=== PATIENT | male | born 1935 | race Caucasian/White ===

== ENCOUNTER 2019-12-07 02:18 | Inpatient (IN) | payer MEDICARE, BC ==
[2019-12-07] MEDS ORDERED: IBUPROFEN 600 MG TAB PO STA (03:02)
[2019-12-07 03:09] LABS: Basophils % (A) 0 %; Eosinophils # (A) 0.1 k/uL (0-0.7); Eosinophils % (A) 1 %; HCT 37.4 % (39.0-53.0); HGB 12.2 gm/dL (13.0-17.5); Lymphocytes # (A) 0.4 k/uL (1.0-4.8); Lymphocytes % (A) 5 %; MCH 31.1 pg (25.0-35.0); MCHC 32.7 g/dL (31.0-37.0); MCV 94.9 fL (80.0-100.0); Mean Platelet Volume 8.6; Monocytes # (A) 0.7 k/uL (0-1.0); Monocytes % (A) 8 %; Neutrophils # (A) 7.4 k/uL (1.3-7.7); Neutrophils % (A) 85 %; Platelet Count 172 k/uL (150-450); RBC 3.94 m/uL (4.30-5.90); RDW 13.9 % (11.5-15.5); WBC 8.7 k/uL (3.8-10.6)
[2019-12-07 03:19] LABS: INR 1.3 (<1.2); Partial Thromboplastin Time 29.2 sec (22.0-30.0); Prothrombin Time 12.6 sec (9.0-12.0)
--- NOTE | 2019-12-07 03:30 | XR ---
EXAMINATION TYPE: XR chest 2V DATE OF EXAM: 12/07/2019 COMPARISON: NONE HISTORY: Weakness TECHNIQUE: 2 views FINDINGS: Heart is moderately enlarged. There is no heart failure. Costophrenic angles are clear. The re are no hilar masses. There are chest leads. IMPRESSION: Moderately severe cardiomegaly. Pericardial effusion should be considered. No heart failu re seen.
[2019-12-07 03:34] LABS: ALT 24 U/L (4-49); AST 42 U/L (17-59); African American GFR (CKD) >90 (>60 ml/min/1.73 sqM); Albumin 3.2 g/dL (3.5-5.0); Alkaline Phosphatase 87 U/L (38-126); Anion Gap 9 mmol/L; Blood Urea Nitrogen 29 mg/dL (9-20); Calcium 8.7 mg/dL (8.4-10.2); Carbon Dioxide 24 mmol/L (22-30); Chloride 98 mmol/L (98-107); Glucose 136 mg/dL (74-99); Non-African American GFR(CKD) 84 (>60 ml/min/1.73 sqM); Potassium 4.2 mmol/L (3.5-5.1); Sodium 131 mmol/L (137-145); Total Bilirubin 1.5 mg/dL (0.2-1.3); Total Protein 6.8 g/dL (6.3-8.2)
[2019-12-07] MEDS ORDERED: ENOXAPARIN 120 MG/0.8 ML SYRINGE SQ STA (05:48)
--- NOTE | 2019-12-07 05:58 | ED ---
Weakness HPI - General Chief complaint: Weakness Stated complaint: weakness Time Seen by Provider: 12/07/19 03:46 Source: EMS Mode of arrival: EMS Limitations: altered mental status - History of Present Illness Initial comments: This patient is an 84-year-old man presenting to have evaluation for generalized weakness and fatigue. The patient normally ambulates at home with the assistance of 2 canes. Patient tried to get up from bed today and then slid down to the floor and was not able to get back up due to both of his legs being weak. Patient denies focal weakness consistent with stroke but states that he is just having generalized fatigue and bilateral leg weakness. Patient is denying other complaints. Patient's son is with him and states that they may need to consider having in-home care or placement. MD Complaint: generalized weakness, lack of energy, difficulty walking -: days(s) Location: LLE, RLE Consistency: constant Improves with: rest Worsens with: exertion - Related Data Allergies Allergy/AdvReac Type Severity Reaction Status Date / Time No Known Allergies Allergy Verified 12/07/19 02:29 Review of Systems ROS Statement: Those systems with pertinent positive or pertinent negative responses have been documented in the HPI. ROS Other: All systems not noted in ROS Statement are negative. Constitutional: Reports: chills, weakness Respiratory: Denies: cough, dyspnea Cardiovascular: Reports: edema. Denies: chest pain, palpitations, orthopnea, syncope Gastrointestinal: Denies: abdominal pain, vomiting, diarrhea Genitourinary: Denies: dysuria Musculoskeletal: Denies: back pain Skin: Denies: rash Neurological: Denies: headache, weakness, numbness Past Medical History Past Medical History: Atrial Fibrillation, Hyperlipidemia, Hypertension History of Any Multi-Drug Resistant Organisms: None Reported Past Surgical History: No Surgical Hx Reported Past Psychological History: No Psychological Hx Reported Smoking Status: Never smoker Past Alcohol Use History: None Reported Past Drug Use History: None Reported General Exam Limitations: no limitations General appearance: alert, in no apparent distress Head exam: Present: atraumatic, normocephalic Eye exam: Present: normal appearance. Absent: scleral icterus, conjunctival injection ENT exam: Present: mucous membranes dry Neck exam: Present: normal inspection. Absent: meningismus Respiratory exam: Present: normal lung sounds bilaterally. Absent: respiratory distress, wheezes, rales, rhonchi, stridor Cardiovascular Exam: Present: regular rate, normal rhythm, normal heart sounds. Absent: systolic murmur, diastolic murmur, rubs, gallop GI/Abdominal exam: Present: soft. Absent: distended, tenderness, guarding, rebound Extremities exam: Present: normal capillary refill, pedal edema, other (The patient does appear to have bilateral leg cellulitis between the ankles and mid tibial areas. There are also some chronic venous stasis changes.) Neurological exam: Present: alert Skin exam: Present: warm, dry, intact, erythema (Bilateral lower extremities). Absent: rash Course Vital Signs 12/07/19 12/07/19 12/07/19 02:25 02:30 03:00 Temperature 101.2 F H Pulse Rate 92 93 89 Respiratory 20 21 24 Rate Blood Pressure 117/63 117/63 117/64 O2 Sat by Pulse 97 97 98 Oximetry 12/07/19 12/07/19 03:30 04:00 Temperature Pulse Rate 85 94 Respiratory 20 22 Rate Blood Pressure 133/67 116/70 O2 Sat by Pulse 99 98 Oximetry - Reevaluation(s) Reevaluation #1: 12/07/19 06:00 This patient is given the sepsis bolus based on the ideal body weight. The bolus is 1700 mL as well as additional fluid at 1:30 mL per hour. EKG Findings - EKG Results: EKG: normal axis, normal QRS EKG shows: atrial fibrillation (Rate 96 bpm) - Blocks, [place], Hypertrophy, ST Abn: Repolarization changes or abnormalities: nonspecific abnormality, ST segment, and/or T wave Medical Decision Making - Medical Decision Making Patient is an 84-year-old man here for generalized weakness and fatigue getting worse over the past 2-3 days. Patient is found to have a fever here but was unaware of this at home. The exam does appear to show bilateral lower extremity cellulitis. In addition the workup reveals elevated troponin I. - Lab Data Result diagrams: 12/07/19 02:59 12/07/19 02:59 Lab Results 12/07/19 12/07/19 12/07/19 Range/Units 02:59 02:59 02:59 WBC 8.7 (3.8-10.6) k/uL RBC 3.94 L (4.30-5.90) m/uL Hgb 12.2 L (13.0-17.5) gm/dL Hct 37.4 L (39.0-53.0) % MCV 94.9 (80.0-100.0) fL MCH 31.1 (25.0-35.0) pg MCHC 32.7 (31.0-37.0) g/dL RDW 13.9 (11.5-15.5) % Plt Count 172 (150-450) k/uL Neutrophils % 85 % Lymphocytes % 5 % Monocytes % 8 % Eosinophils % 1 % Basophils % 0 % Neutrophils # 7.4 (1.3-7.7) k/uL Lymphocytes # 0.4 L (1.0-4.8) k/uL Monocytes # 0.7 (0-1.0) k/uL Eosinophils # 0.1 (0-0.7) k/uL Basophils # 0.0 (0-0.2) k/uL PT 12.6 H (9.0-12.0) sec INR 1.3 H (<1.2) APTT 29.2 (22.0-30.0) sec Sodium 131 L (137-145) mmol/L Potassium 4.2 (3.5-5.1) mmol/L Chloride 98 (98-107) mmol/L Carbon Dioxide 24 (22-30) mmol/L Anion Gap 9 mmol/L BUN 29 H (9-20) mg/dL Creatinine 0.75 (0.66-1.25) mg/dL Est GFR (CKD-EPI)AfAm >90 (>60 ml/min/1.73 sqM) Est GFR (CKD-EPI)NonAf 84 (>60 ml/min/1.73 sqM) Glucose 136 H (74-99) mg/dL Plasma Lactic Acid Nick (0.7-2.0) mmol/L Calcium 8.7 (8.4-10.2) mg/dL Total Bilirubin 1.5 H (0.2-1.3) mg/dL AST 42 (17-59) U/L ALT 24 (4-49) U/L Alkaline Phosphatase 87 (38-126) U/L Troponin I (0.000-0.034) ng/mL Total Protein 6.8 (6.3-8.2) g/dL Albumin 3.2 L (3.5-5.0) g/dL 12/07/19 12/07/19 Range/Units 02:59 02:59 WBC (3.8-10.6) k/uL RBC (4.30-5.90) m/uL Hgb (13.0-17.5) gm/dL Hct (39.0-53.0) % MCV (80.0-100.0) fL MCH (25.0-35.0) pg MCHC (31.0-37.0) g/dL RDW (11.5-15.5) % Plt Count (150-450) k/uL Neutrophils % % Lymphocytes % % Monocytes % % Eosinophils % % Basophils % % Neutrophils # (1.3-7.7) k/uL Lymphocytes # (1.0-4.8) k/uL Monocytes # (0-1.0) k/uL Eosinophils # (0-0.7) k/uL Basophils # (0-0.2) k/uL PT (9.0-12.0) sec INR (<1.2) APTT (22.0-30.0) sec Sodium (137-145) mmol/L Potassium (3.5-5.1) mmol/L Chloride (98-107) mmol/L Carbon Dioxide (22-30) mmol/L Anion Gap mmol/L BUN (9-20) mg/dL Creatinine (0.66-1.25) mg/dL Est GFR (CKD-EPI)AfAm (>60 ml/min/1.73 sqM) Est GFR (CKD-EPI)NonAf (>60 ml/min/1.73 sqM) Glucose (74-99) mg/dL Plasma Lactic Acid Nick 1.4 (0.7-2.0) mmol/L Calcium (8.4-10.2) mg/dL Total Bilirubin (0.2-1.3) mg/dL AST (17-59) U/L ALT (4-49) U/L Alkaline Phosphatase (38-126) U/L Troponin I 0.377 H* (0.000-0.034) ng/mL Total Protein (6.3-8.2) g/dL Albumin (3.5-5.0) g/dL Disposition Clinical Impression: Cellulitis, Sepsis, Elevated troponin I level Disposition: ADMITTED IP TO THIS HOSP Condition: Poor
[2019-12-07] MEDS ORDERED: SODIUM CHLORIDE 0.9% 1,700 ML IV ONE (05:59)
[2019-12-07] MEDS ORDERED: SODIUM CHLORIDE 0.9% 1,000 ML IV STA (05:59)
[2019-12-07 06:45] LABS: Bacteria,Urine Moderate /hpf; Mucus,Urine Rare /hpf; RBC,Urine 18 /hpf (0-5); Squamous Epithelial Cell,Urine <1 /hpf (0-4); WBC,Urine >182 /hpf (0-5)
[2019-12-07 06:50] LABS: Appearance,Urine Cloudy (Clear); Bilirubin,Urine Negative (Negative); Blood,Urine Moderate (Negative); Color,Urine Amber; Glucose,Urine (UA) Negative (Negative); Ketones,Urine Negative (Negative); Leukocyte Esterase,Urine Large (Negative); Nitrite,Urine Negative (Negative); Protein,Urine 1+ (Negative); Specific Gravity,Urine 1.005 (1.001-1.035); Urobilinogen,Urine <2.0 mg/dL (<2.0)
[2019-12-07 07:07] LABS: Glucose,Whole Blood 131 mg/dL (75-99)
[2019-12-07] MEDS ORDERED: APIXABAN 5 MG TAB PO SCH (09:23)
[2019-12-07] MEDS: METOPROLOL TARTRATE 50 MG TAB PO SCH ×2 (09:32→21:04)
--- NOTE | 2019-12-07 11:51 | P.CRDCN ---
History of Present Illness Consult date: 12/07/19 History of present illness: This is a 84-year-old gentleman with history of hyperlipidemia, hypertension and also chronic atrial fibrillation but not on anticoagulation therapy, was brought to the hospital following a fall at home. Patient felt very weak and could not get up. He denied any chest pain, shortness breath or dizziness. He was found to be atypical fibrillation with controlled ventricular response. His troponins are mildly elevated. His BUN/creatinine is within normal limits. He is admitted here for further evaluation and treatment. He denies any chest pain. His EKGs did not reveal any acute changes. At this point patient is advised to go on anticoagulation therapy. Explained to patient and family about the risk of bleeding. We'll get an echocardiogram to assess LV function. We'll continue rest of the management. Further recommended lipid upon the typical course Past Medical History Past Medical History: Atrial Fibrillation, Hyperlipidemia, Hypertension History of Any Multi-Drug Resistant Organisms: None Reported Past Surgical History: Hernia Repair Past Anesthesia/Blood Transfusion Reactions: No Reported Reaction Past Psychological History: No Psychological Hx Reported Smoking Status: Former smoker Past Alcohol Use History: None Reported Past Drug Use History: None Reported Medications and Allergies Home Medications Medication Instructions Recorded Confirmed Type Atorvastatin [Lipitor] 20 mg PO HS 12/07/19 12/07/19 History Cephalexin [Keflex] 500 mg PO TID 12/07/19 12/07/19 History Doxazosin [Cardura] 4 mg PO DAILY 12/07/19 12/07/19 History Furosemide [Lasix] 40 mg PO DAILY 12/07/19 12/07/19 History Metoprolol Tartrate [Lopressor] 50 mg PO BID 12/07/19 12/07/19 History Verapamil [Isoptin] 80 mg PO QID 12/07/19 12/07/19 History Allergies Allergy/AdvReac Type Severity Reaction Status Date / Time No Known Allergies Allergy Verified 12/07/19 08:22 Physical Exam Vitals: Vital Signs Temp Pulse Pulse Resp BP BP Pulse Ox 12/07/19 09:00 76 129/52 12/07/19 08:00 97.9 F 76 20 129/52 98 12/07/19 07:15 97.8 F 75 20 126/52 94 L 12/07/19 06:30 98.2 F 94 22 114/62 97 12/07/19 06:00 81 21 114/62 97 12/07/19 05:30 90 22 114/62 98 12/07/19 05:00 84 22 124/56 98 12/07/19 04:30 91 24 131/62 97 12/07/19 04:00 94 22 116/70 98 12/07/19 03:30 85 20 133/67 99 12/07/19 03:00 89 24 117/64 98 12/07/19 02:30 93 21 117/63 97 12/07/19 02:25 101.2 F H 92 20 117/63 97 Intake and Output 12/06/19 12/07/19 12/07/19 22:59 06:59 14:59 Intake Total 2080 Output Total 125 Balance 1954 Intake: IV 1960 Sodium Chloride 0.9% 1, 260 000 ml @ 130 mls/hr IV . Q7H42M STA Rx#:[id number] Sodium Chloride 0.9% 1, 1700 700 ml @ 999 mls/hr IV . Q1H43M ONE Rx#:[id number] Oral 120 Output: Urine 125 Other: Voiding Method Urinal # Voids 1 Weight 140.614 kg 140.614 kg GENERAL EXAM: Patient is alert and oriented and doesn't appear to be in any acute distress HEENT: Normocephalic. Normal reaction of pupils, equal size, normal range of extraocular motion. No erythema or exudates in the throat. NECK: No masses, no nuchal rigidity. CHEST: No chest wall deformity. LUNGS: Equal air entry with no crackles or wheeze. HEART: S1 and S2 normal with no audible mumurs or gallops. Regular rhythm, femorals equal on both sides.. ABDOMEN: No hepatosplenomegaly, normal bowel sounds, no guarding or rigidity. SKIN: No rashes CENTRAL NERVOUS SYSTEM: No focal deficits. EXTREMITIES: Mild edema of the legs Results 12/07/19 02:59 12/07/19 02:59 Cardiac Enzymes 12/07/19 12/07/19 12/07/19 Range/Units 02:59 02:59 09:39 AST 42 (17-59) U/L Troponin I 0.377 H* 0.252 H* (0.000-0.034) ng/mL Coagulation 12/07/19 Range/Units 02:59 PT 12.6 H (9.0-12.0) sec APTT 29.2 (22.0-30.0) sec CBC 12/07/19 Range/Units 02:59 WBC 8.7 (3.8-10.6) k/uL RBC 3.94 L (4.30-5.90) m/uL Hgb 12.2 L (13.0-17.5) gm/dL Hct 37.4 L (39.0-53.0) % Plt Count 172 (150-450) k/uL Comprehensive Metabolic Panel 12/07/19 Range/Units 02:59 Sodium 131 L (137-145) mmol/L Potassium 4.2 (3.5-5.1) mmol/L Chloride 98 (98-107) mmol/L Carbon Dioxide 24 (22-30) mmol/L BUN 29 H (9-20) mg/dL Creatinine 0.75 (0.66-1.25) mg/dL Glucose 136 H (74-99) mg/dL Calcium 8.7 (8.4-10.2) mg/dL AST 42 (17-59) U/L ALT 24 (4-49) U/L Alkaline Phosphatase 87 (38-126) U/L Total Protein 6.8 (6.3-8.2) g/dL Albumin 3.2 L (3.5-5.0) g/dL Current Medications Generic Name Dose Route Start Last Admin Trade Name Freq PRN Reason Stop Dose Admin Apixaban 5 mg 12/07/19 19:00 Eliquis PO BID JAMES Atorvastatin Calcium 20 mg 12/07/19 21:00 Lipitor PO HS JAMES Ceftriaxone Sodium 1 gm/ 50 mls @ 100 mls/hr 12/07/19 21:00 Sodium Chloride IVPB Q24H JAMES Sodium Chloride 1,000 mls @ 130 mls/hr 12/07/19 05:59 12/07/19 06:26 Saline 0.9% IV 12/07/19 13:40 130 mls/hr .Q7H42M STA Administration Metoprolol Tartrate 50 mg 12/07/19 09:00 12/07/19 09:32 Lopressor PO 50 mg BID JAMES Administration Intake and Output 12/06/19 12/07/19 12/07/19 22:59 06:59 14:59 Intake Total 2079 Output Total 125 Balance 1954 Intake: IV 1960 Sodium Chloride 0.9% 1, 260 000 ml @ 130 mls/hr IV . Q7H42M STA Rx#:[id number] Sodium Chloride 0.9% 1, 1700 700 ml @ 999 mls/hr IV . Q1H43M ONE Rx#:[id number] Oral 120 Output: Urine 125 Other: Voiding Method Urinal # Voids 1 Weight 140.614 kg 140.614 kg Patient Weight 12/08/19 06:59 Weight 140.614 kg 12/07/19 02:59 12/07/19 02:59 EKG Interpretations (text) Atrial fibrillation with controlled ventricular response Assessment and Plan (1) Atrial fibrillation Current Visit: Yes Status: Acute Code(s): I48.91 - UNSPECIFIED ATRIAL FIBRILLATION SNOMED Code(s): 33135661 (2) Cellulitis Current Visit: Yes Status: Acute Code(s): L03.90 - CELLULITIS, UNSPECIFIED SNOMED Code(s): 555482577 (3) Elevated troponin I level Current Visit: Yes Status: Acute Code(s): R79.89 - OTHER SPECIFIED ABNORMAL FINDINGS OF BLOOD CHEMISTRY SNOMED Code(s): 434727453 (4) Sepsis Current Visit: Yes Status: Acute Code(s): A41.9 - SEPSIS, UNSPECIFIED ORGANISM SNOMED Code(s): 81298510 Plan: We'll continue the beta promise. He advised to go on anticoagulation therapy. Echocardiogram. Troponin elevation is not consistent with acute myocardial injury pattern. Further recommendations depend upon the glucose
[2019-12-07] MEDS: SODIUM CHLORIDE 0.9% 1,000 ML IV SCH (14:11)
--- NOTE | 2019-12-07 18:40 | P.HPIM ---
History of Present Illness H&P Date: 12/07/19 Chief Complaint: generalized weakness patient is a 84-year-old male with a known history of morbid obesity, chronic atrial fibrillation, hypertension, hyperlipidemia and previous history of smoking presents to ER with complaints of generalized weakness and fatigue. Patient tried to get out of bed then slid to the floor and landed on his buttocks and was unable to get back due to his both legs being too weak. Denied any head trauma or hitting head on the floor. Denied any focal weakness. Patient does have chronic bilateral lower activity weakness and then a stasis c hanges and swelling. Patient was brought to the hospital accompanying with family. Patient usually walks with a walker. EKG showed atrial fibrillation with controlled heart rate chest x-ray showed moderately severe cardiomegaly. Pericardial effusion should be considered. No heart failure seen. Laboratory data showed WBC, hemoglobin 12.2, platelets 172 and MCV 94.9 Lymphocytes 0.4 INR 1.3 Sodium 131, potassium 4.2, chloride 98, bicarb is 24, BUN/creatinine 29 and creatinine 0.75 blood sugar 136 lactic acid1.4, bilirubin 1.5 total Troponin 0.377, 0.252, 0.173 Albumin 3.2 T-max was 101.2 on admission Urinalysis showed cloudy, 1+ protein, large leukocyte esterase, diabetes is 182 and many WBC clumps, squamous epithelial cells less than 1 Review of Systems Constitutional: Patient denies any fever or chills . generalized weakness and fatigue. Abdomen: Patient denied nausea vomiting and diarrhea and abdominal pain. Cardiovascular: Patient denies any chest pain or short of breath no palpitations. Respiratory: patient denied any cough is from production. No shortness of breath Neurologic: Patient denied any numbness or tingling headache. Musculoskeletal: Patient denies any complaints of joint swelling or deformity. Skin: Negative Psychiatric: Negative Endocrine: No heat or cold intolerance. No recent weight gain. Genitourinary: No dysuria or hematuria. All other 14 point ROS negative except the above Past Medical History Past Medical History: Atrial Fibrillation, Hyperlipidemia, Hypertension History of Any Multi-Drug Resistant Organisms: None Reported Past Surgical History: Hernia Repair Past Anesthesia/Blood Transfusion Reactions: No Reported Reaction Past Psychological History: No Psychological Hx Reported Smoking Status: Former smoker Past Alcohol Use History: None Reported Past Drug Use History: None Reported Medications and Allergies Home Medications Medication Instructions Recorded Confirmed Type Atorvastatin [Lipitor] 20 mg PO HS 12/07/19 12/07/19 History Cephalexin [Keflex] 500 mg PO TID 12/07/19 12/07/19 History Doxazosin [Cardura] 4 mg PO DAILY 12/07/19 12/07/19 History Furosemide [Lasix] 40 mg PO DAILY 12/07/19 12/07/19 History Metoprolol Tartrate [Lopressor] 50 mg PO BID 12/07/19 12/07/19 History Verapamil [Isoptin] 80 mg PO QID 12/07/19 12/07/19 History Allergies Allergy/AdvReac Type Severity Reaction Status Date / Time No Known Allergies Allergy Verified 12/07/19 08:22 Physical Exam Vitals: Vital Signs Temp Pulse Pulse Resp BP BP Pulse Ox 12/07/19 09:00 76 129/52 12/07/19 08:00 97.9 F 76 20 129/52 98 12/07/19 07:15 97.8 F 75 20 126/52 94 L 12/07/19 06:30 98.2 F 94 22 114/62 97 12/07/19 06:00 81 21 114/62 97 12/07/19 05:30 90 22 114/62 98 12/07/19 05:00 84 22 124/56 98 12/07/19 04:30 91 24 131/62 97 12/07/19 04:00 94 22 116/70 98 12/07/19 03:30 85 20 133/67 99 12/07/19 03:00 89 24 117/64 98 12/07/19 02:30 93 21 117/63 97 12/07/19 02:25 101.2 F H 92 20 117/63 97 Intake and Output 12/06/19 12/07/19 12/07/19 22:59 06:59 14:59 Intake Total 2080 Output Total 125 Balance 1954 Intake: IV 1960 Sodium Chloride 0.9% 1, 260 000 ml @ 130 mls/hr IV . Q7H42M STA Rx#:[id number] Sodium Chloride 0.9% 1, 1700 700 ml @ 999 mls/hr IV . Q1H43M ONE Rx#:[id number] Oral 120 Output: Urine 125 Other: Voiding Method Urinal # Voids 1 Weight 140.614 kg 140.614 kg PHYSICAL EXAMINATION: Patient is lying in the bed comfortably, no acute distress, awake alert and oriented.morbidly obese. HEENT: Normocephalic. Neck is supple. Pupils reactive. Nostrils clear. Oral cavity is moist. Ears reveal no drainage. Neck reveals no JVD, carotid bruits, or thyromegaly. CHEST EXAMINATION: Trachea is central. Symmetrical expansion.bibasilar diminished air entry. Lung gutierres clear to auscultation and percussion. CARDIAC: Normal S1, S2 with no gallops. No murmurs ABDOMEN: Soft. Bowel sounds normal. No organomegaly. No abdominal bruits. Extremities: bilateral lower activity swelling with chronic venous stasis changes and redness noted.. No clubbing or cyanosis Neurologically awake, alert, oriented x3 with well-coordinated movements. No focal deficits noted Skin: No rash or skin lesions. Psychiatric: Coperative. Nonsuicidal Musculoskeletal: No joint swelling or deformity. Normal range of motion. Results CBC & Chem 7: 12/07/19 02:59 12/07/19 02:59 Labs: Abnormal Lab Results - Last 24 Hours (Table) 12/07/19 12/07/19 12/07/19 Range/Units 02:59 02:59 02:59 RBC 3.94 L (4.30-5.90) m/uL Hgb 12.2 L (13.0-17.5) gm/dL Hct 37.4 L (39.0-53.0) % Lymphocytes # 0.4 L (1.0-4.8) k/uL PT 12.6 H (9.0-12.0) sec INR 1.3 H (<1.2) Sodium 131 L (137-145) mmol/L BUN 29 H (9-20) mg/dL Glucose 136 H (74-99) mg/dL POC Glucose (mg/dL) (75-99) mg/dL Total Bilirubin 1.5 H (0.2-1.3) mg/dL Troponin I (0.000-0.034) ng/mL Albumin 3.2 L (3.5-5.0) g/dL Urine Protein (Negative) Urine RBC (0-5) /hpf Urine WBC (0-5) /hpf Urine WBC Clumps (None) /hpf Urine Bacteria (None) /hpf Urine Mucus (None) /hpf 12/07/19 12/07/19 12/07/19 Range/Units 02:59 04:08 07:06 RBC (4.30-5.90) m/uL Hgb (13.0-17.5) gm/dL Hct (39.0-53.0) % Lymphocytes # (1.0-4.8) k/uL PT (9.0-12.0) sec INR (<1.2) Sodium (137-145) mmol/L BUN (9-20) mg/dL Glucose (74-99) mg/dL POC Glucose (mg/dL) 131 H (75-99) mg/dL Total Bilirubin (0.2-1.3) mg/dL Troponin I 0.377 H* (0.000-0.034) ng/mL Albumin (3.5-5.0) g/dL Urine Protein 1+ H (Negative) Urine RBC 18 H (0-5) /hpf Urine WBC >182 H (0-5) /hpf Urine WBC Clumps Many H (None) /hpf Urine Bacteria Moderate H (None) /hpf Urine Mucus Rare H (None) /hpf 12/07/19 Range/Units 09:39 RBC (4.30-5.90) m/uL Hgb (13.0-17.5) gm/dL Hct (39.0-53.0) % Lymphocytes # (1.0-4.8) k/uL PT (9.0-12.0) sec INR (<1.2) Sodium (137-145) mmol/L BUN (9-20) mg/dL Glucose (74-99) mg/dL POC Glucose (mg/dL) (75-99) mg/dL Total Bilirubin (0.2-1.3) mg/dL Troponin I 0.252 H* (0.000-0.034) ng/mL Albumin (3.5-5.0) g/dL Urine Protein (Negative) Urine RBC (0-5) /hpf Urine WBC (0-5) /hpf Urine WBC Clumps (None) /hpf Urine Bacteria (None) /hpf Urine Mucus (None) /hpf Microbiology - Last 24 Hours (Table) 12/07/19 04:08 Urine Culture - Preliminary Urine,Clean Catch Thrombosis Risk Factor Assmnt - DVT/VTE Prophylaxis DVT/VTE Prophylaxis: Pharmacologic Prophylaxis ordered - Choose All That Apply Any of the Below Risk Factors Present?: Yes Each Factor Represents 1 point: Medical pt on bed rest, Obesity (BMI >25), Sepsis (< 1month), Swollen legs (current) Other Risk Factors: Yes Each Risk Factor Represents 3 Points: Age 75 years or older Other congenital or acquired thrombophilia - If yes, enter type in comment: No Thrombosis Risk Factor Assessment Total Risk Factor Score: 7 Thrombosis Risk Factor Assessment Level: High Risk Assessment and Plan Assessment: generalized weakness and fatigue. Chronic atrial fibrillation started on anticoagulation Elevated troponin level possible type II OK due to demand mismatch Hypovolemic hyponatremia Acute urinary tract infection Bilateral lower activity swelling and venous stasis changes. sepsis secondary to UTI and possible lower activity cellulitis. Morbid obesity BMI 40.9 hypertension Hyperlipidemia Previous history of smoking DVT prophylaxis patient is already on Eliquis Plan: Patient be continued on antibiotics the form of ceftriaxone and ID was consulted. Follow-up urine culture report. Patient was started on Eliquis. Heart rate is controlled now. Congestive be in atrial fibrillation. Cardiology is following. 2-D echocardiogram was ordered. No other intervention was recommended at this time. Continue with telemetry monitoring.troponin is trending down. Further recommendations based on the clinical course. Prognosis is guarded at this time. continued on gentle hydration and monitor fluid status closely. PTOT consult and possible rehab transfer. Time with Patient: Greater than 30
[2019-12-07] MEDS: APIXABAN 5 MG TAB PO SCH (18:55)
[2019-12-07] MEDS: ATORVASTATIN 20 MG TAB PO SCH (21:05)
--- NOTE | 2019-12-08 00:12 | P.CONS ---
History of Present Illness - Reason for Consult Consult date: 12/07/19 Sepsis Requesting physician: Arlene Hargrove - Chief Complaint Weakness few days - History of Present Illness Patient is 84-year-old male who has been brought into the ER for evaluation of generalized weakness apparently the patient is mobile at home with use of 2 canes this morning when he got a bad patient slid and fell to the floor landing on his gluteal area patient was unable to get back on his feet with generalized weakness and the symptoms the patient has been brought into the ER on arrival to the ER the patient was noticed to have a fever of 101F patient did have a normal white count did have slight lymphopenia patient did have a positive UA chest x-ray was negative for any acute infiltrate rather there was evidence of cardiomegaly and did have elevated cardiac enzyme levels of has been normal patient has been treated with the hospital he was started on Rocephin and facet disease was consulted for further management of antibiotic therapy patient apparently to have chronic lower extremity swelling and has been recently treated in the outpatient setting with the oral Keflex for possible cellulitis However the patient denies any pain to his leg he did have some swelling and minimal redness though currently no blister or any drainage patient denies having any chest pain or shortness of breath or cough no nausea noted no bone pain or any diarrhea , patient is currently in the ICU as the stepdown and is not on any pressor support Review of Systems Positive point has been mentioned in the HPI rest of the systems are negative Past Medical History Past Medical History: Atrial Fibrillation, Hyperlipidemia, Hypertension History of Any Multi-Drug Resistant Organisms: None Reported Past Surgical History: Hernia Repair Past Anesthesia/Blood Transfusion Reactions: No Reported Reaction Past Psychological History: No Psychological Hx Reported Smoking Status: Former smoker Past Alcohol Use History: None Reported Past Drug Use History: None Reported Medications and Allergies Home Medications Medication Instructions Recorded Confirmed Type Atorvastatin [Lipitor] 20 mg PO HS 12/07/19 12/07/19 History Cephalexin [Keflex] 500 mg PO TID 12/07/19 12/07/19 History Doxazosin [Cardura] 4 mg PO DAILY 12/07/19 12/07/19 History Furosemide [Lasix] 40 mg PO DAILY 12/07/19 12/07/19 History Metoprolol Tartrate [Lopressor] 50 mg PO BID 12/07/19 12/07/19 History Verapamil [Isoptin] 80 mg PO QID 12/07/19 12/07/19 History Allergies Allergy/AdvReac Type Severity Reaction Status Date / Time No Known Allergies Allergy Verified 12/07/19 08:22 Physical Exam Vitals: Vital Signs Temp Pulse Pulse Resp BP BP Pulse Ox 12/07/19 12:00 97.8 F 73 21 134/72 98 12/07/19 09:00 76 129/52 12/07/19 08:00 97.9 F 76 20 129/52 98 12/07/19 07:15 97.8 F 75 20 126/52 94 L 12/07/19 06:30 98.2 F 94 22 114/62 97 12/07/19 06:00 81 21 114/62 97 12/07/19 05:30 90 22 114/62 98 12/07/19 05:00 84 22 124/56 98 12/07/19 04:30 91 24 131/62 97 12/07/19 04:00 94 22 116/70 98 12/07/19 03:30 85 20 133/67 99 12/07/19 03:00 89 24 117/64 98 12/07/19 02:30 93 21 117/63 97 12/07/19 02:25 101.2 F H 92 20 117/63 97 Intake and Output 12/07/19 12/07/19 12/07/19 06:59 14:59 22:59 Intake Total 0 Output Total 125 Balance 1954 Intake: IV 1960 Sodium Chloride 0.9% 1, 260 000 ml @ 130 mls/hr IV . Q7H42M STA Rx#:[id number] Sodium Chloride 0.9% 1, 1700 700 ml @ 999 mls/hr IV . Q1H43M ONE Rx#:[id number] Oral 120 Output: Urine 125 Other: Voiding Method Urinal # Voids 1 Weight 140.614 kg 140.614 kg GENERAL DESCRIPTION: An elderly male lying in bed, no distress. No tachypnea or accessory muscle of respiration use. HEENT: Shows Pallor , no scleral icterus. Oral mucous membrane is dry. No pharyngeal erythema or thrush NECK: Trachea central, no thyromegaly. LUNGS: Unlabored breathing. Decreased breath sound at the base No wheeze or crackle. HEART: S1, S2, regular rate and rhythm. No loud murmur ABDOMEN: Soft, no tenderness , guarding or rigidity, no organomegaly EXTREMITIES: Diffuse swelling on lower simply no significant redness blisters or any drainage SKIN: No rash, no masses palpable. NEUROLOGICAL: The patient is awake, alert, oriented x3, mood and affect normal. Results CBC & Chem 7: 12/07/19 02:59 12/07/19 02:59 Labs: Abnormal Lab Results - Last 24 Hours (Table) 12/07/19 12/07/19 12/07/19 Range/Units 02:30 02:59 02:59 RBC 3.94 L (4.30-5.90) m/uL Hgb 12.2 L (13.0-17.5) gm/dL Hct 37.4 L (39.0-53.0) % Lymphocytes # 0.4 L (1.0-4.8) k/uL PT 12.6 H (9.0-12.0) sec INR 1.3 H (<1.2) Sodium (137-145) mmol/L BUN (9-20) mg/dL Glucose (74-99) mg/dL POC Glucose (mg/dL) (75-99) mg/dL Total Bilirubin (0.2-1.3) mg/dL Troponin I (0.000-0.034) ng/mL C-Reactive Protein 156.4 H (<10.0) mg/L Albumin (3.5-5.0) g/dL Urine Protein (Negative) Urine RBC (0-5) /hpf Urine WBC (0-5) /hpf Urine WBC Clumps (None) /hpf Urine Bacteria (None) /hpf Urine Mucus (None) /hpf 12/07/19 12/07/19 12/07/19 Range/Units 02:59 02:59 04:08 RBC (4.30-5.90) m/uL Hgb (13.0-17.5) gm/dL Hct (39.0-53.0) % Lymphocytes # (1.0-4.8) k/uL PT (9.0-12.0) sec INR (<1.2) Sodium 131 L (137-145) mmol/L BUN 29 H (9-20) mg/dL Glucose 136 H (74-99) mg/dL POC Glucose (mg/dL) (75-99) mg/dL Total Bilirubin 1.5 H (0.2-1.3) mg/dL Troponin I 0.377 H* (0.000-0.034) ng/mL C-Reactive Protein (<10.0) mg/L Albumin 3.2 L (3.5-5.0) g/dL Urine Protein 1+ H (Negative) Urine RBC 18 H (0-5) /hpf Urine WBC >182 H (0-5) /hpf Urine WBC Clumps Many H (None) /hpf Urine Bacteria Moderate H (None) /hpf Urine Mucus Rare H (None) /hpf 12/07/19 12/07/19 Range/Units 07:06 09:39 RBC (4.30-5.90) m/uL Hgb (13.0-17.5) gm/dL Hct (39.0-53.0) % Lymphocytes # (1.0-4.8) k/uL PT (9.0-12.0) sec INR (<1.2) Sodium (137-145) mmol/L BUN (9-20) mg/dL Glucose (74-99) mg/dL POC Glucose (mg/dL) 131 H (75-99) mg/dL Total Bilirubin (0.2-1.3) mg/dL Troponin I 0.252 H* (0.000-0.034) ng/mL C-Reactive Protein (<10.0) mg/L Albumin (3.5-5.0) g/dL Urine Protein (Negative) Urine RBC (0-5) /hpf Urine WBC (0-5) /hpf Urine WBC Clumps (None) /hpf Urine Bacteria (None) /hpf Urine Mucus (None) /hpf Microbiology - Last 24 Hours (Table) 12/07/19 04:08 Urine Culture - Preliminary Urine,Clean Catch Assessment and Plan Assessment: 1- patient presents hospital with weakness and fall in this patient who did have features of sepsis with fever and tachycardia source is likely urinary tract infection likely from the enteric gram-negative pathogen underlying dorsum cellulitis less likely but not entirely excluded (1) Urinary tract infection Current Visit: Yes Status: Acute Code(s): N39.0 - URINARY TRACT INFECTION, SITE NOT SPECIFIED SNOMED Code(s): 89735903 (2) Sepsis Current Visit: Yes Status: Acute Code(s): A41.9 - SEPSIS, UNSPECIFIED ORGANISM SNOMED Code(s): 39385209 Plan: 1- Rocephin 1 g daily while waiting for urine culture finalized 2-Roman wrap both legs from just above the toe to below the knee We will follow on clinical condition and cultures to further adjust medication if needed Thank you for this consultation will follow this patient with you Time with Patient: Greater than 30
[2019-12-08 05:10] LABS: Basophils % (A) 0 %; Eosinophils % (A) 0 %; HCT 35.4 % (39.0-53.0); Hypochromasia Slight; Lymphocytes # (A) 0.6 k/uL (1.0-4.8); Lymphocytes % (A) 10 %; MCH 29.7 pg (25.0-35.0); MCHC 31.1 g/dL (31.0-37.0); MCV 95.7 fL (80.0-100.0); Mean Platelet Volume 8.4; Monocytes # (A) 0.5 k/uL (0-1.0); Monocytes % (A) 9 %; Neutrophils # (A) 4.7 k/uL (1.3-7.7); Neutrophils % (A) 77 %; Platelet Count 146 k/uL (150-450); RDW 13.9 % (11.5-15.5); WBC 6.2 k/uL (3.8-10.6)
[2019-12-08 05:17] LABS: African American GFR (CKD) >90 (>60 ml/min/1.73 sqM); Anion Gap 6 mmol/L; Blood Urea Nitrogen 23 mg/dL (9-20); Calcium 8.3 mg/dL (8.4-10.2); Carbon Dioxide 23 mmol/L (22-30); Chloride 99 mmol/L (98-107); Glucose 112 mg/dL (74-99); Non-African American GFR(CKD) 89 (>60 ml/min/1.73 sqM); Potassium 4.4 mmol/L (3.5-5.1); Sodium 128 mmol/L (137-145)
[2019-12-08] MEDS: SODIUM CHLORIDE 0.9% 1,000 ML IV SCH ×2 (07:07→18:09)
--- NOTE | 2019-12-08 08:47 | XR ---
EXAMINATION TYPE: XR chest 1V portable DATE OF EXAM: 12/08/2019 COMPARISON: 12/07/2019 HISTORY: Weakness TECHNIQUE: Single frontal view of the chest is obtained. FINDINGS: Left hemidiaphragm is elevated with basilar consolidation and small effusion. Subsegmental changes on the right are noted in the heart is markedly enlarged. No pneumothorax. Biapical pleural thickening. IMPRESSION: 1. Elevated left hemidiaphragm with bilateral lower lobe infiltrate and tiny effusion. Correlate for interstitial congestion.
[2019-12-08] MEDS: APIXABAN 5 MG TAB PO SCH ×2 (09:27→20:35)
[2019-12-08] MEDS: METOPROLOL TARTRATE 50 MG TAB PO SCH ×2 (09:27→20:35)
--- NOTE | 2019-12-08 12:00 | ECHOF ---
Referral Reason:pericardial effusion MEASUREMENTS -------- HEIGHT: 180.3 cm WEIGHT: 143.8 kg BP: 104/33 RVIDd: 4.5 cm (< 3.3) IVSd: 1.5 cm (0.6 - 1.1) LVIDd: 4.9 cm (3.9 - 5.3) LVPWd: 1.7 cm (0.6 - 1.1) IVSs: 1.5 cm LVIDs: 3.3 cm LVPWs: 1.6 cm Ao Diam: 3.4 cm (2.0 - 3.7) AV Cusp: 2.7 cm (1.5 - 2.6) LA Diam: 4.2 cm (2.7 - 3.8) MV EXCURSION: 17.180 mm (> 18.000) MV EF SLOPE: 122 mm/s (70 - 150) EPSS: 1.2 cm MV E Vernon: 0.94 m/s MV DecT: 225 ms MV A Vernon: 0.33 m/s MV E/A Ratio: 2.84 RAP: 15.00 mmHg RVSP: 53.24 mmHg FINDINGS -------- Undetermined rhythm. This was a technically difficult study with suboptimal views. The left ventricular size is normal. There is moderate concentric left ventricular hypertrophy. O verall left ventricular systolic function is low-normal with, an EF between 50 - 55 %. The right ventricle is severely enlarged. The left atrial size is normal. The right atrial size is normal. Unable to visualize septum. The aortic valve is trileaflet and appears structurally normal. The mitral valve is normal. Mild mitral regurgitation is present. The tricuspid valve appears structurally normal. Mild tricuspid regurgitation present. There is m oderate pulmonary hypertension. The right ventricular systolic pressure, as measured by Doppler, is 53.24mmHg. There is no pulmonic regurgitation present. The aortic root size is normal. The inferior vena cava is mildly dilated. Echo free space represents a pericardial fat pad. 5.0mg of Lumason was utilized for enhancement of images CONCLUSIONS -------- 1. Undetermined rhythm. 2. This was a technically difficult study with suboptimal views. 3. The left ventricular size is normal. 4. There is moderate concentric left ventricular hypertrophy. 5. Overall left ventricular systolic function is low-normal with, an EF between 50 - 55 %. 6. The right ventricle is severely enlarged. 7. The left atrial size is normal. 8. The right atrial size is normal. 9. Unable to visualize septum. 10. 5.0mg of Lumason was utilized for enhancement of images 11. The aortic valve is trileaflet and appears structurally normal. 12. The mitral valve is normal. 13. Mild mitral regurgitation is present. 14. The tricuspid valve appears structurally normal. 15. Mild tricuspid regurgitation present. 16. There is moderate pulmonary hypertension. 17. The right ventricular systolic pressure, as measured by Doppler, is 53.24mmHg. 18. There is no pulmonic regurgitation present. 19. The aortic root size is normal. 20. The inferior vena cava is mildly dilated. 21. Echo free space represents a pericardial fat pad. PENOLOGY TEACHER: Melinda Trinidad RDCS
--- NOTE | 2019-12-08 13:26 | PN ---
PROGRESS NOTE Thomas is an 84-year-old gentleman who is admitted to hospital for permanent atrial fibrillation with poorly controlled ventricular rate, cellulitis, sepsis and elevated troponin. We are involved in his care because of the atrial fibrillation with rapid ventricular rate. This morning, heart rate is well controlled. He is on metoprolol 50 b.i.d. and Eliquis 5 b.i.d. EXAM: Heart rate is 87 beats per minute. Blood pressure is 119/50, respiratory rate, afebrile. Chest exam reveals good air entry bilaterally. Heart exam reveals first and second heart sounds. Irregular rhythm. No murmur. ABDOMEN: Soft. Exam of extremities did not reveal any edema. Peripheral pulses are felt. LABS: Show a hemoglobin of 11, platelet count is 146, potassium is 4.4. Creatinine is 0.68. Tropes are mildly elevated at 0.3, 0.2 and 0.1. ASSESSMENT: 1. Permanent atrial fibrillation with controlled ventricular rate. Elevated troponin of unclear clinical significance. 2. Urinary tract infection with sepsis. PLAN: The patient will continue current medications. We will follow the echo results once they are available. Once patient's sepsis issues resolve, he is going to undergo an outpatient stress test and if necessary undergo cardiac catheterization. MMODL / IJN: [id number] /
--- NOTE | 2019-12-08 18:14 | PN ---
PROGRESS NOTE DATE OF SERVICE: 12/08/2019 REASON FOR FOLLOWUP: Urinary tract infection and question of lower extremity cellulitis. INTERVAL HISTORY: Patient is currently afebrile. The patient is more awake and alert today. He is breathing comfortably. Denies having any chest pain or any cough. No abdominal pain or diarrhea. PHYSICAL EXAMINATION: Blood pressure is 119/52 with a pulse of 68, temperature 98.9. He is 97% on 2 L nasal cannula. General description is an elderly male lying in bed in no distress. RESPIRATORY SYSTEM: Unlabored breathing. Clear to auscultation anteriorly. HEART: S1, S2. Regular rate and rhythm. ABDOMEN: Soft. No tenderness. LABS: Hemoglobin 11, white count 6.2, BUN of 23, creatinine 0.65. Urine showing Gram- negative. Blood culture so far negative. DIAGNOSTIC IMPRESSION AND PLAN: Patient with a fever. Source is likely Gram-negative urinary tract infection. The patient is currently covered with Rocephin; to continue and monitor clinical course closely. MMODL / IJN: [id number] /
[2019-12-08] MEDS: ATORVASTATIN 20 MG TAB PO SCH (20:35)
[2019-12-08] MEDS: IBUPROFEN 600 MG TAB PO PRN (22:28)
--- NOTE | 2019-12-08 22:28 | P.PN ---
Subjective From the records patient is a 84-year-old male with a known history of morbid obesity, chronic atrial fibrillation, hypertension, hyperlipidemia and previous history of smoking presents to ER with complaints of generalized weakness and fatigue. Ubaldo rust tried to get out of bed then slid to the floor and landed on his buttocks and was unable to get back due to his both legs being too weak. Denied any head trauma or hitting head on the floor. Denied any focal weakness. Patient does have chronic bilateral lower activity weakness and then a stasis changes and swelling. Patient was brought to the hospital accompanying with family. Patient usually walks with a walker. EKG showed atrial fibrillation with controlled heart rate chest x-ray showed moderately severe cardiomegaly. Pericardial effusion should be considered. No heart failure seen. Laboratory data showed WBC, hemoglobin 12.2, platelets 172 and MCV 94.9 Lymphocytes 0.4 INR 1.3 Sodium 131, potassium 4.2, chloride 98, bicarb is 24, BUN/creatinine 29 and creatinine 0.75 blood sugar 136 lactic acid1.4, bilirubin 1.5 total Troponin 0.377, 0.252, 0.173 Albumin 3.2 T-max was 101.2 on admission Urinalysis showed cloudy, 1+ protein, large leukocyte esterase, diabetes is 182 and many WBC clumps, squamous epithelial cells less than 1 Subjective: 12/08/2019 patient seen and examined to the ICU as a select over-flow This is a pleasant 84 years old male multiple medical problems. Presents because of generalized weakness and fatigue, patient fell at home.. At baseline patient walks using a walker. Found to have acute urinary tract infection and elevated troponin, felt due to type II demand/supply mismatch by cardiology team and recommended keep monitoring for now. Chest x-ray showing interstitial condition, patient is eating well about 100% of his meals, vitals are stable, creatinine is normal. Echo showed ejection fraction 50-55% with moderate LVH Urine culture is growing gram-negative bacilli. Sodium is trending down from 1:30 to 128. So stop IV fluid and start normal saline tablets. Is currently on Rocephin and Eliquis 5 mg, he is on normal saline 75 mL/h which is stopped We will check thyroid function tests as well CONSTITUTIONAL: No fever, no malaise, no fatigue. HEENT: No recent visual problems or hearing problems. Denied any sore throat. CARDIOVASCULAR: No orthopnea, PND, no palpitations, no syncope. PULMONARY: No shortness of breath, no cough, no hemoptysis. GASTROINTESTINAL: No diarrhea, no nausea, no vomiting, no abdominal pain. Normoa ctive bowel sounds. NEUROLOGICAL: No headaches, no weakness, no numbness. HEMATOLOGICAL: Denies any bleeding or petechiae. GENITOURINARY: Denies any burning micturition, frequency, or urgency. MUSCULOSKELETAL/RHEUMATOLOGICAL: Denies any joint pain, swelling, or any muscle pain. ENDOCRINE: Denies any polyuria or polydipsia. Active Medications Generic Name Dose Route Start Last Admin Trade Name Freq PRN Reason Stop Dose Admin Apixaban 5 mg 12/07/19 19:00 12/08/19 20:35 Eliquis PO 5 mg BID JAMES Administration Atorvastatin Calcium 20 mg 12/07/19 21:00 12/08/19 20:35 Lipitor PO 20 mg HS JAMES Administration Ceftriaxone Sodium 1 gm/ 50 mls @ 100 mls/hr 12/07/19 21:00 12/08/19 20:35 Sodium Chloride IVPB 100 mls/hr Q24H JAMES Administration Ibuprofen 600 mg 12/08/19 21:59 Motrin PO QID PRN Fever and/ or Pain Metoprolol Tartrate 50 mg 12/07/19 09:00 12/08/19 20:35 Lopressor PO 50 mg BID JAMES Administration Sodium Chloride 1 gm 12/08/19 22:30 Sodium Chloride Tab PO TID JAMES Objective - Vital Signs Vital signs: Vital Signs Temp 98.9 F 12/08/19 08:00 Pulse 68 12/08/19 08:00 Resp 26 H 12/08/19 08:00 BP 119/52 12/08/19 08:00 Pulse Ox 97 12/08/19 08:00 Intake & Output 12/07/19 12/08/19 12/08/19 18:59 06:59 18:59 Intake Total 3435 1065 625 Output Total 125 Balance 3310 1065 625 Weight 140.614 kg 144.2 kg Intake: IV 2835 825 375 Sodium Chloride 0.9% 1, 1135 000 ml @ 130 mls/hr IV . Q7H42M STA Rx#:[id number] Sodium Chloride 0.9% 1, 825 375 000 ml @ 75 mls/hr IV . [id number] JAMES Rx#:[id number] Sodium Chloride 0.9% 1, 1700 700 ml @ 999 mls/hr IV . Q1H43M ONE Rx#:[id number] Oral 600 240 250 Output: Urine 125 Other: Voiding Method Incontinent Incontinent Incontinent # Voids 1 3 2 - Exam -GENERAL: The patient is alert and oriented x3, not in any acute distress. Well developed, well nourished. Generally weak HEENT: Pupils are round and equally reacting to light. EOMI. No scleral icterus. No conjunctival pallor. Normocephalic, atraumatic. No pharyngeal erythema. No thyromegaly. CARDIOVASCULAR: S1 and S2 present. No murmurs, rubs, or gallops. PULMONARY: Chest is clear to auscultation, no wheezing or crackles. ABDOMEN: Soft, nontender, nondistended, normoactive bowel sounds. No palpable organomegaly. MUSCULOSKELETAL: No joint swelling or deformity. EXTREMITIES: No cyanosis, clubbing, or pedal edema. NEUROLOGICAL: Gross neurological examination did not reveal any focal deficits. SKIN: No rashes. no petechiae. - Labs CBC & Chem 7: 12/08/19 04:16 12/08/19 04:16 Labs: Abnormal Lab Results - Last 24 Hours (Table) 12/07/19 12/07/19 12/08/19 Range/Units 02:30 15:55 04:16 RBC 3.70 L (4.30-5.90) m/uL Hgb 11.0 L (13.0-17.5) gm/dL Hct 35.4 L (39.0-53.0) % Plt Count 146 L (150-450) k/uL Lymphocytes # 0.6 L (1.0-4.8) k/uL Sodium (137-145) mmol/L BUN (9-20) mg/dL Creatinine (0.66-1.25) mg/dL Glucose (74-99) mg/dL Calcium (8.4-10.2) mg/dL Troponin I 0.173 H* (0.000-0.034) ng/mL Procalcitonin 0.65 H (0.02-0.09) ng/mL 12/08/19 Range/Units 04:16 RBC (4.30-5.90) m/uL Hgb (13.0-17.5) gm/dL Hct (39.0-53.0) % Plt Count (150-450) k/uL Lymphocytes # (1.0-4.8) k/uL Sodium 128 L (137-145) mmol/L BUN 23 H (9-20) mg/dL Creatinine 0.65 L (0.66-1.25) mg/dL Glucose 112 H (74-99) mg/dL Calcium 8.3 L (8.4-10.2) mg/dL Troponin I (0.000-0.034) ng/mL Procalcitonin (0.02-0.09) ng/mL Microbiology - Last 24 Hours (Table) 12/07/19 04:08 Urine Culture - Preliminary Urine,Clean Catch Gram Neg Bacilli 12/07/19 04:18 Blood Culture - Preliminary Blood No Growth after 24 hours Assessment and Plan Assessment: Acute urinary tract infection Elevated troponin level possible type II TN due to demand mismatch Hyponatremia Chronic atrial fibrillation started on anticoagulation. Rate controlled generalized weakness and fatigue. Morbid obesity BMI 40.9 hypertension Hyperlipidemia Previous history of smoking Plan: This is a pleasant 84 years old male who presents with UTI and elevated troponin. Continue with ceftriaxone, follow-up urine culture. Follow-up card iology recommendation. As for physical therapy evaluation. Stop IV fluids, start normal saline tabl ets. Monitor sodium. Put the patient on fluid restriction 1500 ml per day Labs and medication were reviewed.. Continue same treatment. Continue with symptomatic treatment. Resume home medication. Monitor lytes and vitals. DVT and GI prophylaxis. Further recommendations of the clinical course of the patient DVT prophylaxis: Eliquis GI Prophylaxis: Pepcid PT/OT: Pending Prognosis is guarded
[2019-12-08] MEDS: SODIUM CHLORIDE TAB 1 GM TAB PO SCH (23:13)
[2019-12-09 07:46] LABS: African American GFR (CKD) >90 (>60 ml/min/1.73 sqM); Anion Gap 5 mmol/L; Blood Urea Nitrogen 19 mg/dL (9-20); Calcium 8.6 mg/dL (8.4-10.2); Carbon Dioxide 25 mmol/L (22-30); Chloride 104 mmol/L (98-107); Glucose 113 mg/dL (74-99); Magnesium 1.9 mg/dL (1.6-2.3); Non-African American GFR(CKD) >90 (>60 ml/min/1.73 sqM); Potassium 4.3 mmol/L (3.5-5.1); Sodium 134 mmol/L (137-145)
[2019-12-09] MEDS: APIXABAN 5 MG TAB PO SCH ×2 (10:52→19:56)
[2019-12-09] MEDS: SODIUM CHLORIDE TAB 1 GM TAB PO SCH ×3 (10:52→19:56)
[2019-12-09] MEDS: METOPROLOL TARTRATE 50 MG TAB PO SCH ×2 (10:52→19:56)
--- NOTE | 2019-12-09 11:06 | P.PN ---
Subjective Progress Note Date: 12/09/19 This is a 84-year-old gentleman with history of hyperlipidemia, hypertension and also chronic atrial fibrillation but not on anticoagulation therapy, was brought to the hospital following a fall at home. He was found to be atypical fibrillation with controlled ventricular response. His troponins are mildly elevated. His BUN/creatinine is within normal limits. He is admitted here for further evaluation and treatment. Patient is also currently being treated for cellulitis, and sepsis. He was seen and examined this morning, continues to be in atrial fibrillation, heart rate in the 60s, blood pressure 134/68. Sodium 134, potassium 4.3, BUN 19, creatinine 0.5, magnesium 1.9, TSH 2.2. Echocardio gram with Doppler study revealed an ejection fraction of 50-55%. Objective - Vital Signs Vital signs: Vital Signs Temp 98.5 F 12/09/19 03:17 Pulse 62 12/09/19 03:17 Resp 18 12/09/19 03:17 BP 135/68 12/09/19 03:17 Pulse Ox 96 12/09/19 03:17 Intake & Output 12/08/19 12/09/19 12/09/19 18:59 06:59 18:59 Intake Total 1525 360 Output Total 800 250 Balance 1525 -800 110 Weight 147 kg Intake: IV 975 Sodium Chloride 0.9% 1, 975 000 ml @ 75 mls/hr IV . [id number] [facility] Rx#:[id number] Oral 550 360 Output: Urine 800 250 Other: Voiding Method Incontinent Incontinent # Voids 3 1 - Exam GENERAL EXAM: Patient is alert and oriented and doesn't appear to be in any acute distress HEENT: Normocephalic. Normal reaction of pupils, equal size, normal range of extraocular motion. No erythema or exudates in the throat. NECK: No masses, no nuchal rigidity. CHEST: No chest wall deformity. LUNGS: Equal air entry with no crackles or wheeze. HEART: S1 and S2 normal with no audible mumurs or gallops. Regular rhythm, femorals equal on both sides.. ABDOMEN: No hepatosplenomegaly, normal bowel sounds, no guarding or rigidity. SKIN: No rashes CENTRAL NERVOUS SYSTEM: No focal deficits. EXTREMITIES: Mild edema of the legs - Labs CBC & Chem 7: 12/08/19 04:16 12/09/19 06:56 Labs: Abnormal Lab Results - Last 24 Hours (Table) 12/07/19 12/09/19 Range/Units 02:30 06:56 Sodium 134 L (137-145) mmol/L Creatinine 0.57 L (0.66-1.25) mg/dL Glucose 113 H (74-99) mg/dL Procalcitonin 0.65 H (0.02-0.09) ng/mL Microbiology - Last 24 Hours (Table) 12/07/19 04:08 Urine Culture - Final Urine,Clean Catch Escherichia coli 12/07/19 04:18 Blood Culture - Preliminary Blood No Growth after 48 hours Assessment and Plan Plan: Assessment and plan #1 cellulitis, UTI, sepsis #2 persistent atrial fibrillation, on anticoagulation #3 hyperlipidemia #4 hypertension #5 prior history of smoking Plan Echocardiogram with Doppler study revealed an ejection fraction of 50-55%. From cardiology's perspective, we would recommend to continue this patient on his current medications. Discharged once cleared by primary and ID. DNP note has been reviewed, I agree with a documented findings and plan of care. Patient was seen and examined.
--- NOTE | 2019-12-09 14:15 | P.PN ---
Subjective From the records patient is a 84-year-old male with a known history of morbid obesity, chronic atrial fibrillation, hypertension, hyperlipidemia and previous history of smoking presents to ER with complaints of generalized weakness and fatigue. Ubaldo rust tried to get out of bed then slid to the floor and landed on his buttocks and was unable to get back due to his both legs being too weak. Denied any head trauma or hitting head on the floor. Denied any focal weakness. Patient does have chronic bilateral lower activity weakness and then a stasis changes and swelling. Patient was brought to the hospital accompanying with family. Patient usually walks with a walker. EKG showed atrial fibrillation with controlled heart rate chest x-ray showed moderately severe cardiomegaly. Pericardial effusion should be considered. No heart failure seen. Laboratory data showed WBC, hemoglobin 12.2, platelets 172 and MCV 94.9 Lymphocytes 0.4 INR 1.3 Sodium 131, potassium 4.2, chloride 98, bicarb is 24, BUN/creatinine 29 and creatinine 0.75 blood sugar 136 lactic acid1.4, bilirubin 1.5 total Troponin 0.377, 0.252, 0.173 Albumin 3.2 T-max was 101.2 on admission Urinalysis showed cloudy, 1+ protein, large leukocyte esterase, diabetes is 182 and many WBC clumps, squamous epithelial cells less than 1 Subjective: 12/08/2019 patient seen and examined to the ICU as a select over-flow This is a pleasant 84 years old male multiple medical problems. Presents because of generalized weakness and fatigue, patient fell at home.. At baseline patient walks using a walker. Found to have acute urinary tract infection and elevated troponin, felt due to type II demand/supply mismatch by cardiology team and recommended keep monitoring for now. Chest x-ray showing interstitial condition, patient is eating well about 100% of his meals, vitals are stable, creatinine is normal. Echo showed ejection fraction 50-55% with moderate LVH Urine culture is growing gram-negative bacilli. Sodium is trending down from 1:30 to 128. So stop IV fluid and start normal saline tablets. Is currently on Rocephin and Eliquis 5 mg, he is on normal saline 75 mL/h which is stopped We will check thyroid function tests as well 12/09/2019 The patient is fully awake and oriented, he feels generally weak however his urinary symptoms are resolving, he denies dysuria or frequency urination or urgency. Patient says his back close to his baseline. His vitals are stable. His BMP looks improved sodium 134, creatinine normal, TSH is normal at 2.2 Urine culture is growing Citrobacter which is sensitive to antibiotics and currently he is on Rocephin Physical therapy recommended subacute rehab, discussed the case with bedside nurse and public health social worker, patient will need preauthorization Possible discharge in 24-48 hours CONSTITUTIONAL: No fever, no malaise, no fatigue. HEENT: No recent visual problems or hearing problems. Denied any sore throat. CARDIOVASCULAR: No orthopnea, PND, no palpitations, no syncope. PULMONARY: No shortness of breath, no cough, no hemoptysis. GASTROINTESTINAL: No diarrhea, no nausea, no vomiting, no abdominal pain. Normoactive bowel sounds. NEUROLOGICAL: No headaches, no weakness, no numbness. HEMATOLOGICAL: Denies any bleeding or petechiae. GENITOURINARY: Denies any burning micturition, frequency, or urgency. MUSCULOSKELETAL/RHEUMATOLOGICAL: Denies any joint pain, swelling, or any muscle pain. ENDOCRINE: Denies any polyuria or polydipsia. Active Medications Generic Name Dose Route Start Last Admin Trade Name Freq PRN Reason Stop Dose Admin Apixaban 5 mg 12/07/19 19:00 12/09/19 10:52 Eliquis PO 5 mg BID JAMES Administration Atorvastatin Calcium 20 mg 12/07/19 21:00 12/08/19 20:35 Lipitor PO 20 mg HS JAMES Administration Ceftriaxone Sodium 1 gm/ 50 mls @ 100 mls/hr 12/07/19 21:00 12/08/19 20:35 Sodium Chloride IVPB 100 mls/hr Q24H JAMES Administration Ibuprofen 600 mg 12/08/19 21:59 12/08/19 22:28 Motrin PO 600 mg QID PRN Administration Fever and/ or Pain Metoprolol Tartrate 50 mg 12/07/19 09:00 12/09/19 10:52 Lopressor PO 50 mg BID JAMES Administration Sodium Chloride 1 gm 12/08/19 22:30 12/09/19 10:52 Sodium Chloride Tab PO 1 gm TID JAMES Administration Objective - Vital Signs Vital signs: Vital Signs Temp 97.6 F 12/09/19 12:00 Pulse 60 12/09/19 12:00 Resp 19 12/09/19 12:00 BP 144/58 12/09/19 12:00 Pulse Ox 96 12/09/19 12:00 Intake & Output 12/08/19 12/09/19 12/09/19 18:59 06:59 18:59 Intake Total 1525 720 Output Total 800 450 Balance 1525 -800 270 Weight 147 kg Intake: IV 975 Sodium Chloride 0.9% 1, 975 000 ml @ 75 mls/hr IV . [id number] [facility] Rx#:[id number] Oral 550 720 Output: Urine 800 450 Other: Voiding Method Incontinent Incontinent # Voids 3 1 - Exam -GENERAL: The patient is alert and oriented x3, not in any acute distress. Well developed, well nourished. Generally weak HEENT: Pupils are round and equally reacting to light. EOMI. No scleral icterus. No conjunctival pallor. Normocephalic, atraumatic. No pharyngeal erythema. No thyromegaly. CARDIOVASCULAR: S1 and S2 present. No murmurs, rubs, or gallops. PULMONARY: Chest is clear to auscultation, no wheezing or crackles. ABDOMEN: Soft, nontender, nondistended, normoactive bowel sounds. No palpable organomegaly. MUSCULOSKELETAL: No joint swelling or deformity. EXTREMITIES: No cyanosis, clubbing, or pedal edema. NEUROLOGICAL: Gross neurological examination did not reveal any focal deficits. SKIN: No rashes. no petechiae. - Labs CBC & Chem 7: 12/08/19 04:16 12/09/19 06:56 Labs: Abnormal Lab Results - Last 24 Hours (Table) 12/09/19 Range/Units 06:56 Sodium 134 L (137-145) mmol/L Creatinine 0.57 L (0.66-1.25) mg/dL Glucose 113 H (74-99) mg/dL Microbiology - Last 24 Hours (Table) 12/07/19 04:08 Urine Culture - Final Urine,Clean Catch Escherichia coli 12/07/19 04:18 Blood Culture - Preliminary Blood No Growth after 48 hours Assessment and Plan Assessment: Acute urinary tract infection Elevated troponin level possible type II NV due to demand mismatch Hyponatremia Chronic atrial fibrillation started on anticoagulation. Rate controlled generalized weakness and fatigue. Morbid obesity BMI 40.9 hypertension Hyperlipidemia Previous history of smoking Plan: This is a pleasant 84 years old male who presents with UTI and elevated troponin. Continue with ceftriaxone, follow-up urine culture. Follow-up cardiology recommendation. As for physical therapy evaluation. Stop IV fluids, start normal saline tablets. Monitor sodium. Put the patient on fluid restriction 1500 ml per day Labs and medication were reviewed.. Continue same treatment. Continue with symptomatic treatment. Resume home medication. Monitor lytes and vitals. DVT and GI prophylaxis. Further recommendations of the clinical course of the patient DVT prophylaxis: Eliquis GI Prophylaxis: Pepcid PT/OT: Pending Prognosis is guarded
--- NOTE | 2019-12-09 15:14 | PN ---
PROGRESS NOTE DATE OF SERVICE: 12/09/2019 REASON FOR FOLLOWUP: Urinary tract infection. INTERVAL HISTORY: Patient is currently afebrile. The patient is breathing comfortably. Denies having any chest pain or shortness of breath. No cough. No abdominal pain. No diarrhea. PHYSICAL EXAMINATION: Blood pressure is 144/58 with a pulse of 60, temperature 97.9. He is 96% on 2 L nasal cannula. General description is an elderly male up in the chair in no distress. Respiratory system: Unlabored breathing. Clear to auscultation anteriorly. Heart S1, S2. Regular rate and rhythm. Abdomen soft, no tenderness. LABS: Creatinine 0.57. Urine has been E coli sensitive pathogen. DIAGNOSTIC IMPRESSION AND PLAN: Patient admitted to the hospital with mental status changes and fever, likely secondary to E coli urinary tract infection. The patient clinically responded to Rocephin, to continue finish therapy with oral antibiotics and monitor clinical course closely. MMODL / IJN: [id number] /
[2019-12-09] MEDS: IBUPROFEN 600 MG TAB PO PRN (17:08)
[2019-12-09] MEDS: ATORVASTATIN 20 MG TAB PO SCH (19:56)
[2019-12-10] MEDS: METOPROLOL TARTRATE 50 MG TAB PO SCH (09:35)
[2019-12-10] MEDS: SODIUM CHLORIDE TAB 1 GM TAB PO SCH (09:35)
[2019-12-10] MEDS: APIXABAN 5 MG TAB PO SCH (09:35)
--- NOTE | 2019-12-10 09:52 | P.DS ---
Providers Date of admission: 12/07/19 05:41 Attending physician: Agnieszka Strickland Consults: 12/07/19 05:41 Consult Physician Stat Consulting Provider: Nina Duenas Consult Reason/Comments: sepsis Do you want consulting provider notified?: Yes 12/07/19 05:47 Consult Physician Stat Consulting Provider: Kelton Aparicio Consult Reason/Comments: NSTEMI Do you want consulting provider notified?: Yes Primary care physician: Rodger Giles Hospital Course: Diagnoses: Acute urinary tract infection Elevated troponin level possible type II VA due to demand mismatch Hyponatremia, improved Chronic atrial fibrillation started on anticoagulation. Rate controlled generalized weakness and fatigue. Morbid obesity BMI 40.9 hypertension Hyperlipidemia Previous history of smoking Hospital course: This is a pleasant 84 years old male multiple medical problems. Presents because of generalized weakness and fatigue, patient fell at home.. At baseline patient walks using a walker. Found to have acute urinary tract infection and elevated troponin, felt due to type II demand/supply mismatch by cardiology team and recommended keep monitoring for now. Patient was treated with ceftriaxone, and his urine culture was growing E. coli which is sensitive to antibiotics, patient will be discharged on short course of oral antibiotics Patient returned close to his baseline, no more symptoms, no dysuria or increased frequency or urgency. No chest pain or dyspnea. No abdominal pain. His sodium improved to 134 prior to discharge. TSH 2.2 which is within normal. Echo showed ejection fraction 50-55% with moderate LVH Patient evaluated by physical therapy , patient will benefit from ECF upon discharge for rehab Patient also cleared for discharge by auto design detailer who recommended outpatient stress test Problems and management plan were discussed with the patient and he verbalized understanding and acceptance Patient was found stable and can be discharged home however he needs follow-up as an outpatient. Patient was instructed to follow up with PCP Dr. Giron within one week and patient agrees. Also patient instructed to follow up with auto design detailer Dr. Ford in 2 weeks and he agrees (recommend stress test as an outpatient). Patient wants to make his own appointment Gen: patient is a AAOx3, no distress CVS: S1-S2, RRR, no murmur Lungs: B/L CTA, no wheezing Abdomen: soft, no distention, no tenderness, positive bowel sounds Extremity: no leg edema or induration Time spent more than 35 minutes Patient Condition at Discharge: Poor Plan - Discharge Summary Discharge Rx Participant: No New Discharge Prescriptions: New Apixaban [Eliquis] 5 mg PO BID tab Continue Verapamil [Isoptin] 80 mg PO QID Metoprolol Tartrate [Lopressor] 50 mg PO BID Cephalexin [Keflex] 500 mg PO TID Atorvastatin [Lipitor] 20 mg PO HS Discontinued Furosemide [Lasix] 40 mg PO DAILY Doxazosin [Cardura] 4 mg PO DAILY Discharge Medication List Atorvastatin [Lipitor] 20 mg PO HS 12/07/19 [History] Cephalexin [Keflex] 500 mg PO TID 12/07/19 [History] Metoprolol Tartrate [Lopressor] 50 mg PO BID 12/07/19 [History] Verapamil [Isoptin] 80 mg PO QID 12/07/19 [History] Apixaban [Eliquis] 5 mg PO BID tab 12/09/19 [Rx] Follow up Appointment(s)/Referral(s): Tisha Soares MD [Primary Care Provider] - 12/12/19 11:00 am Kelton Aparicio MD [STAFF PHYSICIAN] - 2 Weeks (auto design detailer ) Activity/Diet/Wound Care/Special Instructions: [place] heart healthy diet activity as tolerated Discharge Disposition: TRANSFER TO SNF/ECF
[2019-12-10] MEDS ORDERED: amLODIPine 5 MG TAB PO SCH (10:00)
[2019-12-10 10:40] VITALS: BP 130/58; PULSE 70; RESP 19; TEMP 98
--- NOTE | 2019-12-10 12:11 | PN ---
PROGRESS NOTE DATE OF SERVICE: 12/10/2019 REASON FOR FOLLOWUP: E coli UTI infection and discharge antibiotics. INTERVAL HISTORY: The patient is currently afebrile. The patient is breathing comfortably. Denies having any chest pain or shortness of breath. No cough. O nausea. No vomiting. No abdominal pain or diarrhea. PHYSICAL EXAMINATION: Blood pressure 130/58 with a pulse of 73, temperature 98. He is 95% on room air. General description: The patient is an elderly male up in the chair in no distress. Respiratory system: Unlabored breathing. Clear to auscultation anteriorly. Heart S1, S2. Regular rate and rhythm. Abdomen soft, no tenderness. LABS: Creatinine 0.57. Urine with E coli sensitive pathogen. Blood culture has been negative. DIAGNOSTIC IMPRESSION AND PLAN: Patient admitted to the hospital with fever and mental status changes. Concern likely for a urinary tract infection likely from enteric gram-negative. Urine has been finalized with E coli sensitive pathogen improved on Rocephin. Finish therapy with oral Ceftin 500 mg twice a day for about a week. Prescription sent in discharge instructions as the patient is going to shelter. MMODL / IJN: [id number] /
--- NOTE | 2019-12-10 12:12 | P.PN ---
Subjective Progress Note Date: 12/10/19 This is a 84-year-old gentleman with history of hyperlipidemia, hypertension and also chronic atrial fibrillation but not on anticoagulation therapy, was brought to the hospital following a fall at home. He was found to be atypical fibrillation with controlled ventricular response. His troponins are mildly elevated. His BUN/creatinine is within normal limits. He is admitted here for further evaluation and treatment. Patient is also currently being treated for cellulitis, and sepsis. He was seen and examined this morning, continues to be in atrial fibrillation, heart rate in the 60s, blood pressure 134/68. Sodium 134, potassium 4.3, BUN 19, creatinine 0.5, magnesium 1.9, TSH 2.2. Echocardio gram with Doppler study revealed an ejection fraction of 50-55%. 12/10/2019 Patient was seen and examined this morning, sitting up in chair at bedside, hemodynamically stable. Blood pressure 130/50 with a heart rate in the 70s, 97 room air. Objective - Vital Signs Vital signs: Vital Signs Temp 98 F 12/10/19 08:00 Pulse 70 12/10/19 08:00 Resp 19 12/10/19 08:00 BP 130/58 12/10/19 08:00 Pulse Ox 95 12/10/19 08:00 Intake & Output 12/09/19 12/10/19 12/10/19 18:59 06:59 18:59 Intake Total 960 Output Total 450 200 Balance 510 -200 Weight 145.1 kg Intake: Oral 960 Output: Urine 450 200 Other: Voiding Method Incontinent Incontinent Incontinent # Voids 1 - Exam GENERAL EXAM: Patient is alert and oriented and doesn't appear to be in any acute distress HEENT: Normocephalic. Normal reaction of pupils, equal size, normal range of extraocular motion. No erythema or exudates in the throat. NECK: No masses, no nuchal rigidity. CHEST: No chest wall deformity. LUNGS: Equal air entry with no crackles or wheeze. HEART: S1 and S2 normal with no audible mumurs or gallops. Regular rhythm, femorals equal on both sides.. ABDOMEN: No hepatosplenomegaly, normal bowel sounds, no guarding or rigidity. SKIN: No rashes CENTRAL NERVOUS SYSTEM: No focal deficits. EXTREMITIES: Mild edema of the legs - Labs CBC & Chem 7: 12/08/19 04:16 12/09/19 06:56 Labs: Microbiology - Last 24 Hours (Table) 12/07/19 04:18 Blood Culture - Preliminary Blood No Growth after 72 hours 12/07/19 04:08 Urine Culture - Final Urine,Clean Catch Escherichia coli Assessment and Plan Plan: Assessment and plan #1 cellulitis, UTI, sepsis #2 persistent atrial fibrillation, on anticoagulation #3 hyperlipidemia #4 hypertension #5 prior history of smoking Plan Echocardiogram with Doppler study revealed an ejection fraction of 50-55%. From cardiology's perspective, we would recommend to continue this patient on his c urrent medications. Discharged once cleared by primary and ID. DNP note has been reviewed, I agree with a documented findings and plan of care. Patient was seen and examined.
== END 2019-12-10 13:46 | DRG 871 ==
LOC: EC 02:18 → 2SICU 05:41 → 3SCARD 12-09 02:52
PROVIDERS: ADMIT Hospitalist; ATTEND Hospitalist
DX: A41.51 Sepsis due to Escherichia coli [E. coli] (principal); I21.A1 Myocardial infarction type 2; E87.1 Hypo-osmolality and hyponatremia; N39.0 Urinary tract infection, site not specified; Z68.41 Body mass index [BMI] 40.0-44.9, adult; L03.116 Cellulitis of left lower limb; L03.115 Cellulitis of right lower limb; I48.21 Permanent atrial fibrillation; E78.5 Hyperlipidemia, unspecified; E86.1 Hypovolemia; I87.8 Other specified disorders of veins; E66.01 Morbid (severe) obesity due to excess calories; I11.9 Hypertensive heart disease without heart failure; Z11.59 Encounter for screening for other viral diseases; Z87.891 Personal history of nicotine dependence; Z79.899 Other long term (current) drug therapy; Z98.890 Other specified postprocedural states; Z79.01 Long term (current) use of anticoagulants
CPT/HCPCS: 36415; 71045; 71046; 80048; 80053; 81001; 83605; 83735; 83880; 84145; 84443; 84484; 85025; 85610; 85730; 86140; 87040; 87077; 87086; 87186; 93005; 93306; 96365; 96372; 99285

== ENCOUNTER 2021-08-24 09:03 | Inpatient (IN) | payer MEDICARE, BC ==
[2021-08-24] MEDS ORDERED: SODIUM CHLORIDE 0.9% 500 ML 500 ML IV STA (09:09)
--- NOTE | 2021-08-24 09:18 | ED ---
General Adult HPI - General Stated complaint: AMS Time Seen by Provider: 08/24/21 09:05 Source: patient, EMS, RN notes reviewed, old records reviewed - History of Present Illness Initial comments: 86-year-old male presenting for evaluation of increased confusion. Patient has had decreased oral intake, he's been nonambulatory over the past several days. He currently lives alone and paramedics indicated that he was last seen normal on Sunday which was about 5 days ago. Patient himself has no complaints. Denies headache. Denies chest pain. Denies abdominal pain. There is no history of fever or vomiting. - Related Data Home Medications Medication Instructions Recorded Confirmed Atorvastatin [Lipitor] 20 mg PO HS 12/07/19 08/24/21 Metoprolol Tartrate [Lopressor] 50 mg PO BID 12/07/19 08/24/21 Verapamil [Isoptin] 80 mg PO QID 12/07/19 08/24/21 Doxazosin [Cardura] 4 mg PO DAILY 08/24/21 08/24/21 Furosemide [Lasix] 40 mg PO DAILY 08/24/21 08/24/21 Potassium Chloride ER [K-Dur 10] 10 meq PO BID 08/24/21 08/24/21 Allergies Allergy/AdvReac Type Severity Reaction Status Date / Time No Known Allergies Allergy Verified 08/24/21 10:21 Review of Systems ROS Statement: Those systems with pertinent positive or pertinent negative responses have been documented in the HPI. ROS Other: All systems not noted in ROS Statement are negative. Past Medical History Past Medical History: Atrial Fibrillation, Hyperlipidemia, Hypertension History of Any Multi-Drug Resistant Organisms: None Reported Past Surgical History: Hernia Repair Past Anesthesia/Blood Transfusion Reactions: No Reported Reaction Past Psychological History: No Psychological Hx Reported Past Alcohol Use History: None Reported Past Drug Use History: None Reported General Exam General appearance: alert, in no apparent distress Head exam: Present: atraumatic, normocephalic Eye exam: Present: normal appearance, PERRL ENT exam: Present: mucous membranes dry Neck exam: Present: normal inspection. Absent: tenderness, meningismus Respiratory exam: Present: normal lung sounds bilaterally. Absent: respiratory distress, wheezes Cardiovascular Exam: Present: regular rate, normal rhythm GI/Abdominal exam: Present: soft, distended. Absent: tenderness, guarding Extremities exam: Present: normal inspection, normal capillary refill. Absent: pedal edema, calf tenderness Neurological exam: Present: alert. Absent: oriented X3, motor sensory deficit Skin exam: Present: warm, dry, intact Course Vital Signs 08/24/21 09:11 Temperature 98.2 F Pulse Rate 92 Respiratory 16 Rate Blood Pressure 159/99 O2 Sat by Pulse 95 Oximetry EKG Findings - EKG Comments: EKG Findings:: EKG: Atrial fibrillation, low voltage, rate of 84, QRS duration 111, QTC 413, no ST segment elevation. Medical Decision Making - Medical Decision Making 86 yo male patient presented for evaluation of increased confusion. Patient was last noted to be normal about 5 days ago. He has had poor intake. He himself has no complaints but history is limited. There is no external signs of trauma. There is no nominal pain or tenderness. Vital signs are relatively stable. I did perform CT imaging of the brain which is negative for intracranial hemorrhage or mass effect. Chest x-ray showing a large consolidation and effusion the left lung base which is stable compared to prior. Patient's son indicated that there was a fall resulting in left shoulder injury, shoulder x- ray negative for fracture dislocation, normal CBC, normal CMP, urinalysis pending. Patient maintained on IV hydration. He will be admitted to internal medicine, case discussed with Dr. Strickland who will accept admission. - Lab Data Result diagrams: 08/24/21 09:54 08/24/21 09:54 Lab Results 08/24/21 08/24/21 08/24/21 Range/Units 09:54 09:54 09:54 WBC 7.2 (3.8-10.6) k/uL RBC 4.87 (4.30-5.90) m/uL Hgb 15.0 (13.0-17.5) gm/dL Hct 46.8 (39.0-53.0) % MCV 96.3 (80.0-100.0) fL MCH 30.8 (25.0-35.0) pg MCHC 32.0 (31.0-37.0) g/dL RDW 15.0 (11.5-15.5) % Plt Count 307 (150-450) k/uL MPV 8.1 Neutrophils % 80 % Lymphocytes % 7 % Monocytes % 10 % Eosinophils % 0 % Basophils % 0 % Neutrophils # 5.7 (1.3-7.7) k/uL Lymphocytes # 0.5 L (1.0-4.8) k/uL Monocytes # 0.7 (0-1.0) k/uL Eosinophils # 0.0 (0-0.7) k/uL Basophils # 0.0 (0-0.2) k/uL PT 12.1 H (9.0-12.0) sec INR 1.1 (<1.2) APTT 28.0 (22.0-30.0) sec Sodium 135 L (137-145) mmol/L Potassium 3.9 (3.5-5.1) mmol/L Chloride 100 (98-107) mmol/L Carbon Dioxide 27 (22-30) mmol/L Anion Gap 8 mmol/L BUN 17 (9-20) mg/dL Creatinine 0.63 L (0.66-1.25) mg/dL Est GFR (CKD-EPI)AfAm >90 (>60 ml/min/1.73 sqM) Est GFR (CKD-EPI)NonAf 89 (>60 ml/min/1.73 sqM) Glucose 115 H (74-99) mg/dL Plasma Lactic Acid Nick (0.7-2.0) mmol/L Calcium 9.3 (8.4-10.2) mg/dL Magnesium 1.7 (1.6-2.3) mg/dL Total Bilirubin 2.1 H (0.2-1.3) mg/dL AST 60 H (17-59) U/L ALT 30 (4-49) U/L Alkaline Phosphatase 120 (38-126) U/L Troponin I (0.000-0.034) ng/mL Total Protein 7.3 (6.3-8.2) g/dL Albumin 3.5 (3.5-5.0) g/dL 08/24/21 08/24/21 Range/Units 09:54 09:54 WBC (3.8-10.6) k/uL RBC (4.30-5.90) m/uL Hgb (13.0-17.5) gm/dL Hct (39.0-53.0) % MCV (80.0-100.0) fL MCH (25.0-35.0) pg MCHC (31.0-37.0) g/dL RDW (11.5-15.5) % Plt Count (150-450) k/uL MPV Neutrophils % % Lymphocytes % % Monocytes % % Eosinophils % % Basophils % % Neutrophils # (1.3-7.7) k/uL Lymphocytes # (1.0-4.8) k/uL Monocytes # (0-1.0) k/uL Eosinophils # (0-0.7) k/uL Basophils # (0-0.2) k/uL PT (9.0-12.0) sec INR (<1.2) APTT (22.0-30.0) sec Sodium (137-145) mmol/L Potassium (3.5-5.1) mmol/L Chloride (98-107) mmol/L Carbon Dioxide (22-30) mmol/L Anion Gap mmol/L BUN (9-20) mg/dL Creatinine (0.66-1.25) mg/dL Est GFR (CKD-EPI)AfAm (>60 ml/min/1.73 sqM) Est GFR (CKD-EPI)NonAf (>60 ml/min/1.73 sqM) Glucose (74-99) mg/dL Plasma Lactic Acid Nick 1.6 (0.7-2.0) mmol/L Calcium (8.4-10.2) mg/dL Magnesium (1.6-2.3) mg/dL Total Bilirubin (0.2-1.3) mg/dL AST (17-59) U/L ALT (4-49) U/L Alkaline Phosphatase (38-126) U/L Troponin I 0.012 (0.000-0.034) ng/mL Total Protein (6.3-8.2) g/dL Albumin (3.5-5.0) g/dL Disposition Clinical Impression: Atrial fibrillation, Altered mental status, Dehydration Disposition: ADMITTED IP TO THIS HOSP Condition: Stable Is patient prescribed a controlled substance at d/c from ED?: No Referrals: Tisha Soares MD [Primary Care Provider] - 1-2 days Time of Disposition: 12:22 Decision to Admit Reason: Admit from EC Decision Date: 08/24/21 Decision Time: 12:22
[2021-08-24 10:07] LABS: Basophils % (A) 0 %; Eosinophils % (A) 0 %; HCT 46.8 % (39.0-53.0); Lymphocytes # (A) 0.5 k/uL (1.0-4.8); Lymphocytes % (A) 7 %; MCH 30.8 pg (25.0-35.0); MCV 96.3 fL (80.0-100.0); Mean Platelet Volume 8.1; Monocytes # (A) 0.7 k/uL (0-1.0); Monocytes % (A) 10 %; Neutrophils # (A) 5.7 k/uL (1.3-7.7); Neutrophils % (A) 80 %; Platelet Count 307 k/uL (150-450); RBC 4.87 m/uL (4.30-5.90); WBC 7.2 k/uL (3.8-10.6)
[2021-08-24 10:11] LABS: INR 1.1 (<1.2); Prothrombin Time 12.1 sec (9.0-12.0)
[2021-08-24 10:17] LABS: ALT 30 U/L (4-49); AST 60 U/L (17-59); African American GFR (CKD) >90 (>60 ml/min/1.73 sqM); Albumin 3.5 g/dL (3.5-5.0); Alkaline Phosphatase 120 U/L (38-126); Anion Gap 8 mmol/L; Blood Urea Nitrogen 17 mg/dL (9-20); Calcium 9.3 mg/dL (8.4-10.2); Carbon Dioxide 27 mmol/L (22-30); Chloride 100 mmol/L (98-107); Glucose 115 mg/dL (74-99); Magnesium 1.7 mg/dL (1.6-2.3); Non-African American GFR(CKD) 89 (>60 ml/min/1.73 sqM); Potassium 3.9 mmol/L (3.5-5.1); Sodium 135 mmol/L (137-145); Total Bilirubin 2.1 mg/dL (0.2-1.3); Total Protein 7.3 g/dL (6.3-8.2)
--- NOTE | 2021-08-24 10:45 | CT ---
EXAMINATION TYPE: CT brain wo con DATE OF EXAM: 08/24/2021 COMPARISON: None HISTORY: AMS, weakness CT DLP: 1253.4 mGycm Automated exposure control for dose reduction was used. FINDINGS: Moderate generalized degenerative change. Faint low-attenuation the white matter most likely on the b asis of remote ischemia. No evidence of acute hemorrhage or mass effect. No midline shift. Hyperostosis of the calvarium. Sinuses are clear. Orbits are symmetric. Craniocervical junction are p reserved. IMPRESSION: DEGENERATIVE AND NONSPECIFIC WHITE MATTER CHANGES MOST TYPICAL OF REMOTE ISCHEMIA. NO ACUTE HEMORRHAG E OR MASS EFFECT.
--- NOTE | 2021-08-24 10:51 | XR ---
EXAMINATION TYPE: XR chest 1V DATE OF EXAM: 08/24/2021 COMPARISON: 12/08/2019 HISTORY: Weakness TECHNIQUE: Single frontal view of the chest is obtained. FINDINGS: The heart is enlarged and there is a large area of consolidation and pleural effusion on t he left. No pneumothorax. Right lung clear. Osseous structures intact. Patient appears to be rotated. IMPRESSION: 1. Large area of consolidation left lower lobe with some left-sided pleural effusion. 2. Marked cardiomegaly
--- NOTE | 2021-08-24 10:54 | XR ---
EXAMINATION TYPE: XR shoulder complete RT DATE OF EXAM: 08/24/2021 COMPARISON: NONE HISTORY: Pain TECHNIQUE: Three views are submitted. FINDINGS: The osseous structures are intact. There is no acute fracture or dislocation. There is AC joint arth ropathy. Diffuse osteopenia. IMPRESSION: 1. AC joint arthropathy with no acute fracture. If concern for rotator cuff injury correlate with MRI .
[2021-08-24] MEDS ORDERED: cefTRIAXone IN SWFI 1,000 MG/10 ML SYRINGE IVP STA (12:15)
[2021-08-24] MEDS ORDERED: NALOXONE 0.4 MG/ML 1 ML VIAL IV PRN (12:16)
[2021-08-24] MEDS: SODIUM CHLORIDE 0.9% 1,000 ML IV SCH (14:28)
--- NOTE | 2021-08-24 15:16 | HP ---
HISTORY AND PHYSICAL DATE OF SERVICE: 08/24/2021 CHIEF COMPLAINT: Change in mental status. HISTORY OF PRESENT ILLNESS: This 86-year-old gentleman with a past medical history of atrial fibrillation, hyperlipidemia, was previously admitted with UTI. Currently the patient is living by himself and had poor p.o. intake, noncompliant with medications and complaining of some change in mental status. Patient came to [facility] and evaluation showed possible left lower pneumonia and effusion. The patient admitted for further evaluation and treatment. Patient is unable to give a detailed history. Most of the history is taken from my discussion with staff, ER physician and as well as discussion with multiple members of the family at the bedside. PAST MEDICAL HISTORY: History of atrial fibrillation, UTI. MEDICATIONS: Home medications include: Isoptin and K-Dur. Dose and other medications reviewed. ALLERGIES: None. Family history, social history and review of systems could not be taken because of above mentioned reasons. PHYSICAL EXAM: Conscious, confused. Pulse 85, blood pressure 130/58, respiration 18, pulse ox 93% on 2 L. HEENT: Conjunctivae normal. Oral mucosa moist. NECK: No JVD. CARDIOVASCULAR: S1, S2 muffled. RESPIRATION: Breath sounds diminished in the bases. A few scattered rhonchi and crackles. ABDOMEN: Soft, nontender. NERVOUS SYSTEM: Diffusely weak. LAB STUDIES: CBC noted. Sodium 135. ASSESSMENT: 1. Acute left lower lobe pneumonia with pleural effusion. 2. Change in mental status and confusion. 3. Rule out acute stroke. 4. Gait dysfunction. RECOMMENDATIONS AND DISCUSSION: This 86-year-old gentleman who presented with multiple complex medical issues, we will monitor the patient closely. We will initiate broad-spectrum IV antibiotics and obtain pulmonary consultation, D-dimer, CT scan of the chest. X-ray is reviewed personally. Prognosis guarded because of multiple complex medical issues. Discussed at length with the family. welfare worker to evaluate the home situation as well. MMODL / IJN: [id number] /
[2021-08-24 17:21] LABS: Appearance,Urine Clear (Clear); Bilirubin,Urine Negative (Negative); Blood,Urine Small (Negative); Color,Urine Yellow; Glucose,Urine (UA) Negative (Negative); Ketones,Urine 1+ (Negative); Leukocyte Esterase,Urine Negative (Negative); Mucus,Urine Rare /hpf; Nitrite,Urine Negative (Negative); PH, Urine 6.5 (5.0-8.0); Protein,Urine Trace (Negative); RBC,Urine 6 /hpf (0-5); Specific Gravity,Urine 1.021 (1.001-1.035); Squamous Epithelial Cell,Urine 1 /hpf (0-4); WBC,Urine 2 /hpf (0-5)
[2021-08-24] MEDS: PANTOPRAZOLE 40 MG/10 ML VIAL IVP SCH (17:52)
[2021-08-24] MEDS: HEPARIN SODIUM,PORCINE/PF 5,000 UNIT/0.5 ML SYRINGE SQ SCH ×2 (17:52→19:57)
[2021-08-24] MEDS: VERAPAMIL 80 MG TAB PO SCH (18:06)
[2021-08-24] MEDS: ACETAMINOPHEN TAB 325 MG TAB PO PRN (19:56)
[2021-08-24] MEDS: ATORVASTATIN 20 MG TAB PO SCH (19:56)
[2021-08-24] MEDS: POTASSIUM CHLORIDE ER 10 MEQ TAB.ER.PRT PO SCH (19:56)
[2021-08-24] MEDS: METOPROLOL TARTRATE 50 MG TAB PO SCH (19:56)
[2021-08-25] MEDS: VERAPAMIL 80 MG TAB PO SCH ×5 (01:04→21:04)
[2021-08-25] MEDS: SODIUM CHLORIDE 0.9% 1,000 ML IV SCH ×2 (05:10→17:57)
[2021-08-25] MEDS: METOPROLOL TARTRATE 50 MG TAB PO SCH ×2 (07:11→20:52)
[2021-08-25] MEDS: POTASSIUM CHLORIDE ER 10 MEQ TAB.ER.PRT PO SCH ×2 (07:11→21:05)
[2021-08-25] MEDS: HEPARIN SODIUM,PORCINE/PF 5,000 UNIT/0.5 ML SYRINGE SQ SCH ×2 (07:11→21:05)
[2021-08-25] MEDS: DOXAZOSIN 4 MG TAB PO SCH (07:59)
[2021-08-25 08:47] LABS: Basophils # (A) 0.02 X 10*3/uL (0.00-0.10); Basophils % (A) 0.3 %; Eosinophils # (A) 0.01 X 10*3/uL (0.04-0.35); Eosinophils % (A) 0.2 %; HCT 40.4 % (39.6-50.0); HGB 13.2 g/dL (13.0-17.0); Immature Grans, Automated 0.3 %; Lymphocytes # (A) 0.69 X 10*3/uL (0.90-5.00); Lymphocytes % (A) 10.5 %; MCH 30.1 pg (27.0-32.0); MCHC 32.7 g/dL (32.0-37.0); Monocytes # (A) 1.23 X 10*3/uL (0.20-1.00); Monocytes % (A) 18.6 %; NRBC Per 100 WBC 0 /100 WBCS (0.0-0.0); Neutrophils # (A) 4.63 X 10*3/uL (1.80-7.70); Neutrophils % (A) 70.1 %; Platelet Count 274 X 10*3/uL (140-440); RBC 4.39 X 10*6/uL (4.40-5.60); RDW 14.8 % (11.5-14.5)
[2021-08-25 08:56] LABS: African American GFR (CKD) 105.5 (60.0-200.0); Albumin 3.1 g/dL (3.8-4.9); Anion Gap 12.1 mmol/L (10.00-18.00); BUN/Creat Ratio 25.83 Ratio (12.00-20.00); Blood Urea Nitrogen 15.5 mg/dL (9.0-27.0); Carbon Dioxide 22.9 mmol/L (20.0-27.5); Globulin 3.1 g/dL (1.6-3.3); Potassium 4.2 mmol/L (3.5-5.5); Total Bilirubin 1.2 mg/dL (0.30-1.20); Total Protein 6.2 g/dL (6.2-8.2)
[2021-08-25] MEDS: PANTOPRAZOLE 40 MG/10 ML VIAL IVP SCH (08:58)
--- NOTE | 2021-08-25 10:53 | CT ---
EXAMINATION TYPE: CT angio chest DATE OF EXAM: 08/25/2021 10:35 AM COMPARISON: None HISTORY: SOB, elevated d-dimer CT DLP: 951.4 mGycm Automated exposure control for dose reduction was used. CONTRAST: CTA scan of the thorax is performed with IV Contrast, patient injected with 100 mL of Isovue 370, pul monary embolism protocol. . FINDINGS: LUNGS: There is motion artifact which limits the exam. Area of consolidation involving the left lung base with small to moderate sized pleural effusion. No obvious pneumothorax. MEDIASTINUM: There is unsatisfactory enhancement of the pulmonary artery and its branches, exam is no ndiagnostic for pulmonary embolism. There are no greater than 1 cm hilar or mediastinal lymph nodes. The heart is markedly enlarged. Small pericardial effusion. OTHER: Hypertrophic and degenerative changes spine. Aorta of normal caliber. Atherosclerotic change is seen. IMPRESSION: 1. Nondiagnostic assessment for pulmonary embolism due to lack of any significant contrast within the pulmonary arteries. 2. Left lower lobe infiltrate and small effusion 3. Severe cardiomegaly with small pericardial effusion.
--- NOTE | 2021-08-25 11:48 | P.CNPUL ---
History of Present Illness Consult date: 08/25/21 Requesting physician: gAnieszka Strickland Reason for consult: dyspnea, abnormal CXR/CT Chief complaint: Altered mental status History of present illness: This is an 86-year-old male patient with a history of retention, hyperlipidemia, atrial fibrillation, lifelong nonsmoker. He has been living at home and doing fairly well according to his son who is present during this evaluation. However about 5 days ago the patient seemed to be developing increasing confusion and increasing weakness. He usually can get from the bed to the chair on his own where the family was having trouble getting him up. They're having trouble with eating and drinking. EMS was called and he is brought in the hospital yesterday. He does have altered mental status. He is not speaking clearly. He has restlessness. Computed tomography scan of the brain revealed degenerative and nonspecific white matter changes mostly typical of remote ischemia. No acute hemorrhage or mass effect. Chest x-ray did reveal a large area of consolidation in the left lower lobe with some left-sided pleural effusion. CT angiogram was nondiagnostic for pulmonary embolism due to lack of any significant contrast within the pulmonary arteries. Left lower lobe infiltrate and small effusion. Severe cardiomegaly with small pericardial effusion. Urine culture pending. White count 6.6. Hemoglobin 13.2. D-dimer 3.22. Sodium 135. Potassium 4.2. BUN 15. Creatinine 0.6. He's been initiated on ceftriaxone. 0.9 normal saline at 75 ML's per hour. He is maintaining O2 saturations in the 90s on 3 L/m per nasal cannula. Currently afebrile. Hemodynamically stable. 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 History of Any Multi-Drug Resistant Organisms: None Reported Past Surgical History: Hernia Repair Additional Past Surgical History / Comment(s): R inguinal hernia repair, L leg varicose vein surgery, colonoscopy. Past Anesthesia/Blood Transfusion Reactions: No Reported Reaction Smoking Status: Never smoker - Past Family History Father Family Medical History: No Reported History Additional Family Medical History / Comment(s): Father ws healthy Mother Additional Family Medical History / Comment(s): Mother was a smoker and a drinker. Medications and Allergies Home Medications Medication Instructions Recorded Confirmed Type Atorvastatin [Lipitor] 20 mg PO HS 12/07/19 08/24/21 History Metoprolol Tartrate [Lopressor] 50 mg PO BID 12/07/19 08/24/21 History Verapamil [Isoptin] 80 mg PO QID 12/07/19 08/24/21 History Doxazosin [Cardura] 4 mg PO DAILY 08/24/21 08/24/21 History Furosemide [Lasix] 40 mg PO DAILY 08/24/21 08/24/21 History Potassium Chloride ER [K-Dur 10] 10 meq PO BID 08/24/21 08/24/21 History Allergies Allergy/AdvReac Type Severity Reaction Status Date / Time No Known Allergies Allergy Verified 08/24/21 10:21 Physical Exam Vitals: Vital Signs Temp Pulse Pulse Resp BP BP Pulse Ox 08/25/21 07:08 98.6 F 65 18 137/76 94 L 08/25/21 04:26 98.4 F 62 20 126/65 93 L 08/24/21 20:00 98.1 F 94 18 148/63 96 08/24/21 17:35 97.5 F L 100 16 137/71 96 08/24/21 15:00 72 16 132/68 95 Intake and Output 08/24/21 08/25/21 08/25/21 22:59 06:59 14:59 Intake Total 120 900 Balance 120 900 Intake: Intake, IV Titration 900 Amount Sodium Chloride 0.9% 1, 900 000 ml @ 75 mls/hr IV . [id number] [facility] Rx#:[id number] Oral 120 Other: # Voids 2 GENERAL EXAM: Alert, altered, 86-year-old male patient, on 3 L nasal cannula, comfortable in no apparent distress. HEAD: Normocephalic. EYES: Normal reaction of pupils, equal size. NOSE: Clear with pink turbinates. THROAT: No erythema or exudates. NECK: No masses, no JVD. CHEST: No chest wall deformity. LUNGS: Equal air entry with crackles in the left base, diminished. CVS: S1 and S2 normal with no audible murmur, regular rhythm. ABDOMEN: No hepatosplenomegaly, normal bowel sounds, no guarding or rigidity. SPINE: No scoliosis or deformity SKIN: No rashes CENTRAL NERVOUS SYSTEM: Alert, not oriented, no focal deficits, tone is normal in all 4 extremities. EXTREMITIES: There is no peripheral edema. No clubbing, no cyanosis. Peripheral pulses are intact. Results - Laboratory Findings CBC and BMP: 08/25/21 06:07 08/25/21 06:07 PT/INR, D-dimer PT 12.1 sec (9.0-12.0) H 08/24/21 09:54 INR 1.1 (<1.2) 08/24/21 09:54 D-Dimer 3.22 mg/L FEU (<0.60) H 08/24/21 16:22 Abnormal lab findings: Abnormal Labs 08/24/21 08/24/21 08/24/21 09:54 09:54 09:54 RBC RDW Lymphocytes # 0.5 L Monocytes # Eosinophils # ESR PT 12.1 H D-Dimer Sodium 135 L Creatinine 0.63 L BUN/Creatinine Ratio Glucose 115 H Total Bilirubin 2.1 H AST 60 H C-Reactive Protein Albumin Albumin/Globulin Ratio Urine Protein Urine Ketones Urine Blood Urine RBC Urine Mucus 08/24/21 08/24/21 08/24/21 14:34 16:22 16:22 RBC RDW Lymphocytes # Monocytes # Eosinophils # ESR 35 H PT D-Dimer 3.22 H Sodium Creatinine BUN/Creatinine Ratio Glucose Total Bilirubin AST C-Reactive Protein Albumin Albumin/Globulin Ratio Urine Protein Trace H Urine Ketones 1+ H Urine Blood Small H Urine RBC 6 H Urine Mucus Rare H 08/24/21 08/25/21 08/25/21 16:22 06:07 06:07 RBC 4.39 L RDW 14.8 H Lymphocytes # 0.69 L Monocytes # 1.23 H Eosinophils # 0.01 L ESR PT D-Dimer Sodium Creatinine BUN/Creatinine Ratio 25.83 H Glucose Total Bilirubin AST 48 H C-Reactive Protein 17.4 H Albumin 3.1 L Albumin/Globulin Ratio 1.00 L Urine Protein Urine Ketones Urine Blood Urine RBC Urine Mucus - Diagnostic Findings Chest x-ray: image reviewed CT scan - chest: image reviewed Assessment and Plan Assessment: 1 Acute altered mental status of unclear etiology, possibly related to left lower lobe pneumonia, possible UTI 2 Possible left lower lobe pneumonia, No fever, no leukocytosis 3 History of hypertension 4 Hyperlipidemia 5 BPH Plan: The patient was seen and evaluated Chest x-ray, CAT scans and labs reviewed Continue ceftriaxone for now Obtain a pro-calcitonin Heparin for DVT prophylaxis Follow-up x-ray in a.m. We will continue to follow and make further recommendations based on his clinical status I have personally seen and examined the patient, performed the documentation and the assessment and plan as written. Number of minutes spent on the visit: 20.
[2021-08-25 12:25] VITALS: BMI 38.6
--- NOTE | 2021-08-25 13:34 | P.PN ---
Subjective Progress Note Date: 08/25/21 This is a pleasant 86-year-old male who was recently admitted for altered mental status with confusion possible acute urinary tract infection, present on admission and is being closely monitored. Patient also started on IV antibiotics in the form of ceftriaxone for possible left lower lobe pneumonia and effusion and pulmonary was consulted for further evaluation. Son, Marv at the bedside has noted that patient is declining at home as he lives alone and has been unable to perform ADLs, decreased oral intake, noncompliance with medications, falling more frequently, and feels he is unsafe to return home in case management and social work following and providing resources and options for treatment plan moving forward. Patient did have an elevated d-dimer at 3.[address] angios of the chest was ordered and pending. Patient is afebrile and WBC is normal at 6.60. Hemoglobin is stable at 13.2. Urine cultures are pending. Patient is lethargic and sleeping although arousable and continues to be confused on exam. Review of systems: Unable to obtain as patient is confused Active Medications Acetaminophen (Acetaminophen Tab 325 Mg Tab) 650 mg PO Q6HR PRN PRN Reason: Mild Pain or Fever > 100.5 Last Admin: 08/24/21 19:56 Dose: 650 mg Documented by: Atorvastatin Calcium (Atorvastatin 20 Mg Tab) 20 mg PO HS [facility] Last Admin: 08/24/21 19:56 Dose: 20 mg Documented by: Doxazosin Mesylate (Doxazosin 4 Mg Tab) 4 mg PO DAILY [facility] Last Admin: 08/25/21 07:59 Dose: 4 mg Documented by: Heparin Sodium (Porcine) (Heparin Sodium,Porcine/Pf 5,000 Unit/0.5 Ml Syringe) 5,000 unit SQ Q12HR [facility] Last Admin: 08/25/21 07:11 Dose: 5,000 unit Documented by: Sodium Chloride (Saline 0.9%) 1,000 mls @ 75 mls/hr IV .[id number] [facility] Last Admin: 08/25/21 05:10 Dose: 75 mls/hr Documented by: Ceftriaxone Sodium 1 gm/ (Sodium Chloride) 50 mls @ 100 mls/hr IVPB Q24HR [facility]; Protocol Last Admin: 08/25/21 07:09 Dose: 100 mls/hr Documented by: Metoprolol Tartrate (Metoprolol Tartrate 50 Mg Tab) 50 mg PO BID [facility] Last Admin: 08/25/21 07:11 Dose: 50 mg Documented by: Naloxone HCl (Naloxone 0.4 Mg/Ml 1 Ml Vial) 0.2 mg IV Q2M PRN PRN Reason: Opioid Reversal Pantoprazole Sodium (Pantoprazole 40 Mg Tablet) 40 mg PO AC-BRKFST [facility] Potassium Chloride (Potassium Chloride Er 10 Meq Tab.Er.Prt) 10 meq PO BID [facility] Last Admin: 08/25/21 07:11 Dose: 10 meq Documented by: Verapamil HCl (Verapamil 80 Mg Tab) 80 mg PO QID [facility] Last Admin: 08/25/21 12:54 Dose: Not Given Documented by: PHYSICAL EXAMINATION: GENERAL: The patient is lethargic although arousable, confused, Well developed, well nourished. Obese. Patient currently on 3 L of oxygen although not wearing on exam and denies shortness of breath. Son at the bedside reports that patient does not wear home oxygen HEENT: Pupils are round and equally reacting to light. EOMI. does have scleral icterus. No conjunctival pallor. Normocephalic, atraumatic. No pharyngeal erythema. No thyromegaly. Oral mucosa is dry. CARDIOVASCULAR: S1 and S2 muffled PULMONARY: diminished breath sounds bilaterally with some scattered rhonchi noted. ABDOMEN: soft. Nontender on exam. obese. non-distended, normoactive bowel sounds. No palpable organomegaly. MUSCULOSKELETAL: No joint swelling or deformity. EXTREMITIES: No cyanosis, clubbing, or pedal edema. NEUROLOGICAL: Gross neurological examination did not reveal any focal deficits. Diffuse weakness SKIN: No rashes. Assessment: Acute left lower lobe pneumonia with pleural effusion Change in mental status and confusion Possible acute urinary tract infection, present on admission Generalized weakness Medical debility Gait dysfunction GI prophylaxis DVT prophylaxis Full code Plan: Recommend to continue with current medications and management. Patient has been seen and evaluated by pulmonary and patient will continue with IV ceftriaxone. Patient started on DVT prophylaxis. Patient did have an elevated d-dimer of 3.[address] angios the chest was done was nondiagnostic for PE due to the lack of significant contrast within the pulmonary arteries although did show left lower lobe infiltrate and small effusion and severe cardiomegaly with small pericardial effusion. Most recent echo done in November 2019 shows ventricular systolic function is low to normal with an EF of 50-55% with mild tricuspid regurgitation present, moderate pulmonary hypertension and also mild mitral regurgitation present. Obtain another 2-D echo and consult cardiology. Currently awaiting urine cultures and will continue with gentle IV hydration at this time. Will repeat labs, due to multiple convex medical issues, prognosis is guarded. The impression and plan of care has been dictated by America Bingham, nurse practitioner as directed. MD Shan I have performed a history and examination and MDM of this patient, discussed the same with the dictator, and agree with the dictator's assessment and plan as written ,documented as a scribe. Based on total visit time, I have performed more than 50% of the visit. Total number of minutes spent on this visit, 20 minutes. Any additional findings or plans will be noted. Objective - Vital Signs Vital signs: Vital Signs Temp 98.6 F 08/25/21 07:08 Pulse 65 08/25/21 07:08 Resp 18 08/25/21 07:08 BP 137/76 08/25/21 07:08 Pulse Ox 94 L 08/25/21 07:08 Intake & Output 08/24/21 08/25/21 08/25/21 18:59 06:59 18:59 Intake Total 120 900 Balance 120 900 Weight 129.274 kg Intake: Intake, IV Titration 900 Amount Sodium Chloride 0.9% 1, 900 000 ml @ 75 mls/hr IV . [id number] [facility] Rx#:[id number] Oral 120 Other: # Voids 2 - Labs CBC & Chem 7: 08/25/21 06:07 08/25/21 06:07 Labs: Abnormal Lab Results - Last 24 Hours (Table) 08/24/21 08/24/21 08/24/21 Range/Units 09:54 09:54 09:54 RBC (4.40-5.60) X 10*6/uL RDW (11.5-14.5) % Lymphocytes # 0.5 L (1.0-4.8) k/uL Monocytes # (0.20-1.00) X 10*3/uL Eosinophils # (0.04-0.35) X 10*3/uL ESR (0-15) mm/hr PT 12.1 H (9.0-12.0) sec D-Dimer (<0.60) mg/L FEU Sodium 135 L (137-145) mmol/L Creatinine 0.63 L (0.66-1.25) mg/dL BUN/Creatinine Ratio (12.00-20.00) Ratio Glucose 115 H (74-99) mg/dL Total Bilirubin 2.1 H (0.2-1.3) mg/dL AST 60 H (17-59) U/L C-Reactive Protein (<1.0) mg/dL Albumin (3.8-4.9) g/dL Albumin/Globulin Ratio (1.60-3.17) g/dL Urine Protein (Negative) Urine Ketones (Negative) Urine Blood (Negative) Urine RBC (0-5) /hpf Urine Mucus (None) /hpf 08/24/21 08/24/21 08/24/21 Range/Units 14:34 16:22 16:22 RBC (4.40-5.60) X 10*6/uL RDW (11.5-14.5) % Lymphocytes # (1.0-4.8) k/uL Monocytes # (0.20-1.00) X 10*3/uL Eosinophils # (0.04-0.35) X 10*3/uL ESR 35 H (0-15) mm/hr PT (9.0-12.0) sec D-Dimer 3.22 H (<0.60) mg/L FEU Sodium (137-145) mmol/L Creatinine (0.66-1.25) mg/dL BUN/Creatinine Ratio (12.00-20.00) Ratio Glucose (74-99) mg/dL Total Bilirubin (0.2-1.3) mg/dL AST (17-59) U/L C-Reactive Protein (<1.0) mg/dL Albumin (3.8-4.9) g/dL Albumin/Globulin Ratio (1.60-3.17) g/dL Urine Protein Trace H (Negative) Urine Ketones 1+ H (Negative) Urine Blood Small H (Negative) Urine RBC 6 H (0-5) /hpf Urine Mucus Rare H (None) /hpf 08/24/21 08/25/21 08/25/21 Range/Units 16:22 06:07 06:07 RBC 4.39 L (4.40-5.60) X 10*6/uL RDW 14.8 H (11.5-14.5) % Lymphocytes # 0.69 L (1.0-4.8) k/uL Monocytes # 1.23 H (0.20-1.00) X 10*3/uL Eosinophils # 0.01 L (0.04-0.35) X 10*3/uL ESR (0-15) mm/hr PT (9.0-12.0) sec D-Dimer (<0.60) mg/L FEU Sodium (137-145) mmol/L Creatinine (0.66-1.25) mg/dL BUN/Creatinine Ratio 25.83 H (12.00-20.00) Ratio Glucose (74-99) mg/dL Total Bilirubin (0.2-1.3) mg/dL AST 48 H (17-59) U/L C-Reactive Protein 17.4 H (<1.0) mg/dL Albumin 3.1 L (3.8-4.9) g/dL Albumin/Globulin Ratio 1.00 L (1.60-3.17) g/dL Urine Protein (Negative) Urine Ketones (Negative) Urine Blood (Negative) Urine RBC (0-5) /hpf Urine Mucus (None) /hpf Microbiology - Last 24 Hours (Table) 08/24/21 14:34 Urine Culture - Preliminary Urine,Clean Catch
--- NOTE | 2021-08-25 16:58 | ECHOF ---
Referral Reason:pericardial effusion, severe cardiomegaly MEASUREMENTS -------- HEIGHT: 177.8 cm WEIGHT: 129.3 kg BP: RVIDd: 3.7 cm (< 3.3) IVSd: 1.2 cm (0.6 - 1.1) LVIDd: 4.6 cm (3.9 - 5.3) LVPWd: 1.2 cm (0.6 - 1.1) IVSs: 1.6 cm LVIDs: 2.8 cm LVPWs: 1.8 cm Ao Diam: 3.4 cm (2.0 - 3.7) AV Cusp: 2.6 cm (1.5 - 2.6) LA Diam: 5.7 cm (2.7 - 3.8) MV EXCURSION: 18.742 mm (> 18.000) MV EF SLOPE: 177 mm/s (70 - 150) EPSS: 0.7 cm MV E Vernon: 0.80 m/s MV DecT: 188 ms MV A Vernon: 0.36 m/s MV E/A Ratio: 2.22 RAP: 5.00 mmHg RVSP: 26.52 mmHg FINDINGS -------- This was a technically difficult study with suboptimal views. The left ventricular size is normal. There is mild concentric left ventricular hypertrophy. Overa ll left ventricular systolic function is low-normal with, an EF between 50 - 55 %. The right ventricle is mild to moderately enlarged. The left atrial size is normal. The right atrium is moderately enlarged. Lumason used The aortic valve is trileaflet and appears structurally normal. The mitral valve is normal. Mild mitral regurgitation is present. The tricuspid valve appears structurally normal. Mild tricuspid regurgitation present. Right vent ricular systolic pressure is normal at < 35 mmHg. There is no pulmonic regurgitation present. The aortic root size is normal. IVC Not well visulized. There is no pericardial effusion. CONCLUSIONS -------- 1. The left ventricular size is normal. 2. There is mild concentric left ventricular hypertrophy. 3. Overall left ventricular systolic function is low-normal with, an EF between 50 - 55 %. 4. The right ventricle is mild to moderately enlarged. 5. The right atrium is moderately enlarged. 6. Mild mitral regurgitation is present. 7. Mild tricuspid regurgitation present. 8. There is no pericardial effusion. [employer] WINDER: Melinda Trinidad RDCS
[2021-08-25] MEDS: ACETAMINOPHEN TAB 325 MG TAB PO PRN (18:02)
[2021-08-25] MEDS: ATORVASTATIN 20 MG TAB PO SCH (21:05)
[2021-08-26] MEDS: SODIUM CHLORIDE 0.9% 1,000 ML IV SCH ×2 (04:51→17:56)
[2021-08-26] MEDS: HEPARIN SODIUM,PORCINE/PF 5,000 UNIT/0.5 ML SYRINGE SQ SCH ×2 (09:54→22:11)
[2021-08-26] MEDS: METOPROLOL TARTRATE 50 MG TAB PO SCH ×2 (09:54→22:11)
[2021-08-26] MEDS: PANTOPRAZOLE 40 MG TABLET PO SCH (09:55)
[2021-08-26] MEDS: POTASSIUM CHLORIDE ER 10 MEQ TAB.ER.PRT PO SCH ×2 (09:55→22:11)
[2021-08-26] MEDS: DOXAZOSIN 4 MG TAB PO SCH (10:56)
[2021-08-26] MEDS: VERAPAMIL 80 MG TAB PO SCH ×4 (10:57→22:11)
--- NOTE | 2021-08-26 11:21 | P.CRDCN ---
History of Present Illness Consult date: 08/26/21 History of present illness: HISTORY OF PRESENT ILLNESS: This is a 86 year old male with a past medical history significant for who presented and hyperlipidemia. 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 We have been asked to see the patient in consultation for pericardial effusion. Patient examined at the bedside. Patient is admitted to the hospital secondary to increased confusion, weakness, and possible pneumonia. Patient underwent cecilio st CTA which was nondiagnostic for pulmonary embolism due to lack of significant contrast, left lower lobe infiltrate and small effusion, severe cardiomegaly with small pericardial effusion. Patient underwent echocardiogram which did not reveal evidence of pericardial effusion, ejection fraction 50-55%, mild MR, mild TR. The patient currently denies any chest pain or pressure. He currently daksha es difficulty breathing at the time of examination. Vital signs are stable. REVIEW OF SYSTEMS: At the time of my exam: CONSTITUTIONAL: Denies fever or chills. HEENT: Denies blurred vision, vision changes, or eye pain. Denies hemoptysis CARDIOVASCULAR: Denies chest pain. Denies orthopnea. Denies PND. Denies palpitations RESPIRATORY: Denies shortness of breath. GASTROINTESTINAL: Denies abdominal pain. Denies nausea or vomiting. HEMATOLOGIC: Denies bleeding disorders. GENITOURINARY: Denies any blood in urine. SKIN: Denies pruitis. Denies rash. PHYSICAL EXAM: VITAL SIGNS: Reviewed. GENERAL: Well-developed in no acute distress. HEENT: Head is normocephalic. Pupils are equal, round. Sclerae anicteric. Mucous membranes of the mouth are moist. Neck supple. No JVD or thyromegaly LUNGS: Respirations even and unlabored. Lungs diminished to auscultation bilaterally. HEART: Regular rate and rhythm. S1 and S2 heard. ABDOMEN: Soft. Nondistended. Nontender. EXTREMITIES: Normal range of motion. No clubbing or cyanosis. Peripheral pulse s intact. No lower extremity edema NEUROLOGIC: Awake and alert. ASSESSMENT: Altered mental status Possible left lower lobe pneumonia Hypertension Hyperlipidemia PLAN: 2-D echo reviewed which did not reveal evidence of pericardial effusion Patient is currently stable from a cardiac standpoint No further inpatient recommendations from a cardiac standpoint We will sign off. Please reconsult if needed. Nurse practitioner note has been reviewed by physician. Signing provider agrees with the documented findings, assessment, and plan of care. 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 History of Any Multi-Drug Resistant Organisms: None Reported Past Surgical History: Hernia Repair Additional Past Surgical History / Comment(s): R inguinal hernia repair, L leg varicose vein surgery, colonoscopy. Past Anesthesia/Blood Transfusion Reactions: No Reported Reaction Smoking Status: Never smoker - Past Family History Father Family Medical History: No Reported History Additional Family Medical History / Comment(s): Father ws healthy Mother Additional Family Medical History / Comment(s): Mother was a smoker and a drinker. Medications and Allergies Home Medications Medication Instructions Recorded Confirmed Type Atorvastatin [Lipitor] 20 mg PO HS 12/07/19 08/24/21 History Metoprolol Tartrate [Lopressor] 50 mg PO BID 12/07/19 08/24/21 History Verapamil [Isoptin] 80 mg PO QID 12/07/19 08/24/21 History Doxazosin [Cardura] 4 mg PO DAILY 08/24/21 08/24/21 History Furosemide [Lasix] 40 mg PO DAILY 08/24/21 08/24/21 History Potassium Chloride ER [K-Dur 10] 10 meq PO BID 08/24/21 08/24/21 History Allergies Allergy/AdvReac Type Severity Reaction Status Date / Time No Known Allergies Allergy Verified 08/24/21 10:21 Physical Exam Vitals: Vital Signs Temp Pulse Resp BP Pulse Ox 08/26/21 10:00 65 135/72 08/26/21 03:25 97.4 F L 69 22 136/68 94 L 08/25/21 20:20 98.1 F 53 L 20 106/55 94 L 08/25/21 20:00 53 L 20 08/25/21 18:00 65 112/54 08/25/21 15:14 70 100/64 08/25/21 12:14 98 F 56 L 19 92/48 96 Intake and Output 08/25/21 08/26/21 08/26/21 22:59 06:59 14:59 Other: # Voids 3 2 # Bowel Movements 1 Results 08/25/21 06:07 08/25/21 06:07 Current Medications Generic Name Dose Route Start Last Admin Trade Name Leroyq PRN Reason Stop Dose Admin Acetaminophen 650 mg 08/24/21 12:16 08/25/21 18:02 Acetaminophen Tab 325 Mg Tab PO 325 mg Q6HR PRN Administration Mild Pain or Fever > 100.5 Atorvastatin Calcium 20 mg 08/24/21 21:00 08/25/21 21:05 Atorvastatin 20 Mg Tab PO 20 mg HS JAMES Administration Doxazosin Mesylate 4 mg 08/25/21 09:00 08/26/21 10:56 Doxazosin 4 Mg Tab PO 4 mg DAILY JAMES Administration Heparin Sodium (Porcine) 5,000 unit 08/24/21 14:45 08/26/21 09:54 Heparin Sodium,Porcine/Pf 5,000 Unit/0.5 Ml Syringe SQ 5,000 unit Q12HR JAMES Administration Sodium Chloride 1,000 mls @ 75 mls/hr 08/24/21 12:15 08/26/21 04:51 Saline 0.9% IV 75 mls/hr .[id number] JAMES Administration Ceftriaxone Sodium 1 gm/ 50 mls @ 100 mls/hr 08/25/21 09:00 08/26/21 09:55 Sodium Chloride IVPB 100 mls/hr Q24HR JAMES Administration Protocol Metoprolol Tartrate 50 mg 08/24/21 21:00 08/26/21 09:54 Metoprolol Tartrate 50 Mg Tab PO 50 mg BID JAMES Administration Naloxone HCl 0.2 mg 08/24/21 12:16 Naloxone 0.4 Mg/Ml 1 Ml Vial IV Q2M PRN Opioid Reversal Pantoprazole Sodium 40 mg 08/26/21 07:30 08/26/21 09:55 Pantoprazole 40 Mg Tablet PO 40 mg [id number] JAMES Administration Potassium Chloride 10 meq 08/24/21 21:00 08/26/21 09:55 Potassium Chloride Er 10 Meq Tab.Er.Prt PO 10 meq BID JAMES Administration Verapamil HCl 80 mg 08/24/21 18:00 08/26/21 10:57 Verapamil 80 Mg Tab PO 80 mg QID JAMES Administration Intake and Output 08/25/21 08/26/21 08/26/21 22:59 06:59 14:59 Other: # Voids 3 2 # Bowel Movements 1 08/25/21 06:07 08/25/21 06:07
--- NOTE | 2021-08-26 11:27 | P.PN ---
Subjective Progress Note Date: 08/26/21 This is an 86-year-old male patient with a history of retention, hyperlipidemia, atrial fibrillation, lifelong nonsmoker. He has been living at home and doing fairly well according to his son who is present during this evaluation. However about 5 days ago the patient seemed to be developing increasing confusion and increasing weakness. He usually can get from the bed to the chair on his own where the family was having trouble getting him up. They're having trouble with eating and drinking. EMS was called and he is brought in the hospital yesterday. He does have altered mental status. He is not speaking clearly. He has restlessness. Computed tomography scan of the brain revealed degenerative and nonspecific white matter changes mostly typical of remote ischemia. No acute hemorrhage or mass effect. Chest x-ray did reveal a large area of consolidation in the left lower lobe with some left-sided pleural effusion. CT angiogram was nondiagnostic for pulmonary embolism due to lack of any significant contrast within the pulmonary arteries. Left lower lobe infiltrate and small effusion. Severe cardiomegaly with small pericardial effusion. Urine culture pending. White count 6.6. Hemoglobin 13.2. D-dimer 3.22. Sodium 135. Potassium 4.2. BUN 15. Creatinine 0.6. He's been initiated on ceftriaxone. 0.9 normal saline at 75 ML's per hour. He is maintaining O2 saturations in the 90s on 3 L/m per nasal cannula. Currently afebrile. Hemodynamically stable. The patient is seen today 08/26/2021 in follow-up on the regular medical floor. He is much more awake and alert today. Sitting up in bed. Alert and oriented. Maintaining O2 saturations in the 90s on room air. Afebrile. Hemodynamically stable. Blood culture revealing no growth to date. Urine culture pending. No new labs today. He is continued on ceftriaxone. Heparin for DVT prophylaxis. Normal saline at 75 ML's per hour. His appetite is good. Objective - Vital Signs Vital signs: Vital Signs Temp 97.4 F L 08/26/21 03:25 Pulse 65 08/26/21 10:00 Resp 22 08/26/21 03:25 BP 135/72 08/26/21 10:00 Pulse Ox 94 L 08/26/21 03:25 Intake & Output 08/25/21 08/26/21 08/26/21 18:59 06:59 18:59 Weight 129.274 kg Other: # Voids 3 2 # Bowel Movements 1 - Exam GENERAL EXAM: Alert, oriented 86-year-old male patient, on room air, comfortable in no apparent distress. HEAD: Normocephalic. EYES: Normal reaction of pupils, equal size. NOSE: Clear with pink turbinates. THROAT: No erythema or exudates. NECK: No masses, no JVD. CHEST: No chest wall deformity. LUNGS: Equal air entry with crackles in the left base, diminished. CVS: S1 and S2 normal with no audible murmur, regular rhythm. ABDOMEN: No hepatosplenomegaly, normal bowel sounds, no guarding or rigidity. SPINE: No scoliosis or deformity SKIN: No rashes CENTRAL NERVOUS SYSTEM: Alert, oriented, no focal deficits, tone is normal in all 4 extremities. EXTREMITIES: There is no peripheral edema. No clubbing, no cyanosis. Peripheral pulses are intact. - Labs CBC & Chem 7: 08/25/21 06:07 08/25/21 06:07 Labs: Microbiology - Last 24 Hours (Table) 08/24/21 16:22 Blood Culture - Preliminary Blood No Growth after 24 hours Assessment and Plan Assessment: 1 Acute altered mental status of unclear etiology, possibly related to left lower lobe pneumonia, possible UTI 2 Possible left lower lobe pneumonia, No fever, no leukocytosis 3 History of hypertension 4 Hyperlipidemia 5 BPH Plan: The patient was seen and evaluated Stable and on room air More awake and alert today Sputum culture pending Continue ceftriaxone for now Follow-up chest x-ray in a.m. We will continue to follow I have personally seen and examined the patient, performed the documentation and the assessment and plan as written. Number of minutes spent on the visit: 10.
--- NOTE | 2021-08-26 13:06 | CDI ---
Documentation Clarification Form Date: 08/26/2021 12:40:33 PM From: Shelly Benavidez RN, CCDS Admit Date: 08/24/2021 12:16:00 PM Patient Name: Valentín Justice Visit Number: [id number] Discharge Date: ATTENTION: The Clinical Documentation Specialists (CDI) and [facility] Coding Staff appreciate your assistance in clarifying documentation. Please respond to the clarification below the line at the bottom and electronically sign. The CDI & [facility] Coding staff will review the response and follow-up if needed. Please note: Queries are made part of the Legal Health Record. If you have any questions, please contact the author of this message via ITS. Dr. Agnieszka Strickland Your patient has the documented symptom of Altered Mental Status in the H/P and subsequent progress notes. Documentation has altered mental status with confusion possible acute urinary tract infection. Additional clarification regarding the etiology/cause of this symptom is requested. History/Risk Factors: Atrial Fibrillation, Hyperlipidemia, Hypertension Clinical Indicators: 86-year-old male present to emergency department with increased confusion, decreased oral intake, nonambulatory over the past several days. He is lethargic and sleeping. He obeys commands, verbal response is confused. 08/24 Vital sign: 159/99 92 16 98.2 08/24 EKG: Atrial fibrillation @ 84 bpm 08/24 WBC 78.2, NA+ 135, BUN 17, Creatinine 0.63, Lactic acid 1.6; UA: Ur Leukocyte Esterase negative, urine WBC 2, Urine culture: Pending. 08/24 CXR: Large area of consolidation left lower lobe with some left-sided pleural effusion 08/24 CT Brain: Degenerative and nonspecific white matter changes most typical of remote ischemia. No acute hemorrhage or mass effect. Treatment: Neurological assessment per protocol Rocephin 1 GM IVPB Q 24 HRS .9NS @ 75 MLS/HR Please clarify the etiology of the symptom of Altered Mental Status: [ ] Metabolic Encephalopathy due to pneumonia, possible UTI [ ] Other condition (please specify) [ ] Unable to determine (Template Last Revised: July 2020) Unable to determine MTDD
--- NOTE | 2021-08-26 14:34 | P.PN ---
Subjective Progress Note Date: 08/26/21 This is a pleasant 86-year-old male who was recently admitted for altered mental status with confusion possible acute urinary tract infection, present on admission and is being closely monitored. Patient also started on IV antibiotics in the form of ceftriaxone for possible left lower lobe pneumonia and effusion and pulmonary was consulted for further evaluation. Son, Marv at the bedside has noted that patient is declining at home as he lives alone and has been unable to perform ADLs, decreased oral intake, noncompliance with medications, falling more frequently, and feels he is unsafe to return home in case management and social work following and providing resources and options for treatment plan moving forward. Patient did have an elevated d-dimer at 3.[address] angios of the chest was ordered and pending. Patient is afebrile and WBC is normal at 6.60. Hemoglobin is stable at 13.2. Urine cultures are pending. Patient is lethargic and sleeping although arousable and continues to be confused on exam. 08/26/2021 Patient is seen and evaluated this morning and follow-up and appears much more awake today. Patient reports to eating dinner and finishing most of it and didn't care for much of the breakfast although picked at it. This was confirmed with his son at the bedside Marv. Patient is continued on IV ceftriaxone while awaiting for urine cultures to finalized. Blood cultures thus far have been negative. Patient also continues on IV hydration of 75 ML per hour and will monitor closely. Follow-up chest x-ray ordered for the a.m. Cardiology was consulted and 2-D echo was done showing LV systolic unction is low to normal with an EF of 50-55% with mild mitral and tricuspid regurgitation present. There is no pulmonic regurgitation present. No pericardial effusion noted on echo. Patient currently denies any chest pain or shortness of breath. Patient is afebrile. No reports of nausea or vomiting noted and patient is tolerating diet. Patient reports the passing gas although no bowel movement and patient also reports that he does not regularly have bowel movements daily usually every 3-4 days. PT/OT therapy following the patient as well recommending subacute rehab in case management social work following. Awaiting urine cultures to finalize. Active Medications Acetaminophen (Acetaminophen Tab 325 Mg Tab) 650 mg PO Q6HR PRN PRN Reason: Mild Pain or Fever > 100.5 Last Admin: 08/25/21 18:02 Dose: 325 mg Documented by: Atorvastatin Calcium (Atorvastatin 20 Mg Tab) 20 mg PO HS [facility] Last Admin: 08/25/21 21:05 Dose: 20 mg Documented by: Doxazosin Mesylate (Doxazosin 4 Mg Tab) 4 mg PO DAILY [facility] Last Admin: 08/26/21 10:56 Dose: 4 mg Documented by: Heparin Sodium (Porcine) (Heparin Sodium,Porcine/Pf 5,000 Unit/0.5 Ml Syringe) 5,000 unit SQ Q12HR [facility] Last Admin: 08/26/21 09:54 Dose: 5,000 unit Documented by: Sodium Chloride (Saline 0.9%) 1,000 mls @ 75 mls/hr IV .[id number] [facility] Last Admin: 08/26/21 04:51 Dose: 75 mls/hr Documented by: Ceftriaxone Sodium 1 gm/ (Sodium Chloride) 50 mls @ 100 mls/hr IVPB Q24HR [facility]; Protocol Last Admin: 08/26/21 09:55 Dose: 100 mls/hr Documented by: Metoprolol Tartrate (Metoprolol Tartrate 50 Mg Tab) 50 mg PO BID [facility] Last Admin: 08/26/21 09:54 Dose: 50 mg Documented by: Naloxone HCl (Naloxone 0.4 Mg/Ml 1 Ml Vial) 0.2 mg IV Q2M PRN PRN Reason: Opioid Reversal Pantoprazole Sodium (Pantoprazole 40 Mg Tablet) 40 mg PO AC-BRKFST [facility] Last Admin: 08/26/21 09:55 Dose: 40 mg Documented by: Potassium Chloride (Potassium Chloride Er 10 Meq Tab.Er.Prt) 10 meq PO BID [facility] Last Admin: 08/26/21 09:55 Dose: 10 meq Documented by: Verapamil HCl (Verapamil 80 Mg Tab) 80 mg PO QID [facility] Last Admin: 08/26/21 12:51 Dose: Not Given Documented by: PHYSICAL EXAMINATION: GENERAL: The patient is awake, alert and oriented 2, Well developed, well nour ished. Obese. Patient currently on room air HEENT: Pupils are round and equally reacting to light. EOMI. does have scleral icterus. No conjunctival pallor. Normocephalic, atraumatic. No pharyngeal e rythema. No thyromegaly. CARDIOVASCULAR: S1 and S2 muffled PULMONARY: diminished breath sounds bilaterally with some scattered rhonchi noted. ABDOMEN: soft. Nontender on exam. obese. non-distended, normoactive bowel sounds. No palpable organomegaly. MUSCULOSKELETAL: No joint swelling or deformity. EXTREMITIES: No cyanosis, clubbing, or pedal edema. NEUROLOGICAL: Gross neurological examination did not reveal any focal deficits. Diffuse weakness SKIN: No rashes. Assessment: Acute left lower lobe pneumonia with pleural effusion Change in mental status and confusion, possibly metabolic encephalopathy secondary to pneumonia or acute UTI Possible acute urinary tract infection, present on admission Generalized weakness Medical debility Gait dysfunction GI prophylaxis DVT prophylaxis Full code Plan: Recommend to continue with current medications and management. Patient has been seen and evaluated by pulmonary and patient will continue with IV ceftriaxone. Patient started on DVT prophylaxis. On the CTA there was findings of some pericardial effusion and patient underwent 2-D echo as mentioned previously and also was evaluated by cardiology with no signs of pericardial effusion noted on the echo. EF was 50-55%. Currently awaiting urine cultures and will continue with gentle IV hydration at this time. Will repeat labs, due to multiple complex medical issues, prognosis is guarded. The impression and plan of care has been dictated by America Bingham, nurse practitioner as directed. MD Shan I have performed a history and examination and MDM of this patient, discussed the same with the dictator, and agree with the dictator's assessment and plan as written ,documented as a scribe. Based on total visit time, I have performed more than 50% of the visit. Total number of minutes spent on this visit, 15 minutes. Any additional findings or plans will be noted. Objective - Vital Signs Vital signs: Vital Signs Temp 97.4 F L 08/26/21 11:15 Pulse 55 L 08/26/21 11:15 Resp 18 08/26/21 11:15 BP 102/57 08/26/21 11:15 Pulse Ox 93 L 08/26/21 11:15 Intake & Output 08/25/21 08/26/21 08/26/21 18:59 06:59 18:59 Weight 129.274 kg Other: # Voids 3 2 # Bowel Movements 1 - Labs CBC & Chem 7: 08/25/21 06:07 08/25/21 06:07 Labs: Microbiology - Last 24 Hours (Table) 08/24/21 16:22 Blood Culture - Preliminary Blood No Growth after 24 hours
[2021-08-26] MEDS: ACETAMINOPHEN TAB 325 MG TAB PO PRN (15:24)
[2021-08-26] MEDS: ATORVASTATIN 20 MG TAB PO SCH (22:11)
[2021-08-27] MEDS: SODIUM CHLORIDE 0.9% 1,000 ML IV SCH ×2 (05:25→21:59)
--- NOTE | 2021-08-27 06:57 | XR ---
EXAMINATION TYPE: XR chest 1V portable DATE OF EXAM: 08/27/2021 COMPARISON: 08/24/2021 HISTORY: Shortness of breath TECHNIQUE: Single frontal view of the chest is obtained. FINDINGS: There is marked cardiomegaly unchanged compared to previous. The pulmonary vasculature is not congested. There is a retrocardiac opacity obscuring the left hemidiaphragm unchanged compared to previous. The right lung is clear. There is no pneumothorax. The osseous structures are intact IMPRESSION: Marked cardiomegaly and retrocardiac opacity obscuring the left hemidiaphragm unchanged compared to previous.
[2021-08-27 07:29] LABS: Basophils % (A) 0 %; Eosinophils % (A) 0 %; HCT 41.8 % (39.0-53.0); HGB 12.8 gm/dL (13.0-17.5); Hypochromasia Marked; Lymphocytes # (A) 0.6 k/uL (1.0-4.8); Lymphocytes % (A) 9 %; MCH 30.7 pg (25.0-35.0); MCHC 30.6 g/dL (31.0-37.0); MCV 100.1 fL (80.0-100.0); Macrocytosis Slight; Mean Platelet Volume 8.5; Monocytes # (A) 0.4 k/uL (0-1.0); Monocytes % (A) 7 %; Neutrophils % (A) 81 %; Platelet Count 257 k/uL (150-450); RBC 4.18 m/uL (4.30-5.90); RDW 14.7 % (11.5-15.5); WBC 6.2 k/uL (3.8-10.6)
[2021-08-27 07:39] LABS: African American GFR (CKD) 69 (>60 ml/min/1.73 sqM); Anion Gap 4 mmol/L; Blood Urea Nitrogen 28 mg/dL (9-20); Calcium 8.7 mg/dL (8.4-10.2); Carbon Dioxide 27 mmol/L (22-30); Chloride 101 mmol/L (98-107); Glucose 106 mg/dL (74-99); Magnesium 1.8 mg/dL (1.6-2.3); Non-African American GFR(CKD) 59 (>60 ml/min/1.73 sqM); Potassium 5.1 mmol/L (3.5-5.1); Sodium 132 mmol/L (137-145)
[2021-08-27] MEDS: METOPROLOL TARTRATE 50 MG TAB PO SCH ×2 (08:11→21:21)
[2021-08-27] MEDS: VERAPAMIL 80 MG TAB PO SCH ×4 (08:11→21:24)
[2021-08-27] MEDS: POTASSIUM CHLORIDE ER 10 MEQ TAB.ER.PRT PO SCH ×2 (08:11→21:21)
[2021-08-27] MEDS: HEPARIN SODIUM,PORCINE/PF 5,000 UNIT/0.5 ML SYRINGE SQ SCH ×2 (08:11→21:21)
[2021-08-27] MEDS: DOXAZOSIN 4 MG TAB PO SCH (09:06)
[2021-08-27] MEDS: PANTOPRAZOLE 40 MG TABLET PO SCH (10:15)
--- NOTE | 2021-08-27 15:09 | P.PN ---
Subjective Progress Note Date: 08/27/21 This is an 86-year-old male patient with a history of retention, hyperlipidemia, atrial fibrillation, lifelong nonsmoker. He has been living at home and doing fairly well according to his son who is present during this evaluation. However about 5 days ago the patient seemed to be developing increasing confusion and increasing weakness. He usually can get from the bed to the chair on his own where the family was having trouble getting him up. They're having trouble with eating and drinking. EMS was called and he is brought in the hospital yesterday. He does have altered mental status. He is not speaking clearly. He has restlessness. Computed tomography scan of the brain revealed degenerative and nonspecific white matter changes mostly typical of remote ischemia. No acute hemorrhage or mass effect. Chest x-ray did reveal a large area of consolidation in the left lower lobe with some left-sided pleural effusion. CT angiogram was nondiagnostic for pulmonary embolism due to lack of any significant contrast within the pulmonary arteries. Left lower lobe infiltrate and small effusion. Severe cardiomegaly with small pericardial effusion. Urine culture pending. White count 6.6. Hemoglobin 13.2. D-dimer 3.22. Sodium 135. Potassium 4.2. BUN 15. Creatinine 0.6. He's been initiated on ceftriaxone. 0.9 normal saline at 75 ML's per hour. He is maintaining O2 saturations in the 90s on 3 L/m per nasal cannula. Currently afebrile. Hemodynamically stable. The patient is seen today 08/26/2021 in follow-up on the regular medical floor. He is much more awake and alert today. Sitting up in bed. Alert and oriented. Maintaining O2 saturations in the 90s on room air. Afebrile. Hemodynamically stable. Blood culture revealing no growth to date. Urine culture pending. No new labs today. He is continued on ceftriaxone. Heparin for DVT prophylaxis. Normal saline at 75 ML's per hour. His appetite is good. The patient is seen today 08/27/2021 in follow-up on the regular medical floor. He is resting comfortably in bed. Awake alert oriented. No acute distress. Maintaining O2 saturations in the 90s on 3 L/m per nasal cannula. Normal saline at 75 ML's per hour. Chest x-ray reveals marketed cardiomegaly and retrograde opacity obscuring the left hemidiaphragm. Unchanged compared to previous. Urine culture revealed no growth. Blood cultures revealed no growth. White count 6.2. Hemoglobin 12.8. Sodium 132. Potassium 5.1. Bicarb 27. BUN 28. Creatinine 1.12. Glucose 106. Pro-calcitonin 0.16. He is continued on ceftriaxone. Subcu heparin DVT prophylaxis. Objective - Vital Signs Vital signs: Vital Signs Temp 97.5 F L 08/27/21 12:28 Pulse 59 L 08/27/21 12:28 Resp 21 08/27/21 12:28 BP 87/60 08/27/21 12:28 Pulse Ox 95 08/27/21 12:28 Intake & Output 08/26/21 08/27/21 08/27/21 18:59 06:59 18:59 Intake Total 900 Balance 900 Intake: Intake, IV Titration 900 Amount Sodium Chloride 0.9% 1, 900 000 ml @ 75 mls/hr IV . [id number] [facility] Rx#:[id number] Other: Voiding Method Diaper # Voids 4 3 # Bowel Movements 1 - Exam GENERAL EXAM: Alert, oriented 86-year-old male patient, on 3 L nasal cannula, comfortable in no apparent distress. HEAD: Normocephalic. EYES: Normal reaction of pupils, equal size. NOSE: Clear with pink turbinates. THROAT: No erythema or exudates. NECK: No masses, no JVD. CHEST: No chest wall deformity. LUNGS: Equal air entry with crackles in the left base, diminished. CVS: S1 and S2 normal with no audible murmur, regular rhythm. ABDOMEN: No hepatosplenomegaly, normal bowel sounds, no guarding or rigidity. SPINE: No scoliosis or deformity SKIN: No rashes CENTRAL NERVOUS SYSTEM: Alert, oriented, no focal deficits, tone is normal in all 4 extremities. EXTREMITIES: There is no peripheral edema. No clubbing, no cyanosis. Pe ripheral pulses are intact. - Labs CBC & Chem 7: 08/27/21 06:37 08/27/21 06:37 Labs: Abnormal Lab Results - Last 24 Hours (Table) 08/26/21 08/27/21 08/27/21 Range/Units 13:15 06:37 06:37 RBC 4.18 L (4.30-5.90) m/uL Hgb 12.8 L (13.0-17.5) gm/dL MCV 100.1 H (80.0-100.0) fL MCHC 30.6 L (31.0-37.0) g/dL Lymphocytes # 0.6 L (1.0-4.8) k/uL Sodium 132 L (137-145) mmol/L BUN 28 H (9-20) mg/dL Glucose 106 H (74-99) mg/dL Procalcitonin 0.16 H (0.02-0.09) ng/mL Microbiology - Last 24 Hours (Table) 08/24/21 16:22 Blood Culture - Preliminary Blood No Growth after 48 hours 08/24/21 14:34 Urine Culture - Final Urine,Clean Catch Assessment and Plan Assessment: 1 Acute altered mental status of unclear etiology, possibly related to left lower lobe pneumonia, possible UTI and recovered and alert and oriented 2 Possible left lower lobe pneumonia, No fever, no leukocytosis. Procalcitonin 0.16 remains on ceftriaxone 3 History of hypertension 4 Hyperlipidemia 5 BPH Plan: The patient was seen and evaluated Chest x-ray and labs reviewed More awake and alert today Continued on ceftriaxone We will follow as needed I have personally seen and examined the patient, performed the documentation and the assessment and plan as written. Number of minutes spent on the visit: 10.
--- NOTE | 2021-08-27 18:44 | PN ---
PROGRESS NOTE DATE OF SERVICE: 08/27/2021 This 86-year-old gentleman who was admitted with acute left lower pneumonia is being closely monitored. Patient is less confused today. No chest pain, palpitation. PHYSICAL EXAMINATION: Pulse is 59, blood pressure 87/60, respiration 21. CHEST: A few scattered rhonchi and crackles. CARDIOVASCULAR: S1, S2 normal. ABDOMEN: Soft, nontender. LABS: WBC 6.2, hemoglobin 12.8. ASSESSMENT: 1. Acute left lower pneumonia with pleural effusion. 2. Change in mental status, acute metabolic encephalopathy. 3. Acute urinary tract infection. 4. Medical debility. RECOMMENDATIONS: Recommend to continue current management and symptomatic treatment. PT/OT evaluation, possible ECF rehab. Continue the rest of medications and antibiotics. Repeat labs. MMODL / IJN: [id number] /
--- NOTE | 2021-08-27 19:05 | US ---
EXAMINATION TYPE: US venous doppler duplex LE BI DATE OF EXAM: 08/27/2021 6:58 PM COMPARISON: NONE CLINICAL HISTORY: dvt. pain SIDE PERFORMED: TECHNIQUE: The lower extremity deep venous system is examined utilizing real time linear array sonog mary with graded compression, doppler sonography and color-flow sonography. VESSELS IMAGED: Common Femoral Vein Deep Femoral Vein Greater Saphenous Vein * Femoral Vein Popliteal Vein Small Saphenous Vein * Proximal Calf Veins (* superficial vessels) Right Leg: Negative for DVT Left Leg: Negative for DVT IMPRESSION: No evidence of deep vein thrombosis in the legs.
[2021-08-27] MEDS: ATORVASTATIN 20 MG TAB PO SCH (21:21)
[2021-08-28] MEDS: HEPARIN SODIUM,PORCINE/PF 5,000 UNIT/0.5 ML SYRINGE SQ SCH ×2 (08:02→21:53)
[2021-08-28] MEDS: METOPROLOL TARTRATE 50 MG TAB PO SCH ×2 (08:02→21:53)
[2021-08-28] MEDS: DOXAZOSIN 4 MG TAB PO SCH (08:02)
[2021-08-28] MEDS: VERAPAMIL 80 MG TAB PO SCH ×4 (08:02→21:53)
[2021-08-28] MEDS: POTASSIUM CHLORIDE ER 10 MEQ TAB.ER.PRT PO SCH ×2 (08:02→21:53)
[2021-08-28] MEDS: PANTOPRAZOLE 40 MG TABLET PO SCH (08:02)
[2021-08-28] MEDS: SODIUM CHLORIDE 0.9% 1,000 ML IV SCH ×2 (08:03→21:53)
--- NOTE | 2021-08-28 12:14 | P.PN ---
Subjective Progress Note Date: 08/28/21 This is an 86-year-old male patient with a history of retention, hyperlipidemia, atrial fibrillation, lifelong nonsmoker. He has been living at home and doing fairly well according to his son who is present during this evaluation. However about 5 days ago the patient seemed to be developing increasing confusion and increasing weakness. He usually can get from the bed to the chair on his own where the family was having trouble getting him up. They're having trouble with eating and drinking. EMS was called and he is brought in the hospital yesterday. He does have altered mental status. He is not speaking clearly. He has restlessness. Computed tomography scan of the brain revealed degenerative and nonspecific white matter changes mostly typical of remote ischemia. No acute hemorrhage or mass effect. Chest x-ray did reveal a large area of consolidation in the left lower lobe with some left-sided pleural effusion. CT angiogram was nondiagnostic for pulmonary embolism due to lack of any significant contrast within the pulmonary arteries. Left lower lobe infiltrate and small effusion. Severe cardiomegaly with small pericardial effusion. Urine culture pending. White count 6.6. Hemoglobin 13.2. D-dimer 3.22. Sodium 135. Potassium 4.2. BUN 15. Creatinine 0.6. He's been initiated on ceftriaxone. 0.9 normal saline at 75 ML's per hour. He is maintaining O2 saturations in the 90s on 3 L/m per nasal cannula. Currently afebrile. Hemodynamically stable. The patient is seen today 08/26/2021 in follow-up on the regular medical floor. He is much more awake and alert today. Sitting up in bed. Alert and oriented. Maintaining O2 saturations in the 90s on room air. Afebrile. Hemodynamically stable. Blood culture revealing no growth to date. Urine culture pending. No new labs today. He is continued on ceftriaxone. Heparin for DVT prophylaxis. Normal saline at 75 ML's per hour. His appetite is good. The patient is seen today 08/27/2021 in follow-up on the regular medical floor. He is resting comfortably in bed. Awake alert oriented. No acute distress. Maintaining O2 saturations in the 90s on 3 L/m per nasal cannula. Normal saline at 75 ML's per hour. Chest x-ray reveals marketed cardiomegaly and retrograde opacity obscuring the left hemidiaphragm. Unchanged compared to previous. Urine culture revealed no growth. Blood cultures revealed no growth. White count 6.2. Hemoglobin 12.8. Sodium 132. Potassium 5.1. Bicarb 27. BUN 28. Creatinine 1.12. Glucose 106. Pro-calcitonin 0.16. He is continued on ceftriaxone. Subcu heparin DVT prophylaxis. The patient is seen today 08/28/2021 in follow-up on the regular medical floor. He is awake and alert. Resting comfortably in bed. Urine culture revealed no growth. Blood cultures revealed no growth. He is continued on ceftriaxone. Heparin for DVT prophylaxis. Objective - Vital Signs Vital signs: Vital Signs Temp 97.5 F L 08/28/21 04:00 Pulse 63 08/28/21 08:07 Resp 20 08/28/21 08:00 BP 115/69 08/28/21 08:07 Pulse Ox 94 L 08/28/21 04:00 Intake & Output 08/27/21 08/28/21 08/28/21 17:59 06:59 18:59 Intake Total Balance Intake: Oral Other: Voiding Method Diaper # Voids 5 # Bowel Movements 0 - Exam GENERAL EXAM: Alert, oriented 86-year-old male patient, on room air, comfortable in no apparent distress. HEAD: Normocephalic. EYES: Normal reaction of pupils, equal size. NOSE: Clear with pink turbinates. THROAT: No erythema or exudates. NECK: No masses, no JVD. CHEST: No chest wall deformity. LUNGS: Equal air entry with crackles in the left base, diminished. CVS: S1 and S2 normal with no audible murmur, regular rhythm. ABDOMEN: No hepatosplenomegaly, normal bowel sounds, no guarding or rigidity. SPINE: No scoliosis or deformity SKIN: No rashes CENTRAL NERVOUS SYSTEM: Alert, oriented, no focal deficits, tone is normal in all 4 extremities. EXTREMITIES: There is no peripheral edema. No clubbing, no cyanosis. Peripheral pulses are intact. - Labs CBC & Chem 7: 08/27/21 06:37 08/27/21 06:37 Labs: Microbiology - Last 24 Hours (Table) 08/24/21 16:22 Blood Culture - Preliminary Blood No Growth after 72 hours Assessment and Plan Assessment: 1 Acute altered mental status of unclear etiology, possibly related to left lower lobe pneumonia, possible UTI, recovered and alert and oriented 2 Possible left lower lobe pneumonia, No fever, no leukocytosis. Procalcitonin 0.16 remains on ceftriaxone 3 History of hypertension 4 Hyperlipidemia 5 BPH Plan: The patient was seen and evaluated Stable and on room air We will follow as needed I have personally seen and examined the patient, performed the documentation and the assessment and plan as written. Number of minutes spent on the visit: 10.
--- NOTE | 2021-08-28 18:47 | PN ---
PROGRESS NOTE DATE OF SERVICE: 08/28/2021 This 86-year-old gentleman who was admitted with acute left lower pneumonia and pleural effusion is being closely monitored. Patient is also mildly confused. PHYSICAL EXAMINATION: Pulse is 53, blood pressure 113/43, respirations 18. Examination of the chest shows bilateral scattered rhonchi and crackles. CARDIOVASCULAR: S1, S2 muffled. ABDOMEN: Soft. NERVOUS SYSTEM: Mild diffuse weakness. LABS: WBC 6.2, hemoglobin 12.8. ASSESSMENT: 1. Acute left lower pneumonia with pleural effusion. 2. Change in mental status, acute metabolic encephalopathy. 3. Acute urinary tract infection. 4. Medical debility. 5. Gait dysfunction. RECOMMENDATIONS AND DISCUSSION: I recommend to continue current medications, continue with the monitoring, symptomatic treatment. Continue the antibiotics. PT/OT evaluation. Possible ECF rehab. Guarded prognosis. Further recommendations to follow. SUE / BLAIRN: [id number] /
[2021-08-28] MEDS: ATORVASTATIN 20 MG TAB PO SCH (21:53)
[2021-08-28] MEDS: ACETAMINOPHEN TAB 325 MG TAB PO PRN (23:49)
[2021-08-29] MEDS: PANTOPRAZOLE 40 MG TABLET PO SCH (07:47)
[2021-08-29] MEDS: DOXAZOSIN 4 MG TAB PO SCH (08:56)
[2021-08-29] MEDS: METOPROLOL TARTRATE 50 MG TAB PO SCH (08:56)
[2021-08-29] MEDS: POTASSIUM CHLORIDE ER 10 MEQ TAB.ER.PRT PO SCH (08:56)
[2021-08-29] MEDS: VERAPAMIL 80 MG TAB PO SCH ×2 (08:56→13:20)
[2021-08-29] MEDS: HEPARIN SODIUM,PORCINE/PF 5,000 UNIT/0.5 ML SYRINGE SQ SCH (08:56)
[2021-08-29 13:22] VITALS: BP 102/55; PULSE 50; RESP 20; TEMP 97.3
--- NOTE | 2021-08-29 14:08 | P.DS ---
Providers Date of admission: 08/24/21 12:16 Expected date of discharge: 08/29/21 Attending physician: Agnieszka Strickland Consults: 08/24/21 14:33 Consult Physician Routine Consulting Provider: Chance Parmar Reason/Comments: pneumonia Do you want consulting provider notified?: Yes Primary care physician: Rodger Giles Hospital Course: Final diagnosis Acute left lower lobe pneumonia with pleural effusion Change in mental status and confusion, possibly metabolic encephalopathy secondary to pneumonia or acute UTI Possible acute urinary tract infection, present on admission Generalized weakness Medical debility Gait dysfunction GI prophylaxis DVT prophylaxis Full code Discharge disposition Patient is being discharged in a stable condition with guarded prognosis to [facility] for continued PT/OT therapy. Patient will follow-up with Dr. Mosley in the outpatient setting upon discharge. Patient will follow with Dr. Soares his primary care provider on discharge from [facility]. Patient is to continue with short course of oral Ceftin 500 mg twice daily for the next 3 days and then may discontinue. Total time taken is greater than 35 minutes. Hospital course This is an 86-year-old male who was recently admitted with altered mental status and confusion was being closely monitored. Patient with also possible left lower lobe pneumonia and pleural effusion and was monitored closely by pulmonary. Patient for possible acute urinary tract infection was treated with IV ceftriaxone and urine cultures negative. Will continue with oral Ceftin 500 mg twice daily for the next 3 days and then may discontinue. Recommend outpatient follow-up with primary care provider and continue with current medications as described below. Patient was taking Lasix and potassium supplement daily which has been discontinued and may further be resumed down the line if required. Patient continues with weakness and has evaluated by physical therapy recommending subacute rehab and patient is now agreeable with son at the bedside and will be discharged today. Currently no reports of chest pain, shortness of breath, or palpitations. Patient is afebrile. No reports of nausea or vomiting and patient is tolerating diet. Patient will be going to [facility] today. Guarded prognosis On exam vital signs are stable. Cardio S1, S2 are muffled. Respiratory system shows diminished breath sounds at the bases with no wheezing or rhonchi noted. Abdomen is soft and obese, and nontender. Nervous system shows diffuse weakness. Please refer to medication reconciliation sheet for a list of medications. The impression and plan of care has been dictated by America Bingham, nurse practitioner as directed. MD Shan I have performed a history and examination and MDM of this patient, discussed the same with the dictator, and agree with the dictator's assessment and plan as written ,documented as a scribe. Based on total visit time, I have performed more than 50% of the visit. Any additional findings or plans will be noted. Patient Condition at Discharge: Stable Plan - Discharge Summary Discharge Rx Participant: No New Discharge Prescriptions: New Cefuroxime Axetil [Ceftin] 500 mg PO BID 3 Days #6 tab Pantoprazole [Protonix] 40 mg PO [id number] tab Acetaminophen Tab [Tylenol] 650 mg PO Q6HR PRN tab PRN Reason: Mild Pain Or Fever > 100.5 Continue Verapamil [Isoptin] 80 mg PO QID Metoprolol Tartrate [Lopressor] 50 mg PO BID Atorvastatin [Lipitor] 20 mg PO HS Doxazosin [Cardura] 4 mg PO DAILY Discontinued Furosemide [Lasix] 40 mg PO DAILY Potassium Chloride ER [K-Dur 10] 10 meq PO BID Discharge Medication List Atorvastatin [Lipitor] 20 mg PO HS 12/07/19 [History] Metoprolol Tartrate [Lopressor] 50 mg PO BID 12/07/19 [History] Verapamil [Isoptin] 80 mg PO QID 12/07/19 [History] Doxazosin [Cardura] 4 mg PO DAILY 08/24/21 [History] Acetaminophen Tab [Tylenol] 650 mg PO Q6HR PRN tab 08/29/21 [Rx] Cefuroxime Axetil [Ceftin] 500 mg PO BID 3 Days #6 tab 08/29/21 [Rx] Pantoprazole [Protonix] 40 mg PO AC-BRKFST tab 08/29/21 [Rx] Follow up Appointment(s)/Referral(s): Tisha Soares MD [Primary Care Provider] - 1-2 days Ambulatory/Diagnostic Orders: Complete Blood Count w/diff [LAB.AMB] Time Frame: 3 Days, Location: None Selected Activity/Diet/Wound Care/Special Instructions: Patient is going to [facility] Activity as tolerated Continue antibiotics for 3 days then may discontinue Continue medications as prescribed Recommend repeat labs of CBC and BMP in 2-3 days follow up with Primary care provider on discharge Patient's Lasix and potassium supplements were discontinued on admission Continue regular diet Continue local wound care Discharge Disposition: TRANSFER TO SNF/ECF
== END 2021-08-29 16:10 | DRG 193 ==
LOC: EC 09:03 → 5NMEDONC 12:16
PROVIDERS: ADMIT Hospitalist; ATTEND Hospitalist
DX: J18.9 Pneumonia, unspecified organism (principal); G93.41 Metabolic encephalopathy; J91.8 Pleural effusion in other conditions classified elsewhere; N39.0 Urinary tract infection, site not specified; M06.9 Rheumatoid arthritis, unspecified; I11.9 Hypertensive heart disease without heart failure; E86.0 Dehydration; E78.5 Hyperlipidemia, unspecified; S49.92XA Unspecified injury of left shoulder and upper arm, initial encounter; N40.0 Benign prostatic hyperplasia without lower urinary tract symptoms; I83.92 Asymptomatic varicose veins of left lower extremity; T50.906A Underdosing of unspecified drugs, medicaments and biological substances, initial encounter; Z91.128 Patient's intentional underdosing of medication regimen for other reason; M25.511 Pain in right shoulder; R29.6 Repeated falls; R26.9 Unspecified abnormalities of gait and mobility; E66.9 Obesity, unspecified; Z68.38 Body mass index [BMI] 38.0-38.9, adult; Z79.899 Other long term (current) drug therapy; Z87.19 Personal history of other diseases of the digestive system; Z91.81 History of falling; Z87.440 Personal history of urinary (tract) infections; Z86.19 Personal history of other infectious and parasitic diseases; Z86.79 Personal history of other diseases of the circulatory system; Z60.2 Problems related to living alone; Z71.3 Dietary counseling and surveillance; Z81.1 Family history of alcohol abuse and dependence; Z81.2 Family history of tobacco abuse and dependence
CPT/HCPCS: 36415; 70450; 71045; 71275; 80048; 80053; 81001; 83605; 83735; 84145; 84484; 85025; 85379; 85610; 85652; 85730; 86140; 87040; 87086; 93005; 93306; 93970; 94760; 96361; 96374; 99285

== ENCOUNTER 2021-10-20 13:36 | Observation (INO) | payer MEDICARE, BC ==
[2021-10-20] MEDS ORDERED: SODIUM CHLORIDE 0.9% 1,000 ML IV STA (14:18)
[2021-10-20 15:13] LABS: VBG PH 7.27 (7.31-7.41)
[2021-10-20 15:14] LABS: Anisocytosis Slight; Basophils # (A) 0.1 k/uL (0-0.2); Basophils % (A) 1 %; Eosinophils % (A) 1 %; HCT 50.5 % (39.0-53.0); HGB 15.3 gm/dL (13.0-17.5); Hypochromasia Marked; Lymphocytes # (A) 0.6 k/uL (1.0-4.8); Lymphocytes % (A) 14 %; MCH 30.5 pg (25.0-35.0); MCHC 30.3 g/dL (31.0-37.0); MCV 100.7 fL (80.0-100.0); Macrocytosis Moderate; Mean Platelet Volume 9.2; Monocytes # (A) 0.3 k/uL (0-1.0); Monocytes % (A) 8 %; Neutrophils # (A) 3.1 k/uL (1.3-7.7); Neutrophils % (A) 73 %; RBC 5.01 m/uL (4.30-5.90); RDW 18.6 % (11.5-15.5); WBC 4.2 k/uL (3.8-10.6)
[2021-10-20 15:18] LABS: Platelet Count 123 k/uL (150-450)
--- NOTE | 2021-10-20 15:23 | CT ---
EXAMINATION TYPE: CT brain wo con DATE OF EXAM: 10/20/2021 COMPARISON: 08/24/2021 HISTORY: Altered mental status. CT DLP: 1300.[address] of the brain was performed. The ventricles, basal cisterns and sulci overlying the cerebral convexities demonstrate mild to moder ate enlargement. There is no evidence for intracranial hemorrhage or sulcal effacement. There is decreased attenuation about the periventricular white matter and deep white matter of both c erebral hemispheres, compatible with chronic small vessel ischemia. Differential diagnosis does inclu de demyelination. No mass effects are seen.No midline shift. Osseous calvarium is intact. If symptoms persist consider MRI. IMPRESSION: 1. Age related atrophic and chronic small vessel ischemic change without acute intracranial process s een at this time.
[2021-10-20 15:25] LABS: INR 1.3 (<1.2); Prothrombin Time 13.5 sec (9.0-12.0)
--- NOTE | 2021-10-20 15:27 | XR ---
EXAMINATION TYPE: XR chest 1V DATE OF EXAM: 10/20/2021 HISTORY: Shortness of breath. COMPARISON: 08/27/2021 TECHNIQUE: Single view of the chest is submitted. FINDINGS: There is cardiomegaly with pulmonary venous congestion. Interstitial edema. Suspect small left-sided effusion. Hilar and mediastinal structures are within normal limits. Degenerative changes are seen of the dorsal spine. IMPRESSION: 1. Correlate for mild congestive failure.
[2021-10-20 15:28] LABS: ALT 23 U/L (4-49); AST 37 U/L (17-59); African American GFR (CKD) >90 (>60 ml/min/1.73 sqM); Alkaline Phosphatase 114 U/L (38-126); Anion Gap 5 mmol/L; Blood Urea Nitrogen 18 mg/dL (9-20); Calcium 8.9 mg/dL (8.4-10.2); Carbon Dioxide 30 mmol/L (22-30); Chloride 111 mmol/L (98-107); Glucose 77 mg/dL (74-99); Non-African American GFR(CKD) 87 (>60 ml/min/1.73 sqM); Potassium 3.8 mmol/L (3.5-5.1); Sodium 146 mmol/L (137-145); Total Bilirubin 1.9 mg/dL (0.2-1.3); Total Protein 6.9 g/dL (6.3-8.2)
[2021-10-20 15:44] LABS: Lactic Acid, Venous 1.9 mmol/L (0.7-2.0)
[2021-10-20] MEDS ORDERED: FUROSEMIDE 10 MG/ML 4 ML VIAL IV STA (16:26)
[2021-10-20] MEDS ORDERED: NALOXONE 0.4 MG/ML 1 ML VIAL IV PRN (16:28)
[2021-10-20 17:17] LABS: Appearance,Urine Turbid (Clear); Bacteria,Urine Many /hpf; Bilirubin,Urine Negative (Negative); Blood,Urine Moderate (Negative); Color,Urine Yellow; Glucose,Urine (UA) Negative (Negative); Ketones,Urine Trace (Negative); Leukocyte Esterase,Urine Large (Negative); Mucus,Urine Few /hpf; Nitrite,Urine Positive (Negative); PH, Urine 5.5 (5.0-8.0); Protein,Urine 1+ (Negative); RBC,Urine 101 /hpf (0-5); Specific Gravity,Urine 1.019 (1.001-1.035); Squamous Epithelial Cell,Urine 6 /hpf (0-4); WBC,Urine >182 /hpf (0-5)
[2021-10-20 17:24] LABS: Amphetamine Screen,Urine Not Detected (NotDetected); Barbiturate Screen,Urine Not Detected (NotDetected); Benzodiazepines Screen,Urine Not Detected (NotDetected); Cocaine Screen,Urine Not Detected (NotDetected); Methadone Screen, Urine Not Detected (NotDetected); Opiate Screen,Urine Detected (NotDetected); Oxycodone Screen, Urine Not Detected (NotDetected); Phencyclidine Screen,Urine Not Detected (NotDetected); Tricyclic Antidepressant,Urine Not Detected (NotDetected); Urn Cannabinoid Scrn Not Detected (NotDetected)
--- NOTE | 2021-10-20 17:41 | ED ---
General Adult HPI - General Chief complaint: Recheck/Abnormal Lab/Rx Stated complaint: AMS Time Seen by Provider: 10/20/21 14:02 Source: patient, family, RN notes reviewed, old records reviewed Mode of arrival: EMS Limitations: no limitations - History of Present Illness Initial comments: She is an 86 her old male with past medical history remarkable for atrial fibrillation, hypertension, rheumatoid arthritis, hyperlipidemia. Patient is not on blood thinners. Presents to the emergency department for evaluation for altered mental status. Over the last few days, patient has been as nursing facility and there is concerned for dehydration. IV was started and he was given a total of 3 L of fluid, the last which is finishing now. Patient was on hospice, however patient's family and primary decision maker based on paperwork from the nursing facility, his daughter who is at bedside want the emergency department to evaluate the patient. Patient has been altered for the last 3 days. He has been more confused. Typically is alert and oriented 3. Has been alert and oriented times one to 2 seconds. No obvious infectious process. He has been using oxygen at home. No obvious weakness. He did improve some after IV fluids, however is still altered. He is a limited historian. Family members, daughter plan on keeping the patient off of hospice at this time, however requested the patient be continued with no CODE STATUS, DO NOT RESUSCIT ATE/DNI. - Related Data Home Medications Medication Instructions Recorded Confirmed Atorvastatin [Lipitor] 20 mg PO HS@199912/07/19 10/20/21 Acetaminophen Tab [Tylenol] 650 mg PO Q6HR PRN 10/20/21 10/20/21 Cholecalciferol [Vitamin D3 (25 50 mcg PO DAILY@1400 10/20/21 10/20/21 Mcg = 1000 Iu)] Doxazosin [Cardura] 2 mg PO HS@199910/20/21 10/20/21 Furosemide [Lasix] 20 mg PO DAILY 10/20/21 10/20/21 LORazepam [Ativan] 0.5 mg PO Q4H PRN 10/20/21 10/20/21 Metoprolol Tartrate [Lopressor] 12.5 mg PO BID@0800,199910/20/21 10/20/21 Morphine Sulfate [Morphine Sulfate 5 mg PO Q4H PRN 10/20/21 10/20/21 Oral Soln Concentrate] Multivitamins, Thera [Multivitamin 1 tab PO DAILY 10/20/21 10/20/21 (formulary)] Omeprazole 20 mg PO DAILY 10/20/21 10/20/21 Verapamil [Isoptin] 40 mg PO TID@0500,1300,2100 10/20/21 10/20/21 Allergies Allergy/AdvReac Type Severity Reaction Status Date / Time No Known Allergies Allergy Verified 10/20/21 16:03 Review of Systems ROS Statement: Those systems with pertinent positive or pertinent negative responses have been documented in the HPI. Difficult to obtain secondary to patient's clinical status. ROS Other: All systems not noted in ROS Statement are negative. 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 History of Any Multi-Drug Resistant Organisms: None Reported Past Surgical History: Hernia Repair Additional Past Surgical History / Comment(s): R inguinal hernia repair, L leg varicose vein surgery, colonoscopy. Past Anesthesia/Blood Transfusion Reactions: No Reported Reaction Past Psychological History: No Psychological Hx Reported Smoking Status: Never smoker - Past Family History Father Family Medical History: No Reported History Additional Family Medical History / Comment(s): Father ws healthy Mother Additional Family Medical History / Comment(s): Mother was a smoker and a drinker. General Exam - General Exam Comments Initial Comments: General: Appears in no acute distress. HEAD: Normal with no signs of head trauma. EYES: PERRLA, EOMI, conjunctiva normal, no discharge. Pupils are 3 mm equal bilaterally. ENT: Hearing grossly intact, normal oropharynx. RESPIRATORY: Clear breath sounds bilaterally. No wheezes, rales, or rhonchi. Patient on baseline 2 L supplemental oxygen which she is on at his facility. C/V: Irregular rate and rhythm. S1 and S2 auscultated, no edema, peripheral pulses 2+ and intact throughout ABD: Abd is soft, nontender, nondistended EXT: Normal range of motion, no obvious deformity SKIN: Abrasions to right anterior knee that are unremarkable. Stage I decubitus ulcer on the sacrum. Noninfectious appearing. NEURO: Alert and oriented times one. Below baseline alert and oriented 3. Moving all 4 extremities. No obvious deficits. Difficult to obtain secondary to patient's clinical status. Limitations: no limitations Course Vital Signs 10/20/21 10/20/21 13:45 15:49 Temperature 97.8 F Pulse Rate 53 L 51 L Respiratory 22 18 Rate Blood Pressure 125/72 133/89 O2 Sat by Pulse 98 92 L Oximetry Medical Decision Making - Medical Decision Making Based on the patient's presentation and physical exam, I'm concerned for his altered mental status. Broad workup will be obtained including infectious as well as a CT brain. Will hold fluids at this time. Patient as well as patient's family members were in agreement this plan. He is no code. Family would like to keep the patient off hospice. EKG showed no signs of acute ischemia, with a history of atrial fibrillation that is seen. Laboratory studies are remarkable for a mild thrombocytopenia of 123, which patient does have a history of. Patient is mildly hypernatremic 146 and hyperchloremic to 111. Troponin is indeterminate. BNP is elevated to 6300. Toxicology was positive for opiates. Covid is negative. CT brain revealed no acute intracranial process. Chest x-ray shows pulmonary vascular congestion, mild that is concerning for CHF. ABG shows an acutely elevated CO2 causing a mild respiratory acidosis, CO2 of 62. PH is 7.27 on VBG. On reevaluation, patient remains altered and confused. Vital signs remain within normal limits and stable. I discussed the findings with the patient's family. We are still waiting on a urinalysis, and therefore a straight cath will be obtained. However he will be admitted at this time. There were no agreement with this plan. I spoke with the admitting physician, Dr. Barnhart was covering for Dr. Maddox who requested that we consult cardiology for the heart failure as well as pulmonology for CO2 retention. Both of these were placed. Urine was finally obtained, and revealed a UTI. Patient will be started on Rocephin IV. He'll be admitted to a telemetry bed. Altered mental status likely secondary to the infection. Blood cultures were obtained and sent. - Lab Data Result diagrams: 10/20/21 14:49 10/20/21 14:49 Lab Results 10/20/21 10/20/21 10/20/21 Range/Units 14:41 14:49 14:49 WBC 4.2 (3.8-10.6) k/uL RBC 5.01 (4.30-5.90) m/uL Hgb 15.3 (13.0-17.5) gm/dL Hct 50.5 (39.0-53.0) % MCV 100.7 H (80.0-100.0) fL MCH 30.5 (25.0-35.0) pg MCHC 30.3 L (31.0-37.0) g/dL RDW 18.6 H (11.5-15.5) % Plt Count 123 L D (150-450) k/uL MPV 9.2 Neutrophils % 73 % Lymphocytes % 14 % Monocytes % 8 % Eosinophils % 1 % Basophils % 1 % Neutrophils # 3.1 (1.3-7.7) k/uL Lymphocytes # 0.6 L (1.0-4.8) k/uL Monocytes # 0.3 (0-1.0) k/uL Eosinophils # 0.0 (0-0.7) k/uL Basophils # 0.1 (0-0.2) k/uL Hypochromasia Marked Anisocytosis Slight Macrocytosis Moderate PT 13.5 H (9.0-12.0) sec INR 1.3 H (<1.2) APTT 34.0 H (22.0-30.0) sec VBG pH 7.27 L (7.31-7.41) VBG pCO2 62 H (37-51) mmHg VBG HCO3 28 (24-28) mmol/L Sodium (137-145) mmol/L Potassium (3.5-5.1) mmol/L Chloride (98-107) mmol/L Carbon Dioxide (22-30) mmol/L Anion Gap mmol/L BUN (9-20) mg/dL Creatinine (0.66-1.25) mg/dL Est GFR (CKD-EPI)AfAm (>60 ml/min/1.73 sqM) Est GFR (CKD-EPI)NonAf (>60 ml/min/1.73 sqM) Glucose (74-99) mg/dL Plasma Lactic Acid Nick (0.7-2.0) mmol/L Calcium (8.4-10.2) mg/dL Total Bilirubin (0.2-1.3) mg/dL AST (17-59) U/L ALT (4-49) U/L Alkaline Phosphatase (38-126) U/L Ammonia (<30) umol/L Troponin I (0.000-0.034) ng/mL NT-Pro-B Natriuret Pep pg/mL Total Protein (6.3-8.2) g/dL Albumin (3.5-5.0) g/dL Urine Color Urine Appearance (Clear) Urine pH (5.0-8.0) Ur Specific Range (1.001-1.035) Urine Protein (Negative) Urine Glucose (UA) (Negative) Urine Ketones (Negative) Urine Blood (Negative) Urine Nitrite (Negative) Urine Bilirubin (Negative) Urine Urobilinogen (<2.0) mg/dL Ur Leukocyte Esterase (Negative) Urine RBC (0-5) /hpf Urine WBC (0-5) /hpf Urine WBC Clumps (None) /hpf Ur Squamous Epith Cells (0-4) /hpf Urine Bacteria (None) /hpf Urine Mucus (None) /hpf Urine Opiates Screen (NotDetected) Ur Oxycodone Screen (NotDetected) Urine Methadone Screen (NotDetected) Ur Propoxyphene Screen (NotDetected) Ur Barbiturates Screen (NotDetected) U Tricyclic Antidepress (NotDetected) Ur Phencyclidine Scrn (NotDetected) Ur Amphetamines Screen (NotDetected) U Methamphetamines Scrn (NotDetected) U Benzodiazepines Scrn (NotDetected) Urine Cocaine Screen (NotDetected) U Marijuana (THC) Screen (NotDetected) Coronavirus (PCR) (Not Detectd) 10/20/21 10/20/21 10/20/21 Range/Units 14:49 14:49 14:49 WBC (3.8-10.6) k/uL RBC (4.30-5.90) m/uL Hgb (13.0-17.5) gm/dL Hct (39.0-53.0) % MCV (80.0-100.0) fL MCH (25.0-35.0) pg MCHC (31.0-37.0) g/dL RDW (11.5-15.5) % Plt Count (150-450) k/uL MPV Neutrophils % % Lymphocytes % % Monocytes % % Eosinophils % % Basophils % % Neutrophils # (1.3-7.7) k/uL Lymphocytes # (1.0-4.8) k/uL Monocytes # (0-1.0) k/uL Eosinophils # (0-0.7) k/uL Basophils # (0-0.2) k/uL Hypochromasia Anisocytosis Macrocytosis PT (9.0-12.0) sec INR (<1.2) APTT (22.0-30.0) sec VBG pH (7.31-7.41) VBG pCO2 (37-51) mmHg VBG HCO3 (24-28) mmol/L Sodium 146 H (137-145) mmol/L Potassium 3.8 (3.5-5.1) mmol/L Chloride 111 H (98-107) mmol/L Carbon Dioxide 30 (22-30) mmol/L Anion Gap 5 mmol/L BUN 18 (9-20) mg/dL Creatinine 0.67 (0.66-1.25) mg/dL Est GFR (CKD-EPI)AfAm >90 (>60 ml/min/1.73 sqM) Est GFR (CKD-EPI)NonAf 87 (>60 ml/min/1.73 sqM) Glucose 77 (74-99) mg/dL Plasma Lactic Acid Nick 1.9 (0.7-2.0) mmol/L Calcium 8.9 (8.4-10.2) mg/dL Total Bilirubin 1.9 H (0.2-1.3) mg/dL AST 37 (17-59) U/L ALT 23 (4-49) U/L Alkaline Phosphatase 114 (38-126) U/L Ammonia <9 (<30) umol/L Troponin I 0.022 (0.000-0.034) ng/mL NT-Pro-B Natriuret Pep pg/mL Total Protein 6.9 (6.3-8.2) g/dL Albumin 3.0 L (3.5-5.0) g/dL Urine Color Urine Appearance (Clear) Urine pH (5.0-8.0) Ur Specific Range (1.001-1.035) Urine Protein (Negative) Urine Glucose (UA) (Negative) Urine Ketones (Negative) Urine Blood (Negative) Urine Nitrite (Negative) Urine Bilirubin (Negative) Urine Urobilinogen (<2.0) mg/dL Ur Leukocyte Esterase (Negative) Urine RBC (0-5) /hpf Urine WBC (0-5) /hpf Urine WBC Clumps (None) /hpf Ur Squamous Epith Cells (0-4) /hpf Urine Bacteria (None) /hpf Urine Mucus (None) /hpf Urine Opiates Screen (NotDetected) Ur Oxycodone Screen (NotDetected) Urine Methadone Screen (NotDetected) Ur Propoxyphene Screen (NotDetected) Ur Barbiturates Screen (NotDetected) U Tricyclic Antidepress (NotDetected) Ur Phencyclidine Scrn (NotDetected) Ur Amphetamines Screen (NotDetected) U Methamphetamines Scrn (NotDetected) U Benzodiazepines Scrn (NotDetected) Urine Cocaine Screen (NotDetected) U Marijuana (THC) Screen (NotDetected) Coronavirus (PCR) (Not Detectd) 10/20/21 10/20/21 10/20/21 Range/Units 14:49 17:07 17:07 WBC (3.8-10.6) k/uL RBC (4.30-5.90) m/uL Hgb (13.0-17.5) gm/dL Hct (39.0-53.0) % MCV (80.0-100.0) fL MCH (25.0-35.0) pg MCHC (31.0-37.0) g/dL RDW (11.5-15.5) % Plt Count (150-450) k/uL MPV Neutrophils % % Lymphocytes % % Monocytes % % Eosinophils % % Basophils % % Neutrophils # (1.3-7.7) k/uL Lymphocytes # (1.0-4.8) k/uL Monocytes # (0-1.0) k/uL Eosinophils # (0-0.7) k/uL Basophils # (0-0.2) k/uL Hypochromasia Anisocytosis Macrocytosis PT (9.0-12.0) sec INR (<1.2) APTT (22.0-30.0) sec VBG pH (7.31-7.41) VBG pCO2 (37-51) mmHg VBG HCO3 (24-28) mmol/L Sodium (137-145) mmol/L Potassium (3.5-5.1) mmol/L Chloride (98-107) mmol/L Carbon Dioxide (22-30) mmol/L Anion Gap mmol/L BUN (9-20) mg/dL Creatinine (0.66-1.25) mg/dL Est GFR (CKD-EPI)AfAm (>60 ml/min/1.73 sqM) Est GFR (CKD-EPI)NonAf (>60 ml/min/1.73 sqM) Glucose (74-99) mg/dL Plasma Lactic Acid Nick (0.7-2.0) mmol/L Calcium (8.4-10.2) mg/dL Total Bilirubin (0.2-1.3) mg/dL AST (17-59) U/L ALT (4-49) U/L Alkaline Phosphatase (38-126) U/L Ammonia (<30) umol/L Troponin I (0.000-0.034) ng/mL NT-Pro-B Natriuret Pep 6300 pg/mL Total Protein (6.3-8.2) g/dL Albumin (3.5-5.0) g/dL Urine Color Yellow Urine Appearance Turbid (Clear) Urine pH 5.5 (5.0-8.0) Ur Specific Range 1.019 (1.001-1.035) Urine Protein 1+ H (Negative) Urine Glucose (UA) Negative (Negative) Urine Ketones Trace H (Negative) Urine Blood Moderate H (Negative) Urine Nitrite Positive (Negative) Urine Bilirubin Negative (Negative) Urine Urobilinogen 3.0 (<2.0) mg/dL Ur Leukocyte Esterase Large H (Negative) Urine RBC 101 H (0-5) /hpf Urine WBC >182 H (0-5) /hpf Urine WBC Clumps Many H (None) /hpf Ur Squamous Epith Cells 6 H (0-4) /hpf Urine Bacteria Many H (None) /hpf Urine Mucus Few H (None) /hpf Urine Opiates Screen Detected H (NotDetected) Ur Oxycodone Screen Not Detected (NotDetected) Urine Methadone Screen Not Detected (NotDetected) Ur Propoxyphene Screen Not Detected (NotDetected) Ur Barbiturates Screen Not Detected (NotDetected) U Tricyclic Antidepress Not Detected (NotDetected) Ur Phencyclidine Scrn Not Detected (NotDetected) Ur Amphetamines Screen Not Detected (NotDetected) U Methamphetamines Scrn Not Detected (NotDetected) U Benzodiazepines Scrn Not Detected (NotDetected) Urine Cocaine Screen Not Detected (NotDetected) U Marijuana (THC) Screen Not Detected (NotDetected) Coronavirus (PCR) Not Detected (Not Detectd) - EKG Data -: EKG Interpreted by Me EKG Comments: 12-lead Electrocardiogram Interpretation Note EKG was reviewed and interpreted by myself. 12-lead ECG performed at 1542 is interpreted by me as revealing atrial fibrillation at a rate of 56 beats per minute. [place] is normal. IA interval is unobtainable, QRS duration is 146 ms, QTc is 444 ms.. There were no ST or T wave abnormalities to suggest myocardial ischemia or injury. R wave progression across the precordium was satisfactory. By my interpretation this EKG is non-diagnostic for acute ischemia. No significant change when compared to prior EKGs. Disposition Clinical Impression: AMS (altered mental status), UTI (urinary tract infection), CHF exacerbation, CO2 retention, Thrombocytopenia, History of atrial fibrillation Disposition: ADMITTED IP TO THIS HOSP Condition: Stable Referrals: Sai Maddox DO [Primary Care Provider] - 1-2 days Time of Disposition: 16:29
[2021-10-20] MEDS: ATORVASTATIN 20 MG TAB PO SCH (20:22)
[2021-10-20] MEDS: DOXAZOSIN 2 MG TAB PO SCH (20:22)
[2021-10-20] MEDS: VERAPAMIL 40 MG TAB PO SCH (20:23)
[2021-10-20] MEDS: METOPROLOL TARTRATE 12.5 MG TAB PO SCH (20:23)
[2021-10-20] MEDS ORDERED: DEXTROSE 5%-0.9% NACL 1,000 ML IV SCH (22:45)
--- NOTE | 2021-10-20 22:46 | P.HPIM ---
History of Present Illness H&P Date: 10/20/21 Chief Complaint: Increasing confusion This is a 26-year-old patient being followed by Dr. Maddox. Chronic stable medical conditions include atrial fibrillation, hyperlipidemia, hypertension, rheumatoid arthritis. Patient is currently a resident of [facility]. Patient in the ER is accompanied by his daughter Elli was also the medical power of trial attorney. Abdomen baseline patient unable to sit up in a wheelchair. Requiring assistance. Able to rise family. Was able to eat. Normally wears diapers. For one week patient is pending much become bedbound. Having some chills. Decreased appetite. Patient himself is not able to give any history. Per EMS report patient was trending downward since Sunday. Yesterday IV was done and patient was started on hydration. Patient's last oral intake was on Sunday. Patient only grunts on communication not able to communicate further. Patient had been on hospice up to now and patient was taken out of hospice but to remain DO NOT RESUSCITATE. According to daughter the patient normally able to come indicate. Has had oxygen at the ECF. Review of systems: Patient cannot tell much. Supportive history as per the daughter the bedside Past medical history to include: Atrial fibrillation, hyperlipidemia, hypertension, rheumatoid arthritis, Social history: No history of smoking or alcohol. Since out of the chair. Full assist. Normally able to feed himself. Family history: Reviewed, noncontributory to presentation Physical examination: VITAL SIGNS: 97.8, 53, 22, 125/72, 98% on 3 L GENERAL: BMI 35.9, laying in bed, confused a bit mumbling. EYES: Pupils equal. Conjunctiva normal. HEENT: External appearance of nose and ears normal, oral cavity dry. NECK: JVD unable to assess; masses not palpable. HEART: First and second heart sounds are normal; no edema. LUNGS: Respiratory rate increased; decreased breath sounds. ABDOMEN: Soft, nontender, liver spleen not palpable, no masses palpable. PSYCH: Patient not really able to answer questions. Mumblingl. MUSCULOSKELETAL:No Clubbing/cyanosis;muscles-grossly intact. Evidence of OA NEUROLOGICAL: [Cranial nerves grossly intact; no facial asymmetry, moving limbs. LYMPHATICS: No lymph nodes palpable in the axilla and neck INVESTIGATIONS, reviewed in the clinical context: White count 4.2 hemoglobin 15.3 platelets 123 sodium 146 potassium 3.8 creatinine 0.67 UA positive for leukoesterase WBC UA positive for opioids COVID 19: Negative EKG tracing personally reviewed by me-atrial fibrillation. Rate 56 Chest x-ray film personally reviewed by me-portable. Underexposed. Cardiomegaly. Assessment and plan: -Acute metabolic encephalopathy/delirium possibly from sepsis Patient for last 4-5 days having decreased responsiveness. Delirious. Poor appetite. [place] to be from underlying UTI. -Acute UTI with cystitis/sepsis IV ceftriaxone -Persistent atrial fibrillation, rate controlled Lopressor 12.5 by mouth twice a day. Verapamil 40 mg 3 times a day -BPH Cardura 2 mg by mouth daily at bedtime -Hyperlipidemia Lipitor 20 mg daily at bedtime -DO NOT RESUSCITATE [patient was under hospice care at the [facility], [facility] which is current ly taken off.] -Chronic medical debility at her baseline patient's on a wheelchair Fall precautions Patient started IV ceftriaxone. IV fluids. Resume home medications. Fall precautions. Care was discussed with the daughter the bedside. Questions answered. 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 History of Any Multi-Drug Resistant Organisms: None Reported Past Surgical History: Hernia Repair Additional Past Surgical History / Comment(s): R inguinal hernia repair, L leg varicose vein surgery, colonoscopy. Past Anesthesia/Blood Transfusion Reactions: No Reported Reaction Past Psychological History: No Psychological Hx Reported Smoking Status: Never smoker - Past Family History Father Family Medical History: No Reported History Additional Family Medical History / Comment(s): Father ws healthy Mother Additional Family Medical History / Comment(s): Mother was a smoker and a drinker. Medications and Allergies Home Medications Medication Instructions Recorded Confirmed Type Atorvastatin [Lipitor] 20 mg PO HS@199912/07/19 10/20/21 History Acetaminophen Tab [Tylenol] 650 mg PO Q6HR PRN 10/20/21 10/20/21 History Cholecalciferol [Vitamin D3 (25 50 mcg PO DAILY@1400 10/20/21 10/20/21 History Mcg = 1000 Iu)] Doxazosin [Cardura] 2 mg PO HS@199910/20/21 10/20/21 History Furosemide [Lasix] 20 mg PO DAILY 10/20/21 10/20/21 History LORazepam [Ativan] 0.5 mg PO Q4H PRN 10/20/21 10/20/21 History Metoprolol Tartrate [Lopressor] 12.5 mg PO BID@0800,199910/20/21 10/20/21 History Morphine Sulfate [Morphine Sulfate 5 mg PO Q4H PRN 10/20/21 10/20/21 History Oral Soln Concentrate] Multivitamins, Thera [Multivitamin 1 tab PO DAILY 10/20/21 10/20/21 History (formulary)] Omeprazole 20 mg PO DAILY 10/20/21 10/20/21 History Verapamil [Isoptin] 40 mg PO TID@0500,1300,2100 10/20/21 10/20/21 History Allergies Allergy/AdvReac Type Severity Reaction Status Date / Time No Known Allergies Allergy Verified 10/20/21 16:03 Physical Exam Vitals: Vital Signs Temp Pulse Resp BP Pulse Ox 10/20/21 19:17 58 L 20 142/71 96 10/20/21 17:15 63 18 136/84 96 10/20/21 15:49 51 L 18 133/89 92 L 10/20/21 13:45 97.8 F 53 L 22 125/72 98 Intake and Output 10/20/21 10/20/21 10/20/21 06:59 14:59 22:59 Other: Weight 113.398 kg Results CBC & Chem 7: 10/20/21 14:49 10/20/21 14:49 Labs: Abnormal Lab Results - Last 24 Hours (Table) 10/20/21 10/20/21 10/20/21 Range/Units 14:41 14:49 14:49 MCV 100.7 H (80.0-100.0) fL MCHC 30.3 L (31.0-37.0) g/dL RDW 18.6 H (11.5-15.5) % Plt Count 123 L D (150-450) k/uL Lymphocytes # 0.6 L (1.0-4.8) k/uL PT 13.5 H (9.0-12.0) sec INR 1.3 H (<1.2) APTT 34.0 H (22.0-30.0) sec VBG pH 7.27 L (7.31-7.41) VBG pCO2 62 H (37-51) mmHg Sodium (137-145) mmol/L Chloride (98-107) mmol/L Total Bilirubin (0.2-1.3) mg/dL Albumin (3.5-5.0) g/dL Urine Protein (Negative) Urine Ketones (Negative) Urine Blood (Negative) Ur Leukocyte Esterase (Negative) Urine RBC (0-5) /hpf Urine WBC (0-5) /hpf Urine WBC Clumps (None) /hpf Ur Squamous Epith Cells (0-4) /hpf Urine Bacteria (None) /hpf Urine Mucus (None) /hpf Urine Opiates Screen (NotDetected) 10/20/21 10/20/21 Range/Units 14:49 17:07 MCV (80.0-100.0) fL MCHC (31.0-37.0) g/dL RDW (11.5-15.5) % Plt Count (150-450) k/uL Lymphocytes # (1.0-4.8) k/uL PT (9.0-12.0) sec INR (<1.2) APTT (22.0-30.0) sec VBG pH (7.31-7.41) VBG pCO2 (37-51) mmHg Sodium 146 H (137-145) mmol/L Chloride 111 H (98-107) mmol/L Total Bilirubin 1.9 H (0.2-1.3) mg/dL Albumin 3.0 L (3.5-5.0) g/dL Urine Protein 1+ H (Negative) Urine Ketones Trace H (Negative) Urine Blood Moderate H (Negative) Ur Leukocyte Esterase Large H (Negative) Urine RBC 101 H (0-5) /hpf Urine WBC >182 H (0-5) /hpf Urine WBC Clumps Many H (None) /hpf Ur Squamous Epith Cells 6 H (0-4) /hpf Urine Bacteria Many H (None) /hpf Urine Mucus Few H (None) /hpf Urine Opiates Screen Detected H (NotDetected) Microbiology - Last 24 Hours (Table) 10/20/21 17:07 Urine Culture - Preliminary Urine,Voided
[2021-10-21] MEDS: VERAPAMIL 40 MG TAB PO SCH ×3 (07:14→22:41)
[2021-10-21] MEDS ORDERED: FUROSEMIDE 10 MG/ML 4 ML VIAL IV SCH (09:00)
[2021-10-21] MEDS ORDERED: FUROSEMIDE 20 MG TAB PO SCH (09:00)
[2021-10-21] MEDS: PANTOPRAZOLE 40 MG TABLET PO SCH (09:25)
[2021-10-21 09:27] LABS: Basophils # (A) 0.03 X 10*3/uL (0.00-0.10); Basophils % (A) 0.7 %; Eosinophils # (A) 0.06 X 10*3/uL (0.04-0.35); Eosinophils % (A) 1.4 %; HCT 46.6 % (39.6-50.0); HGB 14.2 g/dL (13.0-17.0); Immature Grans, Automated 0.5 %; Lymphocytes # (A) 0.62 X 10*3/uL (0.90-5.00); Lymphocytes % (A) 14.5 %; MCH 29.5 pg (27.0-32.0); MCHC 30.5 g/dL (32.0-37.0); MCV 96.7 fL (80.0-97.0); Mean Platelet Volume 10.8 fL (9.5-12.2); Monocytes # (A) 0.65 X 10*3/uL (0.20-1.00); Monocytes % (A) 15.2 %; NRBC Per 100 WBC 0 /100 WBCS (0.0-0.0); Neutrophils # (A) 2.91 X 10*3/uL (1.80-7.70); Neutrophils % (A) 67.7 %; Platelet Count 111 X 10*3/uL (140-440); RBC 4.82 X 10*6/uL (4.40-5.60); RDW 19.9 % (11.5-14.5); WBC 4.29 X 10*3/uL (4.50-10.00)
[2021-10-21 09:37] LABS: Albumin 2.9 g/dL (3.8-4.9); Albumin/Globulin Ratio 0.88 (1.60-3.17); Blood Urea Nitrogen 14.7 mg/dL (9.0-27.0); Calcium 9.3 mg/dL (8.7-10.3); Globulin 3.3 g/dL (1.6-3.3); Non-African American GFR(CKD) 85.5 (60.0-200.0); Potassium 4.1 mmol/L (3.5-5.5); Total Bilirubin 1.4 mg/dL (0.30-1.20); Total Protein 6.2 g/dL (6.2-8.2)
[2021-10-21] MEDS: METOPROLOL TARTRATE 12.5 MG TAB PO SCH ×2 (09:37→22:41)
--- NOTE | 2021-10-21 10:26 | P.CRDCN ---
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 He was at an [facility] on hospice. We have been asked to see the patient in consultation for heart failure. Apparently the staff at the [facility] thought the patient was dehydrated and he was given 3 L and IV fluid boluses. He was also found to be more altered from his baseline and was brought to the ER for further evaluation. Patient examined at the bedside. The patient is unable to provide any history at time of examination. There is no family present. The patient has restless in bed at the time of examination. The patient is receiving IV fluids and also IV Lasix. * EKG reveals atrial fibrillation with no signs of acute ischemia * Chest xray correlate for mild congestive heart failure * Laboratory data: WBC 4.29. Hemoglobin 14.2. Platelet count 111. Sodium 151. Potassium 4.1. BUN 14. Creatinine 0.7. BUN 14. Creatinine 0.7. * Current home cardiac medications include Lipitor 20 mg at night, Cardura 2 mg at night, Lasix 20 mg daily, metoprolol tartrate 12.5 mg twice a day, verapamil 40 mg 3 times a day * Most recent echocardiogram obtained in August 2021 revealed ejection fraction 50-55%, mild MR, mild TR REVIEW OF SYSTEMS: At the time of my exam: Unable to obtain secondary to altered mental status PHYSICAL EXAM: VITAL SIGNS: Reviewed. GENERAL: Well-developed in no acute distress. HEENT: Head is normocephalic. Pupils are equal, round. Sclerae anicteric. Mucous membranes of the mouth are moist. Neck supple. No JVD or thyromegaly LUNGS: Respirations even and unlabored. Lungs diminished bilaterally with scattered rhonchi HEART: Regular rate and rhythm. S1 and S2 heard. ABDOMEN: Soft. Nondistended. Nontender. EXTREMITIES: Normal range of motion. No clubbing or cyanosis. Peripheral pulses intact. Bilateral lower extremity edema NEUROLOGIC: Lethargic ASSESSMENT: Altered mental status Acute on chronic heart failure with preserved ejection fraction Hypernatremia History of atrial fibrillation, unclear if persistent or paroxysmal, not on anticoagulation Hypertension Hyperlipidemia PLAN: From a cardiac standpoint, recommend continuing IV lasix. D/C IV fluids. Patient was previously on hospice before being brought to the hospital. Hospice/comfort care seems to be appropriate for this patient. We will defer further treatment to the primary team. We will sign off. Please reconsult if needed Nurse practitioner note has been reviewed by physician. Signing provider agrees with the documented findings, assessment, and plan of care. 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 History of Any Multi-Drug Resistant Organisms: None Reported Past Surgical History: Hernia Repair Additional Past Surgical History / Comment(s): R inguinal hernia repair, L leg varicose vein surgery, colonoscopy. Past Anesthesia/Blood Transfusion Reactions: No Reported Reaction Past Psychological History: No Psychological Hx Reported Smoking Status: Never smoker - Past Family History Father Family Medical History: No Reported History Additional Family Medical History / Comment(s): Father ws healthy Mother Additional Family Medical History / Comment(s): Mother was a smoker and a drinker. Medications and Allergies Home Medications Medication Instructions Recorded Confirmed Type Atorvastatin [Lipitor] 20 mg PO HS@199912/07/19 10/20/21 History Acetaminophen Tab [Tylenol] 650 mg PO Q6HR PRN 10/20/21 10/20/21 History Cholecalciferol [Vitamin D3 (25 50 mcg PO DAILY@1400 10/20/21 10/20/21 History Mcg = 1000 Iu)] Doxazosin [Cardura] 2 mg PO HS@199910/20/21 10/20/21 History Furosemide [Lasix] 20 mg PO DAILY 10/20/21 10/20/21 History LORazepam [Ativan] 0.5 mg PO Q4H PRN 10/20/21 10/20/21 History Metoprolol Tartrate [Lopressor] 12.5 mg PO BID@08,199910/20/21 10/20/21 History Morphine Sulfate [Morphine Sulfate 5 mg PO Q4H PRN 10/20/21 10/20/21 History Oral Soln Concentrate] Multivitamins, Thera [Multivitamin 1 tab PO DAILY 10/20/21 10/20/21 History (formulary)] Omeprazole 20 mg PO DAILY 10/20/21 10/20/21 History Verapamil [Isoptin] 40 mg PO TID@0500,1300,2100 10/20/21 10/20/21 History Allergies Allergy/AdvReac Type Severity Reaction Status Date / Time No Known Allergies Allergy Verified 10/20/21 16:03 Physical Exam Vitals: Vital Signs Temp Pulse Pulse Resp BP BP Pulse Ox 10/21/21 04:11 96.4 F L 70 20 123/68 95 10/20/21 22:54 66 16 132/59 98 10/20/21 22:52 98.1 F 96 16 155/106 98 10/20/21 19:17 58 L 20 142/71 96 10/20/21 17:15 63 18 136/84 96 10/20/21 15:49 51 L 18 133/89 92 L 10/20/21 13:45 97.8 F 53 L 22 125/72 98 Intake and Output 10/20/21 10/21/21 10/21/21 22:59 06:59 14:59 Intake Total 600 Balance 600 Intake: Intake, IV Titration 600 Amount Dextrose 5%-0.9% NaCl 1, 600 000 ml @ 100 mls/hr IV . Q10H [facility] Rx#:[id number] Other: Voiding Method Diaper Incontinent # Voids 1 Weight 113.398 kg 133.5 kg Results 10/21/21 06:03 10/21/21 06:03 Cardiac Enzymes 10/20/21 10/20/21 10/21/21 Range/Units 14:49 14:49 06:03 AST 37 32 (17-59) U/L Troponin I 0.022 (0.000-0.034) ng/mL Coagulation 10/20/21 Range/Units 14:49 PT 13.5 H (9.0-12.0) sec APTT 34.0 H (22.0-30.0) sec CBC 10/20/21 10/21/21 Range/Units 14:49 06:03 WBC 4.2 4.29 L (3.8-10.6) k/uL RBC 5.01 4.82 (4.30-5.90) m/uL Hgb 15.3 14.2 (13.0-17.5) gm/dL Hct 50.5 46.6 (39.0-53.0) % Plt Count 123 L D 111 L (150-450) k/uL Comprehensive Metabolic Panel 10/20/21 10/21/21 Range/Units 14:49 06:03 Sodium 146 H 151 H (137-145) mmol/L Potassium 3.8 4.1 (3.5-5.1) mmol/L Chloride 111 H 112 H (98-107) mmol/L Carbon Dioxide 30 31.0 H (22-30) mmol/L BUN 18 14.7 (9-20) mg/dL Creatinine 0.67 0.7 (0.66-1.25) mg/dL Glucose 77 95 (74-99) mg/dL Calcium 8.9 9.3 (8.4-10.2) mg/dL AST 37 32 (17-59) U/L ALT 23 22 (4-49) U/L Alkaline Phosphatase 114 106 (38-126) U/L Total Protein 6.9 6.2 (6.3-8.2) g/dL Albumin 3.0 L 2.9 L (3.5-5.0) g/dL Current Medications Generic Name Dose Route Start Last Admin Trade Name Freq PRN Reason Stop Dose Admin Atorvastatin Calcium 20 mg 10/20/21 20:00 10/20/21 20:22 Atorvastatin 20 Mg Tab PO Not Given HS@1999 [facility] Doxazosin Mesylate 2 mg 10/20/21 20:00 10/20/21 20:22 Doxazosin 2 Mg Tab PO Not Given HS@1999 [facility] Furosemide 40 mg 10/21/21 09:00 10/21/21 09:19 Furosemide 10 Mg/Ml 4 Ml Vial IV 40 mg Q12HR JAMES Administration Furosemide 20 mg 10/21/21 09:00 Furosemide 20 Mg Tab PO DAILY [facility] Ceftriaxone Sodium 2 gm/ 50 mls @ 100 mls/hr 10/20/21 18:00 10/20/21 17:53 Sodium Chloride IVPB 100 mls/hr Q24HR [facility] Administration Protocol Metoprolol Tartrate 12.5 mg 10/20/21 20:00 10/21/21 09:37 Metoprolol Tartrate 12.5 Mg Tab PO Not Given BID@799,1999 [facility] Naloxone HCl 0.2 mg 10/20/21 16:28 Naloxone 0.4 Mg/Ml 1 Ml Vial IV Q2M PRN Opioid Reversal Pantoprazole Sodium 40 mg 10/21/21 07:30 10/21/21 09:25 Pantoprazole 40 Mg Tablet PO Not Given DAILY@0730 [facility] Verapamil HCl 40 mg 10/20/21 21:00 10/21/21 07:14 Verapamil 40 Mg Tab PO Not Given TID@0500,1300,2100 [facility] Intake and Output 10/20/21 10/21/21 10/21/21 22:59 06:59 14:59 Intake Total 600 Balance 600 Intake: Intake, IV Titration 600 Amount Dextrose 5%-0.9% NaCl 1, 600 000 ml @ 100 mls/hr IV . Q10H [facility] Rx#:[id number] Other: Voiding Method Diaper Incontinent # Voids 1 Weight 113.398 kg 133.5 kg 10/21/21 06:03 10/21/21 06:03
--- NOTE | 2021-10-21 11:48 | P.CNPUL ---
History of Present Illness Consult date: 10/21/21 Requesting physician: Nura Barnhart Chief complaint: Altered mental status History of present illness: This is a 86-year-old white male patient resident of local [facility] for the past 2 months since his most recent hospitalization for UTI with sepsis, and we saw the patient during that hospitalization in August 2021 for a possibility of left lower lobe pneumonia in addition to acute urinary tract infection. His chest x-ray during that admission showed a large area of consolidation in the left lower lobe with some left-sided pleural effusion. CT angiogram showed no PE and left lower lobe infiltrate and small effusion. There was severe cardiomegaly with small pericardial effusion. Patient had been treated with antibiotics, and was sent to a [facility] facility for rehabilitation. He has extensive medical history including history of hypertension, hyperlipidemia, chronic atrial fibrillation, rheumatoid arthritis, general medical debility, daughter reports patient being nonambulatory for the past 2 years, and prior to that ambulating with a walker. Since most recent hospitalization in August 2021, patient's c ondition had further declined. He is extremely confused, agitated at times, very weak, bedbound. Apparently a few days ago on October 18 his daughter who is here at the bedside today put him on hospice at the [facility], however her older sibling became very upset with her, and wanted the patient transferred to the hospital for further treatment for urinary tract infection and dehydration. Patient was transported to the hospital on 10/20/2021 for evaluation of abnormal labs, altered mental status, concern for dehydration and acute sepsis related to urinary tract infection. Chest x-ray showed cardiomegaly with pulmonary venous congestion, interstitial edema, small left-sided pleural effusion. Brain CT showed age-related atrophic and chronic small vessel ischemic changes without acute intracranial process. Lab evaluation showed normal white count of 4.2, hemoglobin was 15.3, urinalysis showed evidence of infection with large amount of leukocyte esterase, greater than 182 white blood cells, many leukocytes and clumps, many bacteria. Sodium is 146, renal profile is within normal limits, proBNP was 6300, a pneumonia level was less than 9, LFTs were within normal limits. he was started on Rocephin, he was given some gentle IV hydration and was given IV Lasix at 40 mg every 12 hours in the emergency department. Urine culture has been sent. Patient is currently on 2 L of oxygen and pulse ox is 95-90%, blood pressure stable, breathing is nonlabored, he is lethargic, he is confused, he is restless, he tries to remove his gown, and his EKG wires off. Daughter is at the bedside, and providing history of present illness. Review of Systems All systems: negative Constitutional: Reports weakness, Denies chills, Denies fever Eyes: denies blurred vision, denies pain Ears, nose, mouth and throat: Denies headache, Denies sore throat Cardiovascular: Denies chest pain, Denies shortness of breath Respiratory: Denies cough Gastrointestinal: Denies abdominal pain, Denies diarrhea, Denies nausea, Denies vomiting Musculoskeletal: Denies myalgias Integumentary: Denies pruritus, Denies rash Neurological: Reports balance difficulties, Reports change in mentation, Reports confusion, Reports gait dysfunction, Reports weakness, Denies numbness Psychiatric: Denies anxiety, Denies depression Endocrine: Denies fatigue, Denies weight change Past Medical History Past Medical History: Atrial Fibrillation, Hyperlipidemia, Hypertension, Rheumatoid Arthritis (RA) Additional Past Medical History / Comment(s): Bilateral leg edema, UTI in past, sepsis, R shoulder pain, 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 History of Any Multi-Drug Resistant Organisms: None Reported Past Surgical History: Hernia Repair Additional Past Surgical History / Comment(s): R inguinal hernia repair, L leg varicose vein surgery, colonoscopy. Past Anesthesia/Blood Transfusion Reactions: No Reported Reaction Past Psychological History: No Psychological Hx Reported Smoking Status: Never smoker - Past Family History Father Family Medical History: No Reported History Additional Family Medical History / Comment(s): Father ws healthy Mother Additional Family Medical History / Comment(s): Mother was a smoker and a drinker. Medications and Allergies Home Medications Medication Instructions Recorded Confirmed Type Atorvastatin [Lipitor] 20 mg PO HS@199912/07/19 10/20/21 History Acetaminophen Tab [Tylenol] 650 mg PO Q6HR PRN 10/20/21 10/20/21 History Cholecalciferol [Vitamin D3 (25 50 mcg PO DAILY@1400 10/20/21 10/20/21 History Mcg = 1000 Iu)] Doxazosin [Cardura] 2 mg PO HS@199910/20/21 10/20/21 History Furosemide [Lasix] 20 mg PO DAILY 10/20/21 10/20/21 History LORazepam [Ativan] 0.5 mg PO Q4H PRN 10/20/21 10/20/21 History Metoprolol Tartrate [Lopressor] 12.5 mg PO BID@0800,2000 10/20/21 10/20/21 History Morphine Sulfate [Morphine Sulfate 5 mg PO Q4H PRN 10/20/21 10/20/21 History Oral Soln Concentrate] Multivitamins, Thera [Multivitamin 1 tab PO DAILY 10/20/21 10/20/21 History (formulary)] Omeprazole 20 mg PO DAILY 10/20/21 10/20/21 History Verapamil [Isoptin] 40 mg PO TID@0500,1300,2100 10/20/21 10/20/21 History Allergies Allergy/AdvReac Type Severity Reaction Status Date / Time No Known Allergies Allergy Verified 10/20/21 16:03 Physical Exam Vitals: Vital Signs Temp Pulse Pulse Resp BP BP Pulse Ox 10/21/21 04:11 96.4 F L 70 20 123/68 95 10/20/21 22:54 66 16 132/59 98 10/20/21 22:52 98.1 F 96 16 155/106 98 10/20/21 19:17 58 L 20 142/71 96 10/20/21 17:15 63 18 136/84 96 10/20/21 15:49 51 L 18 133/89 92 L 10/20/21 13:45 97.8 F 53 L 22 125/72 98 Intake and Output 10/20/21 10/21/21 10/21/21 22:59 06:59 14:59 Intake Total 600 Balance 600 Intake: Intake, IV Titration 600 Amount Dextrose 5%-0.9% NaCl 1, 600 000 ml @ 100 mls/hr IV . Q10H [facility] Rx#:[id number] Other: Voiding Method Diaper Diaper Incontinent Incontinent # Voids 1 Weight 113.398 kg 133.5 kg GENERAL EXAM: Lethargic but arousable, confused, restless, 86-year-old white male, 2 L of oxygen pulse ox of 98% comfortable in no apparent distress. HEAD: Normocephalic/atraumatic. EYES: Normal reaction of pupils, equal size. Conjunctiva pink, sclera white. NOSE: Clear with pink turbinates. THROAT: No erythema or exudates. NECK: No masses, no JVD, no thyroid enlargement, no adenopathy. CHEST: No chest wall deformity. Symmetrical expansion. LUNGS: Equal air entry with mild diffuse crackles, and diminished breath sounds at the bases CVS: Regular rate and rhythm, normal S1 and S2, no gallops, no murmurs, no rubs ABDOMEN: Soft, nontender. No hepatosplenomegaly, normal bowel sounds, no guarding or rigidity. EXTREMITIES: No clubbing, no edema, no cyanosis, 2+ pulses and upper and lower extremities. MUSCULOSKELETAL: Muscle strength and tone normal. SPINE: No scoliosis or deformity SKIN: No rashes CENTRAL NERVOUS SYSTEM: Alert and oriented -0. No focal deficits, tone is normal in all 4 extremities. PSYCHIATRIC: Alert and oriented -0. Appropriate affect. Intact judgment and insight. Results - Laboratory Findings CBC and BMP: 10/21/21 06:03 10/21/21 06:03 PT/INR, D-dimer PT 13.5 sec (9.0-12.0) H 10/20/21 14:49 INR 1.3 (<1.2) H 10/20/21 14:49 Abnormal lab findings: Abnormal Labs 10/20/21 10/20/21 10/20/21 14:41 14:49 14:49 WBC MCV 100.7 H MCHC 30.3 L RDW 18.6 H Plt Count 123 L D Lymphocytes # 0.6 L PT 13.5 H INR 1.3 H APTT 34.0 H VBG pH 7.27 L VBG pCO2 62 H Sodium Chloride Carbon Dioxide Anion Gap BUN/Creatinine Ratio Total Bilirubin Albumin Albumin/Globulin Ratio Urine Protein Urine Ketones Urine Blood Ur Leukocyte Esterase Urine RBC Urine WBC Urine WBC Clumps Ur Squamous Epith Cells Urine Bacteria Urine Mucus Urine Opiates Screen 10/20/21 10/20/21 10/21/21 14:49 17:07 06:03 WBC 4.29 L MCV MCHC 30.5 L RDW 19.9 H Plt Count 111 L Lymphocytes # 0.62 L PT INR APTT VBG pH VBG pCO2 Sodium 146 H Chloride 111 H Carbon Dioxide Anion Gap BUN/Creatinine Ratio Total Bilirubin 1.9 H Albumin 3.0 L Albumin/Globulin Ratio Urine Protein 1+ H Urine Ketones Trace H Urine Blood Moderate H Ur Leukocyte Esterase Large H Urine RBC 101 H Urine WBC >182 H Urine WBC Clumps Many H Ur Squamous Epith Cells 6 H Urine Bacteria Many H Urine Mucus Few H Urine Opiates Screen Detected H 10/21/21 06:03 WBC MCV MCHC RDW Plt Count Lymphocytes # PT INR APTT VBG pH VBG pCO2 Sodium 151 H Chloride 112 H Carbon Dioxide 31.0 H Anion Gap 8.00 L BUN/Creatinine Ratio 21.00 H Total Bilirubin 1.40 H Albumin 2.9 L Albumin/Globulin Ratio 0.88 L Urine Protein Urine Ketones Urine Blood Ur Leukocyte Esterase Urine RBC Urine WBC Urine WBC Clumps Ur Squamous Epith Cells Urine Bacteria Urine Mucus Urine Opiates Screen - Diagnostic Findings Chest x-ray: report reviewed, image reviewed Additional studies: CT of the brain, EKG, chest x-ray reviewed Assessment and Plan Plan: Assessment: #1. Altered mental status related to sepsis secondary to urinary tract infection #2. Small left pleural effusion, chronic, does not require intervention at this time #3. Recent hospitalization for urinary tract infection and sepsis #4. General medical debility, patient is a resident of a local [facility], has not ambulated in 2 years #5. Hypernatremia related to free water deficit and dehydration #6. History of atrial fibrillation #7. Hypertension #8. Hyperlipidemia #9. BPH Plan: Patient was seen and evaluated at the bedside along with Dr. Talamantes Chest x-ray, brain, EKG reviewed Continue antibiotics We'll cut back Lasix to once a day Left pleural effusion is small, does not require drainage at this time Overall general condition is quite debilitated CODE STATUS is DO NOT RESUSCITATE Apparently patient was being initiated on hospice at the [facility] However there is disagreement in regards to hospice among family members Consult social work For now continue supportive medical treatment Overall prognosis is poor and guarded I have personally seen and examined the patient, performed the documentation and the assessment and plan as written. Number of minutes spent on the visit: [15] Time with Patient: Greater than 30
[2021-10-21 16:08] VITALS: BMI 42.2
--- NOTE | 2021-10-21 19:17 | P.PN ---
Progress Note - Text Progress Note Date: 10/21/21 Chief Complaint: Increasing confusion This is a 26-year-old patient being followed by Dr. Maddox. Chronic stable medical conditions include atrial fibrillation, hyperlipidemia, hypertension, rheumatoid arthritis. Patient is currently a resident of [facility]. Patient in the ER is accompanied by his daughter Elli was also the medical power of sports attorney. Abdomen baseline patient unable to sit up in a wheelchair. Requiring assistance. Able to rise family. Was able to eat. Normally wears diapers. For one week patient is pending much become bedbound. Having some chills. Decreased appetite. Patient himself is not able to give any history. Per EMS report patient was trending downward since Sunday. Yesterday IV was done and patient was started on hydration. Patient's last oral intake was on Sunday. Patient only grunts on communication not able to communicate further. Patient had been on hospice up to now and patient was taken out of hospice but to remain DO NOT RESUSCITATE. According to daughter the patient normally able to communicate. Has had oxygen at the [facility]. October 21: Patient continues to remain delirious. Making sounds. Not, communicating. Spoke to patient's daughter the bedside. At length. Would like the patient to be comfortable. Not able to take medications. At this point decided to wash the patient for next 24 hours. does not want the patient to return to [facility]. Would like the patient to go to [facility] if possible. She also located different options with the casey saw operator. Daughter understand the patient is doing poorly. Active Medications Atorvastatin Calcium (Atorvastatin 20 Mg Tab) 20 mg PO HS@1999 [facility] Last Admin: 10/20/21 20:22 Dose: Not Given Documented by: Doxazosin Mesylate (Doxazosin 2 Mg Tab) 2 mg PO HS@1999 [facility] Last Admin: 10/20/21 20:22 Dose: Not Given Documented by: Furosemide (Furosemide 10 Mg/Ml 4 Ml Vial) 40 mg IV DAILY [facility] Ceftriaxone Sodium 2 gm/ (Sodium Chloride) 50 mls @ 100 mls/hr IVPB Q24HR [facility]; Protocol Last Admin: 10/21/21 11:10 Dose: 100 mls/hr Documented by: Metoprolol Tartrate (Metoprolol Tartrate 12.5 Mg Tab) 12.5 mg PO BID@0800,1999 [facility] Last Admin: 10/21/21 09:37 Dose: Not Given Documented by: Naloxone HCl (Naloxone 0.4 Mg/Ml 1 Ml Vial) 0.2 mg IV Q2M PRN PRN Reason: Opioid Reversal Pantoprazole Sodium (Pantoprazole 40 Mg Tablet) 40 mg PO DAILY@0730 [facility] Last Admin: 10/21/21 09:25 Dose: Not Given Documented by: Verapamil HCl (Verapamil 40 Mg Tab) 40 mg PO TID@0500,1300,2100 [facility] Last Admin: 10/21/21 13:21 Dose: Not Given Documented by: Past medical history to include: Atrial fibrillation, hyperlipidemia, hypertension, rheumatoid arthritis, Social history: No history of smoking or alcohol. Since out of the chair. Full assist. Normally able to feed himself. Family history: Reviewed, noncontributory to presentation Physical examination: VITAL SIGNS: 98.4, 60, 16, 169-71, 95% on 2 L GENERAL: , laying in bed, confused - mumbling. EYES: Pupils equal. Conjunctiva normal. HEENT: External appearance of nose and ears normal, oral cavity dry. NECK: JVD unable to assess; masses not palpable. HEART: First and second heart sounds are normal; no edema. LUNGS: Respiratory rate increased; decreased breath sounds. ABDOMEN: Soft, nontender, liver spleen not palpable, no masses palpable. PSYCH: Lethargic Mumblingl. MUSCULOSKELETAL:No Clubbing/cyanosis;muscles-grossly intact. Evidence of OA INVESTIGATIONS, reviewed in the clinical context: October 21: White count 4.2 hemoglobin 14.2 platelets 11 sodium 151 potassium 4.1 creatinine 0.7 White count 4.2 hemoglobin 15.3 platelets 123 sodium 146 potassium 3.8 creatinine 0.67 UA positive for leukoesterase WBC UA positive for opioids COVID 19: Negative EKG tracing personally reviewed by me-atrial fibrillation. Rate 56 Chest x-ray film personally reviewed by me-portable. Underexposed. Cardiomegaly. Assessment and plan: -Acute metabolic encephalopathy/delirium possibly from sepsis: Worsening Patient for last 4-5 days having decreased responsiveness. Delirious. Poor appetite. Hessel to be from underlying UTI. -Acute UTI with cystitis/sepsis IV ceftriaxone -Persistent atrial fibrillation, rate controlled Lopressor 12.5 by mouth twice a day. Verapamil 40 mg 3 times a day -BPH Cardura 2 mg by mouth daily at bedtime -Hyperlipidemia Lipitor 20 mg daily at bedtime -DO NOT RESUSCITATE [patient was under hospice care at the [facility] which is currently taken off.] -Chronic medical debility at her baseline patient's on a wheelchair Fall precautions Spoke to patient's daughter the bed. Keep the patient comfortable. Patient not taking anything by mouth. Sodium climbing up. DC IV Lasix. Patient would like some other place for placement rather than [facility] [place]. construction site manager involved. Prognosis poor. Advanced care planning: Discussed with daughter at length at the bedside. Understands the patient is doing poorly. Without improved. She is a decision-maker. Her brother she feels may have ideas otherwise. I did explain to her at length her to answer DPOAE. At this point patient to be kept comfortable. No artificial feeding. DC IV Lasix. We'll watch for next 24 hours. construction site manager involved. Time spent for this 25 minutes
[2021-10-21] MEDS: DOXAZOSIN 2 MG TAB PO SCH (22:41)
[2021-10-21] MEDS: ATORVASTATIN 20 MG TAB PO SCH (22:41)
[2021-10-22] MEDS: VERAPAMIL 40 MG TAB PO SCH ×3 (04:08→21:46)
[2021-10-22] MEDS ORDERED: FUROSEMIDE 10 MG/ML 4 ML VIAL IV SCH (09:00)
[2021-10-22] MEDS: PANTOPRAZOLE 40 MG TABLET PO SCH (09:46)
[2021-10-22] MEDS: METOPROLOL TARTRATE 12.5 MG TAB PO SCH ×2 (10:50→21:46)
--- NOTE | 2021-10-22 12:08 | P.PN ---
Progress Note - Text Progress Note Date: 10/22/21 Chief Complaint: Increasing confusion This is a 26-year-old patient being followed by Dr. Maddox. Chronic stable medical conditions include atrial fibrillation, hyperlipidemia, hypertension, rheumatoid arthritis. Patient is currently a resident of [facility]. Patient in the ER is accompanied by his daughter Elli was also the medical power of ip attorney. Abdomen baseline patient unable to sit up in a wheelchair. Requiring assistance. Able to rise family. Was able to eat. Normally wears diapers. For one week patient is pending much become bedbound. Having some chills. Decreased appetite. Patient himself is not able to give any history. Per EMS report patient was trending downward since Sunday. Yesterday IV was done and patient was started on hydration. Patient's last oral intake was on Sunday. Patient only grunts on communication not able to communicate further. Patient had been on hospice up to now and patient was taken out of hospice but to remain DO NOT RESUSCITATE. According to daughter the patient normally able to communicate. Has had oxygen at the [facility]. October 21: Patient continues to remain delirious. Making sounds. Not, communicating. Spoke to patient's daughter the bedside. At length. Would like the patient to be comfortable. Not able to take medications. At this point decided to wash the patient for next 24 hours. does not want the patient to return to [facility]. Would like the patient to go to [facility] if possible. She also located different options with the case mgr. Daughter understand the patient is doing poorly. October 22: Patient ate a small amount this morning. Some liquids. Comfortable. Daughter the bedside. Sleepy currently. Plan for hospice disposition on Sunday. Active Medications Atorvastatin Calcium (Atorvastatin 20 Mg Tab) 20 mg PO HS@1999 [facility] Last Admin: 10/21/21 22:41 Dose: 20 mg Documented by: Doxazosin Mesylate (Doxazosin 2 Mg Tab) 2 mg PO HS@1999 [facility] Last Admin: 10/21/21 22:41 Dose: 2 mg Documented by: Ceftriaxone Sodium 2 gm/ (Sodium Chloride) 50 mls @ 100 mls/hr IVPB Q24HR [facility]; Protocol Last Admin: 10/22/21 10:11 Dose: 100 mls/hr Documented by: Metoprolol Tartrate (Metoprolol Tartrate 12.5 Mg Tab) 12.5 mg PO BID@0800,2000 [facility] Last Admin: 10/22/21 10:50 Dose: Not Given Documented by: Naloxone HCl (Naloxone 0.4 Mg/Ml 1 Ml Vial) 0.2 mg IV Q2M PRN PRN Reason: Opioid Reversal Pantoprazole Sodium (Pantoprazole 40 Mg Tablet) 40 mg PO DAILY@0730 [facility] Last Admin: 10/22/21 09:46 Dose: 40 mg Documented by: Verapamil HCl (Verapamil 40 Mg Tab) 40 mg PO TID@0500,1300,2100 [facility] Last Admin: 10/22/21 04:08 Dose: Not Given Documented by: Past medical history to include: Atrial fibrillation, hyperlipidemia, hypertension, rheumatoid arthritis, Social history: No history of smoking or alcohol. Since out of the chair. Full assist. Normally able to feed himself. Family history: Reviewed, noncontributory to presentation Physical examination: VITAL SIGNS: 97.4, 51, 18, 120/68, 96% 3 L GENERAL: , laying in bed, sleepy EYES: Pupils equal. Conjunctiva normal. HEENT: External appearance of nose and ears normal, oral cavity dry. NECK: JVD unable to assess; masses not palpable. HEART: First and second heart sounds are normal; no edema. LUNGS: Respiratory rate increased; decreased breath sounds. ABDOMEN: Soft, nontender, liver spleen not palpable, no masses palpable. PSYCH: Sleepy. MUSCULOSKELETAL:No Clubbing/cyanosis;muscles-grossly intact. Evidence of OA INVESTIGATIONS, reviewed in the clinical context: October 21: White count 4.2 hemoglobin 14.2 platelets 11 sodium 151 potassium 4.1 creatinine 0.7 White count 4.2 hemoglobin 15.3 platelets 123 sodium 146 potassium 3.8 creatinine 0.67 UA positive for leukoesterase WBC UA positive for opioids COVID 19: Negative EKG tracing personally reviewed by me-atrial fibrillation. Rate 56 Chest x-ray film personally reviewed by me-portable. Underexposed. Cardiomegaly. Assessment and plan: -Acute metabolic encephalopathy/delirium possibly from sepsis: Worsening Patient for last 4-5 days having decreased responsiveness. Delirious. Poor appetite. [place] to be from underlying UTI. -Acute UTI with cystitis/sepsis IV ceftriaxone -Persistent atrial fibrillation, rate controlled Lopressor 12.5 by mouth twice a day. Verapamil 40 mg 3 times a day -BPH Cardura 2 mg by mouth daily at bedtime -Hyperlipidemia Lipitor 20 mg daily at bedtime -DO NOT RESUSCITATE [patient was under hospice care at the [facility] which is currently taken off.] -Chronic medical debility at her baseline patient's on a wheelchair Fall precautions -Comfort measures Comfort measures in place. Discussed with daughter the bedside. Disposition to hospice facility placement on Sunday.
[2021-10-22] MEDS: ATORVASTATIN 20 MG TAB PO SCH (21:46)
[2021-10-22] MEDS: DOXAZOSIN 2 MG TAB PO SCH (21:46)
[2021-10-23] MEDS: VERAPAMIL 40 MG TAB PO SCH ×3 (05:42→19:33)
[2021-10-23] MEDS: METOPROLOL TARTRATE 12.5 MG TAB PO SCH ×2 (07:41→19:33)
[2021-10-23] MEDS: PANTOPRAZOLE 40 MG TABLET PO SCH (07:41)
[2021-10-23] MEDS: ATORVASTATIN 20 MG TAB PO SCH (19:33)
[2021-10-23] MEDS: DOXAZOSIN 2 MG TAB PO SCH (19:33)
--- NOTE | 2021-10-23 19:48 | P.PN ---
Progress Note - Text Progress Note Date: 10/23/21 Chief Complaint: Increasing confusion This is a 26-year-old patient being followed by Dr. Maddox. Chronic stable medical conditions include atrial fibrillation, hyperlipidemia, hypertension, rheumatoid arthritis. Patient is currently a resident of [facility]. Patient in the ER is accompanied by his daughter Elli was also the medical power of securities attorney. Abdomen baseline patient unable to sit up in a wheelchair. Requiring assistance. Able to rise family. Was able to eat. Normally wears diapers. For one week patient is pending much become bedbound. Having some chills. Decreased appetite. Patient himself is not able to give any history. Per EMS report patient was trending downward since Sunday. Yesterday IV was done and patient was started on hydration. Patient's last oral intake was on Sunday. Patient only grunts on communication not able to communicate further. Patient had been on hospice up to now and patient was taken out of hospice but to remain DO NOT RESUSCITATE. According to daughter the patient normally able to communicate. Has had oxygen at the [facility]. October 21: Patient continues to remain delirious. Making sounds. Not, communicating. Spoke to patient's daughter the bedside. At length. Would like the patient to be comfortable. Not able to take medications. At this point decided to wash the patient for next 24 hours. does not want the patient to return to [facility]. Would like the patient to go to [facility] if possible. She also located different options with the bilingual patient support caseworker. Daughter understand the patient is doing poorly. October 7: Patient ate a small amount this morning. Some liquids. Comfortable. Daughter the bedside. Sleepy currently. Plan for hospice disposition on Sunday. October 8: Eating about 25%. Otherwise comfortable. Looking for hospice disposition on Sunday. Active Medications Atorvastatin Calcium (Atorvastatin 20 Mg Tab) 20 mg PO HS@1999 [facility] Last Admin: 10/23/21 19:33 Dose: 20 mg Documented by: Doxazosin Mesylate (Doxazosin 2 Mg Tab) 2 mg PO HS@1999 [facility] Last Admin: 10/23/21 19:33 Dose: 2 mg Documented by: Ceftriaxone Sodium 2 gm/ (Sodium Chloride) 50 mls @ 100 mls/hr IVPB Q24HR [facility]; Protocol Last Admin: 10/23/21 07:43 Dose: 100 mls/hr Documented by: Metoprolol Tartrate (Metoprolol Tartrate 12.5 Mg Tab) 12.5 mg PO BID@0800,2000 [facility] Last Admin: 10/23/21 19:33 Dose: 12.5 mg Documented by: Naloxone HCl (Naloxone 0.4 Mg/Ml 1 Ml Vial) 0.2 mg IV Q2M PRN PRN Reason: Opioid Reversal Pantoprazole Sodium (Pantoprazole 40 Mg Tablet) 40 mg PO DAILY@0730 [facility] Last Admin: 10/23/21 07:41 Dose: 40 mg Documented by: Verapamil HCl (Verapamil 40 Mg Tab) 40 mg PO TID@0500,1300,2100 [facility] Last Admin: 10/23/21 19:33 Dose: 40 mg Documented by: Past medical history to include: Atrial fibrillation, hyperlipidemia, hypertension, rheumatoid arthritis, Social history: No history of smoking or alcohol. Since out of the chair. Full assist. Normally able to feed himself. Family history: Reviewed, noncontributory to presentation Physical examination: VITAL SIGNS: 97.4, 52, 20, 134/71, 93% on 3 L GENERAL: , laying in bed, tired EYES: Pupils equal. Conjunctiva normal. HEENT: External appearance of nose and ears normal, oral cavity dry. NECK: JVD unable to assess; masses not palpable. HEART: First and second heart sounds are normal; no edema. LUNGS: Respiratory rate increased; decreased breath sounds. ABDOMEN: Soft, nontender, liver spleen not palpable, no masses palpable. PSYCH: Tired MUSCULOSKELETAL:No Clubbing/cyanosis;muscles-grossly intact. Evidence of OA INVESTIGATIONS, reviewed in the clinical context: October 21: White count 4.2 hemoglobin 14.2 platelets 11 sodium 151 potassium 4.1 creatinine 0.7 White count 4.2 hemoglobin 15.3 platelets 123 sodium 146 potassium 3.8 creatinine 0.67 UA positive for leukoesterase WBC UA positive for opioids COVID 19: Negative EKG tracing personally reviewed by me-atrial fibrillation. Rate 56 Chest x-ray film personally reviewed by me-portable. Underexposed. Cardiomegaly. Assessment and plan: -Acute metabolic encephalopathy/delirium possibly from sepsis: Worsening Patient for last 4-5 days having decreased responsiveness. Delirious. Poor appetite. [place] to be from underlying UTI. -Acute UTI with cystitis/sepsis IV ceftriaxone -Persistent atrial fibrillation, rate controlled Lopressor 12.5 by mouth twice a day. Verapamil 40 mg 3 times a day -BPH Cardura 2 mg by mouth daily at bedtime -Hyperlipidemia Lipitor 20 mg daily at bedtime -DO NOT RESUSCITATE [patient was under hospice care at the [facility] which is currently taken off.] -Chronic medical debility at her baseline patient's on a wheelchair Fall precautions -Comfort measures Comfort measures in place. Awaiting hospice facility discharge Sunday..
[2021-10-24] MEDS: VERAPAMIL 40 MG TAB PO SCH ×3 (04:33→20:27)
[2021-10-24] MEDS: PANTOPRAZOLE 40 MG TABLET PO SCH (08:53)
[2021-10-24] MEDS: METOPROLOL TARTRATE 12.5 MG TAB PO SCH ×2 (08:53→19:10)
[2021-10-24] MEDS: DOXAZOSIN 2 MG TAB PO SCH (19:10)
[2021-10-24] MEDS: ATORVASTATIN 20 MG TAB PO SCH (19:10)
--- NOTE | 2021-10-24 20:06 | P.PN ---
Progress Note - Text Progress Note Date: 10/23/21 Chief Complaint: Increasing confusion This is a 26-year-old patient being followed by Dr. Maddox. Chronic stable medical conditions include atrial fibrillation, hyperlipidemia, hypertension, rheumatoid arthritis. Patient is currently a resident of [facility]. Patient in the ER is accompanied by his daughter Elli was also the medical power of attorney lawyer. Abdomen baseline patient unable to sit up in a wheelchair. Requiring assistance. Able to rise family. Was able to eat. Normally wears diapers. For one week patient is pending much become bedbound. Having some chills. Decreased appetite. Patient himself is not able to give any history. Per EMS report patient was trending downward since Sunday. Yesterday IV was done and patient was started on hydration. Patient's last oral intake was on Sunday. Patient only grunts on communication not able to communicate further. Patient had been on hospice up to now and patient was taken out of hospice but to remain DO NOT RESUSCITATE. According to daughter the patient normally able to communicate. Has had oxygen at the [facility]. October 21: Patient continues to remain delirious. Making sounds. Not, communicating. Spoke to patient's daughter the bedside. At length. Would like the patient to be comfortable. Not able to take medications. At this point decided to wash the patient for next 24 hours. does not want the patient to return to [facility]. Would like the patient to go to [facility] if possible. She also located different options with the case coordinator. Daughter understand the patient is doing poorly. October 7: Patient ate a small amount this morning. Some liquids. Comfortable. Daughter the bedside. Sleepy currently. Plan for hospice disposition on Sunday. October 8: 80 exam. Daughter the bedside. Discussed. Awaiting hospice placement. Current medications reviewed Past medical history to include: Atrial fibrillation, hyperlipidemia, hypertension, rheumatoid arthritis, Social history: No history of smoking or alcohol. Since out of the chair. Full assist. N ormally able to feed himself. Family history: Reviewed, noncontributory to presentation Physical examination: VITAL SIGNS: 97.9, 69, 18, 131/74, 95% GENERAL: , laying in bed, sleepy EYES: Pupils equal. Conjunctiva normal. HEENT: External appearance of nose and ears normal, oral cavity dry. NECK: JVD unable to assess; masses not palpable. HEART: First and second heart sounds are normal; no edema. LUNGS: Respiratory rate increased; decreased breath sounds. ABDOMEN: Soft, nontender, liver spleen not palpable, no masses palpable. PSYCH: Sleepy. MUSCULOSKELETAL:No Clubbing/cyanosis;muscles-grossly intact. Evidence of OA INVESTIGATIONS, reviewed in the clinical context: October 21: White count 4.2 hemoglobin 14.2 platelets 11 sodium 151 potassium 4.1 creatinine 0.7 White count 4.2 hemoglobin 15.3 platelets 123 sodium 146 potassium 3.8 creatinine 0.67 UA positive for leukoesterase WBC UA positive for opioids COVID 19: Negative EKG tracing personally reviewed by me-atrial fibrillation. Rate 56 Chest x-ray film personally reviewed by me-portable. Underexposed. Cardiomegaly. Assessment and plan: -Acute metabolic encephalopathy/delirium possibly from sepsis: Worsening Patient for last 4-5 days having decreased responsiveness. Delirious. Poor appetite. [place] to be from underlying UTI. -Acute UTI with cystitis/sepsis IV ceftriaxone -Persistent atrial fibrillation, rate controlled Lopressor 12.5 by mouth twice a day. Verapamil 40 mg 3 times a day -BPH Cardura 2 mg by mouth daily at bedtime -Hyperlipidemia Lipitor 20 mg daily at bedtime -DO NOT RESUSCITATE [patient was under hospice care at the [facility] which is currently taken off.] -Chronic medical debility at her baseline patient's on a wheelchair Fall precautions -Comfort measures Comfort measures in place. Discussed with daughter the bedside. Pending [facility] 2 hospice facility on Sunday..
--- NOTE | 2021-10-24 20:09 | P.PN ---
Progress Note - Text Progress Note Date: 10/24/21 Chief Complaint: Increasing confusion This is a 26-year-old patient being followed by Dr. Maddox. Chronic stable medical conditions include atrial fibrillation, hyperlipidemia, hypertension, rheumatoid arthritis. Patient is currently a resident of [facility]. Patient in the ER is accompanied by his daughter Elli was also the medical power of trapper bird. Abdomen baseline patient unable to sit up in a wheelchair. Requiring assistance. Able to rise family. Was able to eat. Normally wears diapers. For one week patient is pending much become bedbound. Having some chills. Decreased appetite. Patient himself is not able to give any history. Per EMS report patient was trending downward since Sunday. Yesterday IV was done and patient was started on hydration. Patient's last oral intake was on Sunday. Patient only grunts on communication not able to communicate further. Patient had been on hospice up to now and patient was taken out of hospice but to remain DO NOT RESUSCITATE. According to daughter the patient normally able to communicate. Has had oxygen at the [facility]. October 21: Patient continues to remain delirious. Making sounds. Not, communicating. Spoke to patient's daughter the bedside. At length. Would like the patient to be comfortable. Not able to take medications. At this point decided to wash the patient for next 24 hours. does not want the patient to return to [facility]. Would like the patient to go to [facility] if possible. She also located different options with the rehabilitation caseworker. Daughter understand the patient is doing poorly. October 7: Patient ate a small amount this morning. Some liquids. Comfortable. Daughter the bedside. Sleepy currently. Plan for hospice disposition on Sunday. October 8: Eating about 25%. Otherwise comfortable. Looking for hospice disposition on Sunday. October 9: Patient was seen this morning. Oral intake good. Comfortable. Son at the bedside. Discussed with him. Awaiting placement to hospice. Active Medications Atorvastatin Calcium (Atorvastatin 20 Mg Tab) 20 mg PO HS@1999 [facility] Last Admin: 10/24/21 19:10 Dose: 20 mg Documented by: Doxazosin Mesylate (Doxazosin 2 Mg Tab) 2 mg PO HS@1999 [facility] Last Admin: 10/24/21 19:10 Dose: 2 mg Documented by: Ceftriaxone Sodium 2 gm/ (Sodium Chloride) 50 mls @ 100 mls/hr IVPB Q24HR [facility]; Protocol Last Admin: 10/24/21 08:52 Dose: 100 mls/hr Documented by: Metoprolol Tartrate (Metoprolol Tartrate 12.5 Mg Tab) 12.5 mg PO BID@0800,2000 [facility] Last Admin: 10/24/21 19:10 Dose: Not Given Documented by: Naloxone HCl (Naloxone 0.4 Mg/Ml 1 Ml Vial) 0.2 mg IV Q2M PRN PRN Reason: Opioid Reversal Pantoprazole Sodium (Pantoprazole 40 Mg Tablet) 40 mg PO DAILY@0730 [facility] Last Admin: 10/24/21 08:53 Dose: 40 mg Documented by: Verapamil HCl (Verapamil 40 Mg Tab) 40 mg PO TID@0500,1300,2100 [facility] Last Admin: 10/24/21 14:03 Dose: 40 mg Documented by: Past medical history to include: Atrial fibrillation, hyperlipidemia, hypertension, rheumatoid arthritis, Social history: No history of smoking or alcohol. Since out of the chair. Full assist. Normally able to feed himself. Family history: Reviewed, noncontributory to presentation Physical examination: VITAL SIGNS: 98.2, 53, 16, 120/79, 96% room air GENERAL: , laying in bed, sleepy EYES: Pupils equal. Conjunctiva normal. HEENT: External appearance of nose and ears normal, oral cavity dry. NECK: JVD unable to assess; masses not palpable. HEART: First and second heart sounds are normal; no edema. LUNGS: Respiratory rate increased; decreased breath sounds. ABDOMEN: Soft, nontender, liver spleen not palpable, no masses palpable. PSYCH: Sleepy MUSCULOSKELETAL:No Clubbing/cyanosis;muscles-grossly intact. Evidence of OA INVESTIGATIONS, reviewed in the clinical context: October 21: White count 4.2 hemoglobin 14.2 platelets 11 sodium 151 potassium 4.1 creatinine 0.7 White count 4.2 hemoglobin 15.3 platelets 123 sodium 146 potassium 3.8 creatinine 0.67 UA positive for leukoesterase WBC UA positive for opioids COVID 19: Negative EKG tracing personally reviewed by me-atrial fibrillation. Rate 56 Chest x-ray film personally reviewed by me-portable. Underexposed. Cardiomegaly. Assessment and plan: -Acute metabolic encephalopathy/delirium possibly from sepsis: Worsening Patient for last 4-5 days having decreased responsiveness. Delirious. Poor appetite. [place] to be from underlying UTI. -Acute UTI with cystitis/sepsis IV ceftriaxone -Persistent atrial fibrillation, rate controlled Lopressor 12.5 by mouth twice a day. Verapamil 40 mg 3 times a day -BPH Cardura 2 mg by mouth daily at bedtime -Hyperlipidemia Lipitor 20 mg daily at bedtime -DO NOT RESUSCITATE [patient was under hospice care at the [facility] which is currently taken off.] -Chronic medical debility at her baseline patient's on a wheelchair Fall precautions -Comfort measures Comfort measures in place. Spoke to the son of the bedside. Awaiting to hear from rehabilitation caseworker when bed is available for hospice.
[2021-10-25] MEDS: VERAPAMIL 40 MG TAB PO SCH ×3 (04:55→20:44)
[2021-10-25] MEDS: METOPROLOL TARTRATE 12.5 MG TAB PO SCH ×2 (08:30→20:44)
[2021-10-25] MEDS: PANTOPRAZOLE 40 MG TABLET PO SCH (08:30)
--- NOTE | 2021-10-25 11:46 | P.DS ---
Providers Date of admission: 10/20/21 16:29 Expected date of discharge: 10/25/21 Attending physician: Nura Barnhart Consults: 10/20/21 16:31 Consult Physician Routine Consulting Provider: Luis Batres Consult Reason/Comments: hypercarbia, O2-dependent Do you want consulting provider notified?: Yes Primary care physician: Sai [facility] Course: Chief Complaint: Increasing confusion This is a 26-year-old patient being followed by Dr. Maddox. Chronic stable medical conditions include atrial fibrillation, hyperlipidemia, hypertension, rheumatoid arthritis. Patient is currently a resident of [facility]. Patient in the ER is accompanied by his daughter Elli was also the medical power of assistant attorney general. Abdomen baseline patient unable to sit up in a wheelchair. Requiring assistance. Able to rise family. Was able to eat. Normally wears diapers. For one week patient is pending much become bedbound. Having some chills. Decreased appetite. Patient himself is not able to give any history. Per EMS report patient was trending downward since Sunday. Yesterday IV was done and patient was started on hydration. Patient's last oral intake was on Sunday. Patient only grunts on communication not able to communicate further. Patient had been on hospice up to now and patient was taken out of hospice but to remain DO NOT RESUSCITATE. According to daughter the patient normally able to communicate. Has had oxygen at the ECF. October 21: Patient continues to remain delirious. Making sounds. Not, communicating. Spoke to patient's daughter the bedside. At length. Would like the patient to be comfortable. Not able to take medications. At this point decided to wash the patient for next 24 hours. does not want the patient to return to [facility]. Would like the patient to go to [facility] if possible. She also located different options with the director of casework department. Daughter understand the patient is doing poorly. October 7: Patient ate a small amount this morning. Some liquids. Comfortable. Daughter the bedside. Sleepy currently. Plan for hospice disposition on Sunday. October 8: Eating about 25%. Otherwise comfortable. Looking for hospice disposition on Sunday. October 24: Patient was seen this morning. Oral intake good. Comfortable. Son at the bedside. Discussed with him. Awaiting placement to hospice. October 25: Patient is eating much better. Awake. Spoke to patient's daughter who is the POA. Would like the patient to return to rehab accepted at [facility]. We'll complete a course of Ceftin for the UTI from E. coli. Comfort orders being discontinued. Patient is taking his oral medications. Discussion and discharge planning more than 35 minutes Past medical history to include: Atrial fibrillation, hyperlipidemia, hypertension, rheumatoid arthritis, Social history: No history of smoking or alcohol. Since out of the chair. Full assist. Normally able to feed himself. Family history: Reviewed, noncontributory to presentation Physical examination: VITAL SIGNS: 97.5, 67, 20, 132/80, 93% on 3 L GENERAL: , laying in bed, more awake EYES: Pupils equal. Conjunctiva normal. HEENT: External appearance of nose and ears normal, oral cavity dry. NECK: JVD unable to assess; masses not palpable. HEART: First and second heart sounds are normal; no edema. LUNGS: Respiratory rate increased; decreased breath sounds. ABDOMEN: Soft, nontender, liver spleen not palpable, no masses palpable. PSYCH: Appears comfortable MUSCULOSKELETAL:No Clubbing/cyanosis;muscles-grossly intact. Evidence of OA INVESTIGATIONS, reviewed in the clinical context: Urine culture: E. coli October 21: White count 4.2 hemoglobin 14.2 platelets 11 sodium 151 potassium 4.1 creatinine 0.7 White count 4.2 hemoglobin 15.3 platelets 123 sodium 146 potassium 3.8 creatinine 0.67 UA positive for leukoesterase WBC UA positive for opioids COVID 19: Negative EKG tracing personally reviewed by me-atrial fibrillation. Rate 56 Chest x-ray film personally reviewed by me-portable. Underexposed. Cardiomegaly. Assessment and plan: -Acute metabolic encephalopathy/delirium possibly from sepsis: Better Prior to admission 4-5 days having decreased responsiveness. Delirious. Poor appetite. [place] to be from underlying UTI. -Acute UTI with cystitis/sepsis from E. coli IV ceftriaxone. Complete 5 more days of Ceftin -Persistent atrial fibrillation, rate controlled Lopressor 12.5 by mouth twice a day. Verapamil 40 mg 3 times a day -BPH Cardura 2 mg by mouth daily at bedtime -Hyperlipidemia Lipitor 20 mg daily at bedtime -DO NOT RESUSCITATE [patient was under hospice care at the [facility] which has been discontinued] -Chronic medical debility at her baseline patient's on a wheelchair Fall precautions -Comfort measures discontinued Patient to be discharged to [facility] for rehab. Plan - Discharge Summary Discharge Rx Participant: No New Discharge Prescriptions: New Cefuroxime Axetil [Ceftin] 500 mg PO BID 1 Days #10 tab Pantoprazole [Protonix] 40 mg PO DAILY@0730 tab Doxazosin [Cardura] 2 mg PO HS@2000 tab Verapamil [Isoptin] 40 mg PO TID@0500,1300,2100 tab Atorvastatin [Lipitor] 20 mg PO HS@2000 tab Metoprolol Tartrate [Lopressor] 12.5 mg PO BID@0800,2000 tab Continue LORazepam [Ativan] 0.5 mg PO Q4H PRN #18 PRN Reason: Anxiety Discontinued Atorvastatin [Lipitor] 20 mg PO HS@2000 Morphine Sulfate [Morphine Sulfate Oral Soln Concentrate] 5 mg PO Q4H PRN PRN Reason: Pain Acetaminophen Tab [Tylenol] 650 mg PO Q6HR PRN PRN Reason: Fever And/ Or Pain Verapamil [Isoptin] 40 mg PO TID@0500,1300,2100 Metoprolol Tartrate [Lopressor] 12.5 mg PO BID@08,1999 Omeprazole 20 mg PO DAILY Multivitamins, Thera [Multivitamin (formulary)] 1 tab PO DAILY Doxazosin [Cardura] 2 mg PO HS@1999 Cholecalciferol [Vitamin D3 (25 Mcg = 1000 Iu)] 50 mcg PO DAILY@1400 Furosemide [Lasix] 20 mg PO DAILY Discharge Medication List Atorvastatin [Lipitor] 20 mg PO HS@1999 tab 10/25/21 [Rx] Cefuroxime Axetil [Ceftin] 500 mg PO BID 1 Days #10 tab 10/25/21 [Rx] Doxazosin [Cardura] 2 mg PO HS@1999 tab 10/25/21 [Rx] LORazepam [Ativan] 0.5 mg PO Q4H PRN #18 10/25/21 [Rx] Metoprolol Tartrate [Lopressor] 12.5 mg PO BID@0800,1999 tab 10/25/21 [Rx] Pantoprazole [Protonix] 40 mg PO DAILY@0730 tab 10/25/21 [Rx] Verapamil [Isoptin] 40 mg PO TID@0500,1300,2100 tab 10/25/21 [Rx] Follow up Appointment(s)/Referral(s): Sai Maddox DO [Primary Care Provider] - 1-2 days Discharge Disposition: DISCH TO HOSPICE MED FACILTY
[2021-10-25] MEDS: DOXAZOSIN 2 MG TAB PO SCH (20:44)
[2021-10-25] MEDS: ATORVASTATIN 20 MG TAB PO SCH (20:44)
[2021-10-26] MEDS: VERAPAMIL 40 MG TAB PO SCH ×3 (05:17→19:58)
[2021-10-26] MEDS: PANTOPRAZOLE 40 MG TABLET PO SCH (08:59)
[2021-10-26] MEDS: METOPROLOL TARTRATE 12.5 MG TAB PO SCH ×2 (08:59→19:58)
--- NOTE | 2021-10-26 19:33 | P.PN ---
Progress Note - Text Progress Note Date: 10/25/21 This is a 26-year-old patient being followed by Dr. Maddox. Chronic stable medical conditions include atrial fibrillation, hyperlipidemia, hypertension, rheumatoid arthritis. Patient is currently a resident of [facility]. Patient in the ER is accompanied by his daughter Elli was also the medical power of bankruptcy attorney. Abdomen baseline patient unable to sit up in a wheelchair. Requiring assistance. Able to rise family. Was able to eat. Normally wears diapers. For one week patient is pending much become bedbound. Having some chills. Decreased appetite. Patient himself is not able to give any history. Per EMS report patient was trending downward since Sunday. Yesterday IV was done and patient was started on hydration. Patient's last oral intake was on Sunday. Patient only grunts on communication not able to communicate further. Patient had been on hospice up to now and patient was taken out of hospice but to remain DO NOT RESUSCITATE. According to daughter the patient normally able to communicate. Has had oxygen at the [facility]. October 21: Patient continues to remain delirious. Making sounds. Not, communicating. Spoke to patient's daughter the bedside. At length. Would like the patient to be comfortable. Not able to take medications. At this point de cided to wash the patient for next 24 hours. does not want the patient to return to [facility]. Would like the patient to go to [facility] if possible. She also located different options with the upper caser. Daughter understand the patient is doing poorly. October 7: Patient ate a small amount this morning. Some liquids. Comfortable. Daughter the bedside. Sleepy currently. Plan for hospice disposition on Sunday. October 8: Eating about 25%. Otherwise comfortable. Looking for hospice disposition on Sunday. October 24: Patient was seen this morning. Oral intake good. Comfortable. Son at the bedside. Discussed with him. Awaiting placement to hospice. October 25: Patient is eating much better. Awake. Spoke to patient's daughter who is the POA. Would like the patient to return to rehab accepted at [facility]. We'll complete a course of Ceftin for the UTI from E. coli. Comfort orders being discontinued. Patient is taking his oral medications. Current medications reviewed Past medical history to include: Atrial fibrillation, hyperlipidemia, hypertension, rheumatoid arthritis, Social history: No history of smoking or alcohol. Since out of the chair. Full assist. Normally able to feed himself. Family history: Reviewed, noncontributory to presentation Physical examination: VITAL SIGNS: 97, 50, 18, 1 3683, 99% on 3 L GENERAL: , laying in bed, more awake EYES: Pupils equal. Conjunctiva normal. HEENT: External appearance of nose and ears normal, oral cavity dry. NECK: JVD unable to assess; masses not palpable. HEART: First and second heart sounds are normal; no edema. LUNGS: Respiratory rate increased; decreased breath sounds. ABDOMEN: Soft, nontender, liver spleen not palpable, no masses palpable. PSYCH: Appears comfortable MUSCULOSKELETAL:No Clubbing/cyanosis;muscles-grossly intact. Evidence of OA INVESTIGATIONS, reviewed in the clinical context: Urine culture: E. coli October 21: White count 4.2 hemoglobin 14.2 platelets 11 sodium 151 potassium 4.1 creatinine 0.7 White count 4.2 hemoglobin 15.3 platelets 123 sodium 146 potassium 3.8 creatinine 0.67 UA positive for leukoesterase WBC UA positive for opioids COVID 19: Negative EKG tracing personally reviewed by me-atrial fibrillation. Rate 56 Chest x-ray film personally reviewed by me-portable. Underexposed. Cardiomegaly. Assessment and plan: -Acute metabolic encephalopathy/delirium possibly from sepsis: Better Prior to admission 4-5 days having decreased responsiveness. Delirious. Poor appetite. [place] to be from underlying UTI. -Acute UTI with cystitis/sepsis from E. coli IV ceftriaxone. -Persistent atrial fibrillation, rate controlled Lopressor 12.5 by mouth twice a day. Verapamil 40 mg 3 times a day -BPH Cardura 2 mg by mouth daily at bedtime -Hyperlipidemia Lipitor 20 mg daily at bedtime -DO NOT RESUSCITATE [patient was under hospice care at the [facility] which has been discontinued] -Chronic medical debility at her baseline patient's on a wheelchair Fall precautions -Comfort measures discontinued Discharge could not come through because of financial issues at [facility]. Continue current medications. Communicated with his team manager. Total time spent today about 40 minutes with over 25 minutes of discussion.
--- NOTE | 2021-10-26 19:35 | P.PN ---
Progress Note - Text Progress Note Date: 10/26/21 This is a 26-year-old patient being followed by Dr. Maddox. Chronic stable medical conditions include atrial fibrillation, hyperlipidemia, hypertension, rheumatoid arthritis. Patient is currently a resident of [facility]. Patient in the ER is accompanied by his daughter Elli was also the medical power of chicken buyer. Abdomen baseline patient unable to sit up in a wheelchair. Requiring assistance. Able to rise family. Was able to eat. Normally wears diapers. For one week patient is pending much become bedbound. Having some chills. Decreased appetite. Patient himself is not able to give any history. Per EMS report patient was trending downward since Sunday. Yesterday IV was done and patient was started on hydration. Patient's last oral intake was on Sunday. Patient only grunts on communication not able to communicate further. Patient had been on hospice up to now and patient was taken out of hospice but to remain DO NOT RESUSCITATE. According to daughter the patient normally able to communicate. Has had oxygen at the [facility]. October 21: Patient continues to remain delirious. Making sounds. Not, communicating. Spoke to patient's daughter the bedside. At length. Would like the patient to be comfortable. Not able to take medications. At this point de cided to wash the patient for next 24 hours. does not want the patient to return to [facility]. Would like the patient to go to [facility] if possible. She also located different options with the watch case polisher. Daughter understand the patient is doing poorly. October 7: Patient ate a small amount this morning. Some liquids. Comfortable. Daughter the bedside. Sleepy currently. Plan for hospice disposition on Sunday. October 8: Eating about 25%. Otherwise comfortable. Looking for hospice disposition on Sunday. October 24: Patient was seen this morning. Oral intake good. Comfortable. Son at the bedside. Discussed with him. Awaiting placement to hospice. October 25: Patient is eating much better. Awake. Spoke to patient's daughter who is the POA. Would like the patient to return to rehab accepted at [facility]. We'll complete a course of Ceftin for the UTI from E. coli. Comfort orders being discontinued. Patient is taking his oral medications. October 26: Sitting at the edge of the bed. Oral intake fair. Tolerating diet. Spoke to the son of the bedside. Financial issues at the rehab place hands discharged cannot be done today. Active Medications Atorvastatin Calcium (Atorvastatin 20 Mg Tab) 20 mg PO HS@1999 [facility] Last Admin: 10/25/21 20:44 Dose: 20 mg Documented by: Doxazosin Mesylate (Doxazosin 2 Mg Tab) 2 mg PO HS@1999 [facility] Last Admin: 10/25/21 20:44 Dose: 2 mg Documented by: Ceftriaxone Sodium 2 gm/ (Sodium Chloride) 50 mls @ 100 mls/hr IVPB Q24HR [facility]; Protocol Last Admin: 10/26/21 08:57 Dose: 100 mls/hr Documented by: Metoprolol Tartrate (Metoprolol Tartrate 12.5 Mg Tab) 12.5 mg PO BID@ [facility] Last Admin: 10/26/21 08:59 Dose: 12.5 mg Documented by: Naloxone HCl (Naloxone 0.4 Mg/Ml 1 Ml Vial) 0.2 mg IV Q2M PRN PRN Reason: Opioid Reversal Pantoprazole Sodium (Pantoprazole 40 Mg Tablet) 40 mg PO DAILY@0730 [facility] Last Admin: 10/26/21 08:59 Dose: 40 mg Documented by: Verapamil HCl (Verapamil 40 Mg Tab) 40 mg PO TID@0500,1300,2100 [facility] Last Admin: 10/26/21 13:15 Dose: 40 mg Documented by: Past medical history to include: Atrial fibrillation, hyperlipidemia, hypertension, rheumatoid arthritis, Social history: No history of smoking or alcohol. Since out of the chair. Full assist. Normally able to feed himself. Family history: Reviewed, noncontributory to presentation Physical examination: VITAL SIGNS: 98.2, 53, 16, 1 with 6/64, 94% room air GENERAL: , Sitting or edges bed, talking EYES: Pupils equal. Conjunctiva normal. HEENT: External appearance of nose and ears normal, oral cavity dry. NECK: JVD unable to assess; masses not palpable. HEART: First and second heart sounds are normal; no edema. LUNGS: Respiratory rate increased; decreased breath sounds. ABDOMEN: Soft, nontender, liver spleen not palpable, no masses palpable. PSYCH: Answering simple questions MUSCULOSKELETAL:No Clubbing/cyanosis;muscles-grossly intact. Evidence of OA INVESTIGATIONS, reviewed in the clinical context: Urine culture: E. coli October 21: White count 4.2 hemoglobin 14.2 platelets 11 sodium 151 potassium 4.1 creatinine 0.7 White count 4.2 hemoglobin 15.3 platelets 123 sodium 146 potassium 3.8 creati nine 0.67 UA positive for leukoesterase WBC UA positive for opioids COVID 19: Negative EKG tracing personally reviewed by me-atrial fibrillation. Rate 56 Chest x-ray film personally reviewed by me-portable. Underexposed. Cardiomegaly. Assessment and plan: -Acute metabolic encephalopathy/delirium possibly from sepsis: Better Prior to admission 4-5 days having decreased responsiveness. Delirious. Poor appetite. [place] to be from underlying UTI. -Acute UTI with cystitis/sepsis from E. coli IV ceftriaxone. -Persistent atrial fibrillation, rate controlled Lopressor 12.5 by mouth twice a day. Verapamil 40 mg 3 times a day -BPH Cardura 2 mg by mouth daily at bedtime -Hyperlipidemia Lipitor 20 mg daily at bedtime -DO NOT RESUSCITATE [patient was under hospice care at the [facility] which has been discontinued] -Chronic medical debility at her baseline patient's on a wheelchair Fall precautions -Comfort measures discontinued Continue current medication treatment plan. Labs in the morning. Discussed with son. Financial issues holding back discharge.
[2021-10-26] MEDS: DOXAZOSIN 2 MG TAB PO SCH (19:57)
[2021-10-26] MEDS: ATORVASTATIN 20 MG TAB PO SCH (19:58)
[2021-10-27] MEDS: VERAPAMIL 40 MG TAB PO SCH ×2 (05:22→12:41)
[2021-10-27 07:03] LABS: African American GFR (CKD) >90 (>60 ml/min/1.73 sqM); Anion Gap 4 mmol/L; Blood Urea Nitrogen 28 mg/dL (9-20); Calcium 8.3 mg/dL (8.4-10.2); Carbon Dioxide 33 mmol/L (22-30); Chloride 100 mmol/L (98-107); Glucose 73 mg/dL (74-99); Non-African American GFR(CKD) 87 (>60 ml/min/1.73 sqM); Potassium 3.8 mmol/L (3.5-5.1); Sodium 137 mmol/L (137-145)
[2021-10-27] MEDS: PANTOPRAZOLE 40 MG TABLET PO SCH (08:30)
[2021-10-27] MEDS: METOPROLOL TARTRATE 12.5 MG TAB PO SCH (08:30)
[2021-10-27 13:35] VITALS: BP 102/56; PULSE 53; RESP 16; TEMP 97.5
--- NOTE | 2021-10-27 14:07 | P.DS ---
Providers Date of admission: 10/20/21 16:29 Expected date of discharge: 10/27/21 Attending physician: Nura Barnhart Consults: 10/20/21 16:31 Consult Physician Routine Consulting Provider: Luis Batres Consult Reason/Comments: hypercarbia, O2-dependent Do you want consulting provider notified?: Yes Primary care physician: Sai Maddxo [facility] Course: Hospital course This is a 26-year-old patient being followed by Dr. Maddox. Chronic stable medical conditions include atrial fibrillation, hyperlipidemia, hypertension, rheumatoid arthritis. Patient is currently a resident of [facility]. Patient in the ER is accompanied by his daughter Elli was also the medical power of hydraulic assembler. Abdomen baseline patient unable to sit up in a wheelchair. Requiring ass istance. Able to rise family. Was able to eat. Normally wears diapers. For one week patient is pending much become bedbound. Having some chills. Decreased appetite. Patient himself is not able to give any history. Per EMS report patient was trending downward since Sunday. Yesterday IV was done and patient was started on hydration. Patient's last oral intake was on Sunday. Patient only grunts on communication not able to communicate further. Patient had been on hospice up to now and patient was taken out of hospice but to remain DO NOT RESUSCITATE. According to daughter the patient normally able to communicate. Has had oxygen at the ECF. October 21: Patient continues to remain delirious. Making sounds. Not, communicating. Spoke to patient's daughter the bedside. At length. Would like the patient to be comfortable. Not able to take medications. At this point decided to wash the patient for next 24 hours. does not want the patient to return to [facility]. Would like the patient to go to [facility] if possible. She also located different options with the trimming caser. Daughter understand the patient is doing poorly. October 7: Patient ate a small amount this morning. Some liquids. Comfortable. Daughter the bedside. Sleepy currently. Plan for hospice disposition on Sunday. October 8: Eating about 25%. Otherwise comfortable. Looking for hospice disposition on Sunday. October 24: Patient was seen this morning. Oral intake good. Comfortable. Son at the bedside. Discussed with him. Awaiting placement to hospice. October 25: Patient is eating much better. Awake. Spoke to patient's daughter who is the POA. Would like the patient to return to rehab accepted at [facility]. We'll complete a course of Ceftin for the UTI from E. coli. Comfort orders being discontinued. Patient is taking his oral medications. October 26: Sitting at the edge of the bed. Oral intake fair. Tolerating diet. Spoke to the son of the bedside. Financial issues at the rehab place hands disc harged cannot be done today. October 27: Sitting at edge of bed. Talking. Oral intake fair. Son at the bedside. Later this afternoon financial issues was settled. Patient be going down to [facility] for rehab. Discussion and discharge planning more than 35 minutes Past medical history to include: Atrial fibrillation, hyperlipidemia, hypertension, rheumatoid arthritis, Social history: No history of smoking or alcohol. Since out of the chair. Full assist. Normally able to feed himself. Family history: Reviewed, noncontributory to presentation Physical examination: VITAL SIGNS: 97.5, 53, 16, 102/56, 97% room air GENERAL: , Sitting or edges bed, talking EYES: Pupils equal. Conjunctiva normal. HEENT: External appearance of nose and ears normal, oral cavity dry. NECK: JVD unable to assess; masses not palpable. HEART: First and second heart sounds are normal; no edema. LUNGS: Respiratory rate increased; decreased breath sounds. ABDOMEN: Soft, nontender, liver spleen not palpable, no masses palpable. PSYCH: Answering simple questions MUSCULOSKELETAL:No Clubbing/cyanosis;muscles-grossly intact. Evidence of OA INVESTIGATIONS, reviewed in the clinical context: October 27: Potassium 3.8 creatinine 0.67 sodium 137 Urine culture: E. coli October 21: White count 4.2 hemoglobin 14.2 platelets 11 sodium 151 potassium 4.1 creatinine 0.7 White count 4.2 hemoglobin 15.3 platelets 123 sodium 146 potassium 3.8 creatinine 0.67 UA positive for leukoesterase WBC UA positive for opioids COVID 19: Negative EKG tracing personally reviewed by me-atrial fibrillation. Rate 56 Chest x-ray film personally reviewed by me-portable. Underexposed. Cardiomegaly. Assessment and plan: -Acute metabolic encephalopathy/delirium possibly from sepsis: Better Prior to admission 4-5 days having decreased responsiveness. Delirious. Poor appetite. [place] to be from underlying UTI. -Acute UTI with cystitis/sepsis from E. coli IV ceftriaxone. 5 days of Ceftin. -Persistent atrial fibrillation, rate controlled Lopressor 12.5 by mouth twice a day. Verapamil 40 mg 3 times a day -BPH Cardura 2 mg by mouth daily at bedtime -Hyperlipidemia Lipitor 20 mg daily at bedtime -DO NOT RESUSCITATE [patient was under hospice care at the [facility] which has been discontinued] -Chronic medical debility at her baseline patient's on a wheelchair Fall precautions Disposition: [facility] Plan - Discharge Summary Discharge Rx Participant: No New Discharge Prescriptions: New Cefuroxime Axetil [Ceftin] 500 mg PO BID 1 Days #10 tab Pantoprazole [Protonix] 40 mg PO DAILY@0730 tab Doxazosin [Cardura] 2 mg PO HS@1999 tab Verapamil [Isoptin] 40 mg PO TID@0500,1300,2100 tab Atorvastatin [Lipitor] 20 mg PO HS@2000 tab Metoprolol Tartrate [Lopressor] 12.5 mg PO BID@0800,2000 tab Continue LORazepam [Ativan] 0.5 mg PO Q4H PRN #18 PRN Reason: Anxiety Discontinued Atorvastatin [Lipitor] 20 mg PO HS@2000 Morphine Sulfate [Morphine Sulfate Oral Soln Concentrate] 5 mg PO Q4H PRN PRN Reason: Pain Acetaminophen Tab [Tylenol] 650 mg PO Q6HR PRN PRN Reason: Fever And/ Or Pain Verapamil [Isoptin] 40 mg PO TID@0500,1300,2100 Metoprolol Tartrate [Lopressor] 12.5 mg PO BID@0800,2000 Omeprazole 20 mg PO DAILY Multivitamins, Thera [Multivitamin (formulary)] 1 tab PO DAILY Doxazosin [Cardura] 2 mg PO HS@2000 Cholecalciferol [Vitamin D3 (25 Mcg = 1000 Iu)] 50 mcg PO DAILY@1400 Furosemide [Lasix] 20 mg PO DAILY Discharge Medication List Atorvastatin [Lipitor] 20 mg PO HS@1999 tab 10/25/21 [Rx] Cefuroxime Axetil [Ceftin] 500 mg PO BID 1 Days #10 tab 10/25/21 [Rx] Doxazosin [Cardura] 2 mg PO HS@1999 tab 10/25/21 [Rx] LORazepam [Ativan] 0.5 mg PO Q4H PRN #18 10/25/21 [Rx] Metoprolol Tartrate [Lopressor] 12.5 mg PO BID@0800,2000 tab 10/25/21 [Rx] Pantoprazole [Protonix] 40 mg PO DAILY@0730 tab 10/25/21 [Rx] Verapamil [Isoptin] 40 mg PO TID@0500,1300,2100 tab 10/25/21 [Rx] Follow up Appointment(s)/Referral(s): Sai Maddox DO [Primary Care Provider] - 1-2 days Discharge Disposition: DISCH TO HOSPICE MED FACILTY
== END 2021-10-27 18:30 | disposition hospice, inpatient (51) ==
LOC: EC 13:36 → 5NMEDONC 16:29 → INTOOBSV 16:29 → 5NMEDONC 21:05 → UNDODISIN 10-27 18:30
PROVIDERS: ADMIT Hospitalist; ATTEND Hospitalist
DX: G93.41 Metabolic encephalopathy (principal); A41.51 Sepsis due to Escherichia coli [E. coli]; I11.0 Hypertensive heart disease with heart failure; I50.33 Acute on chronic diastolic (congestive) heart failure; E87.0 Hyperosmolality and hypernatremia; I48.19 Other persistent atrial fibrillation; N30.90 Cystitis, unspecified without hematuria; Z66 Do not resuscitate; E78.5 Hyperlipidemia, unspecified; E86.0 Dehydration; M06.9 Rheumatoid arthritis, unspecified; N40.0 Benign prostatic hyperplasia without lower urinary tract symptoms; E87.2 Acidosis; I31.3 Pericardial effusion (noninflammatory); D69.6 Thrombocytopenia, unspecified; E87.8 Other disorders of electrolyte and fluid balance, not elsewhere classified; R53.81 Other malaise; M19.90 Unspecified osteoarthritis, unspecified site; M25.511 Pain in right shoulder; R60.0 Localized edema; R32 Unspecified urinary incontinence; Z20.822 Contact with and (suspected) exposure to COVID-19; Z74.01 Bed confinement status; Z79.899 Other long term (current) drug therapy; Z87.440 Personal history of urinary (tract) infections; Z71.9 Counseling, unspecified; Z99.81 Dependence on supplemental oxygen; Z59.9 Problem related to housing and economic circumstances, unspecified; Z84.89 Family history of other specified conditions
CPT/HCPCS: 96376; 96361 ×2; 96366 ×8; 96365; 96375; 99285; 36415; 93005; 97530 ×4; 97162; 97535 ×3; 97166; 83880; 80053 ×2; 80048; 82140; 82803; 83605; 84484; 85025 ×2; 85610; 85730; 81001; 87040; 80306; 87086; 87077; 87186; 87635 ×2; 71045; 70450; G0378 ×8; J1940 ×2; J0696 ×8

== ENCOUNTER 2021-11-12 11:35 | Inpatient (IN) | payer MEDICARE, BC ==
--- NOTE | 2021-11-12 11:43 | ED ---
General Adult HPI - General Stated complaint: cardiac issues Time Seen by Provider: 11/12/21 11:38 Source: patient, EMS, RN notes reviewed Mode of arrival: EMS Limitations: altered mental status - History of Present Illness Initial comments: Patient is a pleasantly confused 86-year-old male presenting to the emergency department following being difficult to arouse from a care home. Patient reportedly was recently on hospice and DO NOT RESUSCITATE and he discontinued that. Patient does have history of CHF and EMS questions if that was why he was on hospice. Patient offers very little information at this time. EMS reported low heart rate and respiratory rate. They state patient has improved in route to the emergency department. Patient can answer and 1-2 word sentences that is very difficult to understand and basic. - Related Data Previous Rx's Medication Instructions Recorded Atorvastatin [Lipitor] 20 mg PO HS@1999 tab 10/25/21 Cefuroxime Axetil [Ceftin] 500 mg PO BID 1 Days #10 tab 10/25/21 Doxazosin [Cardura] 2 mg PO HS@1999 tab 10/25/21 LORazepam [Ativan] 0.5 mg PO Q4H PRN #18 10/25/21 Metoprolol Tartrate [Lopressor] 12.5 mg PO BID@0800,2000 tab 10/25/21 Pantoprazole [Protonix] 40 mg PO DAILY@0730 tab 10/25/21 Verapamil [Isoptin] 40 mg PO TID@0500,1300,2100 tab 10/25/21 Allergies Allergy/AdvReac Type Severity Reaction Status Date / Time No Known Allergies Allergy Verified 11/12/21 11:41 Review of Systems ROS Statement: Those systems with pertinent positive or pertinent negative responses have been documented in the HPI. ROS Other: All systems not noted in ROS Statement are negative. 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 History of Any Multi-Drug Resistant Organisms: None Reported Past Surgical History: Hernia Repair Additional Past Surgical History / Comment(s): R inguinal hernia repair, L leg varicose vein surgery, colonoscopy. Past Anesthesia/Blood Transfusion Reactions: No Reported Reaction Past Psychological History: No Psychological Hx Reported Smoking Status: Never smoker - Past Family History Father Family Medical History: No Reported History Additional Family Medical History / Comment(s): Father ws healthy Mother Additional Family Medical History / Comment(s): Mother was a smoker and a drinker. General Exam Limitations: altered mental status General appearance: alert Head exam: Present: atraumatic, normocephalic Eye exam: Present: normal appearance ENT exam: Present: normal oropharynx Neck exam: Present: normal inspection. Absent: tenderness, meningismus Respiratory exam: Present: normal lung sounds bilaterally Cardiovascular Exam: Present: bradycardia, irregular rhythm GI/Abdominal exam: Present: soft. Absent: tenderness Extremities exam: Present: pedal edema. Absent: calf tenderness Neurological exam: Present: alert, altered Expanded Motor strength exam: RUE: 3, LUE: 3, RLE: 3, LLE: 3 Eye Response: (3) open to voice Motor Response: (6) obeys commands (Occasionally) Verbal Response: (4) confused conversation Psychiatric exam: Present: normal affect, normal mood Skin exam: Present: normal color Course Vital Signs 11/12/21 11/12/21 11/12/21 11:38 11:46 11:50 Temperature 98.2 F Pulse Rate 43 L Pulse Rate [ 41 L [employer]ic ] Respiratory 12 Rate Blood Pressure 114/72 O2 Sat by Pulse 95 Oximetry 11/12/21 11/12/21 11/12/21 11:58 12:10 12:31 Temperature Pulse Rate 35 L 46 L 41 L Pulse Rate [ [employer]ic ] Respiratory 13 Rate Blood Pressure O2 Sat by Pulse 96 Oximetry 11/12/21 13:00 Temperature Pulse Rate 61 Pulse Rate [ [employer] Course Mechanic ] Respiratory 12 Rate Blood Pressure 122/70 O2 Sat by Pulse 96 Oximetry EKG Findings - EKG Comments: EKG Findings:: A. fib with rate of 46. QRS 122. QT 505. QTC 464. Normal axis. Intraventricular conduction delay. Nonspecific ST-T. Procedures - ABG Interpretation Ph: 7.44 PCO2: 44 PO2: 94 Bicarbonate: 30 Interpretation: normal Medical Decision Making - Medical Decision Making Patient reevaluated and slightly improved. Family is present. Family states patient has been waxing and waning recently with his health and alertness. They feel he is doing below average at this time. They do confirm patient previously was on hospice however was dehydrated at a time and when this was corrected new rust did significantly better. Dr. Lam has been paged for admission covering Dr. Maddox. - Lab Data Result diagrams: 11/12/21 11:44 11/12/21 11:44 Lab Results 11/12/21 11/12/21 11/12/21 Range/Units 11:44 11:44 11:44 WBC 2.7 L (3.8-10.6) k/uL RBC 4.14 L (4.30-5.90) m/uL Hgb 12.6 L (13.0-17.5) gm/dL Hct 40.0 (39.0-53.0) % MCV 96.6 (80.0-100.0) fL MCH 30.4 (25.0-35.0) pg MCHC 31.5 (31.0-37.0) g/dL RDW 18.1 H (11.5-15.5) % Plt Count 107 L (150-450) k/uL MPV 10.2 Neutrophils % 57 % Lymphocytes % 26 % Monocytes % 10 % Eosinophils % 1 % Basophils % 3 % Neutrophils # 1.5 (1.3-7.7) k/uL Lymphocytes # 0.7 L (1.0-4.8) k/uL Monocytes # 0.3 (0-1.0) k/uL Eosinophils # 0.0 (0-0.7) k/uL Basophils # 0.1 (0-0.2) k/uL Hypochromasia Slight Anisocytosis Slight Macrocytosis Slight PT 14.0 H (9.0-12.0) sec INR 1.3 H (<1.2) APTT 33.0 H (22.0-30.0) sec Sample Site ABG pH (7.35-7.45) ABG pCO2 (35-45) mmHg ABG pO2 (83-108) mmHg ABG HCO3 (21-25) mmol/L ABG Total CO2 (19-24) mmol/L ABG O2 Saturation (94-97) % ABG Base Excess mmol/L Vinh Test FiO2 % Sodium 140 (137-145) mmol/L Potassium 4.3 (3.5-5.1) mmol/L Chloride 107 (98-107) mmol/L Carbon Dioxide 28 (22-30) mmol/L Anion Gap 5 mmol/L BUN 45 H (9-20) mg/dL Creatinine 0.84 (0.66-1.25) mg/dL Est GFR (CKD-EPI)AfAm >90 (>60 ml/min/1.73 sqM) Est GFR (CKD-EPI)NonAf 79 (>60 ml/min/1.73 sqM) Glucose 71 L (74-99) mg/dL POC Glucose (mg/dL) (75-99) mg/dL POC Glu Radiotelegraphist ID Calcium 9.5 (8.4-10.2) mg/dL Magnesium 2.0 (1.6-2.3) mg/dL Total Bilirubin 0.9 (0.2-1.3) mg/dL AST 44 (17-59) U/L ALT 31 (4-49) U/L Alkaline Phosphatase 145 H (38-126) U/L Troponin I (0.000-0.034) ng/mL NT-Pro-B Natriuret Pep pg/mL Total Protein 6.5 (6.3-8.2) g/dL Albumin 3.0 L (3.5-5.0) g/dL TSH 4.770 H (0.465-4.680) mIU/L Free T4 1.58 (0.78-2.19) ng/dL Free T3 pg/mL 2.8 (2.8-5.3) pg/ml Urine Color Urine Appearance (Clear) Urine pH (5.0-8.0) Ur Specific Gepp (1.001-1.035) Urine Protein (Negative) Urine Glucose (UA) (Negative) Urine Ketones (Negative) Urine Blood (Negative) Urine Nitrite (Negative) Urine Bilirubin (Negative) Urine Urobilinogen (<2.0) mg/dL Ur Leukocyte Esterase (Negative) 11/12/21 11/12/21 11/12/21 Range/Units 11:44 11:44 11:48 WBC (3.8-10.6) k/uL RBC (4.30-5.90) m/uL Hgb (13.0-17.5) gm/dL Hct (39.0-53.0) % MCV (80.0-100.0) fL MCH (25.0-35.0) pg MCHC (31.0-37.0) g/dL RDW (11.5-15.5) % Plt Count (150-450) k/uL MPV Neutrophils % % Lymphocytes % % Monocytes % % Eosinophils % % Basophils % % Neutrophils # (1.3-7.7) k/uL Lymphocytes # (1.0-4.8) k/uL Monocytes # (0-1.0) k/uL Eosinophils # (0-0.7) k/uL Basophils # (0-0.2) k/uL Hypochromasia Anisocytosis Macrocytosis PT (9.0-12.0) sec INR (<1.2) APTT (22.0-30.0) sec Sample Site ABG pH (7.35-7.45) ABG pCO2 (35-45) mmHg ABG pO2 (83-108) mmHg ABG HCO3 (21-25) mmol/L ABG Total CO2 (19-24) mmol/L ABG O2 Saturation (94-97) % ABG Base Excess mmol/L Vinh Test FiO2 % Sodium (137-145) mmol/L Potassium (3.5-5.1) mmol/L Chloride (98-107) mmol/L Carbon Dioxide (22-30) mmol/L Anion Gap mmol/L BUN (9-20) mg/dL Creatinine (0.66-1.25) mg/dL Est GFR (CKD-EPI)AfAm (>60 ml/min/1.73 sqM) Est GFR (CKD-EPI)NonAf (>60 ml/min/1.73 sqM) Glucose (74-99) mg/dL POC Glucose (mg/dL) 71 L (75-99) mg/dL POC Glu Radiotelegraphist ID Linh, Leydi Calcium (8.4-10.2) mg/dL Magnesium (1.6-2.3) mg/dL Total Bilirubin (0.2-1.3) mg/dL AST (17-59) U/L ALT (4-49) U/L Alkaline Phosphatase (38-126) U/L Troponin I 0.012 (0.000-0.034) ng/mL NT-Pro-B Natriuret Pep 2820 pg/mL Total Protein (6.3-8.2) g/dL Albumin (3.5-5.0) g/dL TSH (0.465-4.680) mIU/L Free T4 (0.78-2.19) ng/dL Free T3 pg/mL (2.8-5.3) pg/ml Urine Color Urine Appearance (Clear) Urine pH (5.0-8.0) Ur Specific Gepp (1.001-1.035) Urine Protein (Negative) Urine Glucose (UA) (Negative) Urine Ketones (Negative) Urine Blood (Negative) Urine Nitrite (Negative) Urine Bilirubin (Negative) Urine Urobilinogen (<2.0) mg/dL Ur Leukocyte Esterase (Negative) 11/12/21 11/12/21 Range/Units 12:14 13:12 WBC (3.8-10.6) k/uL RBC (4.30-5.90) m/uL Hgb (13.0-17.5) gm/dL Hct (39.0-53.0) % MCV (80.0-100.0) fL MCH (25.0-35.0) pg MCHC (31.0-37.0) g/dL RDW (11.5-15.5) % Plt Count (150-450) k/uL MPV Neutrophils % % Lymphocytes % % Monocytes % % Eosinophils % % Basophils % % Neutrophils # (1.3-7.7) k/uL Lymphocytes # (1.0-4.8) k/uL Monocytes # (0-1.0) k/uL Eosinophils # (0-0.7) k/uL Basophils # (0-0.2) k/uL Hypochromasia Anisocytosis Macrocytosis PT (9.0-12.0) sec INR (<1.2) APTT (22.0-30.0) sec Sample Site rrad ABG pH 7.45 (7.35-7.45) ABG pCO2 44 (35-45) mmHg ABG pO2 94 (83-108) mmHg ABG HCO3 31 H (21-25) mmol/L ABG Total CO2 32 H (19-24) mmol/L ABG O2 Saturation 97.1 H (94-97) % ABG Base Excess 6.5 mmol/L Vinh Test Yes FiO2 28 % Sodium (137-145) mmol/L Potassium (3.5-5.1) mmol/L Chloride (98-107) mmol/L Carbon Dioxide (22-30) mmol/L Anion Gap mmol/L BUN (9-20) mg/dL Creatinine (0.66-1.25) mg/dL Est GFR (CKD-EPI)AfAm (>60 ml/min/1.73 sqM) Est GFR (CKD-EPI)NonAf (>60 ml/min/1.73 sqM) Glucose (74-99) mg/dL POC Glucose (mg/dL) (75-99) mg/dL POC Glu Radiotelegraphist ID Calcium (8.4-10.2) mg/dL Magnesium (1.6-2.3) mg/dL Total Bilirubin (0.2-1.3) mg/dL AST (17-59) U/L ALT (4-49) U/L Alkaline Phosphatase (38-126) U/L Troponin I (0.000-0.034) ng/mL NT-Pro-B Natriuret Pep pg/mL Total Protein (6.3-8.2) g/dL Albumin (3.5-5.0) g/dL TSH (0.465-4.680) mIU/L Free T4 (0.78-2.19) ng/dL Free T3 pg/mL (2.8-5.3) pg/ml Urine Color Yellow Urine Appearance Clear (Clear) Urine pH 5.5 (5.0-8.0) Ur Specific Gepp 1.015 (1.001-1.035) Urine Protein Negative (Negative) Urine Glucose (UA) Negative (Negative) Urine Ketones Negative (Negative) Urine Blood Negative (Negative) Urine Nitrite Negative (Negative) Urine Bilirubin Negative (Negative) Urine Urobilinogen <2.0 (<2.0) mg/dL Ur Leukocyte Esterase Negative (Negative) - Radiology Data Radiology results: report reviewed (Computed tomography scan of the brain shows atrophy.), image reviewed (Chest x-ray shows marked cardiomegaly. Left infiltrate or pleural fluid Not excluded.) Critical Care Time Critical Care Time: Yes Total Critical Care Time: 32 Disposition Clinical Impression: Altered mental status, Bradycardia Disposition: ADMITTED IP TO THIS HOSP Is patient prescribed a controlled substance at d/c from ED?: No Referrals: Sai Maddox DO [Primary Care Provider] - 1-2 days Time of Disposition: 12:59
[2021-11-12 11:49] LABS: Glucose,Whole Blood 71 mg/dL (75-99)
[2021-11-12 12:05] LABS: Anisocytosis Slight; Basophils # (A) 0.1 k/uL (0-0.2); Basophils % (A) 3 %; Eosinophils % (A) 1 %; HGB 12.6 gm/dL (13.0-17.5); Hypochromasia Slight; Lymphocytes # (A) 0.7 k/uL (1.0-4.8); Lymphocytes % (A) 26 %; MCH 30.4 pg (25.0-35.0); MCHC 31.5 g/dL (31.0-37.0); MCV 96.6 fL (80.0-100.0); Macrocytosis Slight; Mean Platelet Volume 10.2; Monocytes # (A) 0.3 k/uL (0-1.0); Monocytes % (A) 10 %; Neutrophils # (A) 1.5 k/uL (1.3-7.7); Neutrophils % (A) 57 %; Platelet Count 107 k/uL (150-450); RBC 4.14 m/uL (4.30-5.90); RDW 18.1 % (11.5-15.5); WBC 2.7 k/uL (3.8-10.6)
[2021-11-12 12:16] LABS: ALT 31 U/L (4-49); AST 44 U/L (17-59); African American GFR (CKD) >90 (>60 ml/min/1.73 sqM); Alkaline Phosphatase 145 U/L (38-126); Anion Gap 5 mmol/L; Blood Urea Nitrogen 45 mg/dL (9-20); Calcium 9.5 mg/dL (8.4-10.2); Carbon Dioxide 28 mmol/L (22-30); Chloride 107 mmol/L (98-107); Glucose 71 mg/dL (74-99); Non-African American GFR(CKD) 79 (>60 ml/min/1.73 sqM); Potassium 4.3 mmol/L (3.5-5.1); Sodium 140 mmol/L (137-145); Total Bilirubin 0.9 mg/dL (0.2-1.3); Total Protein 6.5 g/dL (6.3-8.2)
[2021-11-12 12:18] LABS: ABG Base Excess 6.5 mmol/L; ABG HCO3 31 mmol/L (21-25); ABG PCO2 44 mmHg (35-45); ABG PH 7.45 (7.35-7.45); ABG PO2 94 mmHg (83-108); ABG TCO2 32 mmol/L (19-24); Allen Test Performed? Yes
[2021-11-12 12:20] LABS: ABG Oxygen Saturation 97.1 % (94-97)
[2021-11-12 12:21] LABS: INR 1.3 (<1.2)
[2021-11-12] MEDS ORDERED: ATROPINE SULFATE 0.1 MG/ML 10ML SYRINGE IV STA (12:23)
[2021-11-12 12:33] LABS: T4, Free (Free Thyroxine) 1.58 ng/dL (0.78-2.19)
--- NOTE | 2021-11-12 12:36 | XR ---
EXAMINATION TYPE: XR chest 1V portable DATE OF EXAM: 11/12/2021 COMPARISON: 10/20/2021 INDICATION: Altered mental status TECHNIQUE: Single frontal view of the chest is obtained. FINDINGS: The heart size is markedly enlarged. The pulmonary vasculature is normal. There is poor visualization of the retrocardiac airspace. This may be related to the cardiomegaly, li mited inspiration, or retrocardiac infiltrate or pleural fluid. Clinical correlation recommended. IMPRESSION: 1. Marked cardiomegaly. 2. Left lower lobe infiltrate or pleural fluid is not excluded.
--- NOTE | 2021-11-12 12:39 | CT ---
EXAMINATION TYPE: CT brain wo con DATE OF EXAM: 11/12/2021 COMPARISON: 10/20/2021 INDICATION: altered mental status DLP: 1276.4 mGycm, Automated exposure control for dose reduction was used. CONTRAST: None CT of the brain is performed utilizing 3 mm thick sections through the posterior fossa and 3 mm thick sections through the remaining calvarium. Study is performed within 24 hours of arrival to the hosp ital. No abnormal hyperdensity is present to suggest an acute intracranial hemorrhage. No mass lesion is evident. No acute infarcts are evident. Mild periventricular white matter hypodensity is present, likely on th e basis of chronic white matter ischemic changes, present previously Ventricles and sulci are trauma for the patient age. Paranasal sinuses and mastoid air cells within the [id number] are clear. MRI can be performed if additional evaluation is clinically indicated. IMPRESSIONS: 1. Age-related atrophy. Some mild chronic appearing white matter ischemic-type changes, stable, are likely present.
[2021-11-12 13:23] LABS: Appearance,Urine Clear (Clear); Bilirubin,Urine Negative (Negative); Blood,Urine Negative (Negative); Color,Urine Yellow; Glucose,Urine (UA) Negative (Negative); Ketones,Urine Negative (Negative); Leukocyte Esterase,Urine Negative (Negative); Nitrite,Urine Negative (Negative); PH, Urine 5.5 (5.0-8.0); Protein,Urine Negative (Negative); Specific Gravity,Urine 1.015 (1.001-1.035); Urobilinogen,Urine <2.0 mg/dL (<2.0)
[2021-11-12] MEDS ORDERED: NALOXONE 0.4 MG/ML 1 ML VIAL IV PRN (13:31)
[2021-11-12] MEDS ORDERED: ACETAMINOPHEN TAB 325 MG TAB PO PRN (16:24)
[2021-11-12] MEDS ORDERED: SODIUM CHLORIDE 0.9% 1,000 ML IV SCH (16:30)
[2021-11-12] MEDS: ASPIRIN 300 MG SUPP RECTAL SCH (19:27)
--- NOTE | 2021-11-12 20:20 | US ---
EXAMINATION TYPE: US carotid duplex BILAT DATE OF EXAM: 11/12/2021 COMPARISON: NONE CLINICAL HISTORY: AMS, facial droop. AMS, facial droop EXAM MEASUREMENTS: RIGHT: Peak Systolic Velocity (PSV) cm/sec ----- Right CCA: 41.9 ----- Right ICA: 68.6 ----- Right ECA: 74.6 ICA/CCA ratio: 1.6 RIGHT: End Diastole cm/sec ----- Right CCA: 9.9 ----- Right ICA: 13.1 ----- Right ECA: 0.0 LEFT: Peak Systolic Velocity (PSV) cm/sec ----- Left CCA: 42.2 ----- Left ICA: ----- Left ECA: ICA/CCA ratio: LEFT: End Diastole cm/sec ----- Left CCA: 9.1 ----- Left ICA: ----- Left ECA: VERTEBRALS (direction of flow): Right Vertebral: Unable to visualize Left Vertebral: Unable to visualize Limited views of right carotid system shows no evidence of significant stenosis, right vertebral liam ry unable to be visualized/ very limited views of left carotid system, left CCA shows no significant stenosis Left ICA, ECA, and vertebral arteries- technologist unable to obtain velocities due to pt with alte red mental status, moving, and talking during exam IMPRESSION: Exam is mostly nondiagnostic. Vertebral arteries not evaluated. There is arterial flow demonstrated i n the right common internal and external carotid arteries without evidence of elevated velocity. Ther e is less than 50% stenosis in the right internal carotid artery. left carotid artery system not evaluated. Criteria for Assigning % of Stenosis / Diameter reduction (Estimation based on the indirect measurements of the internal carotid artery velocities (ICA PSV). 1. Normal (no stenosis)=ICA PSV < 125 cm/s: ratio < 2.0: ICA EDV<40 cm/s. 2. Less than 50% stenosis=ICA PSV < 125 cm/s: ratio < 2.0: ICA EDV<40 cm/s. 3. 50 to 69% stenosis=ICA PSV of 125 to 230 cm/s: ration 2.0 ? 4.0: ICA EDV 40-100 cm/s. 4. Greater than 70% stenosis to near occlusion= ICA PSV > 230 cm/s: ratio > 4.0: ICA EDV > 100 cm/s. 5. Near occlusion= ICA PSV velocities may be low or undetectable: variable ratio and ICA EDV. 6. Total occlusion=unable to detect flow.
[2021-11-13] MEDS: ATORVASTATIN 20 MG TAB PO SCH (00:19)
[2021-11-13] MEDS: HEPARIN SODIUM,PORCINE/PF 5,000 UNIT/0.5 ML SYRINGE SQ SCH ×3 (00:38→17:12)
--- NOTE | 2021-11-13 01:05 | P.HPIM ---
History of Present Illness H&P Date: 11/12/21 Chief Complaint: Altered mental status. Patient is a 86-year-old male with a known history of atrial fibrillation currently not on anticoagulation, hypertension, hyperlipidemia, rheumatoid arthritis, history of altered mental status and recent urinary tract infection with E. coli was brought to the hospital from the senior living due to altered mental status and difficulty arousing. Patient cannot provide any history at this time. Patient has been afebrile. He also found to be bradycardic with heart rate in 50s. Requiring 2 L oxygen via nasal cannula. Patient has been afebrile. Patient does have chronic indwelling catheter due to urinary retention. Chest x-ray showed marked cardiomegaly. Left lower lobe infiltrate or pleural fluid not excluded. CT head showed age-related atrophy. Some mild chronic appearing white matter ischemic type changes. Stable are likely present. EKG showed atrial fibrillation with slow ventricular rate. Carotid duplex showed less than 50% stenosis in the right internal carotid artery. Left carotid artery not evaluated. Laboratory pressure WBC 2.7 hemoglobin 12.6 and platelets 107 Lymphocytes 0.7 PT 14.0 INR 1.3 ABG showed pH 7.45 PCO2 44 PO2 94 and sodium 140 potassium 4.3 chloride 107 bicarb is 28 BUN 45 and creatinine 0.84 and blood sugar is 71 Alk phos 145 troponin x2 negative proBNP 2820 TSH 4.7 and free T4 1.58 Urinalysis is negative for infection. Patient was hospice care previously. Review of Systems Complete review of systems could not be obtained from the patient. 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 History of Any Multi-Drug Resistant Organisms: None Reported Past Surgical History: Hernia Repair Additional Past Surgical History / Comment(s): R inguinal hernia repair, L leg varicose vein surgery, colonoscopy. Past Anesthesia/Blood Transfusion Reactions: No Reported Reaction Past Psychological History: No Psychological Hx Reported Smoking Status: Never smoker - Past Family History Father Family Medical History: No Reported History Additional Family Medical History / Comment(s): Father ws healthy Mother Additional Family Medical History / Comment(s): Mother was a smoker and a drin ker. Medications and Allergies Home Medications Medication Instructions Recorded Confirmed Type Metoprolol Tartrate [Lopressor] 12.5 mg PO BID@0800,2000 tab 10/25/21 11/12/21 Rx Verapamil [Isoptin] 40 mg PO TID@0500,1300,2100 tab 10/25/21 11/12/21 Rx Acetaminophen Tab [Tylenol] 650 mg PO Q6H PRN 11/12/21 11/12/21 History Atorvastatin [Lipitor] 20 mg PO HS 11/12/21 11/12/21 History Doxazosin [Cardura] 2 mg PO HS 11/12/21 11/12/21 History Roberto Packet 1 packet PO BID@0800,1700 11/12/21 11/12/21 History Liquacel 30 ml PO BID@0800,1700 11/12/21 11/12/21 History Magnesium Hydroxide [Milk of 7,200 mg PO Q48H PRN 11/12/21 11/12/21 History Magnesia Concentrate] Meloxicam [Mobic] 15 mg PO DAILY@0800 11/12/21 11/12/21 History Na Phos,M-B/Na Phos,Di-Ba [Fleet 133 ml RECTAL DAILY PRN 11/12/21 11/12/21 History Adult] Pantoprazole [Protonix] 40 mg PO DAILY@0600 11/12/21 11/12/21 History Vitamin D3 50,000iu 1,250 mcg PO SA@1700 11/12/21 11/12/21 History bisacodyL [Dulcolax] 10 mg RECTAL DAILY PRN 11/12/21 11/12/21 History Allergies Allergy/AdvReac Type Severity Reaction Status Date / Time No Known Allergies Allergy Verified 11/12/21 13:41 Physical Exam Vitals: Vital Signs Temp Pulse Pulse Resp BP Pulse Ox 11/12/21 15:00 60 16 102/63 97 11/12/21 13:46 57 L 12 96/56 97 11/12/21 13:00 61 12 122/70 96 11/12/21 12:31 41 L 13 96 11/12/21 12:10 46 L 11/12/21 11:58 35 L 11/12/21 11:50 41 L 11/12/21 11:46 98.2 F 11/12/21 11:38 43 L 12 114/72 95 Intake and Output 11/12/21 11/12/21 11/12/21 06:59 14:59 22:59 Other: Weight 113.398 kg PHYSICAL EXAMINATION: Patient is lying in the bed no acute distress, awake alert. Patient is lethargic and drowsy. Unable to communicate. HEENT: Normocephalic. Neck is supple. Pupils reactive. Nostrils clear. Oral cavity is moist. Neck reveals no JVD, carotid bruits, or thyromegaly. CHEST EXAMINATION: Trachea is central. Symmetrical expansion. Bibasilar dim inished sounds. No wheezing.. CARDIAC: Normal S1, S2 with no gallops. No murmurs irregularly rhythm. ABDOMEN: Soft. Bowel sounds present. No organomegaly. No abdominal bruits. Extremities: reveal no edema. No clubbing or cyanosis Neurologically awake, alert, oriented x0 /no gross focal neurological deficits. Patient is obtunded. Skin: No rash or skin lesions. Psychiatric: Could not be assessed at this time. Musculoskeletal: No joint swelling or deformity. Results CBC & Chem 7: 11/12/21 11:44 11/12/21 11:44 Labs: Abnormal Lab Results - Last 24 Hours (Table) 11/12/21 11/12/21 11/12/21 Range/Units 11:44 11:44 11:44 WBC 2.7 L (3.8-10.6) k/uL RBC 4.14 L (4.30-5.90) m/uL Hgb 12.6 L (13.0-17.5) gm/dL RDW 18.1 H (11.5-15.5) % Plt Count 107 L (150-450) k/uL Lymphocytes # 0.7 L (1.0-4.8) k/uL PT 14.0 H (9.0-12.0) sec INR 1.3 H (<1.2) APTT 33.0 H (22.0-30.0) sec ABG HCO3 (21-25) mmol/L ABG Total CO2 (19-24) mmol/L ABG O2 Saturation (94-97) % BUN 45 H (9-20) mg/dL Glucose 71 L (74-99) mg/dL POC Glucose (mg/dL) (75-99) mg/dL Alkaline Phosphatase 145 H (38-126) U/L Albumin 3.0 L (3.5-5.0) g/dL TSH 4.770 H (0.465-4.680) mIU/L 11/12/21 11/12/21 Range/Units 11:48 12:14 WBC (3.8-10.6) k/uL RBC (4.30-5.90) m/uL Hgb (13.0-17.5) gm/dL RDW (11.5-15.5) % Plt Count (150-450) k/uL Lymphocytes # (1.0-4.8) k/uL PT (9.0-12.0) sec INR (<1.2) APTT (22.0-30.0) sec ABG HCO3 31 H (21-25) mmol/L ABG Total CO2 32 H (19-24) mmol/L ABG O2 Saturation 97.1 H (94-97) % BUN (9-20) mg/dL Glucose (74-99) mg/dL POC Glucose (mg/dL) 71 L (75-99) mg/dL Alkaline Phosphatase (38-126) U/L Albumin (3.5-5.0) g/dL TSH (0.465-4.680) mIU/L Thrombosis Risk Factor Assmnt - DVT/VTE Prophylaxis DVT/VTE Prophylaxis: Pharmacologic Prophylaxis ordered Assessment and Plan Assessment: Altered mental status due to metabolic encephalopathy Possible left lower lobe pneumonia Chronic CHF with preserved ejection fraction Persistent atrial fibrillation with slow ventricular rate.. Not on any anticoagulation. Hypertension Hyperlipidemia Dementia Recent E. coli urinary tract infection DVT prophylaxis with heparin subcu CODE STATUS DNR/DNI. Patient was in hospice care previously. Plan: Patient will be continued telemetry monitoring. Current with aspirin and statins. Metoprolol is on hold due to bradycardia. Continue to hold verapamil and doxazosin. Patient will be started on antibiotics in the form of Unasyn for possible aspiration due to left lower lobe infiltrates. Follow-up procalcitonin level. Prognosis poor at this time. Time with Patient: Greater than 30
[2021-11-13] MEDS: AMPICILLIN-SULBACTAM 3 GM in SODIUM CHLORIDE 0.9% 100 ML IVPB SCH ×4 (01:53→19:00)
[2021-11-13] MEDS: PANTOPRAZOLE 40 MG TABLET PO SCH (06:06)
--- NOTE | 2021-11-13 07:37 | P.CNNES ---
History of Present Illness Consult date: 11/12/21 Requesting physician: Davis Pierre Reason for Consult: Altered History of Present Illness: Patient is a 86-year-old male came to the hospital by ambulance today at 11:35 AM. According to EMS flow sheet, when they arrived, patient was laying in his bed. Staff mentioned that patient recently came to their facility and normally is alert and oriented to person place time and date. Patient was bradycardic with sonorous respirations. Patient was alert to verbal stimuli, self. Patient's blood pressure was 105/81, pulse rate 37. Repeat testing with blood pressure 113/66 and pulse rate 51. Blood glucose was 96 mg/dL. Patient's vitals on arrival blood pressure 114/72, pulse rate 43, temperature 98.2. Patient's pulse has dropped down to 35. Blood test shows WBC 2.7, hemoglobin 12.6, platelets 17. INR 1.3, PTT 33.0. ABG with pH 7.45, pCO2 44, saturation 97%. Chem-20 is negative. TSH 4.77, free T4 1.58. Troponins negative. UA negative. CT head showed age-related atrophy. Some mild chronic- appearing white matter ischemic type changes, stable are likely present. I personally reviewed CT head, agree with the findings. EKG revealed atrial fibrillation with slow ventricular response. Moderate intraventricular conduction delay. Patient is running significant bradycardia. Patient's son was present at the time of this encounter. He mentions that patient's used to live by himself with his children, nephew and friends closely checking on him on a daily basis. He was hospitalized on 08/23/2021 for dehydration, UTI with bacteremia. He was discharged to [facility] on 08/29/2021. Patient was hospitalized recently for UTI from 10/20/2021 to 10/27/2021 when he was discharged to [facility]. Patient's son mentions that when he gets UTI, he gets very confused, grumpy and crabby. Otherwise he does not have any history of dementia except for mild forgetfulness of aging process. Patient's assisted [facility] staff called his daughter, who is also the power of design intern, informing her that he was very short of breath, not doing well, and they're thinking of taking him to the hospital. Denies any strokelike symptoms lately. No history of diabetes. He does have hypertension. Never smoked tobacco or did any alcohol use. Patient's home medications include verapamil, metoprolol, meloxicam, Protonix, Cardura and Lipitor 20 mg. 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 History of Any Multi-Drug Resistant Organisms: None Reported Past Surgical History: Hernia Repair Additional Past Surgical History / Comment(s): R inguinal hernia repair, L leg varicose vein surgery, colonoscopy. Past Anesthesia/Blood Transfusion Reactions: No Reported Reaction Past Psychological History: No Psychological Hx Reported Smoking Status: Never smoker - Past Family History Father Family Medical History: No Reported History Additional Family Medical History / Comment(s): Father ws healthy Mother Additional Family Medical History / Comment(s): Mother was a smoker and a drinker. Medications and Allergies Home Medications Medication Instructions Recorded Confirmed Type Metoprolol Tartrate [Lopressor] 12.5 mg PO BID@0800,2000 tab 10/25/21 11/12/21 Rx Verapamil [Isoptin] 40 mg PO TID@0500,1300,2100 tab 10/25/21 11/12/21 Rx Acetaminophen Tab [Tylenol] 650 mg PO Q6H PRN 11/12/21 11/12/21 History Atorvastatin [Lipitor] 20 mg PO HS 11/12/21 11/12/21 History Doxazosin [Cardura] 2 mg PO HS 11/12/21 11/12/21 History Roberto Packet 1 packet PO BID@0800,1700 11/12/21 11/12/21 History Liquacel 30 ml PO BID@0800,1700 11/12/21 11/12/21 History Magnesium Hydroxide [Milk of 7,200 mg PO Q48H PRN 11/12/21 11/12/21 History Magnesia Concentrate] Meloxicam [Mobic] 15 mg PO DAILY@0800 11/12/21 11/12/21 History Na Phos,M-B/Na Phos,Di-Ba [Fleet 133 ml RECTAL DAILY PRN 11/12/21 11/12/21 History Adult] Pantoprazole [Protonix] 40 mg PO DAILY@0600 11/12/21 11/12/21 History Vitamin D3 50,000iu 1,250 mcg PO SA@1700 11/12/21 11/12/21 History bisacodyL [Dulcolax] 10 mg RECTAL DAILY PRN 11/12/21 11/12/21 History Allergies Allergy/AdvReac Type Severity Reaction Status Date / Time No Known Allergies Allergy Verified 11/12/21 13:41 Physical Examination - Vital Signs Vital Signs: Vital Signs Temp Pulse Pulse Resp BP Pulse Ox 11/12/21 17:00 52 L 12 95/72 97 11/12/21 15:00 60 16 102/63 97 11/12/21 13:46 57 L 12 96/56 97 11/12/21 13:00 61 12 122/70 96 11/12/21 12:31 41 L 13 96 11/12/21 12:10 46 L 11/12/21 11:58 35 L 11/12/21 11:50 41 L 11/12/21 11:46 98.2 F 11/12/21 11:38 43 L 12 114/72 95 Intake and Output 11/12/21 11/12/21 11/12/21 06:59 14:59 22:59 Other: Weight 113.398 kg Patient is an elderly male, who appears to be somnolent, versus encephalopathic. He is not speaking any words. He just mumbles with incomprehensible speech. He is snoring at times. Speech and language functions cannot be assessed. Patient is just mumbling. Attention, concentration is severely limited and fund of knowledge cannot be assessed. On cranial examination, pupils are equal, round and reacting to light, gaze is midline. Oculocephalics absent. Visual gutierres cannot be tested. Patient's face appears slightly asymmetric with questionable right facial droopiness. Although patient's head was deviated to the left, and patient is edentulous, therefore the lips could be sagging to the left. Lower cranial nerves could not be tested. On muscle strength testing, it appears patient's right side may be slightly weaker, as he is moving his left arm better than the right. On painful stimuli, he did move his left arm had facial grimacing. Patient only had facial grimacing with the nailbed pressure on the right hand. Appears right arm weaker, but other times he was noticed to use both arms to lift the blanket up. Patient had facial grimacing more for noxious stimulus of the left leg as compared to the right. Deep tendon reflexes are hypoactive and plantars are flat. Sensory to touch cannot be assessed, whereas sensory to pin. We'll assess as mentioned above. Cerebellar function cannot be assessed. Tone and bulk of muscles normal. Gait cannot be assessed. On general examination, there is no carotid bruit or murmur, S1-S2 audible. Abdomen is soft nontender. No organomegaly, bowel sounds present. Chest is clear to auscultation. Peripheral pulses not clearly felt. There is moderate peripheral edema. Hyperpigmentation of the distal lower legs bilaterally. Results - Laboratory Findings CBC and BMP: 11/12/21 11:44 11/12/21 11:44 Abnormal Lab Findings: Abnormal Labs 11/12/21 11/12/21 11/12/21 11:44 11:44 11:44 WBC 2.7 L RBC 4.14 L Hgb 12.6 L RDW 18.1 H Plt Count 107 L Lymphocytes # 0.7 L PT 14.0 H INR 1.3 H APTT 33.0 H ABG HCO3 ABG Total CO2 ABG O2 Saturation BUN 45 H Glucose 71 L POC Glucose (mg/dL) Alkaline Phosphatase 145 H Albumin 3.0 L TSH 4.770 H 11/12/21 11/12/21 11:48 12:14 WBC RBC Hgb RDW Plt Count Lymphocytes # PT INR APTT ABG HCO3 31 H ABG Total CO2 32 H ABG O2 Saturation 97.1 H BUN Glucose POC Glucose (mg/dL) 71 L Alkaline Phosphatase Albumin TSH Assessment and Plan Assessment: * Altered mental status, rule out toxic metabolic encephalopathy. Patient's examination revealed questionable focality with questionable right facial droopiness and less response to nailbed pressure on the right as compared to left. Rule out CVA. * Atrial fibrillation with slow ventricular response. * Bradycardia, status post atropine 0.5 mg IV. Patient could be delirious related to atropine. * Hypertension * Hyperlipidemia * Rheumatoid arthritis * Bilateral leg edema * History of recurrent UTI. No evidence of UTI at this time. Plan: * Patient has atrial fibrillation, currently not on anticoagulation. Patient in nothing by mouth at this time. We will start aspirin 300 mg rectally daily. * Patient will undergo carotid Doppler to rule out stenosis. * 2-D echo from 08/25/2021 showed normal left ventricular size, mild concentric LVH, left ventricle systolic function is low normal, with EF between 50-55%. Right ventricle is mild to moderately enlarged. * If patient's mental status does not improve, will repeat computed tomography scan of the head in the morning to rule out CVA. * Await cardiology consultation for bradycardia, and atrial fibrillation. * Agree with checking B12, folate. TSH is mildly elevated 4.77 with normal free T4 1 0.58. We will defer to IM. * Continue telemetry monitoring. * DVT prophylaxis: Patient on heparin 5000 units subcu every 8 hours. * Neurology will follow. Thank you for the consult.
[2021-11-13 07:53] LABS: Anisocytosis Slight; Basophils % (A) 1 %; Eosinophils % (A) 1 %; HCT 41.8 % (39.0-53.0); HGB 12.6 gm/dL (13.0-17.5); Hypochromasia Moderate; Lymphocytes # (A) 0.6 k/uL (1.0-4.8); Lymphocytes % (A) 16 %; MCH 30.1 pg (25.0-35.0); MCHC 30.1 g/dL (31.0-37.0); MCV 99.8 fL (80.0-100.0); Macrocytosis Moderate; Monocytes # (A) 0.3 k/uL (0-1.0); Monocytes % (A) 7 %; Neutrophils # (A) 2.8 k/uL (1.3-7.7); Neutrophils % (A) 73 %; Platelet Count 104 k/uL (150-450); RBC 4.19 m/uL (4.30-5.90); WBC 3.9 k/uL (3.8-10.6)
[2021-11-13 08:06] LABS: African American GFR (CKD) >90 (>60 ml/min/1.73 sqM); Anion Gap 9 mmol/L; Blood Urea Nitrogen 38 mg/dL (9-20); Calcium 9.5 mg/dL (8.4-10.2); Carbon Dioxide 25 mmol/L (22-30); Chloride 108 mmol/L (98-107); Glucose 58 mg/dL (74-99); Non-African American GFR(CKD) 80 (>60 ml/min/1.73 sqM); Sodium 142 mmol/L (137-145)
[2021-11-13] MEDS: ASPIRIN 300 MG SUPP RECTAL SCH (10:18)
--- NOTE | 2021-11-13 12:55 | P.CRDCN ---
History of Present Illness History of present illness: HISTORY OF PRESENTING ILLNESS Patient is an 86-year-old male with history of chronic diastolic heart failure, atrial fibrillation, hypertension, hyperlipidemia, altered mental status, rheuma toid arthritis, apparently previously on hospice. He presented to the hospital approximately 3 weeks ago for heart failure as well as previous dehydration and was given Lasix. He was discharged back to the [facility] and apparently presented with altered mental status. Currently patient lethargic and unable to provide any responses and not answering any questions. He has been on metoprolol as well as verapamil at home and was found to be bradycardic with A. fib with heart rates in the 40s. The verapamil and metoprolol have been held with heart rate 1 the 50s to 60s however appears still lethargic and unresponsive, no significant change in altered mental status. CT brain showed age-related atrophy. Blood work showed a blood cell count 2.7, hemoglobin 12.7, platelets 107, INR 1.3, BUN 45, creatinine 0.8, troponin 0.012, proBNP 2800, TSH 4.7, free T4 1 0.5. EKG shows atrial fibrillation with slow ventricular rate with heart rate 46 bpm, low voltage, with nonspecific ST, T-wave abnormalities. REVIEW OF SYSTEMS At the time of my exam: Patient not answering any questions and unable to obtain. PHYSICAL EXAMINATION Vital signs reviewed. CONSTITUTIONAL: No apparent distress, chronically ill appearing, lethargic HEENT: Head is normocephalic. Pupils are equal, round. Sclerae anicteric. Mucous membranes of the mouth are moist. No JVD. No carotid bruit. CHEST EXAMINATION: Lungs are clear to auscultation. No chest wall tenderness is noted on palpation or with deep breathing. HEART EXAMINATION: Regular rate and rhythm. S1, S2 heard. No murmurs, gallops or rub. ABDOMEN: Soft, nontender. Positive bowel sounds. EXTREMITIES: 2+ peripheral pulses, no lower extremity edema and no calf t enderness. NEUROLOGIC EXAMINATION: Patient is lethargic and not answering any questions. ASSESSMENT 1. Atrial fibrillation with slow ventricular response 2. Bradycardia may be exacerbated by home verapamil and metoprolol, appears asymptomatic 3. Altered mental status, not changed at all with improvement in heart rate, do not suspect related to bradycardia 4. Chronic diastolic heart failure, does not appear volume overloaded 5. Failure to thrive, apparently in hospice previously PLAN Hold negative chronotropic agents, hold verapamil and metoprolol. Bradycardia has improved and patient still with altered mental status of unclear etiology. Neurology recommendations appreciated. Does not appear volume overloaded. Continue supportive care, further recommendations to follow. 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 History of Any Multi-Drug Resistant Organisms: None Reported Past Surgical History: Hernia Repair Additional Past Surgical History / Comment(s): R inguinal hernia repair, L leg varicose vein surgery, colonoscopy. Past Anesthesia/Blood Transfusion Reactions: No Reported Reaction Past Psychological History: No Psychological Hx Reported Smoking Status: Never smoker - Past Family History Father Family Medical History: No Reported History Additional Family Medical History / Comment(s): Father ws healthy Mother Additional Family Medical History / Comment(s): Mother was a smoker and a drinker. Medications and Allergies Home Medications Medication Instructions Recorded Confirmed Type Metoprolol Tartrate [Lopressor] 12.5 mg PO BID@0800,2000 tab 10/25/21 11/12/21 Rx Verapamil [Isoptin] 40 mg PO TID@0500,1300,2100 tab 10/25/21 11/12/21 Rx Acetaminophen Tab [Tylenol] 650 mg PO Q6H PRN 11/12/21 11/12/21 History Atorvastatin [Lipitor] 20 mg PO HS 11/12/21 11/12/21 History Doxazosin [Cardura] 2 mg PO HS 11/12/21 11/12/21 History Roberto Packet 1 packet PO BID@0800,1700 11/12/21 11/12/21 History Liquacel 30 ml PO BID@0800,1700 11/12/21 11/12/21 History Magnesium Hydroxide [Milk of 7,200 mg PO Q48H PRN 11/12/21 11/12/21 History Magnesia Concentrate] Meloxicam [Mobic] 15 mg PO DAILY@0800 11/12/21 11/12/21 History Na Phos,M-B/Na Phos,Di-Ba [Fleet 133 ml RECTAL DAILY PRN 11/12/21 11/12/21 History Adult] Pantoprazole [Protonix] 40 mg PO DAILY@0600 11/12/21 11/12/21 History Vitamin D3 50,000iu 1,250 mcg PO SA@1700 11/12/21 11/12/21 History bisacodyL [Dulcolax] 10 mg RECTAL DAILY PRN 11/12/21 11/12/21 History Allergies Allergy/AdvReac Type Severity Reaction Status Date / Time No Known Allergies Allergy Verified 11/12/21 13:41 Physical Exam Vitals: Vital Signs Temp Pulse Pulse Resp BP BP Pulse Ox 11/13/21 12:40 51 L 18 112/59 97 11/13/21 11:05 58 L 18 11/13/21 09:06 97.5 F L 58 L 18 123/58 96 11/13/21 04:00 98.1 F 54 L 18 112/65 96 11/13/21 02:00 68 18 11/13/21 00:00 97.9 F 68 18 102/60 98 11/12/21 20:00 97.7 F 42 L 19 116/75 98 11/12/21 17:42 50 L 18 118/55 100 11/12/21 17:00 52 L 12 95/72 97 11/12/21 15:00 60 16 102/63 97 11/12/21 13:46 57 L 12 96/56 97 11/12/21 13:00 61 12 122/70 96 Intake and Output 11/12/21 11/13/21 11/13/21 22:59 06:59 14:59 Intake Total 225 Output Total 125 650 450 Balance 100 -650 -450 Intake: Intake, IV Titration 225 Amount Sodium Chloride 0.9% 1, 225 000 ml @ 75 mls/hr IV . [id number] [facility] Rx#:[id number] Oral 0 Output: Urine 125 650 450 Uretheral (Osei) 125 300 450 Other: Voiding Method Indwelling Catheter Indwelling Catheter Indwelling Catheter Weight 113.398 kg Results 11/13/21 07:00 11/13/21 07:00 Cardiac Enzymes 11/12/21 11/12/21 Range/Units 15:23 17:50 Troponin I 0.012 <0.012 (0.000-0.034) ng/mL CBC 11/13/21 Range/Units 07:00 WBC 3.9 (3.8-10.6) k/uL RBC 4.19 L (4.30-5.90) m/uL Hgb 12.6 L (13.0-17.5) gm/dL Hct 41.8 (39.0-53.0) % Plt Count 104 L (150-450) k/uL Comprehensive Metabolic Panel 11/13/21 Range/Units 07:00 Sodium 142 (137-145) mmol/L Potassium 4.0 (3.5-5.1) mmol/L Chloride 108 H (98-107) mmol/L Carbon Dioxide 25 (22-30) mmol/L BUN 38 H (9-20) mg/dL Creatinine 0.83 (0.66-1.25) mg/dL Glucose 58 L (74-99) mg/dL Calcium 9.5 (8.4-10.2) mg/dL Current Medications Generic Name Dose Route Start Last Admin Trade Name Freq PRN Reason Stop Dose Admin Acetaminophen 650 mg 11/12/21 16:24 Acetaminophen Tab 325 Mg Tab PO Q6H PRN Pain Aspirin 300 mg 11/12/21 18:45 11/13/21 10:18 Aspirin 300 Mg Supp RECTAL 300 mg DAILY JAMES Administration Atorvastatin Calcium 20 mg 11/12/21 21:00 11/13/21 00:19 Atorvastatin 20 Mg Tab PO Not Given HS JAMES Heparin Sodium (Porcine) 5,000 unit 11/13/21 00:00 11/13/21 09:18 Heparin Sodium,Porcine/Pf 5,000 Unit/0.5 Ml Syringe SQ 5,000 unit Q8HR JAMES Administration Ampicillin Sodium/Sulbactam 100 mls @ 200 mls/hr 11/13/21 01:00 11/13/21 12:19 Sodium 3 gm/ Sodium Chloride IVPB 200 mls/hr Q6H JAMES Administration Protocol Naloxone HCl 0.2 mg 11/12/21 13:31 Naloxone 0.4 Mg/Ml 1 Ml Vial IV Q2M PRN Opioid Reversal Pantoprazole Sodium 40 mg 11/13/21 06:00 11/13/21 06:06 Pantoprazole 40 Mg Tablet PO Not Given DAILY@0600 JAMES Intake and Output 11/12/21 11/13/21 11/13/21 22:59 06:59 14:59 Intake Total 225 Output Total 125 650 450 Balance 100 -650 -450 Intake: Intake, IV Titration 225 Amount Sodium Chloride 0.9% 1, 225 000 ml @ 75 mls/hr IV . [id number] [facility] Rx#:[id number] Oral 0 Output: Urine 125 650 450 Uretheral (Osei) 125 300 450 Other: Voiding Method Indwelling Catheter Indwelling Catheter Indwelling Catheter Weight 113.398 kg 11/13/21 07:00 11/13/21 07:00
[2021-11-14] MEDS: HEPARIN SODIUM,PORCINE/PF 5,000 UNIT/0.5 ML SYRINGE SQ SCH ×4 (00:15→23:29)
[2021-11-14] MEDS: AMPICILLIN-SULBACTAM 3 GM in SODIUM CHLORIDE 0.9% 100 ML IVPB SCH ×2 (01:30→08:30)
[2021-11-14] MEDS ORDERED: DEXTROSE 5%-0.45% NACL 1,000 ML IV SCH (01:45)
--- NOTE | 2021-11-14 01:46 | P.PN ---
Subjective Progress Note Date: 11/13/21 Patient is a 86-year-old male with a known history of atrial fibrillation currently not on anticoagulation, hypertension, hyperlipidemia, rheumatoid arthritis, history of altered mental status and recent urinary tract infection with E. coli was [facility] due to altered mental status and difficulty arousing. Patient cannot provide any history at this time. Patient has been afebrile. He also found to be bradycardic with heart rate in 50s. Requiring 2 L oxygen via nasal cannula. Patient has been afebrile. Patient does have chronic indwelling catheter due to urinary retention. Chest x-ray showed marked cardiomegaly. Left lower lobe infiltrate or pleural fluid not excluded. CT head showed age-related atrophy. Some mild chronic appearing white matter ischemic type changes. Stable are likely present. EKG showed atrial fibrillation with slow ventricular rate. Carotid duplex showed less than 50% stenosis in the right internal carotid artery. Left carotid artery not evaluated. Laboratory pressure WBC 2.7 hemoglobin 12.6 and platelets 107 Lymphocytes 0.7 PT 14.0 INR 1.3 ABG showed pH 7.45 PCO2 44 PO2 94 and sodium 140 potassium 4.3 chloride 107 bicarb is 28 BUN 45 and creatinine 0.84 and blood sugar is 71 Alk phos 145 troponin x2 negative proBNP 2820 TSH 4.7 and free T4 1.58 Urinalysis is negative for infection. Patient was hospice care previously. 11/13/2021 Patient is currently lying in the bed. Remains unresponsive. Currently requiring oxygen at 2 L via nasal cannula. Heart rate did improve after holding chronotropic agents. Patient has been afebrile. No cough or sputum production. Laboratory test showed WBC 3.9 hemoglobin 12.6 and platelets 104 Sodium 142 potassium 4.0 chloride 108 bicarb is 25 BUN 38 and creatinine 0.83 and blood sugar was 58 this morning. Patient is being current on aspirin and also Unasyn empirically. Current medications reviewed. Objective - Vital Signs Vital signs: Vital Signs Temp 97.5 F L 11/13/21 09:06 Pulse 52 L 11/14/21 00:00 Resp 18 11/14/21 00:00 BP 121/61 11/14/21 00:00 Pulse Ox 98 11/14/21 00:00 FiO2 Intake & Output 11/13/21 11/13/21 11/14/21 06:59 18:59 06:59 Intake Total 225 525 Output Total 650 725 Balance -425 -200 Intake: Intake, IV Titration 225 525 Amount Sodium Chloride 0.9% 1, 225 525 000 ml @ 75 mls/hr IV . [id number] [facility] Rx#:[id number] Oral 0 Output: Urine 650 725 Uretheral (Osei) 300 725 Other: Voiding Method Indwelling Catheter Indwelling Catheter Indwelling Catheter # Bowel Movements 0 - Exam PHYSICAL EXAMINATION: Patient is lying in the bed no acute distress, awake alert. Patient is lethargic and drowsy. Unable to communicate. HEENT: Normocephalic. Neck is supple. Pupils reactive. Nostrils clear. Oral cavity is moist. Neck reveals no JVD, carotid bruits, or thyromegaly. CHEST EXAMINATION: Trachea is central. Symmetrical expansion. Bibasilar diminished sounds. No wheezing.. CARDIAC: Normal S1, S2 with no gallops. No murmurs irregularly rhythm. ABDOMEN: Soft. Bowel sounds present. No organomegaly. No abdominal bruits. Extremities: reveal no edema. No clubbing or cyanosis Neurologically awake, alert, oriented x0 /no gross focal neurological deficits. Patient is obtunded. Skin: No rash or skin lesions. Psychiatric: Could not be assessed at this time. Musculoskeletal: No joint swelling or deformity. - Labs CBC & Chem 7: 11/13/21 07:00 11/13/21 07:00 Labs: Abnormal Lab Results - Last 24 Hours (Table) 11/13/21 11/13/21 11/13/21 Range/Units 07:00 07:00 07:00 RBC 4.19 L (4.30-5.90) m/uL Hgb 12.6 L (13.0-17.5) gm/dL MCHC 30.1 L (31.0-37.0) g/dL RDW 18.0 H (11.5-15.5) % Plt Count 104 L (150-450) k/uL Lymphocytes # 0.6 L (1.0-4.8) k/uL Chloride 108 H (98-107) mmol/L BUN 38 H (9-20) mg/dL Glucose 58 L (74-99) mg/dL Vitamin B12 1938.0 H (200.0-944.0) pg/mL Procalcitonin 0.10 H (0.02-0.09) ng/mL Assessment and Plan Assessment: Altered mental status due to metabolic and toixc encephalopathy/ r/o Acute CVA Possible left lower lobe pneumonia Chronic CHF with preserved ejection fraction Persistent atrial fibrillation with slow ventricular rate.. Not on any anticoagulation. Hypertension Hyperlipidemia Dementia Recent E. coli urinary tract infection DVT prophylaxis with heparin subcu CODE STATUS DNR/DNI. Patient was in hospice care previously. Plan: Patient will be continued telemetry monitoring. Current with aspirin and statins. Metoprolol is on hold due to bradycardia. Continue to hold verapamil and doxazosin. Patient will be started on antibiotics in the form of Unasyn for possible aspiration due to left lower lobe infiltrates. Follow-up procalcitonin level. Prognosis poor at this time.
[2021-11-14] MEDS: ATORVASTATIN 20 MG TAB PO SCH ×2 (06:40→20:34)
[2021-11-14] MEDS: PANTOPRAZOLE 40 MG TABLET PO SCH (07:02)
[2021-11-14 08:16] LABS: Anisocytosis Slight; Basophils # (A) 0.1 k/uL (0-0.2); Basophils % (A) 1 %; Eosinophils % (A) 1 %; HCT 43.9 % (39.0-53.0); HGB 12.9 gm/dL (13.0-17.5); Hypochromasia Marked; Lymphocytes # (A) 0.6 k/uL (1.0-4.8); Lymphocytes % (A) 14 %; MCH 29.5 pg (25.0-35.0); MCHC 29.5 g/dL (31.0-37.0); MCV 100.2 fL (80.0-100.0); Macrocytosis Moderate; Mean Platelet Volume 9.8; Monocytes # (A) 0.4 k/uL (0-1.0); Monocytes % (A) 10 %; Neutrophils # (A) 2.8 k/uL (1.3-7.7); Neutrophils % (A) 71 %; Platelet Count 105 k/uL (150-450); RBC 4.38 m/uL (4.30-5.90); RDW 18.1 % (11.5-15.5); WBC 3.9 k/uL (3.8-10.6)
[2021-11-14 08:29] LABS: African American GFR (CKD) >90 (>60 ml/min/1.73 sqM); Anion Gap 9 mmol/L; Blood Urea Nitrogen 33 mg/dL (9-20); Calcium 9.2 mg/dL (8.4-10.2); Carbon Dioxide 25 mmol/L (22-30); Chloride 110 mmol/L (98-107); Non-African American GFR(CKD) 81 (>60 ml/min/1.73 sqM); Potassium 3.9 mmol/L (3.5-5.1); Sodium 144 mmol/L (137-145)
[2021-11-14 08:35] LABS: Glucose 48 mg/dL (74-99)
[2021-11-14 08:41] LABS: Glucose,Whole Blood 79 mg/dL (75-99)
--- NOTE | 2021-11-14 08:47 | P.PN ---
Subjective HISTORY OF PRESENTING ILLNESS Patient is an 86-year-old male with history of chronic diastolic heart failure, atrial fibrillation, hypertension, hyperlipidemia, altered mental status, rheumatoid arthritis, apparently previously on hospice. He presented to the hospital approximately 3 weeks ago for heart failure as well as previous dehydration and was given Lasix. He was discharged back to the [facility] and apparently presented with altered mental status. Currently patient lethargic and unable to provide any responses and not answering any questions. He has been on metoprolol as well as verapamil at home and was found to be bradycardic with A. fib with heart rates in the 40s. The verapamil and metoprolol have been held with heart rate 1 the 50s to 60s however appears still lethargic and unresponsive, no significant change in altered mental status. CT brain showed age-related atrophy. Blood work showed a blood cell count 2.7, hemoglobin 12.7, platelets 107, INR 1.3, BUN 45, creatinine 0.8, troponin 0.012, proBNP 2800, TSH 4.7, free T4 1 0.5. EKG shows atrial fibrillation with slow ventricular rate with heart rate 46 bpm, low voltage, with nonspecific ST, T-wave abnormalities. 11/14 Patient seen and examined. Patient much more alert today. Alert and oriented to name, [facility] and 2021. Denies any chest pain or pressure. Denies any lightheadedness. His verapamil and metoprolol have been on hold. Heart rates mainly in the 40s at night and 50s throughout the day. No pauses greater than 3 seconds in atrial fibrillation. PHYSICAL EXAMINATION Vital signs reviewed. CONSTITUTIONAL: No apparent distress, chronically ill appearing, alert HEENT: Head is normocephalic. Pupils are equal, round. Sclerae anicteric. Mucous membranes of the mouth are moist. No JVD. No carotid bruit. CHEST EXAMINATION: Lungs are clear to auscultation. No chest wall tenderness is noted on palpation or with deep breathing. HEART EXAMINATION: Regular rate and rhythm. S1, S2 heard. No murmurs, gallops or rub. ABDOMEN: Soft, nontender. Positive bowel sounds. EXTREMITIES: 2+ peripheral pulses, no lower extremity edema and no calf tenderness. NEUROLOGIC EXAMINATION: Patient is alert ASSESSMENT 1. Atrial fibrillation with slow ventricular response 2. Bradycardia may be exacerbated by home verapamil and metoprolol, appears a symptomatic 3. Altered mental status, not changed at all with improvement in heart rate, do not suspect related to bradycardia 4. Chronic diastolic heart failure, does not appear volume overloaded 5. Failure to thrive, apparently in hospice previously PLAN Hold negative chronotropic agents, hold verapamil and metoprolol. Neurology recommendations appreciated. Continues to have some heart rates in the 40s to 50s however appears asymptomatic at this time. Continue to monitor off of negative chronotropic. Continue supportive care, further recommendations to follow. Objective - Vital Signs Vital signs: Vital Signs Temp 97.5 F L 11/13/21 09:06 Pulse 57 L 11/14/21 04:00 Resp 18 11/14/21 04:00 BP 117/67 11/14/21 04:00 Pulse Ox 98 11/14/21 04:00 FiO2 Intake & Output 11/13/21 11/14/21 11/14/21 18:59 06:59 18:59 Intake Total 525 Output Total 725 400 Balance -200 -400 Intake: Intake, IV Titration 525 Amount Sodium Chloride 0.9% 1, 525 000 ml @ 75 mls/hr IV . [id number] [facility] Rx#:[id number] Output: Urine 725 400 Uretheral (Osei) 725 Other: Voiding Method Indwelling Catheter Indwelling Catheter # Bowel Movements 0 - Labs CBC & Chem 7: 11/14/21 06:34 11/14/21 06:34 Labs: Abnormal Lab Results - Last 24 Hours (Table) 11/13/21 11/13/21 11/14/21 Range/Units 07:00 07:00 06:34 Hgb 12.9 L (13.0-17.5) gm/dL MCV 100.2 H (80.0-100.0) fL MCHC 29.5 L (31.0-37.0) g/dL RDW 18.1 H (11.5-15.5) % Plt Count 105 L (150-450) k/uL Lymphocytes # 0.6 L (1.0-4.8) k/uL Chloride (98-107) mmol/L BUN (9-20) mg/dL Glucose (74-99) mg/dL Vitamin B12 1938.0 H (200.0-944.0) pg/mL Procalcitonin 0.10 H (0.02-0.09) ng/mL 11/14/21 Range/Units 06:34 Hgb (13.0-17.5) gm/dL MCV (80.0-100.0) fL MCHC (31.0-37.0) g/dL RDW (11.5-15.5) % Plt Count (150-450) k/uL Lymphocytes # (1.0-4.8) k/uL Chloride 110 H (98-107) mmol/L BUN 33 H (9-20) mg/dL Glucose 48 L* (74-99) mg/dL Vitamin B12 (200.0-944.0) pg/mL Procalcitonin (0.02-0.09) ng/mL
--- NOTE | 2021-11-14 09:42 | P.PN ---
Subjective Progress Note Date: 11/13/21 Patient was seen for a follow-up. Patient is much more interactive, more alert and awake. He still mumbles, speech is slightly more clear, but still very hoarse, partly dysarthric and also from dry mouth. He is edentulous. Per nurse report, he is more interactive, grabbing on the side bar, helping him turn to the side. He is wheelchair bound for last 1-1/2 years. He is still nothing by mouth. Patient has slight hematuria, as he probably pulled on the catheter Objective - Vital Signs Vital signs: Vital Signs Temp 97.5 F L 11/13/21 09:06 Pulse 58 L 11/13/21 09:06 Resp 18 11/13/21 09:06 BP 123/58 11/13/21 09:06 Pulse Ox 96 11/13/21 09:06 FiO2 Intake & Output 11/12/21 11/13/21 11/13/21 18:59 06:59 18:59 Intake Total 225 Output Total 125 650 450 Balance -125 -425 -450 Weight 113.398 kg Intake: Intake, IV Titration 225 Amount Sodium Chloride 0.9% 1, 225 000 ml @ 75 mls/hr IV . [id number] [facility] Rx#:[id number] Oral 0 Output: Urine 125 650 450 Uretheral (Osei) 125 300 450 Other: Voiding Method Indwelling Catheter - Exam Patient is more awake, still groggy, speaks slightly more than yesterday, but with hoarse voice, sometimes difficult to understand. Mouth is very dry. Able to tell me his name. He is taking deep breaths. Pupils are equal, round and reactive to light. Visual gutierres could not be tested. Patient had his to the left, and the lips are sagging to the left. His tongue also sagging to the left inside his mouth. Patient's strength in the upper extremities appears normal. His traffic administrator is equal, did not give good effort. He held his arms up in air bilaterally, with no obvious drift. He is using both arms to pull the covers. Patient does not move his legs. Apparently he has been wheelchair bound for last 1-1/2 years. He has severe DJD. Patient has moderate peripheral edema. The patient has catheter in, with some hematuria. He may have pulled on the Osei's catheter. - Labs CBC & Chem 7: 11/14/21 06:34 11/14/21 06:34 Labs: Abnormal Lab Results - Last 24 Hours (Table) 11/12/21 11/12/21 11/12/21 Range/Units 11:44 11:44 11:44 WBC 2.7 L (3.8-10.6) k/uL RBC 4.14 L (4.30-5.90) m/uL Hgb 12.6 L (13.0-17.5) gm/dL MCHC (31.0-37.0) g/dL RDW 18.1 H (11.5-15.5) % Plt Count 107 L (150-450) k/uL Lymphocytes # 0.7 L (1.0-4.8) k/uL PT 14.0 H (9.0-12.0) sec INR 1.3 H (<1.2) APTT 33.0 H (22.0-30.0) sec ABG HCO3 (21-25) mmol/L ABG Total CO2 (19-24) mmol/L ABG O2 Saturation (94-97) % Chloride (98-107) mmol/L BUN 45 H (9-20) mg/dL Glucose 71 L (74-99) mg/dL POC Glucose (mg/dL) (75-99) mg/dL Alkaline Phosphatase 145 H (38-126) U/L Albumin 3.0 L (3.5-5.0) g/dL TSH 4.770 H (0.465-4.680) mIU/L 11/12/21 11/12/21 11/13/21 Range/Units 11:48 12:14 07:00 WBC (3.8-10.6) k/uL RBC (4.30-5.90) m/uL Hgb (13.0-17.5) gm/dL MCHC (31.0-37.0) g/dL RDW (11.5-15.5) % Plt Count (150-450) k/uL Lymphocytes # (1.0-4.8) k/uL PT (9.0-12.0) sec INR (<1.2) APTT (22.0-30.0) sec ABG HCO3 31 H (21-25) mmol/L ABG Total CO2 32 H (19-24) mmol/L ABG O2 Saturation 97.1 H (94-97) % Chloride 108 H (98-107) mmol/L BUN 38 H (9-20) mg/dL Glucose 58 L (74-99) mg/dL POC Glucose (mg/dL) 71 L (75-99) mg/dL Alkaline Phosphatase (38-126) U/L Albumin (3.5-5.0) g/dL TSH (0.465-4.680) mIU/L 11/13/21 Range/Units 07:00 WBC (3.8-10.6) k/uL RBC 4.19 L (4.30-5.90) m/uL Hgb 12.6 L (13.0-17.5) gm/dL MCHC 30.1 L (31.0-37.0) g/dL RDW 18.0 H (11.5-15.5) % Plt Count 104 L (150-450) k/uL Lymphocytes # 0.6 L (1.0-4.8) k/uL PT (9.0-12.0) sec INR (<1.2) APTT (22.0-30.0) sec ABG HCO3 (21-25) mmol/L ABG Total CO2 (19-24) mmol/L ABG O2 Saturation (94-97) % Chloride (98-107) mmol/L BUN (9-20) mg/dL Glucose (74-99) mg/dL POC Glucose (mg/dL) (75-99) mg/dL Alkaline Phosphatase (38-126) U/L Albumin (3.5-5.0) g/dL TSH (0.465-4.680) mIU/L Assessment and Plan Assessment: * Altered mental status, probably due to toxic metabolic encephalopathy. Patient's examination revealed questionable focality yesterday, but today he appears relatively nonfocal. Rule out TIA. * Atrial fibrillation with slow ventricular response. * Bradycardia, status post atropine 0.5 mg IV. Patient could be delirious related to atropine. * Hypertension * Hyperlipidemia * Rheumatoid arthritis * Bilateral leg edema * History of recurrent UTI. No evidence of UTI at this time. Plan: * Patient has atrial fibrillation, currently not on anticoagulation. We'll defer to cardiology. Cardiology on board. Continue aspirin 300 mg rectally daily for now. * Carotid Doppler was mostly nondiagnostic. Vertebral arteries were not evaluated. There is arterial flow demonstrated in the right common carotid artery without evidence of elevated velocity. There is less than 50% stenosis in the right ICA. Left carotid artery not evaluated. * 2-D echo from 08/25/2021 showed normal left ventricular size, mild concentric LVH, left ventricle systolic function is low normal, with EF between 50-55%. Right ventricle is mild to moderately enlarged. * B12 1938, folate pending. TSH is mildly elevated 4.77 with normal free T4 1 0.58. We will defer to IM. * Continue telemetry monitoring. * DVT prophylaxis: Patient on heparin 5000 units subcu every 8 hours.
--- NOTE | 2021-11-14 10:45 | XR ---
EXAMINATION TYPE: XR chest 1V DATE OF EXAM: 11/14/2021 COMPARISON: 11/12/2021 INDICATION: Pneumonia TECHNIQUE: Single frontal view of the chest is obtained. FINDINGS: The heart size is enlarged. The pulmonary vasculature is normal. Left lower lobe infiltrate is not excluded. Pleural effusion could be considered. There is silhouetti ng left diaphragm. IMPRESSION: 1. Left lower lobe infiltrate or effusion. 2. Cardiomegaly
[2021-11-14] MEDS: ASPIRIN 325 MG TAB PO SCH (12:23)
--- NOTE | 2021-11-14 14:44 | P.PN ---
Subjective Progress Note Date: 11/14/21 Patient is a 86-year-old male with a known history of atrial fibrillation currently not on anticoagulation, hypertension, hyperlipidemia, rheumatoid arthritis, history of altered mental status and recent urinary tract infection with E. coli was brought to the hospital from the long-term due to altered mental status and difficulty arousing. Patient cannot provide any history at this time. Patient has been afebrile. He also found to be bradycardic with heart rate in 50s. Requiring 2 L oxygen via nasal cannula. Patient has been afebrile. Patient does have chronic indwelling catheter due to urinary retention. Chest x-ray showed marked cardiomegaly. Left lower lobe infiltrate or pleural fluid not excluded. CT head showed age-related atrophy. Some mild chronic appearing white matter ischemic type changes. Stable are likely present. EKG showed atrial fibrillation with slow ventricular rate. Carotid duplex showed less than 50% stenosis in the right internal carotid artery. Left carotid artery not evaluated. Laboratory pressure WBC 2.7 hemoglobin 12.6 and platelets 107 Lymphocytes 0.7 PT 14.0 INR 1.3 ABG showed pH 7.45 PCO2 44 PO2 94 and sodium 140 potassium 4.3 chloride 107 bicarb is 28 BUN 45 and creatinine 0.84 and blood sugar is 71 Alk phos 145 troponin x2 negative proBNP 2820 TSH 4.7 and free T4 1.58 Urinalysis is negative for infection. Patient was hospice care previously. 11/13/2021 Patient is currently lying in the bed. Remains unresponsive. Currently requiring oxygen at 2 L via nasal cannula. Heart rate did improve after holding chronotropic agents. Patient has been afebrile. No cough or sputum production. Laboratory test showed WBC 3.9 hemoglobin 12.6 and platelets 104 Sodium 142 potassium 4.0 chloride 108 bicarb is 25 BUN 38 and creatinine 0.83 and blood sugar was 58 this morning. Patient is being current on aspirin and also Unasyn empirically. 11/14/2021 Patient is seen and evaluated this morning continues to be unresponsive with family at the bedside and wishes for CODE STATUS to be addressed and no code. Patient is a resident at [facility] and is currently being worked up for altered mental status with cardiology and neurology following. Patient is not eating and continues with low blood sugars and will continue to monitor with Accu-Cheks before meals and at bedtime and as needed and also transition IV antibiotics to Zosyn for questionable aspiration pneumonia. Patient is currently nothing by mouth as he is lethargic and high risk for aspiration. Per nursing staff rectal temp is 93.5 and bearhug are being applied. Prognosis is extremely guarded at this time. Review of systems unable to obtain as patient is lethargic and confused Active Medications Acetaminophen (Acetaminophen Tab 325 Mg Tab) 650 mg PO Q6H PRN PRN Reason: Pain Aspirin (Aspirin 325 Mg Tab) 325 mg PO DAILY [facility] Last Admin: 11/14/21 12:23 Dose: 325 mg Atorvastatin Calcium (Atorvastatin 20 Mg Tab) 20 mg PO HS [facility] Last Admin: 11/14/21 06:40 Dose: Not Given Heparin Sodium (Porcine) (Heparin Sodium,Porcine/Pf 5,000 Unit/0.5 Ml Syringe) 5,000 unit SQ Q8HR [facility] Last Admin: 11/14/21 08:30 Dose: 5,000 unit Piperacillin Sod/Tazobactam (Sod 3.375 gm/ Sodium Chloride) 100 mls @ 25 mls/hr IVPB Q8HR JAMES; Protocol Naloxone HCl (Naloxone 0.4 Mg/Ml 1 Ml Vial) 0.2 mg IV Q2M PRN PRN Reason: Opioid Reversal Pantoprazole Sodium (Pantoprazole 40 Mg Tablet) 40 mg PO DAILY@0600 [facility] Last Admin: 11/14/21 07:02 Dose: Not Given PHYSICAL EXAMINATION: Patient is lying in the bed not alert or oriented. Patient is lethargic and drowsy. Unable to communicate. HEENT: Normocephalic. Neck is supple. Pupils reactive. Nostrils clear. Oral cavity is moist. Neck reveals no JVD, carotid bruits, or thyromegaly. CHEST EXAMINATION: Trachea is central. Symmetrical expansion. Bibasilar diminished sounds. With scattered rhonchi noted CARDIAC: S1, S2 muffled, irregularly rhythm. With bradycardia ABDOMEN: Soft. Bowel sounds present. No organomegaly. No abdominal bruits. Extremities: reveal no edema. No clubbing or cyanosis Neurologically lethargic, asleep and difficult to arouse, oriented x0 /no gross focal neurological deficits. Patient is obtunded. Skin: No rash or skin lesions. Psychiatric: Could not be assessed at this time. Musculoskeletal: No joint swelling or deformity. Assessment: Altered mental status due to metabolic and toixc encephalopathy/ r/o Acute CVA Possible left lower lobe pneumonia Chronic CHF with preserved ejection fraction Persistent atrial fibrillation with slow ventricular rate.. Not on any anticoagulation. Hypertension Hyperlipidemia Dementia Recent E. coli urinary tract infection DVT prophylaxis with heparin subcu CODE STATUS DNR/DNI. Patient was in hospice care previously. Plan: Patient will be continued telemetry monitoring. Current with aspirin and statins. Neurology following Chest x-ray today shows left lower lobe infiltrate or effusion with cardiomegaly Metoprolol is on hold due to bradycardia. Continue to hold verapamil and doxazosin. Cardiology following Patient was started on Unasyn and we'll transition IV Zosyn for possible aspiration due to left lower lobe infiltrates. Pro-calcitonin mildly elevated at 0.10 and Covid was negative. patient's CODE STATUS to be DO NOT RESUSCITATE and was previously in hospice Prognosis poor at this time. Recommend continue with close monitoring and follow-up and will discuss further with family about treatment plan moving forward. Objective - Vital Signs Vital signs: Vital Signs Temp 97.5 F L 11/13/21 09:06 Pulse 47 L 11/14/21 12:00 Resp 18 11/14/21 12:00 BP 132/67 11/14/21 12:00 Pulse Ox 95 11/14/21 12:00 FiO2 Intake & Output 11/13/21 11/14/21 11/14/21 18:59 06:59 18:59 Intake Total 525 Output Total 725 400 Balance -200 -400 Intake: Intake, IV Titration 525 Amount Sodium Chloride 0.9% 1, 525 000 ml @ 75 mls/hr IV . [id number] [facility] Rx#:[id number] Output: Urine 725 400 Uretheral (Osei) 725 Other: Voiding Method Indwelling Catheter Indwelling Catheter # Bowel Movements 0 - Labs CBC & Chem 7: 11/14/21 06:34 11/14/21 06:34 Labs: Abnormal Lab Results - Last 24 Hours (Table) 11/14/21 11/14/21 Range/Units 06:34 06:34 Hgb 12.9 L (13.0-17.5) gm/dL MCV 100.2 H (80.0-100.0) fL MCHC 29.5 L (31.0-37.0) g/dL RDW 18.1 H (11.5-15.5) % Plt Count 105 L (150-450) k/uL Lymphocytes # 0.6 L (1.0-4.8) k/uL Chloride 110 H (98-107) mmol/L BUN 33 H (9-20) mg/dL Glucose 48 L* (74-99) mg/dL
[2021-11-14] MEDS: PIPERACILLIN-TAZOBACTAM 3.375 GM in SODIUM CHLORIDE 0.9% 100 ML IVPB SCH ×2 (17:35→23:29)
[2021-11-15] MEDS: PANTOPRAZOLE 40 MG TABLET PO SCH (06:16)
[2021-11-15] MEDS: HEPARIN SODIUM,PORCINE/PF 5,000 UNIT/0.5 ML SYRINGE SQ SCH ×3 (10:01→23:20)
[2021-11-15] MEDS: PIPERACILLIN-TAZOBACTAM 3.375 GM in SODIUM CHLORIDE 0.9% 100 ML IVPB SCH ×3 (10:01→23:21)
[2021-11-15] MEDS: ASPIRIN 325 MG TAB PO SCH (10:02)
[2021-11-15 13:09] VITALS: BMI 44.2
--- NOTE | 2021-11-15 13:17 | P.PN ---
Subjective Patient is an 86-year-old male with history of chronic heart failure with preserved EF, atrial fibrillation, hypertension, hyperlipidemia, altered mental status, rheumatoid arthritis. 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 Was previously recently at an [facility] on hospice. He presented to the hospital approximately 3 weeks ago for heart failure as well as previous dehydration and was given Lasix. He was discharged back to the [facility] and apparently presented with altered mental status. Currently patient lethargic and unable to provide any responses and not answering any questions. He has been on metoprolol as well as verapamil at home and was found to be bradycardic with A. fib with heart rates in the 40s. The verapamil and metoprolol have been held since 11/12. His HR have improved 50s to 60s however appears still lethargic and unresponsive, no significant change in altered mental status. 11/15 Patient seen and examined. Patient more alert today. Alert and oriented to name, [facility] and 2021. Denies any chest pain or pressure. Denies any lightheadedness. His verapamil and metoprolol have been on hold since 11/12/21. Heart rates mainly in the 40s- 50s throughout the day.Longest pause about 3.5 seconds. He maintaining atrial fibrillation. PHYSICAL EXAMINATION Vital signs reviewed. CONSTITUTIONAL: No apparent distress, chronically ill appearing, alert HEENT: Neck Supple. No JVD. CHEST EXAMINATION: Lungs are clear to auscultation. No chest wall tenderness is noted on palpation or with deep breathing. HEART EXAMINATION: Irregular rate and rhythm. S1, S2 heard. No murmurs, gallops or rub. ABDOMEN: Soft, nontender. Positive bowel sounds. EXTREMITIES: 2+ peripheral pulses, no lower extremity edema and no calf tende rness. NEUROLOGIC EXAMINATION: Patient is alert ASSESSMENT Atrial fibrillation, likely permanent with slow ventricular response Bradycardia may be exacerbated by home verapamil and metoprolol, appears asymptomatic Altered mental status, not changed at all with improvement in heart rate, do not suspect related to bradycardia Chronic heart failure with preserved EF , does not appear volume overloaded Failure to thrive, apparently in hospice previously PLAN Hold negative chronotropic agents, hold verapamil and metoprolol. Neurology recommendations appreciated. Continues to have some heart rates in the 40s to 50s however appears asymptomatic at this time. Continue to monitor off of negative chronotropic. Continue supportive care Ideally anticoagulation however concerns of hematuria and previous falls however currently bed bound per chart. Does not appear to be good anticoagulation ca ndidate however continue to reevaluate Further recommendations to follow. Nurse practitioner note has been reviewed by physician. Signing provider agrees with the documented findings, assessment, and plan of care. Objective - Vital Signs Vital signs: Vital Signs Temp 94.6 F L 11/15/21 12:00 Pulse 54 L 11/15/21 12:00 Resp 16 11/15/21 12:00 BP 111/62 11/15/21 12:00 Pulse Ox 97 11/15/21 12:00 FiO2 Intake & Output 11/14/21 11/15/21 11/15/21 18:59 06:59 18:59 Intake Total 60 60 Output Total 600 260 Balance -540 -260 60 Weight 144 kg Intake: Oral 60 60 Output: Urine 600 260 Other: Voiding Method Indwelling Catheter Indwelling Catheter Indwelling Catheter - Labs CBC & Chem 7: 11/14/21 06:34 11/14/21 06:34
--- NOTE | 2021-11-15 14:16 | FL ---
EXAMINATION TYPE: FL barium swallow w video DATE OF EXAM: 11/15/2021 CLINICAL HISTORY: 86-year-old male gurgling at the bedside, rule out silent aspiration. TECHNIQUE: Deglutition study is performed utilizing thin liquid barium, honey and nectar thick liqui d barium, barium thick pudding, and barium coated cracker. Total fluoroscopy time: 5 minutes 25 seconds. Total images: None. Real-time fluoroscopy support was provided to speech pathology. COMPARISON: None. FINDINGS: Swallow initiation was delayed with bolus free spilling to the level of the vallecula and occasionall y into the piriform sinuses. Patient is partially edentulous. Mastication is slowed There is no evidence of penetration or aspiration with any modality tested. No significant pharyngeal residue was appreciated. IMPRESSION: No penetration or aspiration. Delayed swallow initiation. Please refer to speech therapist notes for further details if necessary.
[2021-11-15] MEDS ORDERED: VERAPAMIL 40 MG TAB PO SCH (15:31)
--- NOTE | 2021-11-15 15:36 | P.PN ---
Progress Note - Text Progress Note Date: 11/15/21 This is a 86-year-old patient being followed by Dr. Maddox. Chronic stable medical conditions include atrial fibrillation, hyperlipidemia, hypertension, rheumatoid arthritis. resident of [facility] laurie Calloway - medical power of assistant attorney general. Baseline able to sit up in a wheelchair. Requires assistance. Able to take nice family. Wears diapers. Abdomen baseline patient unable to sit up in a wheelchair. Requiring assistance. Able to rise family. Was able to eat. Normally wears diapers. Patient was here earlier in this month. Was then under hospice of the [facility] and taken out of hospice but is admitted here. Started eating and drinking was discharged to rehab. Patient brought from the [facility] due to altered mental status, difficulty arousing. Patient unable to give history initially. Also found to have a heart rate in the 50s. Empirically on antibiotics for aspiration. Has a chronic Osei catheter. November 15: I assumrd the care of the patient today. Nothing by mouth for swallow evaluation. Osei catheter. Lower extremity edema. Able to communicate for simple questions. Tired. Rosana hammond Active Medications Acetaminophen (Acetaminophen Tab 325 Mg Tab) 650 mg PO Q6H PRN PRN Reason: Pain Aspirin (Aspirin 325 Mg Tab) 325 mg PO DAILY [facility] Last Admin: 11/15/21 10:02 Dose: 325 mg Atorvastatin Calcium (Atorvastatin 20 Mg Tab) 20 mg PO HS [facility] Last Admin: 11/14/21 20:34 Dose: 20 mg Heparin Sodium (Porcine) (Heparin Sodium,Porcine/Pf 5,000 Unit/0.5 Ml Syringe) 5,000 unit SQ Q8HR [facility] Last Admin: 11/15/21 10:01 Dose: 5,000 unit Piperacillin Sod/Tazobactam (Sod 3.375 gm/ Sodium Chloride) 100 mls @ 25 mls/hr IVPB Q8HR [facility]; Protocol Last Admin: 11/15/21 10:01 Dose: 25 mls/hr Naloxone HCl (Naloxone 0.4 Mg/Ml 1 Ml Vial) 0.2 mg IV Q2M PRN PRN Reason: Opioid Reversal Pantoprazole Sodium (Pantoprazole 40 Mg Tablet) 40 mg PO DAILY@0600 [facility] Last Admin: 11/15/21 06:16 Dose: 40 mg Past medical history to include: Atrial fibrillation, hyperlipidemia, hypertension, rheumatoid arthritis, Social history: No history of smoking or alcohol. Since out of the chair. Full assist. Normally able to feed himself. Family history: Reviewed, noncontributory to presentation Physical examination: VITAL SIGNS: 94.6, 56, 16, 111/62, 97% room air GENERAL: , Reclining in bed, tired EYES: Pupils equal. Conjunctiva normal. HEENT: External appearance of nose and ears normal, oral cavity dry. NECK: JVD unable to assess; masses not palpable. HEART: First and second heart sounds are normal; edema present. LUNGS: Respiratory rate increased; decreased breath sounds. ABDOMEN: Soft, nontender, liver spleen not palpable, no masses palpable. PSYCH: Answering simple questions MUSCULOSKELETAL:No Clubbing/cyanosis;muscles-grossly intact. Evidence of OA INVESTIGATIONS, reviewed in the clinical context: Modified barium swallow: No penetration or aspiration. 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 Diet per speech therapist. Given hypoglycemia will start D5 0.45 at 50 mL an hour. Rosana hammond
--- NOTE | 2021-11-15 15:48 | P.PN ---
Subjective Progress Note Date: 11/15/21 Patient was seen for a follow-up. Patient has improved remarkably today. Patient denies headache. Offers no complaints, laying comfortably in the bed. Telemetry monitoring showing sinus bradycardia sometimes going down to low 30s. PVCs, couplets. Occasional pauses up to 1.3 seconds. He is wheelchair bound for last 1-1/2 years. Objective - Vital Signs Vital signs: Vital Signs Temp 94.8 F L 11/15/21 08:00 Pulse 53 L 11/15/21 08:00 Resp 16 11/15/21 08:00 BP 114/70 11/15/21 08:00 Pulse Ox 98 11/15/21 08:34 FiO2 Intake & Output 11/14/21 11/15/21 11/15/21 18:59 06:59 18:59 Intake Total 60 60 Output Total 600 260 Balance -540 -260 60 Weight 144 kg Intake: Oral 60 60 Output: Urine 600 260 Other: Voiding Method Indwelling Catheter Indwelling Catheter - Exam Patient is much more alert, awake and interactive. Still slightly groggy, with slow mentation, slightly prolonged latency time to answer question. Speech is clear, with no aphasia or dysarthria. Patient states it's the month of October and the year is . He thinks he is in "a big beautiful home". He states that he is in [facility] in the [facility]. Pupils are equal, round and reactive to light. Visual gutierres are full on confrontation. Face is symmetric. Patient's strength in normal in the bilateral upper limbs. In the lower extremities, ankle dorsiflexion and plantar flexion are both normal. Possibly the legs appears weak. Apparently he has been wheelchair bound for last 1-1/2 years. He has severe DJD. Patient has moderate peripheral edema. - Labs CBC & Chem 7: 11/14/21 06:34 11/14/21 06:34 Assessment and Plan Assessment: * Altered mental status, probably due to toxic metabolic encephalopathy. Patient's examination at present is nonfocal. Rule out TIA. * Atrial fibrillation with slow ventricular response. * Bradycardia, status post atropine 0.5 mg IV. Patient could be delirious related to atropine. * Hypertension * Hyperlipidemia * Rheumatoid arthritis * Bilateral leg edema * History of recurrent UTI. No evidence of UTI at this time. Plan: * Patient has atrial fibrillation, currently not on anticoagulation. We'll defer to cardiology. Cardiology on board. Continue aspirin 325 mg daily. * Carotid Doppler was mostly nondiagnostic. Vertebral arteries were not evaluated. There is arterial flow demonstrated in the right common carotid artery without evidence of elevated velocity. There is less than 50% stenosis in the right ICA. Left carotid artery not evaluated. Discussed with refractory technician. We will reattempt carotid Doppler, if he can get a better study. * 2-D echo from 08/25/2021 showed normal left ventricular size, mild concentric LVH, left ventricle systolic function is low normal, with EF between 50-55%. Right ventricle is mild to moderately enlarged. * B12 1938, RBC folate 652. TSH is mildly elevated 4.77 with normal free T4 1.58. We will defer to IM. * Hemoglobin A1c 5.5 * Lipid panel with cholesterol 83, LDL 50, HDL 21 and triglycerides 60 on . Continue Lipitor 20 mg. * Telemetry monitoring showing sinus bradycardia in the 30s, with some PVCs and couplets. Cardiology on board. * DVT prophylaxis: Patient on heparin 5000 units subcu every 8 hours.
--- NOTE | 2021-11-15 16:39 | US ---
EXAMINATION TYPE: US carotid duplex BILAT DATE OF EXAM: 11/15/2021 COMPARISON: None CLINICAL HISTORY: TIA. Previous nondiagnostic study. Poor historian. EXAM MEASUREMENTS: RIGHT: Peak Systolic Velocity (PSV) cm/sec ----- Right CCA: 57.0 ----- Right ICA: 96.9 ----- Right ECA: 106.0 ICA/CCA ratio: 1.7 RIGHT: End Diastole cm/sec ----- Right CCA: 8.7 ----- Right ICA: 20.6 ----- Right ECA: 0.0 LEFT: Peak Systolic Velocity (PSV) cm/sec ----- Left CCA: 49.0 ----- Left ICA: 84.0 ----- Left ECA: 60.3 ICA/CCA ratio: 1.7 LEFT: End Diastole cm/sec ----- Left CCA: 7.3 ----- Left ICA: 20.6 ----- Left ECA: 0.0 VERTEBRALS (direction of flow): Right Vertebral: Antegrade Left Vertebral: Antegrade Rhythm: Arrhythmia Suboptimal due to patient deep breathing and head position Plaque bilateral bulbs. No elevated velocities or significant stenosis. Wall thickening. IMPRESSION: Less than 50% stenosis of the bilateral carotid bifurcations. Criteria for Assigning % of Stenosis / Diameter reduction (Estimation based on the indirect measurements of the internal carotid artery velocities (ICA PSV). 1. Normal (no stenosis)=ICA PSV < 125 cm/s: ratio < 2.0: ICA EDV<40 cm/s. 2. Less than 50% stenosis=ICA PSV < 125 cm/s: ratio < 2.0: ICA EDV<40 cm/s. 3. 50 to 69% stenosis=ICA PSV of 125 to 230 cm/s: ration 2.0 ? 4.0: ICA EDV 40-100 cm/s. 4. Greater than 70% stenosis to near occlusion= ICA PSV > 230 cm/s: ratio > 4.0: ICA EDV > 100 cm/s. 5. Near occlusion= ICA PSV velocities may be low or undetectable: variable ratio and ICA EDV. 6. Total occlusion=unable to detect flow.
[2021-11-15] MEDS ORDERED: NON FORMULARY DRUG (Liquacel 30 ML) PO SCH (17:00)
[2021-11-15] MEDS: DEXTROSE 5%-0.9% NACL 1,000 ML IV SCH (17:14)
[2021-11-15] MEDS: DOXAZOSIN 2 MG TAB PO SCH (20:15)
[2021-11-15] MEDS: ATORVASTATIN 20 MG TAB PO SCH (20:15)
[2021-11-16] MEDS: HEPARIN SODIUM,PORCINE/PF 5,000 UNIT/0.5 ML SYRINGE SQ SCH ×3 (08:39→22:59)
[2021-11-16] MEDS: PIPERACILLIN-TAZOBACTAM 3.375 GM in SODIUM CHLORIDE 0.9% 100 ML IVPB SCH ×3 (08:39→22:59)
[2021-11-16] MEDS: MELOXICAM 7.5 MG TAB PO SCH (08:40)
[2021-11-16] MEDS: ASPIRIN 325 MG TAB PO SCH (08:40)
[2021-11-16] MEDS: PANTOPRAZOLE 40 MG TABLET PO SCH (08:41)
--- NOTE | 2021-11-16 12:00 | P.PN ---
Subjective Patient is an 86-year-old male with history of chronic heart failure with preserved EF, atrial fibrillation, hypertension, hyperlipidemia, altered mental status, rheumatoid arthritis. 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 Was previously recently at an [facility] on hospice. He presented to the hospital approximately 3 weeks ago for heart failure as well as previous dehydration and was given Lasix. He was discharged back to the [facility] and apparently presented with altered mental status. Currently patient lethargic and unable to provide any responses and not answering any questions. He has been on metoprolol as well as verapamil at home and was found to be bradycardic with A. fib with heart rates in the 40s. The verapamil and metoprolol have been held since 11/12. His HR have improved 50s to 60s however appears still lethargic and unresponsive, no significant change in altered mental status. 11/16/2021 Patient seen and examined, alert and oriented to person and place. Denies any chest pain or pressure. Denies any lightheadedness. His verapamil and metoprolol have been on hold since 11/12/21. Heart rates mainly in the high 40s overnight and 50s throughout the day. Longest pause about 3.5 seconds on 11/15/21, no further pauses noted. He is in atrial fibrillation on telemetry. Carotid Dopplers with no significant carotid stenosis. PHYSICAL EXAMINATION Vital signs reviewed. CONSTITUTIONAL: No apparent distress, chronically ill appearing, alert HEENT: Neck Supple. No JVD. CHEST EXAMINATION: Lungs are clear to auscultation. No chest wall tenderness is noted on palpation or with deep breathing. HEART EXAMINATION: Irregular rate and rhythm. S1, S2 heard. No murmurs, gallops or rub. ABDOMEN: Soft, nontender. Positive bowel sounds. EXTREMITIES: 2+ peripheral pulses, no lower extremity edema and no calf tenderness. NEUROLOGIC EXAMINATION: Patient is alert ASSESSMENT Atrial fibrillation, likely permanent with slow ventricular response Bradycardia may be exacerbated by home verapamil and metoprolol, appears asymptomatic Altered mental status, not changed at all with improvement in heart rate, do not suspect related to bradycardia Chronic heart failure with preserved EF , does not appear volume overloaded Echo 08/2021 EF 50-55% Failure to thrive, apparently in hospice previously Chronic medical debility Anemia Thyrombocytopenia PLAN Hold negative chronotropic agents, hold verapamil and metoprolol. Neurology recommendations appreciated. Continues to have some heart rates in the high 40s to 50s however appears asymp tomatic at this time. Ideally anticoagulation however concerns previous falls and safety for patient. Does not appear to be good anticoagulation candidate however continue to reevaluate. We will hold off on starting at this time, risk outweighs benefit at this time Continue supportive care Patient's heart rates have improved, Recommend continuing to hold verapamil and metoprolol on discharge. We will follow the patient as needed. Please reconsult if needed. Nurse practitioner note has been reviewed by physician. Signing provider agrees with the documented findings, assessment, and plan of care. Objective - Vital Signs Vital signs: Vital Signs Temp 97.5 F L 11/16/21 08:00 Pulse 52 L 11/16/21 08:00 Resp 16 11/16/21 08:00 BP 99/57 11/16/21 08:00 Pulse Ox 94 L 11/16/21 08:51 FiO2 Intake & Output 11/15/21 11/16/21 11/16/21 18:59 06:59 18:59 Intake Total 160 118 Output Total 300 325 Balance -140 -325 118 Weight 144 kg 145 kg Intake: Oral 160 118 Output: Urine 300 325 Other: Voiding Method Indwelling Catheter Indwelling Catheter Indwelling Catheter # Voids 1 # Bowel Movements 1 - Labs CBC & Chem 7: 11/14/21 06:34 11/14/21 06:34
[2021-11-16] MEDS: DEXTROSE 5%-0.9% NACL 1,000 ML IV SCH (16:41)
[2021-11-16] MEDS: FUROSEMIDE 10 MG/ML 2 ML VIAL IV SCH ×2 (16:57→19:14)
[2021-11-16] MEDS: DOXAZOSIN 2 MG TAB PO SCH (20:39)
[2021-11-16] MEDS: ATORVASTATIN 20 MG TAB PO SCH (20:39)
--- NOTE | 2021-11-16 22:20 | P.PN ---
Progress Note - Text Progress Note Date: 11/16/21 This is a 86-year-old patient being followed by Dr. Maddox. Chronic stable medical conditions include atrial fibrillation, hyperlipidemia, hypertension, rheumatoid arthritis. resident of [facility] laurie Calloway - medical power of corporate associate attorney. Baseline able to sit up in a wheelchair. Requires assistance. Able to take nice family. Wears diapers. Abdomen baseline patient unable to sit up in a wheelchair. Requiring assistance. Able to rise family. Was able to eat. Normally wears diapers. Patient was here earlier in this month. Was then under hospice of the [facility] and taken out of hospice but is admitted here. Started eating and drinking was discharged to rehab. Patient brought from the [facility] due to altered mental status, difficulty arousing. Patient unable to give history initially. Also found to have a heart rate in the 50s. Empirically on antibiotics for aspiration. Has a chronic Osei catheter. November 15: I assumrd the care of the patient today. Nothing by mouth for swallow evaluation. Osei catheter. Lower extremity edema. Able to communicate for simple questions. Tired. Rosana serenagger November 16: Patient remains on Rosana hugger. Eating with assistance. Answering questions slowly. On 2 L nasal cannula. Tired. Edema. Give IV Lasix 20 mg. Roman wrap. Active Medications Acetaminophen (Acetaminophen Tab 325 Mg Tab) 650 mg PO Q6H PRN PRN Reason: Pain Aspirin (Aspirin 325 Mg Tab) 325 mg PO DAILY [facility] Last Admin: 11/16/21 08:40 Dose: 325 mg Atorvastatin Calcium (Atorvastatin 20 Mg Tab) 20 mg PO [facility] Last Admin: 11/16/21 20:39 Dose: 20 mg Doxazosin Mesylate (Doxazosin 2 Mg Tab) 2 mg PO [facility] Last Admin: 11/16/21 20:39 Dose: 2 mg Heparin Sodium (Porcine) (Heparin Sodium,Porcine/Pf 5,000 Unit/0.5 Ml Syringe) 5,000 unit SQ Q8HR [facility] Last Admin: 11/16/21 16:57 Dose: 5,000 unit Piperacillin Sod/Tazobactam (Sod 3.375 gm/ Sodium Chloride) 100 mls @ 25 mls/hr IVPB Q8HR [facility]; Protocol Last Admin: 11/16/21 16:57 Dose: 25 mls/hr Meloxicam (Meloxicam 7.5 Mg Tab) 15 mg PO DAILY@0800 [facility] Last Admin: 11/16/21 08:40 Dose: 15 mg Naloxone HCl (Naloxone 0.4 Mg/Ml 1 Ml Vial) 0.2 mg IV Q2M PRN PRN Reason: Opioid Reversal Non-Formulary Medication (Vitamin D3 50,000iu) 1,250 mcg PO SA@1700 [facility] Pantoprazole Sodium (Pantoprazole 40 Mg Tablet) 40 mg PO DAILY@0600 [facility] Last Admin: 11/16/21 08:41 Dose: 40 mg Past medical history to include: Atrial fibrillation, hyperlipidemia, hypertension, rheumatoid arthritis, Social history: No history of smoking or alcohol. Since out of the chair. Full assist. Normally able to feed himself. Family history: Reviewed, noncontributory to presentation Physical examination: VITAL SIGNS: 97.5, 62, 16, 117/58, 94% on 2 L GENERAL: , Reclining in bed, tired EYES: Pupils equal. Conjunctiva normal. HEENT: External appearance of nose and ears normal, oral cavity dry. NECK: JVD unable to assess; masses not palpable. HEART: First and second heart sounds are normal; edema present. LUNGS: Respiratory rate increased; decreased breath sounds. ABDOMEN: Soft, nontender, liver spleen not palpable, no masses palpable. PSYCH: Answering simple questions MUSCULOSKELETAL:No Clubbing/cyanosis;muscles-grossly intact. Evidence of OA INVESTIGATIONS, reviewed in the clinical context: Modified barium swallow: No penetration or aspiration. White count 3.9 hemoglobin 12.9 platelets 105 potassium 3.9 creatinine 0.8 Vitamin B12 1938 pro-calcitonin 0.1 COVID 19: Not detected Chest x-ray film: Left lower lobe infiltrate Carotid Doppler: Nondiagnostic CT brain: Age-related changes Assessment and plan: -Possible aspiration pneumonia IV Zosyn. 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 -Hypothermia: uncontrolled Rosana hugger Continue Rosana hugger. Oral intake better. IV Lasix 20 mg 2. Orman wrap. Repeat lites.
[2021-11-17] MEDS: PANTOPRAZOLE 40 MG TABLET PO SCH (06:24)
--- NOTE | 2021-11-17 09:15 | P.PN ---
Subjective Progress Note Date: 11/16/21 Patient was seen for a follow-up. Patient's son was present today. He states that patient is doing well. He had good lunch. He is talking well. Not quite back to baseline, as he is not quite as sharp as he was. He talks better when he has dentures. He will be going back to [facility]. Patient denies headache. Offers no complaints, laying comfortably in the bed. Telemetry monitoring showing sinus bradycardia sometimes going down to low 30s. PVCs, couplets. Occasional pauses up to 1.3 seconds. He is wheelchair bound for last 1-1/2 years. Objective - Vital Signs Vital signs: Vital Signs Temp 97.5 F L 11/16/21 12:00 Pulse 62 11/16/21 12:00 Resp 16 11/16/21 14:00 BP 117/58 11/16/21 12:00 Pulse Ox 92 L 11/16/21 12:00 FiO2 Intake & Output 11/15/21 11/16/21 11/16/21 18:59 06:59 18:59 Intake Total 160 118 Output Total 300 325 250 Balance -140 -325 -132 Weight 144 kg 145 kg Intake: Oral 160 118 Output: Urine 300 325 250 Other: Voiding Method Indwelling Catheter Indwelling Catheter Indwelling Catheter # Voids 1 # Bowel Movements 1 - Exam 11/16/2021: Patient is somnolent today. Patient's strength is normal in the upper limbs. Detailed testing deferred. 11/15/2021: Patient is much more alert, awake and interactive. Still slightly groggy, with slow mentation, slightly prolonged latency time to answer question. Speech is clear, with no aphasia or dysarthria. Patient states it's the month of October and the year is . He thinks he is in "a big beautiful home". He states that he is in [facility] in the [facility]. Pupils are equal, round and reactive to light. Visual gutierres are full on confrontation. Face is symmetric. Patient's strength in normal in the bilateral upper limbs. In the lower extremities, ankle dorsiflexion and plantar flexion are both normal. Possibly the legs appears weak. Apparently he has been wheelchair bound for last 1-1/2 years. He has severe DJD. Patient has moderate peripheral edema. - Labs CBC & Chem 7: 11/14/21 06:34 11/14/21 06:34 Assessment and Plan Assessment: * Altered mental status, probably due to toxic metabolic encephalopathy. Patient's examination at present is nonfocal. Rule out TIA. * Atrial fibrillation with slow ventricular response. * Bradycardia, status post atropine 0.5 mg IV. Patient could be delirious related to atropine. * Hypertension * Hyperlipidemia * Rheumatoid arthritis * Bilateral leg edema * History of recurrent UTI. No evidence of UTI at this time. Plan: * Patient has atrial fibrillation, currently not on anticoagulation. Apparently patient is not a good candidate for anticoagulation as per cardiology. Cardiology on board. Continue aspirin 325 mg daily. * Repeat Carotid Doppler 11/15/2021 revealed less than 50% stenosis of bilateral ICA. Antegrade flow in both vertebral arteries. * 2-D echo from 08/25/2021 showed normal left ventricular size, mild concentric LVH, left ventricle systolic function is low normal, with EF between 50-55%. Right ventricle is mild to moderately enlarged. * B12 1938, RBC folate 652. TSH is mildly elevated 4.77 with normal free T4 1.58. We will defer to IM. * Hemoglobin A1c 5.5 * Lipid panel with cholesterol 83, LDL 50, HDL 21 and triglycerides 60 on 12/12/2019. Continue Lipitor 20 mg. * DVT prophylaxis: Patient on heparin 5000 units subcu every 8 hours. * Neurologically clear for transfer to [facility], if cleared by cardiology.
[2021-11-17 09:20] LABS: Calcium 8.4 mg/dL (8.4-10.2); Potassium 3.7 mmol/L (3.5-5.1)
[2021-11-17] MEDS: PIPERACILLIN-TAZOBACTAM 3.375 GM in SODIUM CHLORIDE 0.9% 100 ML IVPB SCH (09:24)
[2021-11-17] MEDS: HEPARIN SODIUM,PORCINE/PF 5,000 UNIT/0.5 ML SYRINGE SQ SCH ×3 (09:25→23:01)
[2021-11-17] MEDS: MELOXICAM 7.5 MG TAB PO SCH (09:25)
[2021-11-17] MEDS: ASPIRIN 325 MG TAB PO SCH (09:26)
[2021-11-17] MEDS: DEXTROSE 4 GM CHEWABLE PO SCH ×3 (17:14→22:27)
[2021-11-17] MEDS ORDERED: FUROSEMIDE 10 MG/ML 4 ML VIAL IV STA (18:14)
--- NOTE | 2021-11-17 18:17 | P.PN ---
Progress Note - Text Progress Note Date: 11/17/21 This is a 86-year-old patient being followed by Dr. Maddox. Chronic stable medical conditions include atrial fibrillation, hyperlipidemia, hypertension, rheumatoid arthritis. resident of [facility] daughter Elli - medical power of disability attorney. Baseline able to sit up in a wheelchair. Requires assistance. Able to take nice family. Wears diapers. Abdomen baseline patient unable to sit up in a wheelchair. Requiring assistance. Able to rise family. Was able to eat. Normally wears diapers. Patient was here earlier in this month. Was then under hospice of the [facility] and taken out of hospice but is admitted here. Started eating and drinking was discharged to rehab. Patient brought from the [facility] due to altered mental status, difficulty arousing. Patient unable to give history initially. Also found to have a heart rate in the 50s. Empirically on antibiotics for aspiration. Has a chronic Osei catheter. November 15: I assumrd the care of the patient today. Nothing by mouth for swallow evaluation. Osei catheter. Lower extremity edema. Able to communicate for simple questions. Tired. Rosana hugger November 16: Patient remains on Rosana hugger. Eating with assistance. Answering questions slowly. On 2 L nasal cannula. Tired. Edema. Give IV Lasix 20 mg. Roman wrap. November 17: Edema present. Roman wrap. Eating about 50%. We'll give additional dose of 40 mg on Lasix. Blood glucose 72. Glucose tablet was added. Discussed with nurse to encourage oral intake. Active Medications Acetaminophen (Acetaminophen Tab 325 Mg Tab) 650 mg PO Q6H PRN PRN Reason: Pain Last Admin: 11/16/21 23:01 Dose: 650 mg Amoxicillin/Clavulanate Potassium (Amoxic-Pot Clav 875-125mg 1 Each Tab) 1 each PO Q12HR [facility]; Protocol Aspirin (Aspirin 325 Mg Tab) 325 mg PO DAILY [facility] Last Admin: 11/17/21 09:26 Dose: 325 mg Atorvastatin Calcium (Atorvastatin 20 Mg Tab) 20 mg PO HS [facility] Last Admin: 11/16/21 20:39 Dose: 20 mg Doxazosin Mesylate (Doxazosin 2 Mg Tab) 2 mg PO HS [facility] Last Admin: 11/16/21 20:39 Dose: 2 mg Furosemide (Furosemide 10 Mg/Ml 4 Ml Vial) 40 mg IV ONCE STA Stop: 11/17/21 18:15 Glucose (Dextrose 4 Gm Chewable) 4 gm PO QID [facility] Last Admin: 11/17/21 17:14 Dose: 4 gm Heparin Sodium (Porcine) (Heparin Sodium,Porcine/Pf 5,000 Unit/0.5 Ml Syringe) 5,000 unit SQ Q8HR [facility] Last Admin: 11/17/21 17:14 Dose: 5,000 unit Meloxicam (Meloxicam 7.5 Mg Tab) 15 mg PO DAILY@0800 [facility] Last Admin: 11/17/21 09:25 Dose: 15 mg Naloxone HCl (Naloxone 0.4 Mg/Ml 1 Ml Vial) 0.2 mg IV Q2M PRN PRN Reason: Opioid Reversal Non-Formulary Medication (Vitamin D3 50,000iu) 1,250 mcg PO SA@1700 [facility] Pantoprazole Sodium (Pantoprazole 40 Mg Tablet) 40 mg PO DAILY@0600 [facility] Last Admin: 11/17/21 06:24 Dose: 40 mg Past medical history to include: Atrial fibrillation, hyperlipidemia, hypertension, rheumatoid arthritis, Social history: No history of smoking or alcohol. Since out of the chair. Full assist. Normally able to feed himself. Family history: Reviewed, noncontributory to presentation Physical examination: VITAL SIGNS: 94.4, 46, 16, 1 23 x 70, 96% on 2 L GENERAL: , Reclining in bed, awake EYES: Pupils equal. Conjunctiva normal. HEENT: External appearance of nose and ears normal, oral cavity dry. NECK: JVD unable to assess; masses not palpable. HEART: First and second heart sounds are normal; edema present. LUNGS: Respiratory rate increased; decreased breath sounds. ABDOMEN: Soft, nontender, liver spleen not palpable, no masses palpable. PSYCH: Answering simple questions MUSCULOSKELETAL:No Clubbing/cyanosis;muscles-grossly intact. Evidence of OA INVESTIGATIONS, reviewed in the clinical context: November 17: Potassium 3.7 creatinine 0.98 Modified barium swallow: No penetration or aspiration. White count 3.9 hemoglobin 12.9 platelets 105 potassium 3.9 creatinine 0.8 Vitamin B12 1938 pro-calcitonin 0.1 COVID 19: Not detected Chest x-ray film: Left lower lobe infiltrate Carotid Doppler: Nondiagnostic CT brain: Age-related changes Assessment and plan: -Possible aspiration pneumonia Augmentin -Acute fluid overload possibly from IV fluids:new diagnosis IV Lasix 40 mg 1 today -Persistent atrial fibrillation, rate controlled Lopressor and Verapamil on hold -BPH Cardura 2 mg by mouth daily at bedtime -Hyperlipidemia Lipitor 20 mg daily at bedtime -DO NOT RESUSCITATE -Chronic medical debility at her baseline patient's on a wheelchair Fall precautions -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 IV Lasix 40 mg 1 -Hypothermia: uncontrolled Rosana hugger Continue Rosana hugger. Oral intake better. IV Lasix 40 mg 1 Roman wrap. Add glucose tablets. Encourage oral intake.
[2021-11-17 19:39] LABS: Glucose,Whole Blood 74 mg/dL (75-99)
[2021-11-17] MEDS: AMOXIC-POT CLAV 875-125MG 1 EACH TAB PO SCH (21:49)
[2021-11-17] MEDS: DOXAZOSIN 2 MG TAB PO SCH (21:49)
[2021-11-17] MEDS: ATORVASTATIN 20 MG TAB PO SCH (21:49)
[2021-11-18] MEDS: PANTOPRAZOLE 40 MG TABLET PO SCH (06:10)
[2021-11-18 09:29] VITALS: RESP 18; TEMP 97.3
--- NOTE | 2021-11-18 09:29 | P.PN ---
Subjective Progress Note Date: 11/17/21 Patient was seen for a follow-up. Patient has somewhat fluctuating mental status, sometimes more alert, then becomes more groggy. Patient denies headache. Offers no complaints, laying comfortably in the bed. He is wheelchair bound for last 1-1/2 years. Objective - Vital Signs Vital signs: Vital Signs Temp 97.2 F L 11/17/21 12:00 Pulse 54 L 11/17/21 12:00 Resp 16 11/17/21 12:00 BP 117/75 11/17/21 12:00 Pulse Ox 98 11/17/21 07:32 FiO2 Intake & Output 11/16/21 11/17/21 11/17/21 18:59 06:59 18:59 Intake Total 236 118 Output Total 650 1000 400 Balance -414 -1000 -282 Weight 144 kg Intake: Oral 236 118 Output: Urine 650 1000 400 Other: Voiding Method Indwelling Catheter Indwelling Catheter Indwelling Catheter - Exam 11/17/2021: Patient is laying comfortably in the bed. Patient's face appears symmetric. Pupils are equal, round and reacting. 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 Ankle dorsiflexion normal. Apparently he has been wheelchair bound for last 1-1/2 years. He has severe DJD. Patient has moderate peripheral edema. - Labs CBC & Chem 7: 11/14/21 06:34 11/17/21 07:44 Labs: Abnormal Lab Results - Last 24 Hours (Table) 11/17/21 Range/Units 07:44 Chloride 108 H (98-107) mmol/L BUN 21 H (9-20) mg/dL Glucose 72 L (74-99) mg/dL Assessment and Plan Assessment: * Altered mental status, probably due to toxic metabolic encephalopathy. Patient's examination at present is nonfocal. Rule out TIA. * Atrial fibrillation with slow ventricular response. * Bradycardia, status post atropine 0.5 mg IV. Patient could be delirious related to atropine. * Hypertension * Hyperlipidemia * Rheumatoid arthritis * Bilateral leg edema * History of recurrent UTI. No evidence of UTI at this time. Plan: * Patient has atrial fibrillation, currently not on anticoagulation. Apparently patient is not a good candidate for anticoagulation as per car diology. Cardiology on board. Continue aspirin 325 mg daily. * Repeat Carotid Doppler 11/15/2021 revealed less than 50% stenosis of bilateral ICA. Antegrade flow in both vertebral arteries. * 2-D echo from 08/25/2021 showed normal left ventricular size, mild concentric LVH, left ventricle systolic function is low normal, with EF between 50-55%. Right ventricle is mild to moderately enlarged. * B12 1938, RBC folate 652. TSH is mildly elevated 4.77 with normal free T4 1.58. We will defer to IM. * Hemoglobin A1c 5.5 * Lipid panel with cholesterol 83, LDL 50, HDL 21 and triglycerides 60 on 11/17. Continue Lipitor 20 mg. * We will observe overnight. If mental status does not improve, will consider repeating CT head. * DVT prophylaxis: Patient on heparin 5000 units subcu every 8 hours. * Neurologically clear for transfer to [facility], if cleared by cardiology.
[2021-11-18] MEDS: HEPARIN SODIUM,PORCINE/PF 5,000 UNIT/0.5 ML SYRINGE SQ SCH (09:32)
[2021-11-18] MEDS: MELOXICAM 7.5 MG TAB PO SCH (09:32)
[2021-11-18] MEDS: ASPIRIN 325 MG TAB PO SCH (09:32)
[2021-11-18] MEDS: AMOXIC-POT CLAV 875-125MG 1 EACH TAB PO SCH (09:32)
[2021-11-18] MEDS: DEXTROSE 4 GM CHEWABLE PO SCH ×2 (09:43→12:14)
[2021-11-18 11:56] LABS: African American GFR (CKD) >90 (>60 ml/min/1.73 sqM); Anion Gap 3 mmol/L; Blood Urea Nitrogen 20 mg/dL (9-20); Calcium 8.4 mg/dL (8.4-10.2); Carbon Dioxide 30 mmol/L (22-30); Chloride 107 mmol/L (98-107); Glucose 106 mg/dL (74-99); Non-African American GFR(CKD) 80 (>60 ml/min/1.73 sqM); Potassium 3.6 mmol/L (3.5-5.1); Sodium 140 mmol/L (137-145)
[2021-11-18 11:59] VITALS: BP 109/67; PULSE 65
--- NOTE | 2021-11-18 12:29 | P.DS ---
Providers Date of admission: 11/12/21 13:32 Expected date of discharge: 11/18/21 Attending physician: Nura Barnhart Consults: 11/12/21 13:31 Consult Physician Routine Consulting Provider: Kumar Zhao Consult Reason/Comments: altered Do you want consulting provider notified?: Yes Consult Physician Urgent Consulting Provider: Kelton Aparicio Consult Reason/Comments: bradycardia Do you want consulting provider notified?: Yes Primary care physician: Sai Maddox [facility] Course: This is a 86-year-old patient being followed by Dr. Maddox. Chronic stable medical conditions include atrial fibrillation, hyperlipidemia, hypertension, rheumatoid arthritis. 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 Baseline able to sit up in a wheelchair. Requires assistance. Able to take nice family. Wears diapers. Abdomen baseline patient unable to sit up in a wheelchair. Requiring assistance. Able to rise family. Was able to eat. Normally wears diapers. Patient was here earlier in this month. Was then under hospice of the [facility] and taken out of hospice but is admitted here. Started eating and drinking was discharged to rehab. Patient brought from the [facility] due to altered mental status, difficulty arousing. Patient unable to give history initially. Also found to have a heart rate in the 50s. Empirically on antibiotics for aspiration. Has a chronic Osei catheter. November 15: I assumrd the care of the patient today. Nothing by mouth for swallow evaluation. Osei catheter. Lower extremity edema. Able to communicate for simple questions. Tired. Rosana hugger November 16: Patient remains on Rosana hugger. Eating with assistance. Answering questions slowly. On 2 L nasal cannula. Tired. Edema. Give IV Lasix 20 mg. Roman wrap. November 17: Edema present. Roman wrap. Eating about 50%. We'll give additional dose of 40 mg on Lasix. Blood glucose 72. Glucose tablet was added. Discussed with nurse to encourage oral intake. November 18: Stable. Discharged to [facility]. Some scrotal swelling. To keep scrotum elevated with folded towel. Prognosis guarded. By mouth Lasix 40 mg for 3 days Discussion and discharge planning more than 35 minutes Past medical history to include: Atrial fibrillation, hyperlipidemia, hypertension, rheumatoid arthritis, Social history: No history of smoking or alcohol. Since out of the chair. Full assist. Normally able to feed himself. Family history: Reviewed, noncontributory to presentation Physical examination: VITAL SIGNS: 97.3, 54, 18, 109/67, 91% on 2 L GENERAL: , Reclining in bed, awake EYES: Pupils equal. Conjunctiva normal. HEENT: External appearance of nose and ears normal, oral cavity dry. NECK: JVD unable to assess; masses not palpable. HEART: First and second heart sounds are normal; edema present. LUNGS: Respiratory rate increased; decreased breath sounds. ABDOMEN: Soft, nontender, liver spleen not palpable, no masses palpable. PSYCH: Answering simple questions MUSCULOSKELETAL:No Clubbing/cyanosis;muscles-grossly intact. Evidence of OA INVESTIGATIONS, reviewed in the clinical context: November 18: Potassium 3.6 creatinine 0.81 Modified barium swallow: No penetration or aspiration. White count 3.9 hemoglobin 12.9 platelets 105 potassium 3.9 creatinine 0.8 Vitamin B12 1938 pro-calcitonin 0.1 COVID 19: Not detected Chest x-ray film: Left lower lobe infiltrate Carotid Doppler: Nondiagnostic CT brain: Age-related changes Assessment and plan: -Possible aspiration pneumonia Augmentin -Acute fluid overload possibly from IV fluids:new diagnosis Improve with Lasix. 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 -Hypoglycemia from decreased oral intake: Encourage oral intake -Hypothermia: Rosanavilla hammond -DO NOT RESUSCITATE Disposition: [facility] Plan - Discharge Summary Discharge Rx Participant: Yes New Discharge Prescriptions: New Aspirin 81 mg PO DAILY #1 tab Continue Liquacel 30 ml PO BID@0800,1700 Vitamin D3 50,000iu 1,250 mcg PO SA@1700 Magnesium Hydroxide [Milk of Magnesia Concentrate] 7,200 mg PO Q48H PRN PRN Reason: Constipation Na Phos,M-B/Na Phos,Di-Ba [Fleet Adult] 133 ml RECTAL DAILY PRN PRN Reason: Constipation bisacodyL [Dulcolax] 10 mg RECTAL DAILY PRN PRN Reason: Constipation Acetaminophen Tab [Tylenol] 650 mg PO Q6H PRN PRN Reason: Pain Roberto Packet 1 packet PO BID@0800,1700 Pantoprazole [Protonix] 40 mg PO DAILY@0600 Meloxicam [Mobic] 15 mg PO DAILY@0800 Doxazosin [Cardura] 2 mg PO HS Atorvastatin [Lipitor] 20 mg PO HS Discontinued Verapamil [Isoptin] 40 mg PO TID@0500,1300,2100 tab Metoprolol Tartrate [Lopressor] 12.5 mg PO BID@0800,2000 tab Discharge Medication List Acetaminophen Tab [Tylenol] 650 mg PO Q6H PRN 11/12/21 [History] Atorvastatin [Lipitor] 20 mg PO HS 11/12/21 [History] Doxazosin [Cardura] 2 mg PO HS 11/12/21 [History] Roberto Packet 1 packet PO BID@0800,1700 11/12/21 [History] Liquacel 30 ml PO BID@0800,1700 11/12/21 [History] Magnesium Hydroxide [Milk of Magnesia Concentrate] 7,200 mg PO Q48H PRN 11/12/21 [History] Meloxicam [Mobic] 15 mg PO DAILY@0800 11/12/21 [History] Na Phos,M-B/Na Phos,Di-Ba [Fleet Adult] 133 ml RECTAL DAILY PRN 11/12/21 [History] Pantoprazole [Protonix] 40 mg PO DAILY@0600 11/12/21 [History] Vitamin D3 50,000iu 1,250 mcg PO SA@1700 11/12/21 [History] bisacodyL [Dulcolax] 10 mg RECTAL DAILY PRN 11/12/21 [History] Aspirin 81 mg PO DAILY #1 tab 11/18/21 [Rx] Follow up Appointment(s)/Referral(s): Sai Maddox DO [Primary Care Provider] - 1-2 days
[2021-11-18] MEDS ORDERED: FUROSEMIDE 40 MG TAB PO SCH (12:30)
--- NOTE | 2021-11-18 13:23 | CT ---
EXAMINATION TYPE: CT brain wo con DATE OF EXAM: 11/18/2021 HISTORY: AMS, A-fib, ?CVA CT DLP: 1179.4 mGycm. Automated Exposure Control for Dose Reduction was Utilized. TECHNIQUE: CT scan of the head is performed without contrast. COMPARISON: CT brain Nov 12 2021. FINDINGS: There is no acute intracranial hemorrhage or midline shift identified. There is mild diff use ventricular and sulcal prominence consistent with diffuse age-related cerebral atrophy. There is mild low-attenuation in the periventricular white matter consistent with chronic small vessel ischem ic change. The globes are intact and the visualized sinuses are clear. IMPRESSION: No acute intracranial hemorrhage or midline shift. There is mild diffuse age-related ce rebral atrophy and chronic small vessel ischemic change redemonstrated. No significant change from p rior.
--- NOTE | 2021-11-19 15:28 | P.PN ---
Subjective Progress Note Date: 11/18/21 Patient was seen for a follow-up. Patient continued to be groggy, but appears more easily arousable, alert and follows direction. Patient denies headache. Offers no complaints, laying comfortably in the bed. He is wheelchair bound for last 1-1/2 years. Objective - Vital Signs Vital signs: Vital Signs Temp 97.3 F L 11/18/21 09:09 Pulse 65 11/18/21 11:57 Resp 18 11/18/21 11:57 BP 109/67 11/18/21 11:57 Pulse Ox 91 L 11/18/21 11:57 FiO2 Intake & Output 11/17/21 11/18/21 11/18/21 18:59 06:59 18:59 Intake Total 236 60 Output Total 600 1550 Balance -364 -1490 Weight 144 kg Intake: IV 60 0.9 60 Oral 236 Output: Urine 600 1550 Other: Voiding Method Indwelling Catheter Indwelling Catheter Indwelling Catheter - Exam 11/18/2021: Patient is laying comfortably in the bed. Patient's face appears droopy towards the left, but his face is also turned to the left and with lack of dentition could be just sagging of the lips to the left. Pupils are equal, round and reacting. 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 Ankle dorsiflexion normal. Apparently he has been wheelchair bound for last 1-1/2 years. He has severe DJD. Patient has moderate peripheral edema. - Labs CBC & Chem 7: 11/14/21 06:34 11/18/21 11:19 Labs: Abnormal Lab Results - Last 24 Hours (Table) 11/17/21 11/18/21 Range/Units 19:37 11:19 Glucose 106 H (74-99) mg/dL POC Glucose (mg/dL) 74 L (75-99) mg/dL Assessment and Plan Assessment: * Altered mental status, probably due to toxic metabolic encephalopathy. Patient's examination at present is nonfocal. Rule out TIA. * Atrial fibrillation with slow ventricular response. * Bradycardia, status post atropine 0.5 mg IV. Patient could be delirious related to atropine. * Hypertension * Hyperlipidemia * Rheumatoid arthritis * Bilateral leg edema * History of recurrent UTI. No evidence of UTI at this time. Plan: * Patient continues to be slightly groggy, therefore CT head repeated today, which revealed no acute process. No evidence of a CVA. I personally reviewed CT head and agree with radiology findings. * Patient has atrial fibrillation, currently not on anticoagulation. Apparently patient is not a good candidate for anticoagulation as per cardiology. Cardiology on board. Continue aspirin 325 mg daily. * Repeat Carotid Doppler 11/15/2021 revealed less than 50% stenosis of bilateral ICA. Antegrade flow in both vertebral arteries. * 2-D echo from 08/25/2021 showed normal left ventricular size, mild concentric LVH, left ventricle systolic function is low normal, with EF between 50-55%. Right ventricle is mild to moderately enlarged. * B12 1938, RBC folate 652. TSH is mildly elevated 4.77 with normal free T4 1.58. We will defer to IM. * Hemoglobin A1c 5.5 * Lipid panel with cholesterol 83, LDL 50, HDL 21 and triglycerides 60 on 12/12/2019. Continue Lipitor 20 mg. * Neurologically clear for discharge to [facility].
[2021-11-19] MEDS ORDERED: VITAMIN D3 1250 MCG PO SCH (17:00)
== END 2021-11-18 15:14 | DRG 177 ==
LOC: EC 11:35 → 3SCARD 13:32
PROVIDERS: ADMIT Hospitalist; ATTEND Hospitalist
DX: J69.0 Pneumonitis due to inhalation of food and vomit (principal); G92.8 Other toxic encephalopathy; D69.3 Immune thrombocytopenic purpura; I48.19 Other persistent atrial fibrillation; I50.32 Chronic diastolic (congestive) heart failure; Z68.41 Body mass index [BMI] 40.0-44.9, adult; F03.90 Unspecified dementia, unspecified severity, without behavioral disturbance, psychotic disturbance, mood disturbance, and anxiety; R62.7 Adult failure to thrive; G31.9 Degenerative disease of nervous system, unspecified; D64.9 Anemia, unspecified; I11.0 Hypertensive heart disease with heart failure; M06.9 Rheumatoid arthritis, unspecified; Z66 Do not resuscitate; Z20.822 Contact with and (suspected) exposure to COVID-19; R00.1 Bradycardia, unspecified; I45.9 Conduction disorder, unspecified; N40.1 Benign prostatic hyperplasia with lower urinary tract symptoms; R33.8 Other retention of urine; R31.9 Hematuria, unspecified; I65.21 Occlusion and stenosis of right carotid artery; E78.5 Hyperlipidemia, unspecified; N50.89 Other specified disorders of the male genital organs; E16.2 Hypoglycemia, unspecified; E87.70 Fluid overload, unspecified; R68.0 Hypothermia, not associated with low environmental temperature; I83.92 Asymptomatic varicose veins of left lower extremity; M25.511 Pain in right shoulder; R53.81 Other malaise; M19.90 Unspecified osteoarthritis, unspecified site; Z79.1 Long term (current) use of non-steroidal anti-inflammatories (NSAID); Z79.899 Other long term (current) drug therapy; Z87.440 Personal history of urinary (tract) infections; Z86.19 Personal history of other infectious and parasitic diseases; Z87.19 Personal history of other diseases of the digestive system; Z91.81 History of falling; Z99.3 Dependence on wheelchair; Z98.890 Other specified postprocedural states; Z71.3 Dietary counseling and surveillance; Z81.2 Family history of tobacco abuse and dependence; Z81.1 Family history of alcohol abuse and dependence
CPT/HCPCS: 36415; 36600; 51702; 70450; 71045; 74230; 80048; 80053; 81003; 82607; 82747; 82805; 83735; 83880; 84145; 84439; 84443; 84481; 84484; 85025; 85610; 85730; 87635; 93005; 93880; 94760; 96374; 99291

== ENCOUNTER 2021-11-29 11:59 | Inpatient (IN) | payer MEDICARE, BC ==
--- NOTE | 2021-11-29 12:31 | ED ---
General Adult HPI - General Chief complaint: Altered Mental Status Stated complaint: AMS/Low HR Time Seen by Provider: 11/29/21 12:02 Source: patient, EMS Mode of arrival: ambulatory - History of Present Illness Initial comments: Dictation was produced using [employer] dictation software. please excuse any grammatical, word or spelling errors. Chief Complaint: 86-year-old male presents to the emergency department for bradycardia and altered mental status History of Present Illness: Patient is a 86-year-old male with multiple comorbidities. Patient is allegedly DO NOT RESUSCITATE according to daughter and son at the bedside. According to nurse received report from EMS patient was brought to the emergency department for one day G and bradycardia. Patient allegedly had heart rates in between the mid 20s to mid 50s. Patient does have a history of atrial fibrillation takes multiple cardiac medications. Patient is a poor historian however when asked if anything is bothering and he says no and he nods yes whenever asked if he feels well. Son at the bedside reports that patient was much better. Yesterday. Son states that he did have lunch with the patient however he was slightly confused. The ROS documented in this emergency department record has been reviewed and confirmed by me. Those systems with pertinent positive or negative responses have been documented in the HPI. All other systems are other negative and/or noncontributory. PHYSICAL EXAM: General Impression: Alert and oriented x2/4, not in acute distress HEENT: Normocephalic atraumatic, extra-ocular movements intact, pupils equal and reactive to light bilaterally, mucous membranes moist. Cardiovascular: Heart regular rate and rhythm Chest: Mild retractions, diffuse lung wheezing with auscultation of the lungs Abdomen: abdomen soft, non-tender, non-distended, no organomegaly Musculoskeletal: Pulses present and equal in all extremities, no peripheral edema Motor: no focal deficits noted Neurological: CN II-XII grossly intact, no focal motor or sensory deficits noted Skin: Intact with no visualized rashes ED course: 86-year-old male presents to the emergency department for bradycardia and lethargy. Heart rate at arrival was 49. Rest of vital signs upon arrival are within acceptable limits. Expectations were discussed with family members at the bedside. They are agreeable to medical management. They are also agreeable to no invasive resuscitative measures including CPR, central venous catheter placement and endotracheal intubation. Laboratory evaluation obtained. Leukopenia of 2.8, hemoglobin 12.9. Hemoglobin is around patient's baseline. Coag panel is unremarkable. Metabolic panel shows elevated BUN to creatinine ratio likely secondary to intentional diuresis to treat heart failure. Prematurity peptide is 3000. Urinalysis shows 121 white blood cells. Patient does have insulin for catheter is unclear if this represents patient's blood catheter being colonized. Nonetheless he has leukopenia, altered mental status and is in respiratory distress. Patient given ceftriaxone for concerns of urinary tract infection leading to systemic s ymptoms. Chest x-ray shows findings to suggest heart failure. Patient given BiPAP and Lasix. Patient be admitted for further care disposition options discussed with family. - Related Data Home Medications Medication Instructions Recorded Confirmed Acetaminophen Tab [Tylenol] 650 mg PO Q6H PRN 11/12/21 11/29/21 Atorvastatin [Lipitor] 20 mg PO HS 11/12/21 11/29/21 Doxazosin [Cardura] 2 mg PO 11/12/21 11/29/21 Roberto Packet 1 packet PO BID@0800,169911/12/21 11/29/21 Liquacel 30 ml PO BID@0800,169911/12/21 11/29/21 Magnesium Hydroxide [Milk of 7,200 mg PO Q48H PRN 11/12/21 11/29/21 Magnesia Concentrate] Meloxicam [Mobic] 15 mg PO DAILY@0811/12/21 11/29/21 Na Phos,M-B/Na Phos,Di-Ba [Fleet 133 ml RECTAL DAILY PRN 11/12/21 11/29/21 Adult] Pantoprazole [Protonix] 40 mg PO DAILY@0811/12/21 11/29/21 Vitamin D3 50,000iu 1,250 mcg PO SA@169911/12/21 11/29/21 bisacodyL [Dulcolax] 10 mg RECTAL DAILY PRN 11/12/21 11/29/21 Aquacel Ag 1 applic TOPICAL DAILY PRN 11/29/21 11/29/21 Aspirin 81 mg PO DAILY@169911/29/21 11/29/21 Furosemide [Lasix] 40 mg PO DAILY@0800 11/29/21 11/29/21 Menthol-Zinc Oxide Oint 1 applic TOPICAL BID 11/29/21 11/29/21 [Calmoseptine Ointment] Allergies Allergy/AdvReac Type Severity Reaction Status Date / Time No Known Allergies Allergy Verified 11/29/21 13:07 Review of Systems ROS Statement: Those systems with pertinent positive or pertinent negative responses have been documented in the HPI. ROS Other: All systems not noted in ROS Statement are negative. 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 History of Any Multi-Drug Resistant Organisms: None Reported Past Surgical History: Hernia Repair Additional Past Surgical History / Comment(s): R inguinal hernia repair, L leg varicose vein surgery, colonoscopy. Past Anesthesia/Blood Transfusion Reactions: No Reported Reaction Past Psychological History: No Psychological Hx Reported Smoking Status: Never smoker - Past Family History Father Family Medical History: No Reported History Additional Family Medical History / Comment(s): Father ws healthy Mother Additional Family Medical History / Comment(s): Mother was a smoker and a drinker. Course Vital Signs 11/29/21 11/29/21 12:02 14:43 Pulse Rate 49 L Respiratory 18 Rate Blood Pressure 140/81 O2 Sat by Pulse 98 Oximetry Fraction of 30 Inspired Oxygen (FIO2) Medical Decision Making - Lab Data Result diagrams: 11/29/21 13:03 11/29/21 13:03 Lab Results 11/29/21 11/29/21 11/29/21 Range/Units 13:01 13:03 13:03 WBC 2.8 L (3.8-10.6) k/uL RBC 4.28 L (4.30-5.90) m/uL Hgb 12.9 L (13.0-17.5) gm/dL Hct 42.4 (39.0-53.0) % MCV 99.0 (80.0-100.0) fL MCH 30.0 (25.0-35.0) pg MCHC 30.3 L (31.0-37.0) g/dL RDW 18.5 H (11.5-15.5) % Plt Count 105 L (150-450) k/uL MPV 10.0 Neutrophils % 58 % Lymphocytes % 25 % Monocytes % 8 % Eosinophils % 3 % Basophils % 3 % Neutrophils # 1.6 (1.3-7.7) k/uL Lymphocytes # 0.7 L (1.0-4.8) k/uL Monocytes # 0.2 (0-1.0) k/uL Eosinophils # 0.1 (0-0.7) k/uL Basophils # 0.1 (0-0.2) k/uL Hypochromasia Moderate Anisocytosis Slight Macrocytosis Slight PT 12.7 H (9.0-12.0) sec INR 1.2 H (<1.2) APTT 34.6 H (22.0-30.0) sec Sodium (137-145) mmol/L Potassium (3.5-5.1) mmol/L Chloride (98-107) mmol/L Carbon Dioxide (22-30) mmol/L Anion Gap mmol/L BUN (9-20) mg/dL Creatinine (0.66-1.25) mg/dL Est GFR (CKD-EPI)AfAm (>60 ml/min/1.73 sqM) Est GFR (CKD-EPI)NonAf (>60 ml/min/1.73 sqM) Glucose (74-99) mg/dL Plasma Lactic Acid Nick (0.7-2.0) mmol/L Calcium (8.4-10.2) mg/dL Magnesium (1.6-2.3) mg/dL Total Bilirubin (0.2-1.3) mg/dL AST (17-59) U/L ALT (4-49) U/L Alkaline Phosphatase (38-126) U/L Troponin I (0.000-0.034) ng/mL NT-Pro-B Natriuret Pep pg/mL Total Protein (6.3-8.2) g/dL Albumin (3.5-5.0) g/dL Urine Color Yellow Urine Appearance Cloudy (Clear) Urine pH 5.5 (5.0-8.0) Ur Specific [place] 1.017 (1.001-1.035) Urine Protein Trace H (Negative) Urine Glucose (UA) Negative (Negative) Urine Ketones Negative (Negative) Urine Blood Trace H (Negative) Urine Nitrite Negative (Negative) Urine Bilirubin Negative (Negative) Urine Urobilinogen 2.0 (<2.0) mg/dL Ur Leukocyte Esterase Large H (Negative) Urine RBC 6 H (0-5) /hpf Urine WBC 121 H (0-5) /hpf Urine WBC Clumps Many H (None) /hpf Ur Squamous Epith Cells <1 (0-4) /hpf Urine Bacteria Occasional H (None) /hpf 11/29/21 11/29/21 11/29/21 Range/Units 13:03 13:03 13:03 WBC (3.8-10.6) k/uL RBC (4.30-5.90) m/uL Hgb (13.0-17.5) gm/dL Hct (39.0-53.0) % MCV (80.0-100.0) fL MCH (25.0-35.0) pg MCHC (31.0-37.0) g/dL RDW (11.5-15.5) % Plt Count (150-450) k/uL MPV Neutrophils % % Lymphocytes % % Monocytes % % Eosinophils % % Basophils % % Neutrophils # (1.3-7.7) k/uL Lymphocytes # (1.0-4.8) k/uL Monocytes # (0-1.0) k/uL Eosinophils # (0-0.7) k/uL Basophils # (0-0.2) k/uL Hypochromasia Anisocytosis Macrocytosis PT (9.0-12.0) sec INR (<1.2) APTT (22.0-30.0) sec Sodium 144 (137-145) mmol/L Potassium 4.6 (3.5-5.1) mmol/L Chloride 105 (98-107) mmol/L Carbon Dioxide 33 H (22-30) mmol/L Anion Gap 6 mmol/L BUN 54 H (9-20) mg/dL Creatinine 0.90 (0.66-1.25) mg/dL Est GFR (CKD-EPI)AfAm 89 (>60 ml/min/1.73 sqM) Est GFR (CKD-EPI)NonAf 77 (>60 ml/min/1.73 sqM) Glucose 76 (74-99) mg/dL Plasma Lactic Acid Nick 0.9 (0.7-2.0) mmol/L Calcium 9.3 (8.4-10.2) mg/dL Magnesium 2.0 (1.6-2.3) mg/dL Total Bilirubin 0.9 (0.2-1.3) mg/dL AST 40 (17-59) U/L ALT 22 (4-49) U/L Alkaline Phosphatase 147 H (38-126) U/L Troponin I 0.015 (0.000-0.034) ng/mL NT-Pro-B Natriuret Pep pg/mL Total Protein 6.6 (6.3-8.2) g/dL Albumin 2.9 L (3.5-5.0) g/dL Urine Color Urine Appearance (Clear) Urine pH (5.0-8.0) Ur Specific [place] (1.001-1.035) Urine Protein (Negative) Urine Glucose (UA) (Negative) Urine Ketones (Negative) Urine Blood (Negative) Urine Nitrite (Negative) Urine Bilirubin (Negative) Urine Urobilinogen (<2.0) mg/dL Ur Leukocyte Esterase (Negative) Urine RBC (0-5) /hpf Urine WBC (0-5) /hpf Urine WBC Clumps (None) /hpf Ur Squamous Epith Cells (0-4) /hpf Urine Bacteria (None) /hpf 11/29/21 Range/Units 13:03 WBC (3.8-10.6) k/uL RBC (4.30-5.90) m/uL Hgb (13.0-17.5) gm/dL Hct (39.0-53.0) % MCV (80.0-100.0) fL MCH (25.0-35.0) pg MCHC (31.0-37.0) g/dL RDW (11.5-15.5) % Plt Count (150-450) k/uL MPV Neutrophils % % Lymphocytes % % Monocytes % % Eosinophils % % Basophils % % Neutrophils # (1.3-7.7) k/uL Lymphocytes # (1.0-4.8) k/uL Monocytes # (0-1.0) k/uL Eosinophils # (0-0.7) k/uL Basophils # (0-0.2) k/uL Hypochromasia Anisocytosis Macrocytosis PT (9.0-12.0) sec INR (<1.2) APTT (22.0-30.0) sec Sodium (137-145) mmol/L Potassium (3.5-5.1) mmol/L Chloride (98-107) mmol/L Carbon Dioxide (22-30) mmol/L Anion Gap mmol/L BUN (9-20) mg/dL Creatinine (0.66-1.25) mg/dL Est GFR (CKD-EPI)AfAm (>60 ml/min/1.73 sqM) Est GFR (CKD-EPI)NonAf (>60 ml/min/1.73 sqM) Glucose (74-99) mg/dL Plasma Lactic Acid Nick (0.7-2.0) mmol/L Calcium (8.4-10.2) mg/dL Magnesium (1.6-2.3) mg/dL Total Bilirubin (0.2-1.3) mg/dL AST (17-59) U/L ALT (4-49) U/L Alkaline Phosphatase (38-126) U/L Troponin I (0.000-0.034) ng/mL NT-Pro-B Natriuret Pep 3520 pg/mL Total Protein (6.3-8.2) g/dL Albumin (3.5-5.0) g/dL Urine Color Urine Appearance (Clear) Urine pH (5.0-8.0) Ur Specific [place] (1.001-1.035) Urine Protein (Negative) Urine Glucose (UA) (Negative) Urine Ketones (Negative) Urine Blood (Negative) Urine Nitrite (Negative) Urine Bilirubin (Negative) Urine Urobilinogen (<2.0) mg/dL Ur Leukocyte Esterase (Negative) Urine RBC (0-5) /hpf Urine WBC (0-5) /hpf Urine WBC Clumps (None) /hpf Ur Squamous Epith Cells (0-4) /hpf Urine Bacteria (None) /hpf Critical Care Time Critical Care Time: Yes Total Critical Care Time: 33 Disposition Clinical Impression: Heart failure Disposition: ADMITTED IP TO THIS HOSP Condition: Fair Referrals: Sai Maddox DO [Primary Care Provider] - 1-2 days Decision Time: 15:16
--- NOTE | 2021-11-29 12:54 | XR ---
EXAMINATION TYPE: XR chest 1V portable DATE OF EXAM: 11/29/2021 COMPARISON: Chest x-ray 11/14/2021 HISTORY: COPD TECHNIQUE: Single frontal view of the chest is obtained. FINDINGS: The heart is markedly enlarged. There may be retrocardiac density, bandlike areas of incre ased attenuation are present in the left midlung. Suspect blunting the right costophrenic angle, basi lar density on the right. No evident pneumothorax. Central vascularity appears prominently. IMPRESSION: Correlate to exclude congestive heart failure. There may be basilar effusions, difficult to exclude edema versus atelectasis or pneumonia. Marked cardiomegaly persists.
[2021-11-29] MEDS ORDERED: FUROSEMIDE 10 MG/ML 4 ML VIAL IV STA (13:06)
[2021-11-29 13:12] LABS: Anisocytosis Slight; Basophils # (A) 0.1 k/uL (0-0.2); Basophils % (A) 3 %; Eosinophils # (A) 0.1 k/uL (0-0.7); Eosinophils % (A) 3 %; HCT 42.4 % (39.0-53.0); HGB 12.9 gm/dL (13.0-17.5); Hypochromasia Moderate; Lymphocytes # (A) 0.7 k/uL (1.0-4.8); Lymphocytes % (A) 25 %; MCHC 30.3 g/dL (31.0-37.0); Macrocytosis Slight; Monocytes # (A) 0.2 k/uL (0-1.0); Monocytes % (A) 8 %; Neutrophils # (A) 1.6 k/uL (1.3-7.7); Neutrophils % (A) 58 %; Platelet Count 105 k/uL (150-450); RBC 4.28 m/uL (4.30-5.90); RDW 18.5 % (11.5-15.5); WBC 2.8 k/uL (3.8-10.6)
[2021-11-29 13:30] LABS: INR 1.2 (<1.2); Partial Thromboplastin Time 34.6 sec (22.0-30.0); Prothrombin Time 12.7 sec (9.0-12.0)
[2021-11-29 13:31] LABS: Albumin 2.9 g/dL (3.5-5.0); Calcium 9.3 mg/dL (8.4-10.2); Potassium 4.6 mmol/L (3.5-5.1); Total Bilirubin 0.9 mg/dL (0.2-1.3); Total Protein 6.6 g/dL (6.3-8.2)
[2021-11-29 13:37] LABS: Appearance,Urine Cloudy (Clear); Bacteria,Urine Occasional /hpf; Bilirubin,Urine Negative (Negative); Blood,Urine Trace (Negative); Color,Urine Yellow; Glucose,Urine (UA) Negative (Negative); Ketones,Urine Negative (Negative); Leukocyte Esterase,Urine Large (Negative); Nitrite,Urine Negative (Negative); PH, Urine 5.5 (5.0-8.0); Protein,Urine Trace (Negative); RBC,Urine 6 /hpf (0-5); Specific Gravity,Urine 1.017 (1.001-1.035); Squamous Epithelial Cell,Urine <1 /hpf (0-4); WBC,Urine 121 /hpf (0-5)
[2021-11-29] MEDS ORDERED: cefTRIAXone IN SWFI 1,000 MG/10 ML SYRINGE IVP STA (13:45)
[2021-11-29] MEDS ORDERED: NALOXONE 0.4 MG/ML 1 ML VIAL IV PRN (15:10)
[2021-11-29] MEDS ORDERED: bisacodyL 10 MG SUPP RECTAL PRN (17:02)
[2021-11-29] MEDS ORDERED: ACETAMINOPHEN TAB 325 MG TAB PO PRN (17:02)
[2021-11-29] MEDS ORDERED: NA PHOS,M-B/NA PHOS,DI-BA 133 ML ENEMA RECTAL PRN (17:02)
[2021-11-29] MEDS ORDERED: [UNRECOGNIZED DRUG - OTHER] TOPICAL PRN (17:02)
[2021-11-29] MEDS ORDERED: CALCIUM CARBONATE 500 MG CHEWABLE PO PRN (18:16)
[2021-11-29] MEDS ORDERED: LORazepam 0.5 MG TAB PO PRN (18:16)
[2021-11-29] MEDS ORDERED: ONDANSETRON 4 MG/2 ML VIAL IVP PRN (18:16)
--- NOTE | 2021-11-29 18:20 | P.HPIM ---
History of Present Illness H&P Date: 11/29/21 Chief Complaint: Low heart rate This is a 86-year-old patient being followed by Dr. Maddox. Chronic stable medical conditions include atrial fibrillation, hyperlipidemia, hypertension, rheumatoid arthritis. resident [facility] daughter Elli - medical power of belt puncher. Baseline able to sit up in a wheelchair. Requires assistance. Able to recognize family. Wears diapers. baseline able to sit up in a wheelchair. Requiring assistance. Chronic Osei catheter. Able to feed himself Patient brought from the [facility] due to altered mental status, difficulty arousing. Patient unable to give history initially. Also found to have a heart rate in the 50s. Empirically on antibiotics for aspiration. Has a chronic Osei catheter. Patient daughter the bedside in the ER. Patient came from the [facility] as heart rate was noted to drop out of the 30s. Since the patient is here heart regular didn't notice them in the 50s. Patient has been eating fine. Patient himself is a bit of a limited historian. Has some edema. Chronic Osei. No fever or chills reported. No episodes of passing out or palpitation. Review of systems: GEN.: None EYES: None HEENT: Decreased hearing NECK: None RESPIRATORY: None CARDIOVASCULAR: None GASTROINTESTINAL: None GENITOURINARY: Osei catheter MUSCULOSKELETAL: None LYMPHATICS: None HEMATOLOGICAL: None PSYCHIATRY: None NEUROLOGICAL: Limited historian Past medical history to include: Atrial fibrillation, hyperlipidemia, hypertension, rheumatoid arthritis, chronic Osei catheter Social history: No history of smoking or alcohol. . Full assist. Normally able to feed himself. At [facility] Family history: Reviewed, noncontributory to presentation Physical examination: VITAL SIGNS: Heart rate 50s, 18, 102/61, 98% on 4 L GENERAL: , Reclining in bed, tired EYES: Pupils equal. Conjunctiva normal. HEENT: External appearance of nose and ears normal, oral cavity normal NECK: JVD unable to assess; masses not palpable. HEART: First and second heart sounds are normal; edema present. LUNGS: Respiratory rate increased; decreased breath sounds. ABDOMEN: Soft, nontender, liver spleen not palpable, no masses palpable. PSYCH: Answering simple questions MUSCULOSKELETAL:No Clubbing/cyanosis;muscles-grossly intact. Evidence of OA INVESTIGATIONS, reviewed in the clinical context: White count 2.8 hemoglobin 12.9 platelets 105 sodium 144 potassium 4.6 BUN 54 creatinine 0.9 Telemetric tracing personally reviewed by me: Atrial fibrillation. Heart rate in the 50s Chest x-ray film personally reviewed by me-sam shahid. Some venous prominence 2-D echocardiogram [August 2021]: EF 50-55% Assessment and plan: -Acute on chronic congestive heart failure exacerbation from diastolic dysfunction EF 50-55% IV Lasix 40 mg every 8 -Persistent atrial fibrillation, rate controlled -Bradycardia reported. Note that patient's been having PVCs. Currently patient's heart rate is in the 50s. Adequate. Telemetry. 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 Roman wrap. Strict I's and O's. Folliculitis. Home medications resumed. Care was discussed with the daughter Elli at the bedside. 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 History of Any Multi-Drug Resistant Organisms: None Reported Past Surgical History: Hernia Repair Additional Past Surgical History / Comment(s): R inguinal hernia repair, L leg varicose vein surgery, colonoscopy. Past Anesthesia/Blood Transfusion Reactions: No Reported Reaction Past Psychological History: No Psychological Hx Reported Smoking Status: Never smoker - Past Family History Father Family Medical History: No Reported History Additional Family Medical History / Comment(s): Father ws healthy Mother Additional Family Medical History / Comment(s): Mother was a smoker and a drinker. Medications and Allergies Home Medications Medication Instructions Recorded Confirmed Type Acetaminophen Tab [Tylenol] 650 mg PO Q6H PRN 11/12/21 11/29/21 History Atorvastatin [Lipitor] 20 mg PO HS 11/12/21 11/29/21 History Doxazosin [Cardura] 2 mg PO HS 11/12/21 11/29/21 History Roberto Packet 1 packet PO BID@0800,1700 11/12/21 11/29/21 History Liquacel 30 ml PO BID@0800,1700 11/12/21 11/29/21 History Magnesium Hydroxide [Milk of 7,200 mg PO Q48H PRN 11/12/21 11/29/21 History Magnesia Concentrate] Meloxicam [Mobic] 15 mg PO DAILY@0811/12/21 11/29/21 History Na Phos,M-B/Na Phos,Di-Ba [Fleet 133 ml RECTAL DAILY PRN 11/12/21 11/29/21 History Adult] Pantoprazole [Protonix] 40 mg PO DAILY@0811/12/21 11/29/21 History Vitamin D3 50,000iu 1,250 mcg PO SA@169911/12/21 11/29/21 History bisacodyL [Dulcolax] 10 mg RECTAL DAILY PRN 11/12/21 11/29/21 History Aquacel Ag 1 applic TOPICAL DAILY PRN 11/29/21 11/29/21 History Aspirin 81 mg PO DAILY@169911/29/21 11/29/21 History Furosemide [Lasix] 40 mg PO DAILY@0811/29/21 11/29/21 History Menthol-Zinc Oxide Oint 1 applic TOPICAL BID 11/29/21 11/29/21 History [Calmoseptine Ointment] Allergies Allergy/AdvReac Type Severity Reaction Status Date / Time No Known Allergies Allergy Verified 11/29/21 13:07 Physical Exam Vitals: Vital Signs Pulse Resp BP Pulse Ox FiO2 11/29/21 17:12 56 L 18 116/73 98 11/29/21 16:43 95 11/29/21 15:40 64 18 102/61 98 11/29/21 15:27 40 11/29/21 14:43 30 11/29/21 12:02 49 L 18 140/81 98 Intake and Output 11/29/21 11/29/21 11/29/21 06:59 14:59 22:59 Output Total 1200 Balance -1200 Output: Urine 1200 Other: Weight 113.398 kg Results CBC & Chem 7: 11/29/21 13:03 11/29/21 13:03 Labs: Abnormal Lab Results - Last 24 Hours (Table) 11/29/21 11/29/21 11/29/21 Range/Units 13:01 13:03 13:03 WBC 2.8 L (3.8-10.6) k/uL RBC 4.28 L (4.30-5.90) m/uL Hgb 12.9 L (13.0-17.5) gm/dL MCHC 30.3 L (31.0-37.0) g/dL RDW 18.5 H (11.5-15.5) % Plt Count 105 L (150-450) k/uL Lymphocytes # 0.7 L (1.0-4.8) k/uL PT 12.7 H (9.0-12.0) sec INR 1.2 H (<1.2) APTT 34.6 H (22.0-30.0) sec Carbon Dioxide (22-30) mmol/L BUN (9-20) mg/dL Alkaline Phosphatase (38-126) U/L Albumin (3.5-5.0) g/dL Urine Protein Trace H (Negative) Urine Blood Trace H (Negative) Ur Leukocyte Esterase Large H (Negative) Urine RBC 6 H (0-5) /hpf Urine WBC 121 H (0-5) /hpf Urine WBC Clumps Many H (None) /hpf Urine Bacteria Occasional H (None) /hpf 11/29/21 Range/Units 13:03 WBC (3.8-10.6) k/uL RBC (4.30-5.90) m/uL Hgb (13.0-17.5) gm/dL MCHC (31.0-37.0) g/dL RDW (11.5-15.5) % Plt Count (150-450) k/uL Lymphocytes # (1.0-4.8) k/uL PT (9.0-12.0) sec INR (<1.2) APTT (22.0-30.0) sec Carbon Dioxide 33 H (22-30) mmol/L BUN 54 H (9-20) mg/dL Alkaline Phosphatase 147 H (38-126) U/L Albumin 2.9 L (3.5-5.0) g/dL Urine Protein (Negative) Urine Blood (Negative) Ur Leukocyte Esterase (Negative) Urine RBC (0-5) /hpf Urine WBC (0-5) /hpf Urine WBC Clumps (None) /hpf Urine Bacteria (None) /hpf
[2021-11-29] MEDS: FUROSEMIDE 10 MG/ML 4 ML VIAL IV SCH (19:09)
[2021-11-29] MEDS: DOXAZOSIN 2 MG TAB PO SCH (21:03)
[2021-11-29] MEDS: ATORVASTATIN 20 MG TAB PO SCH (21:05)
[2021-11-30] MEDS: SODIUM CHLORIDE 0.9% 1,000 ML IV SCH (01:28)
[2021-11-30] MEDS: MENTHOL-ZINC OXIDE OINT 113 GM TUBE TOPICAL SCH ×3 (01:28→21:20)
[2021-11-30] MEDS: FUROSEMIDE 10 MG/ML 4 ML VIAL IV SCH ×3 (01:31→20:22)
[2021-11-30] MEDS ORDERED: FUROSEMIDE 40 MG TAB PO SCH (08:00)
[2021-11-30] MEDS ORDERED: NON FORMULARY DRUG (Juven Packet 1 PACKET Packet) PO SCH (08:00)
[2021-11-30] MEDS ORDERED: NON FORMULARY DRUG (Liquacel 30 ML) PO SCH (08:00)
[2021-11-30 08:12] LABS: African American GFR (CKD) >90 (>60 ml/min/1.73 sqM); Anion Gap 6 mmol/L; Blood Urea Nitrogen 54 mg/dL (9-20); Calcium 9.3 mg/dL (8.4-10.2); Carbon Dioxide 31 mmol/L (22-30); Chloride 106 mmol/L (98-107); Glucose 63 mg/dL (74-99); Non-African American GFR(CKD) 78 (>60 ml/min/1.73 sqM); Potassium 4.4 mmol/L (3.5-5.1); Sodium 143 mmol/L (137-145)
[2021-11-30 11:16] VITALS: BMI 39.1
[2021-11-30] MEDS: MELOXICAM 7.5 MG TAB PO SCH (12:05)
[2021-11-30] MEDS: PANTOPRAZOLE 40 MG TABLET PO SCH (12:05)
--- NOTE | 2021-11-30 12:20 | CDI ---
Documentation Clarification Form Date: 11/30/2021 11:47:25 AM From: Makeda Dillard RN Admit Date: 11/29/2021 03:12:00 PM Patient Name: Valentín Justice Visit Number: [id number] Discharge Date: ATTENTION: The Clinical Documentation Specialists (CDI) and [facility] Coding Staff appreciate your assistance in clarifying documentation. Please respond to the clarification below the line at the bottom and electronically sign. The CDI & [facility] Coding staff will review the response and follow-up if needed. Please note: Queries are made part of the Legal Health Record. If you have any questions, please contact the author of this message via ITS. Dr. Nura Malloy buttock, II pressure ulcer is documented by Nursing 11/29, Pressure Injury assessment. Based on this information and the findings below, is there an additional diagnosis that is clinically appropriate for this patient? History/Risk Factors: 86-year-old male presents to the ED via EMS for AMS difficulty arousing, heart rate in the 50s. Medical history HTN, Atrial Fibrillation, wears diapers and baseline able to sit up in wheelchair. 11/29, H&P. Clinical Indicators: Location: Buttock Wound description: Stage II Treatment: Ensure Enlive TID Kcal / Serving 350, Kcal. Protein / serving 20 gm; Absorbent under pad; Air mattress; Barrier protection; check hourly; Turning 2 Q; Elevating with pillow arms and heels; Foam Border Consults: Nutrition consult, 11/30 Nutritional diagnosis : inadequate energy intake, related to poor appetite, AMS and lethargy. Is there an additional diagnosis that is clinically appropriate for this patient? [ ] Left Buttock Pressure Ulcer Stage 2 [ ] Right Buttock Pressure Ulcer Stage 2 [ ] Other condition, please specify [ ] Unable to determine Clinical Definitions: Stage 1 Pressure Ulcer: intact skin, non-blanching redness of local area Stage 2 Pressure Ulcer: Partial thickness, loss of dermis, pink wound bed Stage 3 Pressure Ulcer: Full thickness tissue loss Stage 4 Pressure Ulcer: Full thickness tissue loss with exposed bone, tendon, or muscle. Unstageable pressure ulcer: Full thickness tissue loss in which the base of the ulcer is covered by slough (yellow, parker, beltran, green or brown) and/or eschar (parker, brown or black) in the wound bed. (Template Last Revised: August 2020) Coccygeal stage II pressure ulcer, POA MTDD
--- NOTE | 2021-11-30 12:22 | CDI ---
Documentation Clarification Form Date: 11/30/2021 11:45:47 AM From: Makeda Dillard RN CCDS Admit Date: 11/29/2021 03:12:00 PM Patient Name: Valentín Justice Visit Number: [id number] Discharge Date: ATTENTION: The Clinical Documentation Specialists (CDI) and [facility] Coding Staff appreciate your assistance in clarifying documentation. Please respond to the clarification below the line at the bottom and electronically sign. The CDI & [facility] Coding staff will review the response and follow-up if needed. Please note: Queries are made part of the Legal Health Record. If you have any questions, please contact the author of this message via ITS. Dr. Nura Malloy right heel, stage II pressure ulcer is documented by Nursing 11/29, Pressure injury assessment. Based on this information and the findings below, is there an additional diagnosis that is clinically appropriate for this patient? History/Risk Factors: 86-year-old male presents to the ED via EMS for AMS difficulty arousing, heart rate in the 50s. Medical history HTN, Atrial Fibrillation, wears diapers and baseline able to sit up in wheelchair. 11/29, H&P. Clinical Indicators: Location: Right Heel Wound description: Stage II; Moderate Yellow / brown drainage. Treatment: Ensure Enlive TID Kcal / Serving 350, Kcal. Protein / serving 20 gm; Absorbent under pad; Air mattress; Barrier protection; check hourly; Turning 2 Q; Elevating with pillow arms and heels. Consults: Nutrition consult, 11/30 Nutritional diagnosis : inadequate energy intake, related to poor appetite, AMS and lethargy. Is there an additional diagnosis that is clinically appropriate for this patient? [ ] Left heel Pressure Ulcer Stage 2 [ ] Other condition, please specify [ ] Unable to determine Clinical Definitions: Stage 1 Pressure Ulcer: intact skin, non-blanching redness of local area Stage 2 Pressure Ulcer: Partial thickness, loss of dermis, pink wound bed Stage 3 Pressure Ulcer: Full thickness tissue loss Stage 4 Pressure Ulcer: Full thickness tissue loss with exposed bone, tendon, or muscle. Unstageable pressure ulcer: Full thickness tissue loss in which the base of the ulcer is covered by slough (yellow, parker, beltran, green or brown) and/or eschar (parker, brown or black) in the wound bed. (Template Last Revised: August 2020) Left heel pressure ulcer stage II, POA MTDD
--- NOTE | 2021-11-30 12:46 | P.CRDCN ---
History of Present Illness Consult date: 11/30/21 History of present illness: HISTORY OF PRESENT ILLNESS: This is a 86 year old female with a past medical history significant for persistent atrial fibrillation, congestive heart failure, and bradycardia. Patient does not follow with a assistant corporate secretary. We have been asked to see the patient in consultation for bradycardia. Patient examined at the bedside. Patient is lethargic and unable to provide any history. There is no family at the bedside. Patient was brought to the hospital secondary to lethargy and bradycardia. EKG was completed this morning revealing atrial fibrillation with a heart rate of 65. Patient was previously admitted to the hospital in October 2021. He was noted to be bradycardic at that time and his metoprolol and verapamil wer e discontinued. Patient also wore an event monitor in September 2021 revealing atrial fibrillation, severe bradycardia with an average of 33 bpm, maximum 74 bpm, and minimum 21 bpm. Occasional frequent PVCs with rare couplets. * Chest xray correlate to exclude congestive heart failure. There may be ba silar effusions, difficult to exclude edema versus atelectasis or pneumonia. Marked cardiomegaly persists. * Laboratory data: WBC 2.8. Hemoglobin 12.9. Platelet count 105. Sodium 143. Potassium 4.4. BUN 54. Creatinine 0.88. Troponin negative 1. ProBNP 3520. * Current home cardiac medications include aspirin 81 mg daily, Lipitor 20 mg daily, Cardura 2 mg at night, Lasix 40 mg daily * Most recent echocardiogram obtained in August 2021 revealed ejection fraction 50-55%, mild mitral regurgitation, mild tricuspid regurgitation * Cardiac catheterization history: unknown REVIEW OF SYSTEMS: At the time of my exam: Unable to obtain thorough review of systems secondary to lethargy PHYSICAL EXAM: VITAL SIGNS: Reviewed. GENERAL: Well-developed in no acute distress. HEENT: Head is normocephalic. Pupils are equal, round. Sclerae anicteric. Mucous membranes of the mouth are moist. Neck supple. No JVD or thyromegaly LUNGS: Respirations even and unlabored. Lungs diminished to auscultation bilaterally. HEART: Irregular rate and rhythm. S1 and S2 heard. ABDOMEN: Soft. Nondistended. Nontender. EXTREMITIES: Normal range of motion. No clubbing or cyanosis. Peripheral pulses intact. Bilateral lower extremity edema NEUROLOGIC: Lethargic. ASSESSMENT: Altered mental status, etiology unclear Bradycardia Persistent atrial fibrillation with slow ventricular rate Acute on chronic heart failure with preserved ejection fraction PLAN: No need to repeat echo as this was performed in August 2021 Continue telemetry monitoring Avoid AV ba blocking agents Check TSH Patients bradycardia appears to be chronic in nature and does not appear to be the culprit of patients altered mental status Continue IV lasix. Decrease dosage to Q12 hours. Further recommendations pending patient course Nurse practitioner note has been reviewed by physician. Signing provider agrees with the documented findings, assessment, and plan of care. 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 History of Any Multi-Drug Resistant Organisms: None Reported Past Surgical History: Hernia Repair Additional Past Surgical History / Comment(s): R inguinal hernia repair, L leg varicose vein surgery, colonoscopy. Past Anesthesia/Blood Transfusion Reactions: No Reported Reaction Past Psychological History: No Psychological Hx Reported Smoking Status: Never smoker Past Alcohol Use History: None Reported Past Drug Use History: None Reported - Past Family History Father Family Medical History: No Reported History Additional Family Medical History / Comment(s): Father ws healthy Mother Additional Family Medical History / Comment(s): Mother was a smoker and a drin ker. Medications and Allergies Home Medications Medication Instructions Recorded Confirmed Type Acetaminophen Tab [Tylenol] 650 mg PO Q6H PRN 11/12/21 11/29/21 History Atorvastatin [Lipitor] 20 mg PO HS 11/12/21 11/29/21 History Doxazosin [Cardura] 2 mg PO HS 11/12/21 11/29/21 History Roberto Packet 1 packet PO BID@0800,1700 11/12/21 11/29/21 History Liquacel 30 ml PO BID@0800,1700 11/12/21 11/29/21 History Magnesium Hydroxide [Milk of 7,200 mg PO Q48H PRN 11/12/21 11/29/21 History Magnesia Concentrate] Meloxicam [Mobic] 15 mg PO DAILY@0800 11/12/21 11/29/21 History Na Phos,M-B/Na Phos,Di-Ba [Fleet 133 ml RECTAL DAILY PRN 11/12/21 11/29/21 History Adult] Pantoprazole [Protonix] 40 mg PO DAILY@0800 11/12/21 11/29/21 History Vitamin D3 50,000iu 1,250 mcg PO SA@1700 11/12/21 11/29/21 History bisacodyL [Dulcolax] 10 mg RECTAL DAILY PRN 11/12/21 11/29/21 History Aquacel Ag 1 applic TOPICAL DAILY PRN 11/29/21 11/29/21 History Aspirin 81 mg PO DAILY@1700 11/29/21 11/29/21 History Furosemide [Lasix] 40 mg PO DAILY@0800 11/29/21 11/29/21 History Menthol-Zinc Oxide Oint 1 applic TOPICAL BID 11/29/21 11/29/21 History [Calmoseptine Ointment] Allergies Allergy/AdvReac Type Severity Reaction Status Date / Time No Known Allergies Allergy Verified 11/29/21 13:07 Physical Exam Vitals: Vital Signs Temp Pulse Pulse Resp BP BP Pulse Ox 11/30/21 11:54 96.4 F L 73 16 117/68 94 L 11/30/21 08:36 95.2 F L 11/30/21 08:26 57 L 18 96/63 95 11/30/21 08:17 95 11/30/21 08:00 57 L 18 11/30/21 06:14 94 F L 17 95 11/30/21 04:00 93.6 F L 66 18 123/64 97 11/29/21 23:52 92.6 F L 57 L 18 103/64 96 11/29/21 22:39 54 L 18 115/65 97 11/29/21 21:00 66 18 90/66 94 L 11/29/21 20:00 64 18 103/92 97 11/29/21 19:21 63 22 109/75 97 11/29/21 17:12 56 L 18 116/73 98 11/29/21 16:43 95 11/29/21 15:40 64 18 102/61 98 11/29/21 15:27 11/29/21 14:43 FiO2 11/30/21 11:54 11/30/21 08:36 11/30/21 08:26 11/30/21 08:17 11/30/21 08:00 11/30/21 06:14 11/30/21 04:00 11/29/21 23:52 11/29/21 22:39 11/29/21 21:00 11/29/21 20:00 11/29/21 19:21 11/29/21 17:12 11/29/21 16:43 11/29/21 15:40 11/29/21 15:27 40 11/29/21 14:43 30 Intake and Output 11/29/21 11/30/21 11/30/21 22:59 06:59 14:59 Output Total 1200 700 Balance -1200 -700 Output: Urine 1200 700 Other: Voiding Method Indwelling Catheter Indwelling Catheter # Bowel Movements 1 Weight 113.398 kg 113.398 kg Results 11/29/21 13:03 11/30/21 07:25 Cardiac Enzymes 11/29/21 11/29/21 Range/Units 13:03 13:03 AST 40 (17-59) U/L Troponin I 0.015 (0.000-0.034) ng/mL Coagulation 11/29/21 Range/Units 13:03 PT 12.7 H (9.0-12.0) sec APTT 34.6 H (22.0-30.0) sec CBC 11/29/21 Range/Units 13:03 WBC 2.8 L (3.8-10.6) k/uL RBC 4.28 L (4.30-5.90) m/uL Hgb 12.9 L (13.0-17.5) gm/dL Hct 42.4 (39.0-53.0) % Plt Count 105 L (150-450) k/uL Comprehensive Metabolic Panel 11/29/21 11/30/21 Range/Units 13:03 07:25 Sodium 144 143 (137-145) mmol/L Potassium 4.6 4.4 (3.5-5.1) mmol/L Chloride 105 106 (98-107) mmol/L Carbon Dioxide 33 H 31 H (22-30) mmol/L BUN 54 H 54 H (9-20) mg/dL Creatinine 0.90 0.88 (0.66-1.25) mg/dL Glucose 76 63 L (74-99) mg/dL Calcium 9.3 9.3 (8.4-10.2) mg/dL AST 40 (17-59) U/L ALT 22 (4-49) U/L Alkaline Phosphatase 147 H (38-126) U/L Total Protein 6.6 (6.3-8.2) g/dL Albumin 2.9 L (3.5-5.0) g/dL Current Medications Generic Name Dose Route Start Last Admin Trade Name Freq PRN Reason Stop Dose Admin Acetaminophen 650 mg 11/29/21 17:02 Acetaminophen Tab 325 Mg Tab PO Q6H PRN Pain Aspirin 81 mg 11/30/21 17:00 Aspirin 81 Mg PO DAILY@1700 [facility] Atorvastatin Calcium 20 mg 11/29/21 21:00 11/29/21 21:05 Atorvastatin 20 Mg Tab PO 20 mg HS [facility] Administration Bisacodyl 10 mg 11/29/21 17:02 Bisacodyl 10 Mg Supp RECTAL DAILY PRN Constipation Calamine/Phenol 1 applic 11/29/21 21:00 11/30/21 01:28 Menthol-Zinc Oxide Oint 113 Gm Tube TOPICAL Not Given BID [facility] Protocol Calcium Carbonate/Glycine 1,000 mg 11/29/21 18:16 Calcium Carbonate 500 Mg Chewable PO Q4HR PRN Dyspepsia Doxazosin Mesylate 2 mg 11/29/21 21:00 11/29/21 21:03 Doxazosin 2 Mg Tab PO Not Given HS [facility] Furosemide 40 mg 11/29/21 18:15 11/30/21 09:53 Furosemide 10 Mg/Ml 4 Ml Vial IV 40 mg Q8HR JAMES Administration Sodium Chloride 1,000 mls @ 10 mls/hr 11/29/21 15:15 11/30/21 01:28 Saline 0.9% IV Not Given .Q24H JAMES Lorazepam 0.5 mg 11/29/21 18:16 Lorazepam 0.5 Mg Tab PO Q6HR PRN Anxiety Meloxicam 15 mg 11/30/21 08:00 11/30/21 12:05 Meloxicam 7.5 Mg Tab PO Not Given DAILY@0800 [facility] Naloxone HCl 0.2 mg 11/29/21 15:10 Naloxone 0.4 Mg/Ml 1 Ml Vial IV Q2M PRN Opioid Reversal Ondansetron HCl 4 mg 11/29/21 18:16 Ondansetron 4 Mg/2 Ml Vial IVP Q8HR PRN Nausea And Vomiting Pantoprazole Sodium 40 mg 11/30/21 08:00 11/30/21 12:05 Pantoprazole 40 Mg Tablet PO Not Given DAILY@0800 JAMES Sodium Biphosphate/Sodium Phosphate 133 ml 11/29/21 17:02 Na Phos,M-B/Na Phos,Di-Ba 133 Ml Enema RECTAL DAILY PRN Constipation Intake and Output 11/29/21 11/30/21 11/30/21 22:59 06:59 14:59 Output Total 1200 700 Balance -1200 -700 Output: Urine 1200 700 Other: Voiding Method Indwelling Catheter Indwelling Catheter # Bowel Movements 1 Weight 113.398 kg 113.398 kg Patient Weight 12/01/21 06:59 Weight 113.398 kg 11/29/21 13:03 11/30/21 07:25
--- NOTE | 2021-11-30 12:47 | CDI ---
Documentation Clarification Form Date: 11/30/2021 12:24:05 PM From: Makeda Dillard RN CCDS Admit Date: 11/29/2021 03:12:00 PM Patient Name: Valentín Justice Visit Number: [id number] Discharge Date: ATTENTION: The Clinical Documentation Specialists (CDI) and [facility] Coding Staff appreciate your assistance in clarifying documentation. Please respond to the clarification below the line at the bottom and electronically sign. The CDI & [facility] Coding staff will review the response and follow-up if needed. Please note: Queries are made part of the Legal Health Record. If you have any questions, please contact the author of this message via ITS. Dr. Nura Barnhart The Registered Dietitian assessment on 11/30 indicates this patient has inadequate energy intake. Based on this information and the findings below, is there an additional diagnosis that is clinically appropriate for this patient? History/Risk Factors: 86-year-old male presents to the ED via EMS for AMS difficulty arousing, heart rate in the 50s. Medical history HTN, Atrial Fibrillation, wears diapers and baseline able to sit up in wheelchair. 11/29, H&P. Clinical Indicators: RD Consult Assessment: Current BMI: 39.1 Nutrition screening for pressure ulcers. Stage II Right heel and buttock Estimated Nutritional Needs in Kcals: Weight used to estimate: Lanse body weight 61.235kg. Energy formula for estimated nutritional needs 25- 30 Kcals/Kg. Energy needs 1530 1837. Estimated protein needs: Weight used to estimate: Lanse body weight 61.235kg Estimated protein range needs: 1.2 grams/kg. Estimated protein needs 136 grams/day Nutritional diagnosis: Inadequate energy intake Treatment: Monitor PO and Supplement Intake. Dietary Consult: See above Supplements: Ensure Enlive TID Kcal / Serving 350, Kcal. Protein / serving 20 gm Lab monitoring: Chemistry Is there an additional diagnosis that is clinically appropriate for this patient? [ ] Mild Protein-Calorie Malnutrition [ ] Moderate Protein-Calorie Malnutrition [ ] Other condition, please specify [ ] Unable to Determine (Template Last Revised: August 2020) No malnutrition MTDD
--- NOTE | 2021-11-30 13:55 | P.PN ---
Progress Note - Text Progress Note Date: 11/30/21 Chief Complaint: Low heart rate This is a 86-year-old patient being followed by Dr. Maddox. Chronic stable medical conditions include atrial fibrillation, hyperlipidemia, hypertension, rheumatoid arthritis. resident of [facility] daughter Elli - medical power of criminal defense attorney. Baseline able to sit up in a wheelchair. Requires assistance. Able to recognize family. Wears diapers. baseline able to sit up in a wheelchair. Requiring assistance. Chronic Osei catheter. Able to feed himself Patient brought from the [facility] due to altered mental status, difficulty arousing. Patient unable to give history initially. Also found to have a heart rate in t he 50s. Empirically on antibiotics for aspiration. Has a chronic Osei catheter. Patient daughter the bedside in the ER. Patient came from the [facility] as heart rate was noted to drop out of the 30s. Since the patient is here heart regular didn't notice them in the 50s. Patient has been eating fine. Patient himself is a bit of a limited historian. Has some edema. Chronic Osei. No fever or chills reported. No episodes of passing out or palpitation. Admitted with acute CHF exacerbation. Put on IV Lasix. Hypothermia. Ranulfo hugger. November 30: IV Lasix. Edema started to go down. Has a Ranulfo hugger. Tired. Wound care consult for decub stage II was on the coccyx and right heel. Active Medications Acetaminophen (Acetaminophen Tab 325 Mg Tab) 650 mg PO Q6H PRN PRN Reason: Pain Aspirin (Aspirin 81 Mg) 81 mg PO DAILY@1700 [facility] Atorvastatin Calcium (Atorvastatin 20 Mg Tab) 20 mg PO [facility] Last Admin: 11/29/21 21:05 Dose: 20 mg Bisacodyl (Bisacodyl 10 Mg Supp) 10 mg RECTAL DAILY PRN PRN Reason: Constipation Calamine/Phenol (Menthol-Zinc Oxide Oint 113 Gm Tube) 1 applic TOPICAL BID [facility]; Protocol Last Admin: 11/30/21 01:28 Dose: Not Given Calcium Carbonate/Glycine (Calcium Carbonate 500 Mg Chewable) 1,000 mg PO Q4HR PRN PRN Reason: Dyspepsia Doxazosin Mesylate (Doxazosin 2 Mg Tab) 2 mg PO [facility] Last Admin: 11/29/21 21:03 Dose: Not Given Furosemide (Furosemide 10 Mg/Ml 4 Ml Vial) 40 mg IV Q12HR [facility] Sodium Chloride (Saline 0.9%) 1,000 mls @ 10 mls/hr IV .Q24H [facility] Last Admin: 11/30/21 01:28 Dose: Not Given Lorazepam (Lorazepam 0.5 Mg Tab) 0.5 mg PO Q6HR PRN PRN Reason: Anxiety Meloxicam (Meloxicam 7.5 Mg Tab) 15 mg PO DAILY@0800 [facility] Last Admin: 11/30/21 12:05 Dose: Not Given Naloxone HCl (Naloxone 0.4 Mg/Ml 1 Ml Vial) 0.2 mg IV Q2M PRN PRN Reason: Opioid Reversal Ondansetron HCl (Ondansetron 4 Mg/2 Ml Vial) 4 mg IVP Q8HR PRN PRN Reason: Nausea And Vomiting Pantoprazole Sodium (Pantoprazole 40 Mg Tablet) 40 mg PO DAILY@0800 [facility] Last Admin: 11/30/21 12:05 Dose: Not Given Sodium Biphosphate/Sodium Phosphate (Na Phos,M-B/Na Phos,Di-Ba 133 Ml Enema) 133 ml RECTAL DAILY PRN PRN Reason: Constipation Past medical history to include: Atrial fibrillation, hyperlipidemia, hypertension, rheumatoid arthritis, chronic Osei catheter Social history: No history of smoking or alcohol. . Full assist. Normally able to feed himself. At [facility] Family history: Reviewed, noncontributory to presentation Physical examination: VITAL SIGNS: 95.2 rectal, 73, 16, 11 7 x 68, 94% on 2 L GENERAL: , Reclining in bed, tired EYES: Pupils equal. Conjunctiva normal. HEENT: External appearance of nose and ears normal, oral cavity normal NECK: JVD unable to assess; masses not palpable. HEART: First and second heart sounds are normal; edema present. LUNGS: Respiratory rate increased; decreased breath sounds. ABDOMEN: Soft, nontender, liver spleen not palpable, no masses palpable. PSYCH: Answering occasional questions MUSCULOSKELETAL:No Clubbing/cyanosis;muscles-grossly intact. Evidence of OA DERMATOLOGICAL: Coccygeal stage II ulcer, right heel stage II ulcer., POA INVESTIGATIONS, reviewed in the clinical context: November 30: Potassium 4.4 BUN 54 creatinine 0.8 date TSH 4.0 White count 2.8 hemoglobin 12.9 platelets 105 sodium 144 potassium 4.6 BUN 54 creatinine 0.9 Telemetric tracing personally reviewed by me: Atrial fibrillation. Heart rate in the 50s Chest x-ray film personally reviewed by me-sam shahid. Some venous prominence 2-D echocardiogram [August 2021]: EF 50-55% Assessment and plan: -Acute on chronic congestive heart failure exacerbation from diastolic dysfunction EF 50-55%: Slow to respond IV Lasix 40 mg every 8 -Persistent atrial fibrillation, rate controlled -Bradycardia reported. Note that patient's been having PVCs. Currently patient's heart rate is in the 50s. Adequate. Telemetry. 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 Ranulfo hammond repeat labs. Wound care consult. Discussed with family at the bedside.
[2021-11-30] MEDS: ASPIRIN 81 MG PO SCH (18:24)
[2021-11-30] MEDS: DOXAZOSIN 2 MG TAB PO SCH (21:18)
[2021-11-30] MEDS: ATORVASTATIN 20 MG TAB PO SCH (21:19)
[2021-12-01] MEDS: FUROSEMIDE 10 MG/ML 4 ML VIAL IV SCH ×3 (08:36→22:55)
[2021-12-01] MEDS: PANTOPRAZOLE 40 MG TABLET PO SCH (08:40)
[2021-12-01] MEDS: MELOXICAM 7.5 MG TAB PO SCH (08:40)
[2021-12-01] MEDS: MENTHOL-ZINC OXIDE OINT 113 GM TUBE TOPICAL SCH ×2 (08:41→20:06)
[2021-12-01 08:52] LABS: Calcium 9.3 mg/dL (8.4-10.2)
--- NOTE | 2021-12-01 10:55 | P.CONS ---
History of Present Illness - Reason for Consult Consult date: 12/01/21 wound care - History of Present Illness This is an 86-year-old gentleman with a past medical history significant for atrial fibrillation, hyperlipidemia, hypertension, lifelong nonsmoker, resident of [facility]. Patient is a poor historian was unable to answer any questions. Patient presents with a stage II pressure ulcer to the right heel measuring 1 x 1 x 0.1 cm with Slough and nonviable tissue noted to the wound bed and minimal granulation. There is no tunneling or undermining noted. No erythema ecchymosis maceration or excoriation to the periwound noted. Patient has a stage II pressure ulcer to the right buttocks measuring approximately 5 x 4 x 0.2 cm with minimal granulation noted, fat layer exposure, wound edges are touches base, no tunneling or undermining noted. Slough and nonviable tissue within the wound bed. No maceration excoriation and ecchymosis or erythema noted to the periwound. Review Of Systems: Constitutional: No fever, no chills, no night sweats. No weight change. No weakness, fatigue or lethargy. No daytime sleepiness. Integumentary:reports wounds, no lesions. No rash or pruritus. No unusual bruising. No change in hair or nails. Physical exam: General Appearance: Alert, cooperative, no distress, appears stated age. Skin: See HPI all other Skin color, texture, tugor normal, no rashes or lesions. Neurologic: Alert oriented x3 Assessment: 1. Stage II pressure ulcer right heel 2. Stage II pressure ulcer right buttocks Plan: 1.Apply honey alginate, saline moist gauze, and border foam to the site. Change Sunday, and Sunday. Utilize foam heel protectors, turn patient every 2 hours, if patient is sitting utilize a air-filled cushion for sitting. Patient would benefit from continued advance wound care and outpatient basis. We'll be happy to see him in the wound care center upon discharge. Thank you for the consultation any questions please contact the wound care center DNP note has been reviewed and discussed with Dr. Duggan and the impression and plan of care has been directed as dictated. 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 History of Any Multi-Drug Resistant Organisms: None Reported Past Surgical History: Hernia Repair Additional Past Surgical History / Comment(s): R inguinal hernia repair, L leg varicose vein surgery, colonoscopy. Past Anesthesia/Blood Transfusion Reactions: No Reported Reaction Past Psychological History: No Psychological Hx Reported Smoking Status: Never smoker Past Alcohol Use History: None Reported Past Drug Use History: None Reported - Past Family History Father Family Medical History: No Reported History Additional Family Medical History / Comment(s): Father ws healthy Mother Additional Family Medical History / Comment(s): Mother was a smoker and a drinker. Medications and Allergies Home Medications Medication Instructions Recorded Confirmed Type Acetaminophen Tab [Tylenol] 650 mg PO Q6H PRN 11/12/21 11/29/21 History Atorvastatin [Lipitor] 20 mg PO HS 11/12/21 11/29/21 History Doxazosin [Cardura] 2 mg PO 11/12/21 11/29/21 History Roberto Packet 1 packet PO BID@0800,0 11/12/21 11/29/21 History Liquacel 30 ml PO BID@0800,169911/12/21 11/29/21 History Magnesium Hydroxide [Milk of 7,200 mg PO Q48H PRN 11/12/21 11/29/21 History Magnesia Concentrate] Meloxicam [Mobic] 15 mg PO DAILY@0811/12/21 11/29/21 History Na Phos,M-B/Na Phos,Di-Ba [Fleet 133 ml RECTAL DAILY PRN 11/12/21 11/29/21 History Adult] Pantoprazole [Protonix] 40 mg PO DAILY@0811/12/21 11/29/21 History Vitamin D3 50,000iu 1,250 mcg PO SA@169911/12/21 11/29/21 History bisacodyL [Dulcolax] 10 mg RECTAL DAILY PRN 11/12/21 11/29/21 History Aquacel Ag 1 applic TOPICAL DAILY PRN 11/29/21 11/29/21 History Aspirin 81 mg PO DAILY@169911/29/21 11/29/21 History Furosemide [Lasix] 40 mg PO DAILY@0800 11/29/21 11/29/21 History Menthol-Zinc Oxide Oint 1 applic TOPICAL BID 11/29/21 11/29/21 History [Calmoseptine Ointment] Allergies Allergy/AdvReac Type Severity Reaction Status Date / Time No Known Allergies Allergy Verified 11/29/21 13:07 Physical Exam Vitals: Vital Signs Temp Pulse Resp BP Pulse Ox 12/01/21 08:21 98.4 F 64 18 123/65 94 L 12/01/21 08:00 64 18 12/01/21 04:00 96.9 F L 58 L 18 112/63 94 L 12/01/21 00:00 97.6 F 82 16 113/68 94 L 11/30/21 20:00 97.8 F 63 18 111/64 94 L 11/30/21 19:00 94 L 11/30/21 16:00 98.2 F 62 16 102/58 93 L 11/30/21 14:00 73 16 11/30/21 11:54 96.4 F L 73 16 117/68 94 L Intake and Output 11/30/21 12/01/21 12/01/21 22:59 06:59 14:59 Output Total 1400 650 Balance -1400 -650 Output: Urine 1400 650 Other: Voiding Method Indwelling Catheter Indwelling Catheter Indwelling Catheter Weight 177 kg Results CBC & Chem 7: 11/29/21 13:03 12/01/21 08:04 Labs: Abnormal Lab Results - Last 24 Hours (Table) 12/01/21 Range/Units 08:04 Carbon Dioxide 34 H (22-30) mmol/L BUN 49 H (9-20) mg/dL Microbiology - Last 24 Hours (Table) 11/29/21 13:01 Urine Culture - Preliminary Urine,Voided Gram Neg Bacilli Assessment and Plan (1) Stage II pressure ulcer of right buttock Current Visit: Yes Status: Acute Code(s): L89.312 - PRESSURE ULCER OF RIGHT BUTTOCK, STAGE 2 SNOMED Code(s): 57619258094893575 (2) Stage II pressure ulcer of right heel Current Visit: Yes Status: Acute Code(s): L89.612 - PRESSURE ULCER OF RIGHT HEEL, STAGE 2 SNOMED Code(s): 07356308863624
--- NOTE | 2021-12-01 12:45 | P.PN ---
Subjective Progress Note Date: 12/01/21 Patient seen resting comfortably in bed sleeping. Patient is alert and orientated 1. He is not on any signs acute distress. He denies chest pain or increased shortness of breath. Patient will continue on IV Lasix every 12 hrs. He is not a candidate for anticoagulation. Kidney function continues to improve. TSH is within normal limits. Patient's bradycardia continues to be chronic in nature and does not appear to be causing his acute mental status change. Continue to avoid AV node blocking agents. Objective - Vital Signs Vital signs: Vital Signs Temp 97.8 F 12/01/21 11:49 Pulse 59 L 12/01/21 11:49 Resp 18 12/01/21 11:49 BP 108/73 12/01/21 11:49 Pulse Ox 90 L 12/01/21 11:49 FiO2 40 11/29/21 15:27 Intake & Output 11/30/21 12/01/21 12/01/21 18:59 06:59 18:59 Intake Total 180 Output Total 700 1400 650 Balance -520 -1400 -650 Weight 113.398 kg 177 kg Intake: Oral 180 Output: Urine 700 1400 650 Other: Voiding Method Indwelling Catheter Indwelling Catheter Indwelling Catheter - Exam PHYSICAL EXAM: VITAL SIGNS: Reviewed. GENERAL: Well-developed in no acute distress. HEENT: Head is normocephalic. Pupils are equal, round. Sclerae anicteric. Mucous membranes of the mouth are moist. NECK: Supple. No JVD or thyromegaly RESPIRATORY: Respirations even and unlabored. Lungs diminished to auscultation bilaterally. CARDIO: Regular rate and rhythm. S1 and S2 heard. No murmur or gallops. EXTREMITIES: Normal range of motion. No clubbing or cyanosis. Peripheral pulses intact. Negative for bilateral lower extremity edema NEURO: Orientated to person, mood is appropriate - Labs CBC & Chem 7: 11/29/21 13:03 12/01/21 08:04 Labs: Abnormal Lab Results - Last 24 Hours (Table) 12/01/21 Range/Units 08:04 Carbon Dioxide 34 H (22-30) mmol/L BUN 49 H (9-20) mg/dL Microbiology - Last 24 Hours (Table) 11/29/21 13:01 Urine Culture - Preliminary Urine,Voided Gram Neg Bacilli Assessment and Plan Assessment: Altered mental status, etiology unclear Bradycardia Persistent atrial fibrillation with slow ventricular rate Acute on chronic diastolic heart failure Plan: Continue with current cardiac medications Continue telemetry monitoring Avoid AV ba blocking agents Patients bradycardia appears to be chronic in nature and does not appear to be the culprit of patients altered mental status Continue IV lasix. Further recommendations based on clinical course The above impression and plan of care have been discussed and directed by the signing physician. Gladis Keller, nurse practitioner, acting as scribe for signing physician.
--- NOTE | 2021-12-01 14:14 | CT ---
EXAMINATION TYPE: CT brain wo con DATE OF EXAM: 12/01/2021 COMPARISON: CT dated 11/18/2021 HISTORY: ams CT DLP: 2364.4 mGycm Automated exposure control for dose reduction was used. TECHNIQUE: CT scan of the brain is performed without IV contrast administration. FINDINGS: Brain volume loss changes, likely age-related. Scattered arterial atherosclerotic calcifications. No acute intracranial hemorrhage. No gross acute cortical infarct. No midline shift, herniation or ventr iculomegaly. Unremarkable beltran-white matter differentiation, basal cisterns, sella and CP angles. No gross space-o ccupying lesion, vasogenic edema or mass effect. Unremarkable orbits. Clear visualized paranasal sinuses and mastoid air cells. Osteopenia. Degenerati ve changes of the TMJs. IMPRESSION: No acute intracranial abnormality or gross space-occupying lesion by this nonenhanced CT scan. Incide ntal findings as described above.
--- NOTE | 2021-12-01 14:24 | XR ---
EXAMINATION TYPE: XR chest 1V portable DATE OF EXAM: 12/01/2021 COMPARISON: Chest x-ray 11/29/2021 HISTORY: Congestive heart failure TECHNIQUE: Single frontal view of the chest is obtained. FINDINGS: The heart is markedly enlarged. Abnormal density in the retrocardiac region obscures the l eft hemidiaphragm. No evident pneumothorax, central vascularity appears prominently. Question patchy density right lung base, exam is limited by patient body habitus. There are overlying leads. IMPRESSION: Marked cardiomegaly. Correlate for volume overload, possible effusions, congestive heart failure, pneumonia not excluded.
[2021-12-01] MEDS: ASPIRIN 81 MG PO SCH (16:59)
--- NOTE | 2021-12-01 17:57 | P.PN ---
Progress Note - Text Progress Note Date: 12/01/21 Chief Complaint: Low heart rate This is a 86-year-old patient being followed by Dr. Maddox. Chronic stable medical conditions include atrial fibrillation, hyperlipidemia, hypertension, rheumatoid arthritis. resident of [facility] daughter Elli - medical power of privacy attorney. Baseline able to sit up in a wheelchair. Requires assistance. Able to recognize family. Wears diapers. baseline able to sit up in a wheelchair. Requiring assistance. Chronic Osei catheter. Able to feed himself Patient brought from the [facility] due to altered mental status, difficulty arousing. Patient unable to give history initially. Also found to have a heart rate in t he 50s. Empirically on antibiotics for aspiration. Has a chronic Osei catheter. Patient daughter the bedside in the ER. Patient came from the [facility] as heart rate was noted to drop out of the 30s. Since the patient is here heart regular didn't notice them in the 50s. Patient has been eating fine. Patient himself is a bit of a limited historian. Has some edema. Chronic Osei. No fever or chills reported. No episodes of passing out or palpitation. Admitted with acute CHF exacerbation. Put on IV Lasix. Hypothermia. Rosana hugger. November 30: IV Lasix. Edema started to go down. Has a Rosana hugger. Tired. Wound care consult for decub stage II was on the coccyx and right heel. December 01: Edema still present. Patient has remained rather lethargic. Not really communicating. On nasal cannula. Daughter the bedside. Has not been taking oral medications. Discussed with daughter the bedside. End of life care was discussed. She understands prognosis is guarded. Lasix increased to 3 ti mes a day. Chest x-ray reviewed by me shows cardiomegaly some venous prominence. I ordered a computed tomography scan of the brain to rule out stroke. No focal findings. Active Medications Acetaminophen (Acetaminophen Tab 325 Mg Tab) 650 mg PO Q6H PRN PRN Reason: Pain Aspirin (Aspirin 81 Mg) 81 mg PO DAILY@1700 [facility] Last Admin: 12/01/21 16:59 Dose: Not Given Atorvastatin Calcium (Atorvastatin 20 Mg Tab) 20 mg PO HS [facility] Last Admin: 11/30/21 21:19 Dose: Not Given Bisacodyl (Bisacodyl 10 Mg Supp) 10 mg RECTAL DAILY PRN PRN Reason: Constipation Calamine/Phenol (Menthol-Zinc Oxide Oint 113 Gm Tube) 1 applic TOPICAL BID [facility]; Protocol Last Admin: 12/01/21 08:41 Dose: 1 applic Calcium Carbonate/Glycine (Calcium Carbonate 500 Mg Chewable) 1,000 mg PO Q4HR PRN PRN Reason: Dyspepsia Doxazosin Mesylate (Doxazosin 2 Mg Tab) 2 mg PO HS [facility] Last Admin: 11/30/21 21:18 Dose: Not Given Furosemide (Furosemide 10 Mg/Ml 4 Ml Vial) 40 mg IV Q8HR [facility] Last Admin: 12/01/21 16:48 Dose: 40 mg Sodium Chloride (Saline 0.9%) 1,000 mls @ 10 mls/hr IV .Q24H [facility] Last Admin: 11/30/21 01:28 Dose: Not Given Lorazepam (Lorazepam 0.5 Mg Tab) 0.5 mg PO Q6HR PRN PRN Reason: Anxiety Meloxicam (Meloxicam 7.5 Mg Tab) 15 mg PO DAILY@0800 [facility] Last Admin: 12/01/21 08:40 Dose: Not Given Naloxone HCl (Naloxone 0.4 Mg/Ml 1 Ml Vial) 0.2 mg IV Q2M PRN PRN Reason: Opioid Reversal Ondansetron HCl (Ondansetron 4 Mg/2 Ml Vial) 4 mg IVP Q8HR PRN PRN Reason: Nausea And Vomiting Pantoprazole Sodium (Pantoprazole 40 Mg Tablet) 40 mg PO DAILY@0800 [facility] Last Admin: 12/01/21 08:40 Dose: Not Given Sodium Biphosphate/Sodium Phosphate (Na Phos,M-B/Na Phos,Di-Ba 133 Ml Enema) 133 ml RECTAL DAILY PRN PRN Reason: Constipation Past medical history to include: Atrial fibrillation, hyperlipidemia, hypertension, rheumatoid arthritis, chronic Osei catheter Social history: No history of smoking or alcohol. . Full assist. Normally able to feed himself. At [facility] Family history: Reviewed, noncontributory to presentation Physical examination: VITAL SIGNS: 97.8, 59, 18, 108/73, 94% on 2 L GENERAL: , Reclining in bed, tired, lethargic EYES: Pupils equal. Conjunctiva normal. HEENT: External appearance of nose and ears normal, oral cavity normal NECK: JVD unable to assess; masses not palpable. HEART: First and second heart sounds are normal; edema present. LUNGS: Respiratory rate increased; decreased breath sounds. ABDOMEN: Soft, nontender, liver spleen not palpable, no masses palpable. PSYCH: Lethargic, unable to assess MUSCULOSKELETAL:No Clubbing/cyanosis;muscles-grossly intact. Evidence of OA DERMATOLOGICAL: Coccygeal stage II ulcer, right heel stage II ulcer., POA INVESTIGATIONS, reviewed in the clinical context: Computed tomography scan brain: No stroke reported December 01: Potassium 4 BUN 49 creatinine 1.05. Chest x-ray: Venous prominence November 30: Potassium 4.4 BUN 54 creatinine 0.8 date TSH 4.0 White count 2.8 hemoglobin 12.9 platelets 105 sodium 144 potassium 4.6 BUN 54 creatinine 0.9 Telemetric tracing personally reviewed by me: Atrial fibrillation. Heart rate in the 50s Chest x-ray film personally reviewed by me-sam shahid. Some venous prominence 2-D echocardiogram [August 2021]: EF 50-55% Assessment and plan: -Acute on chronic congestive heart failure exacerbation from diastolic dysfunction EF 50-55%: Slow to respond Continue IV Lasix 40 mg every 8 -Acute metabolic encephalopathy, multifactorial:new diagnosis Follow clinically. -Persistent atrial fibrillation, rate controlled -Bradycardia reported. Note that patient's been having PVCs. Currently patient's heart rate is in the 50s. Adequate. Telemetry. 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 Wound care. Computed tomography scan of the brain negative for stroke. Chest x-ray shows pulmonary edema. Prognosis guarded. Advanced care planning: Care was discussed at length with patient daughter Elli the bedside. Was also the POA. She understands the patient is doing poorly. It was discussed with the current treatment will continue. If no change in next 24-48 hours then would consider comfort measures. Patient is a no code. 25 minutes was spent for this.
[2021-12-01] MEDS: SODIUM CHLORIDE 0.9% 1,000 ML IV SCH ×2 (19:50→19:51)
[2021-12-01] MEDS: DOXAZOSIN 2 MG TAB PO SCH (20:06)
[2021-12-01] MEDS: ATORVASTATIN 20 MG TAB PO SCH (20:06)
[2021-12-01 21:58] LABS: Glucose,Whole Blood 70 mg/dL (70-110)
[2021-12-02 00:15] LABS: Glucose,Whole Blood 64 mg/dL (70-110)
[2021-12-02] MEDS ORDERED: DEXTROSE 50% SYRINGE 50 ML IVP ONE (00:16)
[2021-12-02 00:36] LABS: Glucose,Whole Blood 92 mg/dL (70-110)
[2021-12-02 06:15] LABS: Glucose,Whole Blood 70 mg/dL (70-110)
[2021-12-02] MEDS: MELOXICAM 7.5 MG TAB PO SCH (07:53)
[2021-12-02] MEDS: PANTOPRAZOLE 40 MG TABLET PO SCH (07:53)
[2021-12-02] MEDS: MENTHOL-ZINC OXIDE OINT 113 GM TUBE TOPICAL SCH ×2 (08:14→20:44)
[2021-12-02] MEDS: FUROSEMIDE 10 MG/ML 4 ML VIAL IV SCH ×3 (09:17→23:08)
[2021-12-02 10:28] LABS: Calcium 9.6 mg/dL (8.4-10.2); Potassium 3.5 mmol/L (3.5-5.1)
[2021-12-02 11:44] LABS: Glucose,Whole Blood 69 mg/dL (70-110)
[2021-12-02] MEDS ORDERED: DEXTROSE 50% SYRINGE 50 ML IVP STA (11:52)
--- NOTE | 2021-12-02 13:08 | P.PN ---
Subjective Progress Note Date: 12/02/21 A she is seen sleeping comfortable in bed. He remains alert and orientated 1. He is not on any signs acute distress. He denies chest pain or increased shortness of breath. Vital signs remained stable. He is not a candidate for anticoagulation. Patient's bradycardia continues to be chronic in nature and does not appear to be causing his acute mental status change. Continue to avoid AV node blocking agents. Objective - Vital Signs Vital signs: Vital Signs Temp 97.4 F L 12/02/21 08:00 Pulse 62 12/02/21 08:00 Resp 22 12/02/21 08:00 BP 104/65 12/02/21 08:00 Pulse Ox 98 12/02/21 08:00 FiO2 40 11/29/21 15:27 Intake & Output 12/01/21 12/02/21 12/02/21 18:59 06:59 18:59 Output Total 800 2180 Balance -800 -2180 Weight 192.5 kg Output: Urine 800 2180 Other: Voiding Method Indwelling Catheter Indwelling Catheter Indwelling Catheter # Bowel Movements 1 - Exam PHYSICAL EXAM: VITAL SIGNS: Reviewed. GENERAL: Well-developed in no acute distress. HEENT: Head is normocephalic. Pupils are equal, round. Sclerae anicteric. Mucous membranes of the mouth are moist. NECK: Supple. No JVD or thyromegaly RESPIRATORY: Respirations even and unlabored. Lungs diminished to auscultation bilaterally. CARDIO: Regular rate and rhythm. S1 and S2 heard. No murmur or gallops. EXTREMITIES: Normal range of motion. No clubbing or cyanosis. Peripheral pulses intact. Negative for bilateral lower extremity edema NEURO: Orientated to person, mood is appropriate - Labs CBC & Chem 7: 11/29/21 13:03 12/02/21 09:41 Labs: Abnormal Lab Results - Last 24 Hours (Table) 12/02/21 12/02/21 12/02/21 Range/Units 00:14 09:41 11:43 Sodium 146 H (137-145) mmol/L Carbon Dioxide 36 H (22-30) mmol/L BUN 42 H (9-20) mg/dL POC Glucose (mg/dL) 64 L 69 L (70-110) mg/dL Microbiology - Last 24 Hours (Table) 11/29/21 13:01 Urine Culture - Final Urine,Voided Klebsiella pneumoniae Assessment and Plan Assessment: Altered mental status, etiology unclear Bradycardia Persistent atrial fibrillation with slow ventricular rate Acute on chronic diastolic heart failure Plan: Continue with current cardiac medications Continue telemetry monitoring Avoid AV ba blocking agents Patients bradycardia appears to be chronic in nature and does not appear to be the culprit of patients altered mental status Continue IV lasix. Further recommendations based on clinical course The above impression and plan of care have been discussed and directed by the signing physician. Gladis Keller, nurse practitioner, acting as scribe for signing physician.
[2021-12-02 13:30] LABS: Glucose,Whole Blood 95 mg/dL (70-110)
--- NOTE | 2021-12-02 16:17 | P.PN ---
Progress Note - Text Progress Note Date: 12/02/21 Chief Complaint: Low heart rate This is a 86-year-old patient being followed by Dr. Maddox. Chronic stable medical conditions include atrial fibrillation, hyperlipidemia, hypertension, rheumatoid arthritis. resident of [facility] daughter Elli - medical power of commercial real estate attorney. Baseline able to sit up in a wheelchair. Requires assistance. Able to recognize family. Wears diapers. baseline able to sit up in a wheelchair. Requiring assistance. Chronic Osei catheter. Able to feed himself Patient brought from the [facility] due to altered mental status, difficulty arousing. Patient unable to give history initially. Also found to have a heart rate in t he 50s. Empirically on antibiotics for aspiration. Has a chronic Osei catheter. Patient daughter the bedside in the ER. Patient came from the [facility] as heart rate was noted to drop out of the 30s. Since the patient is here heart regular didn't notice them in the 50s. Patient has been eating fine. Patient himself is a bit of a limited historian. Has some edema. Chronic Osei. No fever or chills reported. No episodes of passing out or palpitation. Admitted with acute CHF exacerbation. Put on IV Lasix. Hypothermia. Ranulfo hugger. November 30: IV Lasix. Edema started to go down. Has a Ranulfo hugger. Tired. Wound care consult for decub stage II was on the coccyx and right heel. December 01: Edema still present. Patient has remained rather lethargic. Not really communicating. On nasal cannula. Daughter the bedside. Has not been taking oral medications. Discussed with daughter the bedside. End of life care was discussed. She understands prognosis is guarded. Lasix increased to 3 ti mes a day. Chest x-ray reviewed by me shows cardiomegaly some venous prominence. I ordered a computed tomography scan of the brain to rule out stroke. No focal findings. December 02: Some decreased edema. Hypothermic. Ranulfo hugger on again. IV Lasix. Lethargic. Answering occasional question. Has not felt safe to be eating. Active Medications Acetaminophen (Acetaminophen Tab 325 Mg Tab) 650 mg PO Q6H PRN PRN Reason: Pain Aspirin (Aspirin 81 Mg) 81 mg PO DAILY@1700 [facility] Last Admin: 12/01/21 16:59 Dose: Not Given Atorvastatin Calcium (Atorvastatin 20 Mg Tab) 20 mg PO [facility] Last Admin: 12/01/21 20:06 Dose: Not Given Bisacodyl (Bisacodyl 10 Mg Supp) 10 mg RECTAL DAILY PRN PRN Reason: Constipation Calamine/Phenol (Menthol-Zinc Oxide Oint 113 Gm Tube) 1 applic TOPICAL BID [facility]; Protocol Last Admin: 12/02/21 08:14 Dose: Not Given Calcium Carbonate/Glycine (Calcium Carbonate 500 Mg Chewable) 1,000 mg PO Q4HR PRN PRN Reason: Dyspepsia Doxazosin Mesylate (Doxazosin 2 Mg Tab) 2 mg PO [facility] Last Admin: 12/01/21 20:06 Dose: Not Given Furosemide (Furosemide 10 Mg/Ml 4 Ml Vial) 40 mg IV Q8HR [facility] Last Admin: 12/02/21 09:17 Dose: 40 mg Sodium Chloride (Saline 0.9%) 1,000 mls @ 10 mls/hr IV .Q24H [facility] Last Admin: 12/01/21 19:51 Dose: Not Given Lorazepam (Lorazepam 0.5 Mg Tab) 0.5 mg PO Q6HR PRN PRN Reason: Anxiety Meloxicam (Meloxicam 7.5 Mg Tab) 15 mg PO DAILY@0800 [facility] Last Admin: 12/02/21 07:53 Dose: Not Given Naloxone HCl (Naloxone 0.4 Mg/Ml 1 Ml Vial) 0.2 mg IV Q2M PRN PRN Reason: Opioid Reversal Ondansetron HCl (Ondansetron 4 Mg/2 Ml Vial) 4 mg IVP Q8HR PRN PRN Reason: Nausea And Vomiting Pantoprazole Sodium (Pantoprazole 40 Mg Tablet) 40 mg PO DAILY@0800 [facility] Last Admin: 12/02/21 07:53 Dose: Not Given Sodium Biphosphate/Sodium Phosphate (Na Phos,M-B/Na Phos,Di-Ba 133 Ml Enema) 133 ml RECTAL DAILY PRN PRN Reason: Constipation Past medical history to include: Atrial fibrillation, hyperlipidemia, hypertension, rheumatoid arthritis, chronic Osei catheter Social history: No history of smoking or alcohol. . Full assist. Normally able to feed himself. At [facility] Family history: Reviewed, noncontributory to presentation Physical examination: VITAL SIGNS: 97.4, 62, 22, 104/65, 98% room air GENERAL: , Reclining in bed, tired, lethargic EYES: Pupils equal. Conjunctiva normal. HEENT: External appearance of nose and ears normal, oral cavity normal NECK: JVD unable to assess; masses not palpable. HEART: First and second heart sounds are normal; edema present. LUNGS: Respiratory rate increased; decreased breath sounds. ABDOMEN: Soft, nontender, liver spleen not palpable, no masses palpable. PSYCH: May answer occasional question with 1 word MUSCULOSKELETAL:No Clubbing/cyanosis;muscles-grossly intact. Evidence of OA DERMATOLOGICAL: Coccygeal stage II ulcer, right heel stage II ulcer., POA INVESTIGATIONS, reviewed in the clinical context: December 02: Sodium 146 potassium 3.5 creatinine 1.01 Computed tomography scan brain: No stroke reported December 01: Potassium 4 BUN 49 creatinine 1.05. Chest x-ray: Venous prominence November 30: Potassium 4.4 BUN 54 creatinine 0.8 date TSH 4.0 White count 2.8 hemoglobin 12.9 platelets 105 sodium 144 potassium 4.6 BUN 54 creatinine 0.9 Telemetric tracing personally reviewed by me: Atrial fibrillation. Heart rate in the 50s Chest x-ray film personally reviewed by me-sam shahid. Some venous prominence 2-D echocardiogram [August 2021]: EF 50-55% Assessment and plan: -Acute on chronic congestive heart failure exacerbation from diastolic dysfunction EF 50-55%: Slow to respond Continue IV Lasix 40 mg every 8 -Acute metabolic encephalopathy, multifactorial: Slow to respond Follow clinically. -Persistent atrial fibrillation, rate controlled -Bradycardia reported. Note that patient's been having PVCs. Currently patient's heart rate is in the 50s. Adequate. Telemetry. 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 Wound care. Patient not safe to eat currently because very lethargic. Prognosis not good. Hypoglycemia. From poor oral intake. Give D5 0.45 at 50 mL an hour.
[2021-12-02 16:23] LABS: Glucose,Whole Blood 91 mg/dL (70-110)
[2021-12-02] MEDS: DEXTROSE 5%-0.45% NACL 1,000 ML IV SCH (17:24)
[2021-12-02] MEDS: ASPIRIN 81 MG PO SCH (17:32)
[2021-12-02 20:04] LABS: Glucose,Whole Blood 89 mg/dL (70-110)
[2021-12-02] MEDS: SODIUM CHLORIDE 0.9% 1,000 ML IV SCH (20:40)
[2021-12-02] MEDS: DOXAZOSIN 2 MG TAB PO SCH (20:41)
[2021-12-02] MEDS: ATORVASTATIN 20 MG TAB PO SCH (20:41)
[2021-12-03 01:56] LABS: Glucose,Whole Blood 98 mg/dL (70-110)
[2021-12-03 06:00] LABS: Glucose,Whole Blood 94 mg/dL (70-110)
[2021-12-03] MEDS: PANTOPRAZOLE 40 MG TABLET PO SCH (08:52)
[2021-12-03] MEDS: MELOXICAM 7.5 MG TAB PO SCH (08:52)
[2021-12-03] MEDS: FUROSEMIDE 10 MG/ML 4 ML VIAL IV SCH ×3 (09:01→23:31)
[2021-12-03] MEDS: MENTHOL-ZINC OXIDE OINT 113 GM TUBE TOPICAL SCH ×2 (09:02→20:51)
[2021-12-03 11:55] LABS: Glucose,Whole Blood 101 mg/dL (70-110)
--- NOTE | 2021-12-03 12:55 | P.PN ---
Progress Note - Text Progress Note Date: 12/03/21 Chief Complaint: Low heart rate This is a 86-year-old patient being followed by Dr. Maddox. Chronic stable medical conditions include atrial fibrillation, hyperlipidemia, hypertension, rheumatoid arthritis. resident of [facility] daughter Elli - medical power of finance attorney. Baseline able to sit up in a wheelchair. Requires assistance. Able to recognize family. Wears diapers. baseline able to sit up in a wheelchair. Requiring assistance. Chronic Osei catheter. Able to feed himself Patient brought from the [facility] due to altered mental status, difficulty arousing. Patient unable to give history initially. Also found to have a heart rate in t he 50s. Empirically on antibiotics for aspiration. Has a chronic Osei catheter. Patient daughter the bedside in the ER. Patient came from the [facility] as heart rate was noted to drop out of the 30s. Since the patient is here heart regular didn't notice them in the 50s. Patient has been eating fine. Patient himself is a bit of a limited historian. Has some edema. Chronic Osei. No fever or chills reported. No episodes of passing out or palpitation. Admitted with acute CHF exacerbation. Put on IV Lasix. Hypothermia. Rosana hugger. November 30: IV Lasix. Edema started to go down. Has a Rosana hugger. Tired. Wound care consult for decub stage II was on the coccyx and right heel. December 01: Edema still present. Patient has remained rather lethargic. Not really communicating. On nasal cannula. Daughter the bedside. Has not been taking oral medications. Discussed with daughter the bedside. End of life care was discussed. She understands prognosis is guarded. Lasix increased to 3 ti mes a day. Chest x-ray reviewed by me shows cardiomegaly some venous prominence. I ordered a computed tomography scan of the brain to rule out stroke. No focal findings. December 02: Some decreased edema. Hypothermic. Rosana hugger on again. IV Lasix. Lethargic. Answering occasional question. Has not felt safe to be eating. December 03: Spoke to the nurse. Patient eats some Ensure last night. Daughter the bedside. Did eat some. Tired lethargic. Decreased edema. IV Lasix. On D5W for hypoglycemia. Active Medications Acetaminophen (Acetaminophen Tab 325 Mg Tab) 650 mg PO Q6H PRN PRN Reason: Pain Aspirin (Aspirin 81 Mg) 81 mg PO DAILY@1700 [facility] Last Admin: 12/02/21 17:32 Dose: Not Given Atorvastatin Calcium (Atorvastatin 20 Mg Tab) 20 mg PO HS [facility] Last Admin: 12/02/21 20:41 Dose: 20 mg Bisacodyl (Bisacodyl 10 Mg Supp) 10 mg RECTAL DAILY PRN PRN Reason: Constipation Calamine/Phenol (Menthol-Zinc Oxide Oint 113 Gm Tube) 1 applic TOPICAL BID [facility]; Protocol Last Admin: 12/03/21 09:02 Dose: 1 applic Calcium Carbonate/Glycine (Calcium Carbonate 500 Mg Chewable) 1,000 mg PO Q4HR PRN PRN Reason: Dyspepsia Doxazosin Mesylate (Doxazosin 2 Mg Tab) 2 mg PO [facility] Last Admin: 12/02/21 20:41 Dose: 2 mg Furosemide (Furosemide 10 Mg/Ml 4 Ml Vial) 40 mg IV Q8HR [facility] Last Admin: 12/03/21 09:01 Dose: 40 mg Sodium Chloride (Saline 0.9%) 1,000 mls @ 10 mls/hr IV .Q24H [facility] Last Admin: 12/02/21 20:40 Dose: Not Given Dextrose/Sodium Chloride (Dextrose 5%-1/2ns Iv Soln) 1,000 mls @ 50 mls/hr IV .Q20H [facility] Last Admin: 12/02/21 17:24 Dose: 50 mls/hr Lorazepam (Lorazepam 0.5 Mg Tab) 0.5 mg PO Q6HR PRN PRN Reason: Anxiety Meloxicam (Meloxicam 7.5 Mg Tab) 15 mg PO DAILY@0800 [facility] Last Admin: 12/03/21 08:52 Dose: Not Given Naloxone HCl (Naloxone 0.4 Mg/Ml 1 Ml Vial) 0.2 mg IV Q2M PRN PRN Reason: Opioid Reversal Ondansetron HCl (Ondansetron 4 Mg/2 Ml Vial) 4 mg IVP Q8HR PRN PRN Reason: Nausea And Vomiting Pantoprazole Sodium (Pantoprazole 40 Mg Tablet) 40 mg PO DAILY@0800 [facility] Last Admin: 12/03/21 08:52 Dose: Not Given Sodium Biphosphate/Sodium Phosphate (Na Phos,M-B/Na Phos,Di-Ba 133 Ml Enema) 133 ml RECTAL DAILY PRN PRN Reason: Constipation Past medical history to include: Atrial fibrillation, hyperlipidemia, hypertension, rheumatoid arthritis, chronic Osei catheter Social history: No history of smoking or alcohol. . Full assist. Normally able to feed himself. At [facility] Family history: Reviewed, noncontributory to presentation Physical examination: VITAL SIGNS: Anxiety 7.1, 47, 18, 119/68, 93% room air GENERAL: , Reclining in bed, tired, lethargic EYES: Pupils equal. Conjunctiva normal. HEENT: External appearance of nose and ears normal, oral cavity normal NECK: JVD unable to assess; masses not palpable. HEART: First and second heart sounds are normal; edema present. LUNGS: Respiratory rate increased; decreased breath sounds. ABDOMEN: Soft, nontender, liver spleen not palpable, no masses palpable. PSYCH: May answer occasional question with 1 word MUSCULOSKELETAL:No Clubbing/cyanosis;muscles-grossly intact. Evidence of OA DERMATOLOGICAL: Coccygeal stage II ulcer, right heel stage II ulcer., POA INVESTIGATIONS, reviewed in the clinical context: December 02: Sodium 146 potassium 3.5 creatinine 1.01 Computed tomography scan brain: No stroke reported December 01: Potassium 4 BUN 49 creatinine 1.05. Chest x-ray: Venous prominence November 30: Potassium 4.4 BUN 54 creatinine 0.8 date TSH 4.0 White count 2.8 hemoglobin 12.9 platelets 105 sodium 144 potassium 4.6 BUN 54 creatinine 0.9 Telemetric tracing personally reviewed by me: Atrial fibrillation. Heart rate in the 50s Chest x-ray film personally reviewed by me-sam shahid. Some venous prominence 2-D echocardiogram [August 2021]: EF 50-55% Assessment and plan: -Acute on chronic congestive heart failure exacerbation from diastolic dysfunction EF 50-55%: Slow to respond Continue IV Lasix 40 mg every 8 -Acute metabolic encephalopathy, multifactorial: Slow to respond Follow clinically. -Persistent atrial fibrillation, rate controlled -Bradycardia reported. Note that patient's been having PVCs. Currently patient's heart rate is in the 50s. Adequate. Telemetry. 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 Wound care. Feeding with support.. Prognosis remains guarded.. D5W for hypothermia. Discussed with daughter the bedside. Understands patient not doing well.
--- NOTE | 2021-12-03 14:02 | P.PN ---
Subjective Progress Note Date: 12/03/21 This pleasant 86-year-old man is seen resting comfortably in bed today he remains alert and orientated 1. He continues to deny chest pain or increased shortness of breath. He is not a candidate for anticoagulation. No change from prior physical assessment. Patient's bradycardia continues to be chronic in nature and does not appear to be causing his acute mental status change. Continue to avoid AV node blocking agents. Continue with current cardiac medications Objective - Vital Signs Vital signs: Vital Signs Temp 97.1 F L 12/03/21 08:00 Pulse 47 L 12/03/21 08:00 Resp 18 12/03/21 08:00 BP 119/68 12/03/21 08:00 Pulse Ox 93 L 12/03/21 08:00 FiO2 40 11/29/21 15:27 Intake & Output 12/02/21 12/03/21 12/03/21 18:59 06:59 18:59 Intake Total 650 Output Total 1974 Balance -1325 Weight 166.5 kg Intake: Intake, IV Titration 600 Amount Dextrose 5%-0.45% NaCl 1, 600 000 ml @ 50 mls/hr IV . Q20H [facility] Rx#:[id number] Oral 50 Output: Urine 1974 Uretheral (Osei) 1974 Other: Voiding Method Indwelling Catheter Indwelling Catheter Indwelling Catheter - Exam PHYSICAL EXAM: VITAL SIGNS: Reviewed. GENERAL: Well-developed in no acute distress. HEENT: Head is normocephalic. Pupils are equal, round. Sclerae anicteric. Mucous membranes of the mouth are moist. NECK: Supple. No JVD or thyromegaly RESPIRATORY: Respirations even and unlabored. Lungs diminished to auscultation bilaterally. CARDIO: Regular rate and rhythm. S1 and S2 heard. No murmur or gallops. EXTREMITIES: Normal range of motion. No clubbing or cyanosis. Peripheral pulses intact. Negative for bilateral lower extremity edema NEURO: Orientated to person, mood is appropriate - Labs CBC & Chem 7: 11/29/21 13:03 12/02/21 09:41 Assessment and Plan Assessment: Altered mental status, etiology unclear Bradycardia Persistent atrial fibrillation with slow ventricular rate Acute on chronic diastolic heart failure Plan: Continue with current cardiac medications Continue telemetry monitoring Avoid AV ba blocking agents Patients bradycardia appears to be chronic in nature and does not appear to be the culprit of patients altered mental status Continue IV lasix. Further recommendations based on clinical course The above impression and plan of care have been discussed and directed by the signing physician. Gladis Keller, nurse practitioner, acting as scribe for signing physician.
[2021-12-03 16:37] LABS: Glucose,Whole Blood 88 mg/dL (70-110)
[2021-12-03] MEDS: ASPIRIN 81 MG PO SCH (17:49)
[2021-12-03 20:08] LABS: Glucose,Whole Blood 145 mg/dL (70-110)
[2021-12-03] MEDS: DEXTROSE 5%-0.45% NACL 1,000 ML IV SCH (20:43)
[2021-12-03] MEDS: SODIUM CHLORIDE 0.9% 1,000 ML IV SCH (20:43)
[2021-12-03] MEDS: ATORVASTATIN 20 MG TAB PO SCH (20:50)
[2021-12-03] MEDS: DOXAZOSIN 2 MG TAB PO SCH (20:50)
[2021-12-04 02:37] LABS: Glucose,Whole Blood 81 mg/dL (70-110)
[2021-12-04 06:11] LABS: Glucose,Whole Blood 78 mg/dL (70-110)
[2021-12-04] MEDS: MENTHOL-ZINC OXIDE OINT 113 GM TUBE TOPICAL SCH ×2 (08:58→21:45)
[2021-12-04] MEDS: FUROSEMIDE 10 MG/ML 4 ML VIAL IV SCH ×3 (08:58→23:49)
[2021-12-04] MEDS: PANTOPRAZOLE 40 MG TABLET PO SCH (08:58)
[2021-12-04] MEDS: MELOXICAM 7.5 MG TAB PO SCH (08:58)
[2021-12-04] MEDS: DEXTROSE 5%-0.45% NACL 1,000 ML IV SCH (10:03)
[2021-12-04 11:49] LABS: Glucose,Whole Blood 89 mg/dL (70-110)
--- NOTE | 2021-12-04 14:27 | P.PN ---
Subjective Progress Note Date: 12/04/21 This pleasant 86-year-old man is seen resting comfortably in bed today he remains alert and orientated 1. He remains free chest pain or increased shortness of breath. He is not a candidate for anticoagulation. No change from prior physical assessment. Patient's bradycardia continues to be chronic in nature and does not appear to be causing his acute mental status change and remains asymptomatic from bradycardia Continue to avoid AV node blocking agents. Continue with current cardiac medications. At this time due to bradycardia being chronic will follow patient on as-needed basis. Please feel free to contact us if needed Objective - Vital Signs Vital signs: Vital Signs Temp 98.4 F 12/04/21 12:00 Pulse 51 L 12/04/21 12:00 Resp 18 12/04/21 12:00 BP 100/58 12/04/21 12:00 Pulse Ox 96 12/04/21 12:00 FiO2 40 11/29/21 15:27 Intake & Output 12/03/21 12/04/21 12/04/21 18:59 06:59 18:59 Output Total 1000 1100 725 Balance -1000 -1100 -725 Weight 164.5 kg Output: Urine 1000 1100 725 Uretheral (Osei) 1100 225 Other: Voiding Method Indwelling Catheter Indwelling Catheter Indwelling Catheter # Bowel Movements 1 1 - Exam PHYSICAL EXAM: VITAL SIGNS: Reviewed. GENERAL: Well-developed in no acute distress. HEENT: Head is normocephalic. Pupils are equal, round. Sclerae anicteric. Mucous membranes of the mouth are moist. NECK: Supple. No JVD or thyromegaly RESPIRATORY: Respirations even and unlabored. Lungs diminished to auscultation bilaterally. CARDIO: Regular rate and rhythm. S1 and S2 heard. No murmur or gallops. EXTREMITIES: Normal range of motion. No clubbing or cyanosis. Peripheral pulses intact. Negative for bilateral lower extremity edema NEURO: Orientated to person, mood is appropriate - Labs CBC & Chem 7: 11/29/21 13:03 12/02/21 09:41 Labs: Abnormal Lab Results - Last 24 Hours (Table) 12/03/21 Range/Units 20:06 POC Glucose (mg/dL) 145 H (70-110) mg/dL Assessment and Plan Assessment: Altered mental status, etiology unclear Bradycardia Persistent atrial fibrillation with slow ventricular rate Acute on chronic diastolic heart failure Plan: Continue with current cardiac medications Continue telemetry monitoring Avoid AV ba blocking agents Patients bradycardia appears to be chronic in nature and does not appear to be the culprit of patients altered mental status At this time will follow on an as-needed basis The above impression and plan of care have been discussed and directed by the signing physician. Gladis Keller, nurse practitioner, acting as scribe for signing physician.
--- NOTE | 2021-12-04 16:17 | P.PN ---
Progress Note - Text Progress Note Date: 12/04/21 Chief Complaint: Low heart rate This is a 86-year-old patient being followed by Dr. Maddox. Chronic stable medical conditions include atrial fibrillation, hyperlipidemia, hypertension, rheumatoid arthritis. resident of [facility] daughter Elli - medical power of family law attorney. Baseline able to sit up in a wheelchair. Requires assistance. Able to recognize family. Wears diapers. baseline able to sit up in a wheelchair. Requiring assistance. Chronic Osei catheter. Able to feed himself Patient brought from the [facility] due to altered mental status, difficulty arousing. Patient unable to give history initially. Also found to have a heart rate in t he 50s. Empirically on antibiotics for aspiration. Has a chronic Osei catheter. Patient daughter the bedside in the ER. Patient came from the [facility] as heart rate was noted to drop out of the 30s. Since the patient is here heart regular didn't notice them in the 50s. Patient has been eating fine. Patient himself is a bit of a limited historian. Has some edema. Chronic Osei. No fever or chills reported. No episodes of passing out or palpitation. Admitted with acute CHF exacerbation. Put on IV Lasix. Hypothermia. Rosana hugger. November 30: IV Lasix. Edema started to go down. Has a Rosana hugger. Tired. Wound care consult for decub stage II was on the coccyx and right heel. December 01: Edema still present. Patient has remained rather lethargic. Not really communicating. On nasal cannula. Daughter the bedside. Has not been taking oral medications. Discussed with daughter the bedside. End of life care was discussed. She understands prognosis is guarded. Lasix increased to 3 ti mes a day. Chest x-ray reviewed by me shows cardiomegaly some venous prominence. I ordered a computed tomography scan of the brain to rule out stroke. No focal findings. December 02: Some decreased edema. Hypothermic. Rosana hugger on again. IV Lasix. Lethargic. Answering occasional question. Has not felt safe to be eating. December 03: Spoke to the nurse. Patient eats some Ensure last night. Daughter the bedside. Did eat some. Tired lethargic. Decreased edema. IV Lasix. On D5W for hypoglycemia. December 04: Patient is to be lethargic. Does eat intermittently. With assistance. No family at bedside. Did take oral medications today. Active Medications Acetaminophen (Acetaminophen Tab 325 Mg Tab) 650 mg PO Q6H PRN PRN Reason: Pain Aspirin (Aspirin 81 Mg) 81 mg PO DAILY@1700 [facility] Last Admin: 12/03/21 17:49 Dose: 81 mg Atorvastatin Calcium (Atorvastatin 20 Mg Tab) 20 mg PO HS [facility] Last Admin: 12/03/21 20:50 Dose: Not Given Bisacodyl (Bisacodyl 10 Mg Supp) 10 mg RECTAL DAILY PRN PRN Reason: Constipation Calamine/Phenol (Menthol-Zinc Oxide Oint 113 Gm Tube) 1 applic TOPICAL BID [facility]; Protocol Last Admin: 12/04/21 08:58 Dose: 1 applic Calcium Carbonate/Glycine (Calcium Carbonate 500 Mg Chewable) 1,000 mg PO Q4HR PRN PRN Reason: Dyspepsia Doxazosin Mesylate (Doxazosin 2 Mg Tab) 2 mg PO [facility] Last Admin: 12/03/21 20:50 Dose: Not Given Furosemide (Furosemide 10 Mg/Ml 4 Ml Vial) 40 mg IV Q8HR [facility] Last Admin: 12/04/21 08:58 Dose: 40 mg Sodium Chloride (Saline 0.9%) 1,000 mls @ 10 mls/hr IV .Q24H [facility] Last Admin: 12/03/21 20:43 Dose: Not Given Dextrose/Sodium Chloride (Dextrose 5%-1/2ns Iv Soln) 1,000 mls @ 50 mls/hr IV .Q20H [facility] Last Admin: 12/04/21 10:03 Dose: Not Given Lorazepam (Lorazepam 0.5 Mg Tab) 0.5 mg PO Q6HR PRN PRN Reason: Anxiety Meloxicam (Meloxicam 7.5 Mg Tab) 15 mg PO DAILY@0800 [facility] Last Admin: 12/04/21 08:58 Dose: 15 mg Naloxone HCl (Naloxone 0.4 Mg/Ml 1 Ml Vial) 0.2 mg IV Q2M PRN PRN Reason: Opioid Reversal Ondansetron HCl (Ondansetron 4 Mg/2 Ml Vial) 4 mg IVP Q8HR PRN PRN Reason: Nausea And Vomiting Pantoprazole Sodium (Pantoprazole 40 Mg Tablet) 40 mg PO DAILY@0800 [facility] Last Admin: 12/04/21 08:58 Dose: 40 mg Sodium Biphosphate/Sodium Phosphate (Na Phos,M-B/Na Phos,Di-Ba 133 Ml Enema) 133 ml RECTAL DAILY PRN PRN Reason: Constipation Past medical history to include: Atrial fibrillation, hyperlipidemia, hypertension, rheumatoid arthritis, chronic Osei catheter Social history: No history of smoking or alcohol. . Full assist. Normally able to feed himself. At [facility] Family history: Reviewed, noncontributory to presentation Physical examination: VITAL SIGNS: 98.4, 51, 18, 100/58, 96% room air GENERAL: , Reclining in bed, tired, lethargic EYES: Pupils equal. Conjunctiva normal. HEENT: External appearance of nose and ears normal, oral cavity normal NECK: JVD unable to assess; masses not palpable. HEART: First and second heart sounds are normal; edema present. LUNGS: Respiratory rate increased; decreased breath sounds. ABDOMEN: Soft, nontender, liver spleen not palpable, no masses palpable. PSYCH: May answer occasional question with 1 word MUSCULOSKELETAL:No Clubbing/cyanosis;muscles-grossly intact. Evidence of OA DERMATOLOGICAL: Coccygeal stage II ulcer, right heel stage II ulcer., POA INVESTIGATIONS, reviewed in the clinical context: December 02: Sodium 146 potassium 3.5 creatinine 1.01 Computed tomography scan brain: No stroke reported December 01: Potassium 4 BUN 49 creatinine 1.05. Chest x-ray: Venous prominence November 30: Potassium 4.4 BUN 54 creatinine 0.8 date TSH 4.0 White count 2.8 hemoglobin 12.9 platelets 105 sodium 144 potassium 4.6 BUN 54 creatinine 0.9 Telemetric tracing personally reviewed by me: Atrial fibrillation. Heart rate in the 50s Chest x-ray film personally reviewed by me-sam shahid. Some venous prominence 2-D echocardiogram [August 2021]: EF 50-55% Assessment and plan: -Acute on chronic congestive heart failure exacerbation from diastolic dysfunction EF 50-55%: Slow to respond Continue IV Lasix 40 mg every 8 -Acute metabolic encephalopathy, multifactorial: Slow to respond Follow clinically. -Persistent atrial fibrillation, rate controlled -Bradycardia reported. Note that patient's been having PVCs. Currently patient's heart rate is in the 50s. Adequate. Telemetry. 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 Wound care. Feeding with support.. Prognosis remains guarded.. D5W for hypoglycemia . Will discuss again with daughter
[2021-12-04] MEDS: ASPIRIN 81 MG PO SCH (16:25)
[2021-12-04] MEDS: SODIUM CHLORIDE 0.9% 1,000 ML IV SCH (16:25)
[2021-12-04 16:43] LABS: Glucose,Whole Blood 95 mg/dL (70-110)
[2021-12-04 20:56] LABS: Glucose,Whole Blood 115 mg/dL (70-110)
[2021-12-04] MEDS: DOXAZOSIN 2 MG TAB PO SCH (21:34)
[2021-12-04] MEDS: ATORVASTATIN 20 MG TAB PO SCH (21:34)
[2021-12-05 02:48] LABS: Glucose,Whole Blood 111 mg/dL (70-110)
[2021-12-05] MEDS: DEXTROSE 5%-0.45% NACL 1,000 ML IV SCH (05:50)
[2021-12-05 06:02] LABS: Glucose,Whole Blood 107 mg/dL (70-110)
[2021-12-05] MEDS: MELOXICAM 7.5 MG TAB PO SCH (08:56)
[2021-12-05] MEDS: FUROSEMIDE 10 MG/ML 4 ML VIAL IV SCH (08:56)
[2021-12-05] MEDS: PANTOPRAZOLE 40 MG TABLET PO SCH (08:56)
[2021-12-05] MEDS: MENTHOL-ZINC OXIDE OINT 113 GM TUBE TOPICAL SCH (08:57)
[2021-12-05 10:15] LABS: ALT 18 U/L (4-49); AST 35 U/L (17-59); African American GFR (CKD) >90 (>60 ml/min/1.73 sqM); Albumin 2.6 g/dL (3.5-5.0); Alkaline Phosphatase 128 U/L (38-126); Anion Gap 1 mmol/L; Blood Urea Nitrogen 33 mg/dL (9-20); Calcium 8.6 mg/dL (8.4-10.2); Carbon Dioxide 39 mmol/L (22-30); Chloride 105 mmol/L (98-107); Glucose 97 mg/dL (74-99); Non-African American GFR(CKD) 79 (>60 ml/min/1.73 sqM); Potassium 3.2 mmol/L (3.5-5.1); Sodium 145 mmol/L (137-145); Total Bilirubin 1.6 mg/dL (0.2-1.3); Total Protein 6.1 g/dL (6.3-8.2)
[2021-12-05 11:28] LABS: Glucose,Whole Blood 94 mg/dL (70-110)
[2021-12-05] MEDS ORDERED: POTASSIUM CHLORIDE ER 20 MEQ TAB.ER PO STA (12:05)
[2021-12-05 16:11] LABS: Glucose,Whole Blood 94 mg/dL (70-110)
--- NOTE | 2021-12-05 16:35 | P.PN ---
Progress Note - Text Progress Note Date: 12/05/21 Chief Complaint: Low heart rate This is a 86-year-old patient being followed by Dr. Maddox. Chronic stable medical conditions include atrial fibrillation, hyperlipidemia, hypertension, rheumatoid arthritis. resident of [facility] daughter Elli - medical power of deputy commonwealth's attorney. Baseline able to sit up in a wheelchair. Requires assistance. Able to recognize family. Wears diapers. baseline able to sit up in a wheelchair. Requiring assistance. Chronic Osei catheter. Able to feed himself Patient brought from the [facility] due to altered mental status, difficulty arousing. Patient unable to give history initially. Also found to have a heart rate in t he 50s. Empirically on antibiotics for aspiration. Has a chronic Osei catheter. Patient daughter the bedside in the ER. Patient came from the [facility] as heart rate was noted to drop out of the 30s. Since the patient is here heart regular didn't notice them in the 50s. Patient has been eating fine. Patient himself is a bit of a limited historian. Has some edema. Chronic Osei. No fever or chills reported. No episodes of passing out or palpitation. Admitted with acute CHF exacerbation. Put on IV Lasix. Hypothermia. Rosana hugger. November 30: IV Lasix. Edema started to go down. Has a Rosana hugger. Tired. Wound care consult for decub stage II was on the coccyx and right heel. December 01: Edema still present. Patient has remained rather lethargic. Not really communicating. On nasal cannula. Daughter the bedside. Has not been taking oral medications. Discussed with daughter the bedside. End of life care was discussed. She understands prognosis is guarded. Lasix increased to 3 ti mes a day. Chest x-ray reviewed by me shows cardiomegaly some venous prominence. I ordered a computed tomography scan of the brain to rule out stroke. No focal findings. December 02: Some decreased edema. Hypothermic. Rosana hugger on again. IV Lasix. Lethargic. Answering occasional question. Has not felt safe to be eating. December 03: Spoke to the nurse. Patient eats some Ensure last night. Daughter the bedside. Did eat some. Tired lethargic. Decreased edema. IV Lasix. On D5W for hypoglycemia. December 04: Patient is to be lethargic. Does eat intermittently. With assistance. No family at bedside. Did take oral medications today. December 05: Remains to be lethargic. Does arouse a bit. Oral intake poor. Sometimes a combination of food in the mouth. Discussed at length with the patient's daughter the bedside.. She understands patient is doing poorly. Agreeable to comfort measures. Patient to return to [facility] tomorrow. We'll watch today. Scale back oral medications. Active Medications Acetaminophen (Acetaminophen Tab 325 Mg Tab) 650 mg PO Q6H PRN PRN Reason: Pain Bisacodyl (Bisacodyl 10 Mg Supp) 10 mg RECTAL DAILY PRN PRN Reason: Constipation Calcium Carbonate/Glycine (Calcium Carbonate 500 Mg Chewable) 1,000 mg PO Q4HR PRN PRN Reason: Dyspepsia Sodium Chloride (Saline 0.9%) 1,000 mls @ 10 mls/hr IV .Q24H [facility] Last Admin: 12/04/21 16:25 Dose: Not Given Lorazepam (Lorazepam 0.5 Mg Tab) 0.5 mg PO Q6HR PRN PRN Reason: Anxiety Ondansetron HCl (Ondansetron 4 Mg/2 Ml Vial) 4 mg IVP Q8HR PRN PRN Reason: Nausea And Vomiting Pantoprazole Sodium (Pantoprazole 40 Mg Tablet) 40 mg PO DAILY@0800 [facility] Last Admin: 12/05/21 08:56 Dose: 40 mg Past medical history to include: Atrial fibrillation, hyperlipidemia, hypertension, rheumatoid arthritis, chronic Osei catheter Social history: No history of smoking or alcohol. . Full assist. Normally able to feed himself. At [facility] Family history: Reviewed, noncontributory to presentation Physical examination: VITAL SIGNS: 98.7, 61, 22, 94/59, 96% room air GENERAL: , Laying in bed, lethargic, just about arousable EYES: Pupils equal. Conjunctiva normal. HEENT: External appearance of nose and ears normal, oral cavity normal NECK: JVD unable to assess; masses not palpable. HEART: First and second heart sounds are normal; decrease edema LUNGS: Respiratory rate increased; decreased breath sounds. ABDOMEN: Soft, nontender, liver spleen not palpable, no masses palpable. Osei catheter with strong-appearing urine PSYCH: Not able to assess MUSCULOSKELETAL:No Clubbing/cyanosis;muscles-grossly intact. Evidence of OA DERMATOLOGICAL: Coccygeal stage II ulcer, right heel stage II ulcer., POA INVESTIGATIONS, reviewed in the clinical context: December 05: Sodium 145 progression 3.2 creatinine 0.84 albumin 2.6 December 02: Sodium 146 potassium 3.5 creatinine 1.01 Computed tomography scan brain: No stroke reported December 01: Potassium 4 BUN 49 creatinine 1.05. Chest x-ray: Venous prominence November 30: Potassium 4.4 BUN 54 creatinine 0.8 date TSH 4.0 White count 2.8 hemoglobin 12.9 platelets 105 sodium 144 potassium 4.6 BUN 54 creatinine 0.9 Telemetric tracing personally reviewed by me: Atrial fibrillation. Heart rate in the 50s Chest x-ray film personally reviewed by me-sam shahid. Some venous prominence 2-D echocardiogram [August 2021]: EF 50-55% Assessment and plan: -Acute on chronic congestive heart failure exacerbation from diastolic dysfunction EF 50-55%: Better Continue IV Lasix 40 daily -Acute metabolic encephalopathy, multifactorial: Worsening Follow clinically. -Persistent atrial fibrillation, rate controlled -Bradycardia reported. Note that patient's been having PVCs. Currently patient's heart rate is in the 50s. Adequate. Telemetry. -Hypothermia, intermittent rosana hugger was used -BPH Cardura 2 mg by mouth daily at bedtime -Hyperlipidemia Lipitor 20 mg daily at bedtime -DO NOT RESUSCITATE . Comfort measures. 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 Other oral medications been held. Comfort feeding. Discussed at length with the daughter the bedside. Patient doing poorly. Patient to return to [facility] tomorrow. Questions answered. Total time spent today about 40 minutes with over 25 minutes of discussion.
[2021-12-05 17:13] VITALS: RESP 20
[2021-12-05] MEDS: SODIUM CHLORIDE 0.9% 1,000 ML IV SCH (17:51)
[2021-12-05 18:10] LABS: Glucose,Whole Blood 88 mg/dL (70-110)
[2021-12-05 20:50] LABS: Glucose,Whole Blood 87 mg/dL (70-110)
[2021-12-06 02:10] LABS: Glucose,Whole Blood 96 mg/dL (70-110)
[2021-12-06 05:39] VITALS: BP 126/80; TEMP 97.2
[2021-12-06 07:23] LABS: Glucose,Whole Blood 76 mg/dL (70-110)
[2021-12-06] MEDS ORDERED: FUROSEMIDE 10 MG/ML 4 ML VIAL IV SCH (09:00)
[2021-12-06 10:15] VITALS: PULSE 58
[2021-12-06] MEDS: PANTOPRAZOLE 40 MG TABLET PO SCH (10:43)
[2021-12-06 12:26] LABS: Glucose,Whole Blood 95 mg/dL (70-110)
--- NOTE | 2021-12-06 12:54 | P.DS ---
Providers Date of admission: 11/29/21 15:12 Expected date of discharge: 12/06/21 Attending physician: Nura Barnhart Primary care physician: Sai Maddox [facility] Course: Chief Complaint: Low heart rate This is a 86-year-old patient being followed by Dr. Maddox. Chronic stable medical conditions include atrial fibrillation, hyperlipidemia, hypertension, rheumatoid arthritis. resident of [facility] daughter Elli - medical power of contracts attorney. Baseline able to sit up in a wheelchair. Requires assistance. Able to recognize family. Wears diapers. baseline able to sit up in a wheelchair. Requiring assistance. Chronic Osei catheter. Able to feed himself Patient brought from the [facility] due to altered mental status, difficulty arousing. Patient unable to give history initially. Also found to have a heart rate in the 50s. Empirically on antibiotics for aspiration. Has a chronic Osei catheter. Patient daughter the bedside in the ER. Patient came from the [facility] as heart rate was noted to drop out of the 30s. Since the patient is here heart regular didn't notice them in the 50s. Patient has been eating fine. Patient himself is a bit of a limited historian. Has some edema. Chronic Osei. No fever or chills reported. No episodes of passing out or palpitation. Admitted with acute CHF exacerbation. Put on IV Lasix. Hypothermia. Ranulfo hugger. November 30: IV Lasix. Edema started to go down. Has a Ranulfo hugger. Tired. Wound care consult for decub stage II was on the coccyx and right heel. December 01: Edema still present. Patient has remained rather lethargic. Not really communicating. On nasal cannula. Daughter the bedside. Has not been taking oral medications. Discussed with daughter the bedside. End of life care was discussed. She understands prognosis is guarded. Lasix increased to 3 times a day. Chest x-ray reviewed by me shows cardiomegaly some venous prominence. I ordered a computed tomography scan of the brain to rule out stroke. No focal findings. December 02: Some decreased edema. Hypothermic. Ranulfo hugger on again. IV Lasix. Lethargic. Answering occasional question. Has not felt safe to be eating. December 03: Spoke to the nurse. Patient eats some Ensure last night. Daughter the bedside. Did eat some. Tired lethargic. Decreased edema. IV Lasix. On D5W for hypoglycemia. December 04: Patient is to be lethargic. Does eat intermittently. With assistance. No family at bedside. Did take oral medications today. December 05: Remains to be lethargic. Does arouse a bit. Oral intake poor. Sometimes a combination of food in the mouth. Discussed at length with the patient's daughter the bedside.. She understands patient is doing poorly. Agreeable to comfort measures. Patient to return to [facility] tomorrow. We'll watch today. Scale back oral medications. December 06: Patient bit more awake today. Answering occasional question. So at the bedside. Discussed at length with him. He understands patient's oral intake is variable. Keep him on simple medications. Oral prognosis guarded. Return to [facility]. Feeding as tolerated. Discussion and discharge planning more than 35 minutes Past medical history to include: Atrial fibrillation, hyperlipidemia, hypertension, rheumatoid arthritis, chronic Osei catheter Social history: No history of smoking or alcohol. . Full assist. Normally able to feed himself. At [facility] Family history: Reviewed, noncontributory to presentation Physical examination: VITAL SIGNS: 97.2, 58, 20, 07/13/1979, 94% room air GENERAL: , Laying in bed, lethargic but more arousable today. EYES: Pupils equal. Conjunctiva normal. HEENT: External appearance of nose and ears normal, oral cavity normal NECK: JVD unable to assess; masses not palpable. HEART: First and second heart sounds are normal; decrease edema LUNGS: Respiratory rate increased; decreased breath sounds. ABDOMEN: Soft, nontender, liver spleen not palpable, no masses palpable. Osei catheter with strong-appearing urine PSYCH: Answering occasional question. MUSCULOSKELETAL:No Clubbing/cyanosis;muscles-grossly intact. Evidence of OA DERMATOLOGICAL: Coccygeal stage II ulcer, right heel stage II ulcer., POA INVESTIGATIONS, reviewed in the clinical context: COVID 19: Not detected December 05: Sodium 145 progression 3.2 creatinine 0.84 albumin 2.6 Computed tomography scan brain: No stroke reported December 01: Potassium 4 BUN 49 creatinine 1.05. Chest x-ray: Venous prominence November 30: Potassium 4.4 BUN 54 creatinine 0.8 date TSH 4.0 White count 2.8 hemoglobin 12.9 platelets 105 sodium 144 potassium 4.6 BUN 54 creatinine 0.9 Telemetric tracing personally reviewed by me: Atrial fibrillation. Heart rate in the 50s Chest x-ray film personally reviewed by me-sam shahid. Some venous prominence 2-D echocardiogram [August 2021]: EF 50-55% Assessment and plan: -Acute on chronic congestive heart failure exacerbation from diastolic dysfunction EF 50-55%: Better Continue IV Lasix 40 daily. Changed to oral Lasix. -Acute metabolic encephalopathy, multifactorial: Some improvement Follow clinically. -Persistent atrial fibrillation, rate controlled -Bradycardia reported. Note that patient's been having PVCs. Currently patient 's heart rate is in the 50s. Adequate. Telemetry. 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 Disposition: [facility] Plan - Discharge Summary Discharge Rx Participant: Yes New Discharge Prescriptions: Continue Liquacel 30 ml PO BID@0800,1700 Vitamin D3 50,000iu 1,250 mcg PO SA@1700 Magnesium Hydroxide [Milk of Magnesia Concentrate] 7,200 mg PO Q48H PRN PRN Reason: Constipation Menthol-Zinc Oxide Oint [Calmoseptine Ointment] 1 applic TOPICAL BID Aquacel Ag 1 applic TOPICAL DAILY PRN PRN Reason: wound care Na Phos,M-B/Na Phos,Di-Ba [Fleet Adult] 133 ml RECTAL DAILY PRN PRN Reason: Constipation bisacodyL [Dulcolax] 10 mg RECTAL DAILY PRN PRN Reason: Constipation Acetaminophen Tab [Tylenol] 650 mg PO Q6H PRN PRN Reason: Pain Roberto Packet 1 packet PO BID@0800,1700 Pantoprazole [Protonix] 40 mg PO DAILY@0800 Meloxicam [Mobic] 15 mg PO DAILY@0800 Doxazosin [Cardura] 2 mg PO HS Atorvastatin [Lipitor] 20 mg PO HS Furosemide [Lasix] 40 mg PO DAILY@0800 Aspirin 81 mg PO DAILY@1700 Discharge Medication List Acetaminophen Tab [Tylenol] 650 mg PO Q6H PRN 11/12/21 [History] Atorvastatin [Lipitor] 20 mg PO HS 11/12/21 [History] Doxazosin [Cardura] 2 mg PO HS 11/12/21 [History] Roberto Packet 1 packet PO BID@0800,1700 11/12/21 [History] Liquacel 30 ml PO BID@0800,1700 11/12/21 [History] Magnesium Hydroxide [Milk of Magnesia Concentrate] 7,200 mg PO Q48H PRN 11/12/21 [History] Meloxicam [Mobic] 15 mg PO DAILY@0811/12/21 [History] Na Phos,M-B/Na Phos,Di-Ba [Fleet Adult] 133 ml RECTAL DAILY PRN 11/12/21 [Histo ry] Pantoprazole [Protonix] 40 mg PO DAILY@0811/12/21 [History] Vitamin D3 50,000iu 1,250 mcg PO SA@169911/12/21 [History] bisacodyL [Dulcolax] 10 mg RECTAL DAILY PRN 11/12/21 [History] Aquacel Ag 1 applic TOPICAL DAILY PRN 11/29/21 [History] Aspirin 81 mg PO DAILY@169911/29/21 [History] Furosemide [Lasix] 40 mg PO DAILY@0811/29/21 [History] Menthol-Zinc Oxide Oint [Calmoseptine Ointment] 1 applic TOPICAL BID 11/29/21 [History] Follow up Appointment(s)/Referral(s): Sai Maddox DO [Primary Care Provider] - 1-2 days
== END 2021-12-06 16:18 | DRG 291 ==
LOC: EC 11:59 → 3SCARD 15:12 → 5NMEDONC 12-05 17:45
PROVIDERS: ADMIT Hospitalist; ATTEND Hospitalist
DX: I11.0 Hypertensive heart disease with heart failure (principal); G93.41 Metabolic encephalopathy; I50.33 Acute on chronic diastolic (congestive) heart failure; D69.3 Immune thrombocytopenic purpura; I48.19 Other persistent atrial fibrillation; D72.819 Decreased white blood cell count, unspecified; E16.2 Hypoglycemia, unspecified; E78.5 Hyperlipidemia, unspecified; G30.1 Alzheimer's disease with late onset; F02.80 Dementia in other diseases classified elsewhere, unspecified severity, without behavioral disturbance, psychotic disturbance, mood disturbance, and anxiety; F41.9 Anxiety disorder, unspecified; I49.3 Ventricular premature depolarization; K59.00 Constipation, unspecified; L73.9 Follicular disorder, unspecified; L89.312 Pressure ulcer of right buttock, stage 2; L89.612 Pressure ulcer of right heel, stage 2; Z20.822 Contact with and (suspected) exposure to COVID-19; L89.622 Pressure ulcer of left heel, stage 2; L89.152 Pressure ulcer of sacral region, stage 2; M06.9 Rheumatoid arthritis, unspecified; N40.0 Benign prostatic hyperplasia without lower urinary tract symptoms; Z66 Do not resuscitate; Z79.1 Long term (current) use of non-steroidal anti-inflammatories (NSAID); Z79.82 Long term (current) use of aspirin; Z79.899 Other long term (current) drug therapy; Z87.440 Personal history of urinary (tract) infections; Z98.890 Other specified postprocedural states; R68.0 Hypothermia, not associated with low environmental temperature; Z99.3 Dependence on wheelchair
CPT/HCPCS: 36415; 70450; 71045; 80048; 80053; 81001; 83605; 83735; 83880; 84443; 84484; 85025; 85610; 85730; 87077; 87086; 87186; 87635; 94660; 94760; 96374; 96375; 99291

== ENCOUNTER 2021-12-29 16:49 | Emergency (ER) | payer MEDICARE, BC ==
[2021-12-29 17:01] VITALS: BP 97/68; PULSE 59; RESP 24; TEMP 97.9
--- NOTE | 2021-12-29 17:20 | ED ---
General Adult HPI - General Chief complaint: Skin/Abscess/Foreign Body Stated complaint: End of life, hospice Time Seen by Provider: 12/29/21 16:51 Source: family, EMS, RN notes reviewed, old records reviewed Mode of arrival: EMS Limitations: altered mental status - History of Present Illness Initial comments: 86-year-old male [facility]. I initially obtained history from paramedics who states that there was multiple skin breakdown issues and the patient has not been eating well. He is a DO NOT RESUSCITATE. He is not currently on hospice he is not currently on comfort care and he is currently able to be hospitalized according to family. I obtained a detailed history of the patient's wishes and the patient's status from his daughter who is power of caterers helper. She states he is currently at his baseline she does not feel he is in any pain. And that there was a miscommunication regarding the transport to the hospital. - Related Data Home Medications Medication Instructions Recorded Confirmed Acetaminophen Tab [Tylenol] 650 mg PO Q6H PRN 11/12/21 11/29/21 Atorvastatin [Lipitor] 20 mg PO HS 11/12/21 11/29/21 Doxazosin [Cardura] 2 mg PO HS 11/12/21 11/29/21 Roberto Packet 1 packet PO BID@0800,0 11/12/21 11/29/21 Liquacel 30 ml PO BID@0800,1700 11/12/21 11/29/21 Magnesium Hydroxide [Milk of 7,200 mg PO Q48H PRN 11/12/21 11/29/21 Magnesia Concentrate] Meloxicam [Mobic] 15 mg PO DAILY@0800 11/12/21 11/29/21 Na Phos,M-B/Na Phos,Di-Ba [Fleet 133 ml RECTAL DAILY PRN 11/12/21 11/29/21 Adult] Pantoprazole [Protonix] 40 mg PO DAILY@0800 11/12/21 11/29/21 Vitamin D3 50,000iu 1,250 mcg PO SA@1700 11/12/21 11/29/21 bisacodyL [Dulcolax] 10 mg RECTAL DAILY PRN 11/12/21 11/29/21 Aquacel Ag 1 applic TOPICAL DAILY PRN 11/29/21 11/29/21 Aspirin 81 mg PO DAILY@1700 11/29/21 11/29/21 Furosemide [Lasix] 40 mg PO DAILY@0800 11/29/21 11/29/21 Menthol-Zinc Oxide Oint 1 applic TOPICAL BID 11/29/21 11/29/21 [Calmoseptine Ointment] Allergies Allergy/AdvReac Type Severity Reaction Status Date / Time No Known Allergies Allergy Verified 11/29/21 13:07 Review of Systems ROS Statement: Those systems with pertinent positive or pertinent negative responses have been documented in the HPI. ROS Other: All systems not noted in ROS Statement are negative. 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 History of Any Multi-Drug Resistant Organisms: ESBL Date of last positivie culture/infection: 11/29/21 MDRO Source:: ESBL URINE Past Surgical History: Hernia Repair Additional Past Surgical History / Comment(s): R inguinal hernia repair, L leg varicose vein surgery, colonoscopy. Past Anesthesia/Blood Transfusion Reactions: No Reported Reaction Past Psychological History: No Psychological Hx Reported Smoking Status: Never smoker Past Alcohol Use History: None Reported Past Drug Use History: None Reported - Past Family History Father Family Medical History: No Reported History Additional Family Medical History / Comment(s): Father ws healthy Mother Additional Family Medical History / Comment(s): Mother was a smoker and a drinker. General Exam Limitations: altered mental status General appearance: in no apparent distress, lethargic Head exam: Present: atraumatic, normocephalic Eye exam: Present: normal appearance ENT exam: Present: mucous membranes dry Respiratory exam: Present: normal lung sounds bilaterally. Absent: respiratory distress Cardiovascular Exam: Present: regular rate, normal rhythm GI/Abdominal exam: Present: soft. Absent: distended, tenderness Extremities exam: Present: pedal edema, other (Peripheral edema both hands and feet. Multiple areas of skin breakdown.) Skin exam: Present: warm Course Vital Signs 12/29/21 16:54 Temperature 97.9 F Pulse Rate 59 L Respiratory 24 Rate Blood Pressure 97/68 O2 Sat by Pulse 100 Oximetry Medical Decision Making - Medical Decision Making 86-year-old male likely an the end stages of life. Patient does not appear in pain he has comfortable respirations. After long discussion with the patient's daughter who is the power of caterers helper we agreed that the patient should be [facility] the [facility]. He does not require any inpatient services at this time. There is no new issues and ultimately the patient is comfortable. Patient likely in the end stages of life. Daughter is aware of this. He will be [facility] to the [facility]. Disposition Clinical Impression: Skin breakdown Disposition: HOME SELF-CARE Is patient prescribed a controlled substance at d/c from ED?: No Referrals: Sai Maddox DO [Primary Care Provider] - 1-2 days Time of Disposition: 17:20
== END 2021-12-29 18:42 | disposition home or self-care (01) ==
LOC: EC 16:49
DX: R41.82 Altered mental status, unspecified (principal); R60.0 Localized edema; I10 Essential (primary) hypertension; I48.91 Unspecified atrial fibrillation; E78.5 Hyperlipidemia, unspecified; M06.9 Rheumatoid arthritis, unspecified; Z79.82 Long term (current) use of aspirin; Z79.899 Other long term (current) drug therapy
CPT/HCPCS: 99284